=== PATIENT | female | born 1950 | race Caucasian/White ===

== ENCOUNTER 2021-12-10 08:13 | Day surgery (SDC) | payer MEDICARE, SELFPAY ==
[2021-12-10 08:44] VITALS: BP 120/81; PULSE 63; RESP 16; TEMP 36.9; O2SAT 100; BMI 19.7
[2021-12-10] MEDS: Lactated Ringers 1,000 ML 15 ML IV (08:49)
--- NOTE | 2021-12-10 09:06 | HP.PCM_ITS ---
History and Physical Date of Admission: 12/10/21 Intake Visit Reasons: COLONOSCOPY Chief Complaint: screening colonoscopy [employer] Goods Inspector Required: No Is patient in pain?: No Allergies No Known Allergies Allergy (Verified 11/09/21 12:32) Medications levothyroxine 75 mcg tablet ea PO 11/09/21 [History Confirmed 11/09/21] oxazepam 10 mg capsule ea PO 11/09/21 [History Confirmed 11/09/21] Is last menstrual period known: No Post menopausal: Yes Patient : No PFSH Medical History (Updated 11/09/21 @ 12:[address] Jb Hollis MD) Anxiety Hyperlipidemia Hypothyroidism Surgical History (Updated 11/09/21 @ 12:34 by Ana Davenport) History of appendectomy History of colonoscopy History of left oophorectomy Family History (Updated 11/09/21 @ 12:34 by Ana Davenport) Father Cancer lung Mother Cancer lung Social History (Updated 11/09/21 @ 12:34 by Ana Davenport) Smoking Status: Never smoker HPI HPI HPI: ANUJA CARABALLO, is a 71 F who presents to the office today for surgical consultation regarding a screening colonoscopy. Her previous one was 10 years ago. She enjoys good health. She has had some discomfort in the left lower quadrant but thinks because she changed to a completely vegetarian diet. She is very physically fit and she does yoga and biking and walking. No bright red blood per rectum or melena. She has been vaccinated and boosted. She has not had Covid-19. She does have some chronic anxiety and hypothyroidism. Both are managed medically. ROS General General: No weight change, appetite, fatigue, colon cancer, breast cancer or weakness HEENT HEENT: No difficulty swallowing, eye injury, eye surgery, swollen glands or hoarseness Endo Endocrine: Yes thyroid disease; No diabetes mellitus, thyroid cancer, Hair loss, heat intolerance or cold intolerance Musc Musculoskeletal: No back problems, arthritis, rheumatoid arthritis, gout or joint pain Cardio Cardiovascular: No murmur, pacemaker, heart disease, atrial fibrillation, high blood pressure, heart attack, heart stent, palpitations, shortness of breat with exertion or chest pain Psych Psychiatric: Yes anxiety; No depression or hearing voices Resp Respiratory: No shortness of breath, No sleep apnea, No cough, No COPD, No asthma, No emphysema and No wheezing Gastro Gastrointestinal: No abdominal pain, No nausea or vomiting, No diarrhea, No constipation, No blood in stool, No acid reflux, No hemorrhoids, No ulcers, No gallbladder problem and No black,tarry stools Robert Hematologic: No blood thinners, No blood disorders, No bleeding, No anemia and No blood clots Neuro Neurologic: No weakness Exam Const General: cooperative, healthy appearing, comfortable and no acute distress Nutritional Appearance: underweight Orientation: alert and awake HENMT Head: normal to inspection Eyes General: appearance normal, both eyes and all related structures Resp Effort & Inspection: normal respiratory effort Auscultation: clear to auscultation bilaterally Cardio Rate: regular rate Rhythm: regular rhythm GI Palpation: soft and no hepatosplenomegaly Auscultation: normal bowel sounds Musc Cervical Spine: normal cervical lordosis Neuro General: patient alert, patient awake and patient oriented x3 Extrem General: no calf tenderness Psych Affect: anxious affect Assessment and Plan Assessment and Plan (1) Screening for intestinal cancer: Status: Acute Plan - Dr. Jb Hollis MD: 71-year-old healthy female in need of a screening colonoscopy. She would like to take some anxiety medication prior to arrival I believe that that would be satisfactory. She is aware of technique, benefit, risk of alternatives. We will proceed with monitored anesthesia care. Her previous colonoscopy was 10 years ago. Family history is negative for colon cancer. Her brother did have polyps. He had additional medical problems. Jb Hollis M.D., F.A.C.S. I have re-examined the patient. There are no clinical changes since date of exam.
[2021-12-10 10:20] VITALS: BP 120/81; BP 72/38; PULSE 70; RESP 16; TEMP 36.7; O2SAT 98
--- NOTE | 2021-12-10 10:23 | OP.COLON_ITS ---
Patient Name: Yola Gallegos Procedure Date: 12/10/2021 10:00 AM Date of : 1950 Age: 71 Procedure: Colonoscopy Indications: Screening for colorectal malignant neoplasm Providers: Jb Hollis MD Medicines: See the Anesthesia note for documentation of the administered medications Patient Profile: Last Colonoscopy: 10 years ago. Complications: No immediate complications. Procedure: Pre-Anesthesia Assessment: - Prior to the procedure, a History and Physical was performed, and patient medications and allergies were reviewed. The patient's tolerance of previous anesthesia was also reviewed. The risks and benefits of the procedure and the sedation options and risks were discussed with the patient. All questions were answered, and informed consent was obtained. Prior Anticoagulants: The patient has taken no previous anticoagulant or antiplatelet agents. ASA Grade Assessment: II - A patient with mild systemic disease. After reviewing the risks and benefits, the patient was deemed in satisfactory condition to undergo the procedure. After I obtained informed consent, the scope was passed under direct vision. Throughout the procedure, the patient's blood pressure, pulse, and oxygen saturations were monitored continuously. The colonoscope was introduced through the anus and advanced to the cecum, identified by appendiceal orifice and ileocecal valve. The colonoscopy was performed with moderate difficulty due to multiple diverticula in the colon. The patient tolerated the procedure well. The quality of the bowel preparation was good. Scope In: 10:03:34 AM Scope Withdrawal Time 0 hours 7 minutes 58 seconds Scope Out: 10:18:05 AM Total Procedure Duration Time 0 hours 14 minutes 31 seconds Findings: The digital rectal exam findings include non-thrombosed internal hemorrhoids and internal hemorrhoids that prolapse with straining, but spontaneously regress to the resting position (Grade II). Pertinent negatives include normal sphincter tone. Multiple diverticula were found in the entire colon. The sigmoid colon was significantly tortuous. Impression: - Non-thrombosed internal hemorrhoids and internal hemorrhoids that prolapse with straining, but spontaneously regress to the resting position (Grade II) found on digital rectal exam. - Diverticulosis in the entire examined colon. - Tortuous colon. - No specimens collected. Recommendation: - Discharge patient to home. - Resume previous diet. - Continue present medications. - Repeat colonoscopy is not recommended due to current age (66 years or older) for screening purposes. Procedure Code(s): --- Professional --- 78664, Colonoscopy, flexible; diagnostic, including collection of specimen(s) by brushing or washing, when performed (separate procedure) Diagnosis Code(s): --- Professional --- Z12.11, Encounter for screening for malignant neoplasm of colon K64.1, Second degree hemorrhoids K57.30, Diverticulosis of large intestine without perforation or abscess without bleeding Q43.8, Other specified congenital malformations of intestine CPT copyright 2017 [employer]. All rights reserved. The codes documented in this report are preliminary and upon injury/safety hazard assessment review may be revised to meet current compliance requirements. Jb Hollis MD 12/10/2021 10:23:09 AM This report has been signed electronically. Number of Addenda: 0 Note Initiated On: 12/10/2021 10:00 AM
--- NOTE | 2021-12-10 10:24 | OP.CCLET_ITS ---
12/10/2021 Jb Hollis MD [facility] [address] [place] [address] Re : Colonoscopy procedure for Yola Gallegos Dear Dr. Hollis This procedure was performed on Friday, December 10, 2021. My impressions and recommendations are as follows: Impressions : - Non-thrombosed internal hemorrhoids and internal hemorrhoids that prolapse with straining, but spontaneously regress to the resting position (Grade II) found on digital rectal exam. - Diverticulosis in the entire examined colon. - Tortuous colon. - No specimens collected. Recommendations : - Discharge patient to home. - Resume previous diet. - Continue present medications. - Repeat colonoscopy is not recommended due to current age (66 years or older) for screening purposes. My findings are described in the full procedure note, which is enclosed. If I can be of further assistance, please feel free to contact me at Doctor phone number(s): Work: . Sincerely, Jb Hollis MD 12/10/2021 10:23:09 AM This report has been signed electronically.
[2021-12-10 10:25] VITALS: BP 120/81; BP 87/49; PULSE 69; RESP 16; O2SAT 97
[2021-12-10 10:30] VITALS: BP 101/72; BP 120/81; PULSE 75; RESP 16; O2SAT 93
[2021-12-10 10:35] VITALS: BP 120/81; BP 95/56; PULSE 69; RESP 16; TEMP 36.3; O2SAT 97
== END 2021-12-10 11:04 | disposition home or self-care (01) ==
LOC: EN 08:20 → AC 08:20
PROVIDERS: Referring Provider Surgery; Visit Provider Surgery
PROC: 0DJD8ZZ Inspection of Lower Intestinal Tract, Via Natural or Artificial Opening Endoscopic (ICD-10-PCS; CPT 45378; principal; 2021-12-10 09:25)
DX: Z12.11 Encounter for screening for malignant neoplasm of colon (principal); K57.30 Diverticulosis of large intestine without perforation or abscess without bleeding; Q43.8 Other specified congenital malformations of intestine; K64.1 Second degree hemorrhoids; E03.9 Hypothyroidism, unspecified; Z79.899 Other long term (current) drug therapy
CPT/HCPCS: 45378; J7120; J2405

== ENCOUNTER → 2023-02-23 | Outpatient (CLI) | payer SELFPAY ==
--- NOTE | 2023-02-23 12:27 | CT_ITS ---
STUDY: CT CHEST WITHOUT CONTRAST REASON FOR EXAM: Female, 72 years old. CALCIUM SCORE. Over read examination. RADIATION DOSAGE (If Supplied By Facility): CTDIvol = ( 12.19 ) mGy, DLP = ( 243.79 ) mGycm TECHNIQUE: Transaxial imaging was performed without the administration of intravenous contrast material. Individualized dose optimization techniques were used for this CT. COMPARISON: No relevant priors. FINDINGS: CHEST There is a 4.3 mm noncalcified nodule in the anterior aspect of the left lower lobe abutting the major fissure as seen on axial image #30. No follow-up is required. There is no demonstrated pleural abnormality. There are calcifications of the coronary arteries. Normal mediastinum. Normal hilar regions. Normal unenhanced pulmonary arteries. Normal aorta arch and descending thoracic aorta. There are degenerative changes of the thoracic spine. There is no demonstrated abnormality of the visualized upper abdomen. CT/Limited Chest CT Cardiac Only IMPRESSION: Coronary artery calcification. 4.3 mm noncalcified pleural based nodule in the anterior aspect of the left lower lobe abutting the major fissure. No follow-up is recommended. Electronically Signed: Sebastián Castillo MD at 14:36 EDT ,
--- NOTE | 2023-02-23 17:42 | CA.SCORE ---
Calcium Scoring Date of Study:: 02/23/23 Indications Indications: Hyperlipidemia Coronary Calcium Scoring: High-resolution Computed Tomographic imaging of the chest was performed on [02/23/2023], with particular attention paid to the coronary arteries. Images from the examination were analyzed for the presence and extent of coronary artery calcification , using coronary calcium quantification software. The patient tolerated the procedure well and there were no complications. The results of the coronary calcification analysis are provided below. Findings Coronary Artery Left Main (LM): 0 Left Anterior Descending (LAD): 0 Left Circumflex (LCX): 0 Right Coronary Artery (RCA): 0 Total Agatston Score: 0 Percentile Rankin Calcium Scoring Interpretation: Different methods to categorize the overall amount of coronary plaque. Overall amount CAC SIS Visual of coronary plaque P1 Mild -100 <2 1-2 vessels with mild amount of plaque P2 Moderate 101-300 3-4 1-2 vessels with moderate amount, 3 vessels with mild amount of plaque P3 Severe 301-999 5-7 3 vessels with moderate amount, 1 vessel with severe amount of plaque P4 Extensive >1000 >8 2-3 vessels with severe amount of plaque Conclusion: No significant atherosclerotic plaquing noted
== END | disposition home or self-care (01) ==
PROVIDERS: PCP Registered Nurse; Referring Provider Internal Medicine Cardiovascular Disease; Visit Provider Internal Medicine Cardiovascular Disease
DX: E78.5 Hyperlipidemia, unspecified (principal)
CPT/HCPCS: 75571; 76380

== ENCOUNTER 2023-04-03 08:34 | Emergency (ER) | payer MEDICARE, SELFPAY ==
[2023-04-03 08:35] VITALS: BP 110/67; PULSE 72; RESP 14; TEMP 36.1; O2SAT 100; BMI 19.3
--- NOTE | 2023-04-03 08:51 | EDS_ITS ---
HPI HPI - GI History of Present Illness Chief Complaint: Abd Pain Detail of Chief Complaint: Abdominal fullness and pain for a couple of weeks. Informant: patient and spouse/S.O. Abdominal Pain/Flank Pain Onset: Weeks Context: Sudden Onset Timing: Continuous and Waxes and wanes Quality: Aching Location: RLQ and LLQ Current Severity: Mild Maximum Severity: Moderate Worsened by: Food (Believes the potato with 2 tablespoons of olive oil that she consumed on .) Relieved by: Antacids (Has taken Maalox with minimal improvement) Nausea/Vomiting/Emesis GI Symptom: Negative for Nausea or Vomiting Diarrhea/Melena/Hematochezia GI Symptom: Positive for Diarrhea (Diarrhea a couple of weeks ago after consuming dairy products and self-induced); Negative for Melena or Hematochezia Onset: Weeks (2 weeks ago and this past week) Stool Quality: Positive for Loose and Watery; Negative for Mucous, Black, Maroon or BRB per rectum Severity: Mild Associated Symptoms Associated Symptoms: Negative for Dysuria, Frequency, Hematuria or Urgency Narrative Narrative: Patient is a 72-year-old woman who presents with abdominal pain. She has history of lactulose intolerance. Patient was doing well until a couple of weeks ago when she had dairy product. She took lactulose tablets but did not have total relief. She presents now because of increased fullness and distention that she reports got worse this past after having potato with olive oil. She denies nausea or vomiting. She had diarrhea a couple of weeks ago when she had dairy product and when she is taking Maalox. She states she had a colonoscopy recently by Dr. Jb Hollis and was told she does not need future colonoscopy. No biopsies were taken. That note was reviewed and patient has evidence of diverticulosis in the entire colon that was examined and also had an internal hemorrhoid. Patient denies fever, chills night sweats. Patient Nuys weight gain or weight loss. Patient denies urologic symptoms. Patient denies back pain. Prior similar symptoms: Yes Recent Illness/Hospitalization: No PFSH [facility] Medical History Abnormal Holter monitor finding Alcohol use Anxiety Dietary restriction High cholesterol Hyperlipidemia Hypothyroidism Non-smoker NSVT (nonsustained ventricular tachycardia) Paroxysmal supraventricular tachycardia Post-menopausal Screening for intestinal cancer Thyroid disease Wears contact lenses Wears glasses Home Medications levothyroxine 75 mcg tablet 75 mcg PO SUMOTUWETHFR 11/09/21 [History Last Taken Unknown] cholecalciferol (vitamin D3) 25 mcg (1,000 unit) capsule (Vitamin D3) 25 mcg PO DAILY 12/09/21 [History Last Taken Unknown] oxazepam 10 mg capsule 10 mg PO PRN PRN Anxiety 01/18/23 [History Last Taken Unknown] amoxicillin 875 mg-potassium clavulanate 125 mg tablet 875 mg (0.875 x 875-125 mg) PO Q12H #14 TABLETS 04/03/23 [Rx Last Taken Unknown] Allergy/AdvReac Type Severity Reaction Status Date / Time No Known Allergies Allergy Verified 04/03/23 08:37 Family History Father Cancer lung Hypertension Diabetes Mother Cancer lung Hypertension CVA (cerebral vascular accident) Surgical History History of appendectomy History of colonoscopy History of left oophorectomy History of tonsillectomy Social History Smoking Status: Never smoker alcohol intake: current alcohol intake frequency: a few times a month Alcohol type: wine substance use type: does not use caffeine: Yes Type: carbonated beverages Number of servings: 2 and coffee Number of servings: 1 ROS ROS ED Constitutional Constitutional ED: Denies chills, fever(s), subjective, sweats or weight loss ENT ENT ED: Denies ear pain, rhinorrhea or sore throat Cardiovascular Cardiovascular: Denies chest pain or palpitations Respiratory/Chest Respiratory/Chest: Denies cough, dyspnea or dyspnea on exertion Gastrointestinal Gastrointestinal: Reports abdominal pain and diarrhea; Denies constipation, melena, nausea or vomiting Genitourinary Genitourinary ED: Denies dysuria, hematuria or urinary frequency Musculoskeletal Musculoskeletal: Denies arthralgias, back pain, myalgias or neck pain Integumentary Denies rash Hematologic/Lymphatic Hematologic/Lymphatic: Denies easy bleeding or easy bruising EXAM Physical Exam Const Vital Signs: 04/03/23 08:35 Temperature 97.0 F L Temperature Source Temporal Pulse Rate 72 Respiratory Rate 14 Blood Pressure 110/67 Blood Pressure Mean 81 Pulse Ox 100 Oxygen Delivery Method Room Air Positive well nourished and well developed General Appearance ED: well developed, NAD and pallor HEENT Reports TM's clear and moist mucous membranes normocephalic and atraumatic Tympanic Membrane ED: Yes TM's clear Eyes PERRL and EOMs intact bilaterally General Eye ED: Negative for pale conjunctiva or scleral icterus Neck no lymphadenopathy, supple and no JVD Resp normal respiratory effort and clear to auscultation bilaterally Cardio regular rate, regular rhythm, S1 normal heart sound, S2 normal heart sound and no murmurs GI no masses; Negative for non-tender or non-distended GI Narrative: Patient is tympany throughout. Bowel sounds are increased. There is no tinkling bowel sounds. Patient has scar due to salpingo-oophorectomy and appendicitis. Inspection: abdominal distention Palpation: soft and tender LLQ; Negative for guarding, rigid, hepatomegaly, splenomegaly, hernia, mass or pulsatile mass Back/Spine no CVA tenderness Extremity full ROM General Extremety ED: Negative for edema or tenderness General Extremity: Negative for edema Neuro CN's II-XII intact bilaterally, moves all extremities and no sensory deficits noted Sensorium / Orientation: alert Psych mental status grossly normal and thought process normal Skin no wounds General Skin Exam: pallor; Negative for jaundice Lesions: no lesions Rashes: no rashes MDM MDM MDM Narrative Medical decision making narrative: Patient is tympanitic distended with prior history of surgery will obtain abdominal series to assess for air-fluid levels. Doubt obstruction since patient states she is passing gas. Her last bowel movement was normal and less than 24 hours ago. If white count is elevated in light of extensive diverticulosis will obtain CAT scan to evaluate for diverticulitis. Records from outside facility i.e. Holter monitor ordered by Romeo Ruiz was reviewed. Colonoscopy report by Dr. Jb Hollis was reviewed. History & Record Review Additional record(s) reviewed:: Prior outpatient record, Prior ED visit and Prior labs Lab Data Labs: Laboratory Results - last 24 hr 04/03/23 09:00 WBC 13.6 H RBC 4.35 Hgb 12.7 Hct 39.5 MCV 90.8 MCH 29.2 MCHC 32.2 RDW Std Deviation 40.0 RDW Coeff of Snow 12.0 Plt Count 252 MPV 10.9 Immature Gran % (Auto) 0.300 Neut % (Auto) 86.5 H Lymph % (Auto) 7.3 L Ness % (Auto) 5.2 Eos % (Auto) 0.3 Baso % (Auto) 0.4 Absolute Neuts (auto) 11.8 H Absolute Lymphs (auto) 1.00 Nucleated RBC % 0 Sodium 140 Potassium 3.6 Chloride 105 Carbon Dioxide 30.0 Anion Gap 5 BUN 13 Creatinine 0.74 Estim Creat Clear Calc 44.34 Est GFR (MDRD) Af Amer 99 Est GFR (MDRD) Non-Af 82 BUN/Creatinine Ratio 17.5 Glucose 97 Calcium 9.0 Radiography Chest X-Ray - ED: Read by ED Physician (3 view abdominal series was obtained. The chest portion was unremarkable. Cardiac silhouette and size normal. Lung parenchyma normal. Perihilar region normal. Osseous structures were normal. The abdominal portion reveals minimal nonspecific gas. There is no pneumo.. There is minimal degenera) Diagnostic Testing: Clinical Impression(s) from Imaging Studies Acute Abdomen Series 04/03/23 09:08 IMPRESSION: 1. No active pulmonary disease. 2. Nonobstructive gas. Electronically Signed: Ismael Sommer MD at 9:30 EDT , Abdomen/Pelvis CT 04/03/23 09:30 IMPRESSION: 1. Thickening of the sigmoid colon consistent with acute diverticulitis. 2. No evidence of drainable abscess or free air. Electronically Signed: Ismael Sommer MD at 10:26 EDT , Treatment and Re-Evaluation :: Because patient has predominately tenderness left lower quadrant with extensive diverticulosis on most recent colonoscopy an elevated white count of 13.6 thousand and will obtain CAT scan to assess for diverticulitis. CAT scan reveals diverticulitis of the sigmoid colon. Patient received first dose of Augmentin in the emergency department. She was discharged home. Discharge Plan Triage Chief Complaint: Abd Pain ED Provider: Victor M Nicole Dx/Rx/DC Orders Clinical Impression: Hyperlipidemia, Hypothyroidism, Diverticulitis of sigmoid colon Instructions: ED Diverticulitis Prescriptions: New amoxicillin-pot clavulanate [amoxicillin-pot clavulanate] 875-125 mg tablet 875 mg PO Q12H Qty: 14 0RF No Action levothyroxine 75 mcg tablet 75 mcg PO SUMOTUWETHFR Patient Comments: TAKE ON EMPTY STOMACH. FOR THYROID. TAKE ONE TABLET 6 DAYS/WEEK. oxazepam 10 mg capsule 10 mg PO PRN PRN (Reason: Anxiety) Patient Comments: TAKE 1 CAPSULE BY MOUTH ONCE DAILY NEEDED FOR ANXIETY FOR UP TO 30 DAYS. cholecalciferol (vitamin D3) [Vitamin D3] 25 mcg (1,000 unit) Capsule 25 mcg PO DAILY Primary Care Provider: Marely Wood NP Referrals: Marely Wood NP, [facility] [Primary Care Provider] - 3-5 Days if not improving Activity Restrictions/Additional Instructions: 1. Take antibiotics till gone 2. If you develop a fever or pain becomes worse return to the emergency department 3. Take either ibuprofen or Tylenol for pain as needed Disposition Disposition: Home, Self Care
--- NOTE | 2023-04-03 09:08 | RAD_ITS ---
INDICATION: Distention, bloated, tympanitic and bilateral LQ p EXAMINATION/TECHNIQUE: X-RAY - XR Abdomen Series W/ Chest 1 View COMPARISON: None. FINDINGS: --Chest: LINES/DEVICES: None. LUNGS: No consolidation, edema or effusion. No pneumothorax. MEDIASTINUM AND CARDIOVASCULAR STRUCTURES: Cardiac silhouette not enlarged. Central airways and mediastinal contour are unremarkable. BONES AND SOFT TISSUES: No acute findings. --Abdomen: BOWEL GAS PATTERN: Non-obstructive. No bowel or stomach distention. FREE AIR: None visualized. ORGANOMEGALY: Not seen. CALCIFICATIONS: No abnormal calcifications observed. BONES AND SOFT TISSUES: Degenerative changes of the lower lumbar spine. RAD/Acute Abdomen Inc Chest IMPRESSION: 1. No active pulmonary disease. 2. Nonobstructive gas. Electronically Signed: Ismael Sommer MD at 9:30 EDT ,
[2023-04-03 09:13] LABS: Absolute Neutrophil Count 11.8 X10^3/uL (2.0-7.7); Basophil# 0.05 X10^3/uL; Basophil% 0.4 % (0-1); Eosinophil# 0.04 X10^3/uL; Eosinophils% 0.3 % (0-5); Hematocrit 39.5 % (37-47); Hemoglobin 12.7 g/dL (12.0-15.0); Lymphocyte % 7.3 % (19-41); Mean Corp Hgb Conc 32.2 g/dL (32-36); Mean Corpuscular Hgb 29.2 pg (27.0-32.0); Mean Corpuscular Volume 90.8 fL (81-99); Mean Platelet Vol. 10.9 fl (6.2-12.0); Monocyte# 0.71 X10^3/uL; Monocyte% 5.2 % (0-10); NRBC Flagged by Analyzer 0 % (0-5); Neutrophil # 11.78 X10^3/uL (2.7-7.7); Neutrophil % 86.5 % (47-70); Platelet Count 252 K/mm3 (150-450); Red Blood Count 4.35 M/mm3 (4.2-5.4); White Blood Count 13.6 K/mm3 (4.4-11.0)
[2023-04-03 09:28] LABS: Anion Gap 5 (5-15); BUN 13 mg/dL (7-18); BUN/Creat Ratio 17.5 RATIO (10-20); Chloride 105 mmol/L (98-107); Creatinine, Serum 0.74 mg/dL (0.55-1.02); EST Glomerular Filtration Rate 82 mL/min (>60); Est Glom Filt Rate - Afr Amer 99 mL/min (>60); Estimated Creatinine Clearance 44.34 ml/min; Glucose 97 mg/dL (74-106); Potassium 3.6 mmol/L (3.5-5.1); Sodium Level 140 mmol/L (136-145)
--- NOTE | 2023-04-03 09:30 | CT_ITS ---
STUDY: CT ABDOMEN AND PELVIS WITH CONTRAST REASON FOR EXAM: Female, 72 years old. LLQ pain, leukocytosis, history diverticulosis RADIATION DOSAGE (If Supplied By Facility): CTDIvol = ( 10.89 ) mGy, DLP = ( 390.74 ) mGycm TECHNIQUE: IV 100mL [id number]-[id number] was administered. Transaxial images were obtained from the dome of the diaphragm to the symphysis pubis. Multiplanar coronal and sagittal images were reformatted. Individualized Dose Optimization Techniques Were Used For This CT. COMPARISON: No prior examinations are available for comparison FINDINGS: The visualized lung bases are unremarkable. The visualized portions of the heart are within normal limits. Normal liver. Normal gallbladder and extrahepatic biliary system. Normal spleen. Normal pancreas. Normal bilateral adrenal glands. Grossly unremarkable stomach. Normal in caliber small bowel loops. Diverticulosis of the sigmoid colon with long segment of thickening and stranding consistent with acute diverticulitis. Colitis is less likely. Fecal retention. There are surgical clips in the region of the appendix consistent with a prior appendectomy. There is atherosclerotic calcification of the abdominal aorta, without a demonstrated aneurysm. No retroperitoneal adenopathy. Normal right kidney. Normal left kidney. Normal urinary bladder. Small umbilical hernia containing fat. Degenerative changes in the spine. CT/Abdomen/Pelvis W IV Cont ONLY IMPRESSION: 1. Thickening of the sigmoid colon consistent with acute diverticulitis. 2. No evidence of drainable abscess or free air. Electronically Signed: Ismael Sommer MD at 10:26 EDT ,
[2023-04-03] MEDS: Morphine 4 MG/ML Syringe IV (10:06)
[2023-04-03] MEDS: Ondansetron 4 MG/2 ML Vial IV (10:06)
[2023-04-03] MEDS: Amox/Clavulanate 875 MG Tablet PO (11:18)
== END 2023-04-03 11:30 | disposition home or self-care (01) ==
PROVIDERS: Emergency Provider Emergency Medicine; PCP Registered Nurse; Visit Provider Emergency Medicine
DX: E78.5 Hyperlipidemia, unspecified (principal); E03.9 Hypothyroidism, unspecified; K57.32 Diverticulitis of large intestine without perforation or abscess without bleeding
CPT/HCPCS: 74022; 74177; 80048; 85025; 96374; 96375; 99283; Q9967; A4216; J2405

== ENCOUNTER 2025-01-01 23:23 | Emergency (ER) | payer MEDICARE, SELFPAY ==
[2025-01-01 23:23] VITALS: BP 144/83; PULSE 40; RESP 18; TEMP 36.6; O2SAT 100; BMI 19.5
[2025-01-01 23:40] VITALS: BP 131/57; PULSE 62; RESP 18; O2SAT 99
[2025-01-02 00:18] LABS: Absolute Neutrophil Count 9.4 X10^3/uL (2.0-7.7); Basophil# 0.06 X10^3/uL; Basophil% 0.5 % (0-1); Eosinophil# 0.07 X10^3/uL; Eosinophils% 0.6 % (0-5); Hematocrit 41.2 % (37-47); Hemoglobin 13.7 g/dL (12.0-15.0); Lymphocyte % 16.3 % (19-41); Mean Corp Hgb Conc 33.3 g/dL (32-36); Mean Corpuscular Hgb 29.3 pg (27.0-32.0); Mean Platelet Vol. 11.2 fl (6.2-12.0); Monocyte# 0.68 X10^3/uL; Monocyte% 5.5 % (0-10); NRBC Flagged by Analyzer 0 % (0-5); Neutrophil % 76.4 % (47-70); Platelet Count 219 K/mm3 (150-450); RBC Distribution Width CV 12.7 % (11.6-14.6); RBC Distribution Width SD 41.1 fl (35.1-43.9); Red Blood Count 4.68 M/mm3 (4.2-5.4); White Blood Count 12.3 K/mm3 (4.4-11.0)
[2025-01-02 00:36] LABS: ALB/GLOB Ratio 1.4 RATIO (0.9-2.4); AST(SGOT) 23 U/L (<=31); Alanine Aminotransfer ALT/SGPT 12 U/L (<=34); Albumin, Serum 4.3 g/dL (3.4-4.8); Alkaline Phosphatase 68 U/L (35-104); Anion Gap 12 (5-15); BUN 9 mg/dL (4-19); BUN/Creat Ratio 11.8 RATIO (10-20); Calcium,Total 9.4 mg/dL (7.6-11.0); Carbon Dioxide 24.7 mmol/L (21.0-32.0); Chloride 103 mmol/L (98-108); Creatinine, Serum 0.78 mg/dL (0.70-1.20); EST Glomerular Filtration Rate 80 (>60); Estimated Creatinine Clearance 54.18 ml/min (50-250); Globulin 3.2 g/dL (2.2-4.2); Glucose 109 mg/dL (70-99); Lipase 19 U/L (13-75); Potassium 3.7 mmol/L (3.3-5.1); Protein, Total 7.5 g/dL (5.9-8.4); Sodium Level 140 mmol/L (133-145); Total Bilirubin 0.76 mg/dL (0.00-1.30)
--- NOTE | 2025-01-02 00:47 | CT_ITS ---
PROCEDURE: ABDOMEN/PELVIS W IV CONT ONLY 01/02/2025 REASON FOR EXAM: LLQ PAIN TECHNIQUE: Abdomen and pelvis CT with intravenous contrast. Coronal and Sagittal reconstruction series were provided. PATIENT PREPARATION: Per protocol CONTRAST: 100 mL [id number] One or more dose reduction techniques were used (e.g., Automated exposure control, adjustment of the mA and/or kV according to patient size, use of iterative reconstruction technique. RADIATION DOSE SUMMARY: CTDlvol: 10.4 mGy DLP: 512 mGycm COMPARISON: CT abdomen and pelvis on 04/03/2023 FINDINGS: Lung bases: Unremarkable Liver: Normal size. No mass. Gallbladder: No radiodense stones. Common bile duct measures 7 mm in diameter, unchanged. Spleen: Normal size. Pancreas: Normal size without evidence of mass surrounding inflammation or ductal dilation. Adrenals: Unremarkable. Kidneys: No stones or hydronephrosis Bladder: Unremarkable Reproductive Organs: Prominent periuterine veins, unchanged. Bowel: No obstruction. There is colonic diverticulosis with mild wall thickening and inflammatory stranding involving the sigmoid colon. Surgically absent appendix. Lymph nodes: No significant lymphadenopathy. Vasculature: Mild diffuse atherosclerotic calcifications are noted. Bones: Degenerative changes of the spine. Mild sclerosis of the femoral heads is unchanged. Abdominal wall: Small fat containing umbilical and right inguinal hernias. CT/Abdomen/Pelvis W IV Cont ONLY IMPRESSION: Findings suggestive of mild acute uncomplicated diverticulitis of the sigmoid c olon. Reading Location: [id number]
[2025-01-02 01:00] VITALS: BP 126/48; PULSE 50; RESP 18; O2SAT 97
--- OUTSIDE RECORDS SUMMARY | 2025-01-02 01:17 | XMS RPT_ITS | CCD ---
Author Organization [facility] Care Team Providers Care Waiter/Waitress Name Role Phone Haagen FREIGHT RATE SPECIALIST.KEVIN, Marely Primary Care Provider Dr. Jb Hollis Attending Provider Dr. Jb Hollis Referring Provider Dr. Jb Hollis Other Provider GLORIA WADE Primary Care Provider Unavailab le Haagen FREIGHT RATE SPECIALIST.EDUCATIONAL RECRUITER, Marely Primary Care Provider Haagen FREIGHT RATE SPECIALIST.EDUCATIONAL RECRUITER, Marely Primary Care Provider Haagen FREIGHT RATE SPECIALIST.EDUCATIONAL RECRUITER, Marely Primary Care Provider Sabrina Coon Attending Provider Unavailable Dr. Den Buchanan Attending Provider Nina CARE MANAGEMENT ASSOCIATE, CARE MANAGEMENT ASSOCIATE-C Marely Referring Provider Haagen CARE MANAGEMENT ASSOCIATE, CARE MANAGEMENT ASSOCIATE-C Marely Primary Care Provider Dr. Den Buchanan Referring Provider Dr. Den Buchanan Other Provider Gillian ARRINGTON, CARE MANAGEMENT ASSOCIATE-C Marcos Ivey Attending Provider Haagen FREIGHT RATE SPECIALIST.EDUCATIONAL RECRUITER, Marely Primary Care Provider Marcos French Attending Unavailable Haagen CARE MANAGEMENT ASSOCIATE, Marely Primary Care Unavailable Haagen CARE MANAGEMENT ASSOCIATE, Marely Primary Care Unavailable Victor M Nicole Attending Unavailable Den Buchanan Attending Unavailable Haagen CARE MANAGEMENT ASSOCIATE, Marely Referring Unavailable Neyda Canela NP Attending Unavailable Haagen CARE MANAGEMENT ASSOCIATE, Marely Referring Unavailable Haagen CARE MANAGEMENT ASSOCIATE, Marely Primary Care Unavailable Den Buchanan Attending Unavailable Den Buchanan Referring Unavailable Haagen CARE MANAGEMENT ASSOCIATE, Marely Primary Care Unavailable Chnael, Parowan Consulting Unavailable Chanel, Den Attending Unavailable Chanel, Parowan Referring Unavailable Haagen CARE MANAGEMENT ASSOCIATE, Marely Primary Care Unavailable Haagen FREIGHT RATE SPECIALIST.EDUCATIONAL RECRUITER, Marely Primary Care Provider Suppan FREIGHT RATE SPECIALIST.Amara BROWN Unavailable Mariano Kang MD Unavailable Suppan FREIGHT RATE SPECIALIST.Amara BROWN Unavailable [phone] HAAGEN, MARELY Primary Care Unavailable KEENAN GUILLEN Attending Unavailable HAAGEN, MARELY Referring Unavailable HAAGEN, MARELY Primary Care Unavailable HAAGEN, MARELY Attending Unavailable HAAGEN, MARELY Primary Care Unavailable LISA CULLEN Referring Unavail able HAAGEN, MARELY Primary Care Unavailable HAAGEN, MARELY Referring Unavailable HAAGEN, MARELY Primary Care Unavailable HAAGEN, MARELY Attending Unavailable HAAGEN, MARELY Primary Care Unavailable COLLEEN POWELL Attending Unavailable HAAGEN, MARELY Primary Care Unavailable NETTE LIZ Referring Unavailable HAAGEN, MARELY Primary Care Unavailable HAAGEN, MARELY Attending Unavailable HAAGEN, MARELY Primary Care Unavailable COLLEEN POWELL Attending Unavailable HAAGEN, MARELY Primary Care Unavailable JUANA LOVE Attending Unavailable HAAGEN, MARELY Primary Care Unavailable Suppan FREIGHT RATE SPECIALIST.Amara BROWN Unavailable Mariano Kang MD Unavailable Medications Current Medications Medication Drug Class(es) Dates Sig (Normalized) Sig (Original) amitriptyline hydrochloride 10 mg oral tablet (8 sources) Tricyclic Antidepressant Start: 03-25-2024 take 1 tablet by mouth once daily at bedtime amitriptyline (ELAVIL) 10 mg tablet Indications: Abdominal pain, unspecified abdominal location , JOSE EDUARDO (generalized anxiety disorder) Take 1 tablet by mouth daily at bedtime. 30 tablet 1 03/25/2024 Active amoxicillin 875 mg / clavulanate 125 mg oral tablet (2 sources) Penicillin-class Antibacterial Start: 06-16-2023 End: 06-26-2023 take 1 tablet by mouth twice daily amoxicillin-clavul anate potassium (AUGMENTIN) 875-125 mg per tablet Indications: Bacterial sinusitis Take 1 tablet by mouth two times a day for 10 days. 20 tablet 0 06/16/2023 06/26/2023 Active Start: 04-03-2023 take 875 mg by mouth every twelve hours Amoxicillin-Pot Clavulanate Active 875 MG PO Q12H April 03, 2023 12:00am Comment on above: Take 1 tablet by [facility] two times a day for 10 days. cephalexin 500 mg oral capsule (4 sources) Cephalosporin Antibacterial Start: 5 End: 5 take 1 capsule by mouth twice daily cephALEXin (KEFLEX) 500 mg capsule Indications: Acute bacterial simple cystitis Take 1 capsule by mouth two times a day for 7 days. 14 capsule 11/24/2024 12/01/2024 Active Start: 01-23-2022 End: 01-30-2022 take 1 capsule by mouth twice daily cephALEXin (KEFLEX) 500 mg capsule Take 1 capsule by mouth twice daily for 7 days. 14 capsule 0 01/23/2022 01/30/2022 Active Comment on above: Take 1 capsule by [facility] twice daily for 7 days. cholecalciferol 0.025 mg oral capsule (20 sources) Vitamin D Start: 12-10-19 take 1 capsule by mouth once daily Cholecalciferol (Vitamin D3) (Vitamin D3) 25 mcg (1,000 unit) Capsule Active 25 MCG PO DAILY December 09, 2021 12:00am Start: 03-26-2019 take 1 capsule by [facility] once daily Cholecalciferol, Vitamin D3, 2,000 unit cap Take 1 capsule by mouth once daily. 03/26/2019 Active Comment on above: Take 1 capsule by [facility] once daily. estradiol 0.1 mg/ml vaginal cream (20 sources) Estrogen Start: 3 End: 4 estradiol (ESTRACE) 0.01 % (0.1 mg/gram) vaginal cream Indications: Postmenopausal atrophic vaginitis , Genitourinary syndrome of menopause , Urethral caruncle Use 1 g vaginally as directed. Insert 1 gm vaginally every night x 14 nights then insert 1 gm vaginally twice weekly 42.5 g 4 11/13/2023 Active Comment on above: Use 1 g vaginally as directed. Insert 1 gm vaginally every night x 14 nights then insert 1 gm vaginally twice weekly fluconazole 150 mg oral tablet (4 sources) Azole Antifungal Start: End: take 1 tablet by mouth once fluconazole (DIFLUCAN) 150 mg tablet Take 1 tablet by mouth one time only for 1 dose. 1 tablet 03/19/2024 03/19/2024 Active Start: 11-17-2022 End: 11-17-2022 fluconazole (DIFLUCAN) 150 m g tablet Take 1 tablet by mouth one time only for 1 dose. Repeat in 3 days as needed. 2 tablet 0 11/17/2022 11/17/2022 Start: 11-14-2022 End: 11-15-2022 take 1 tablet by mouth once daily fluconazole (DIFLUCAN) 150 mg tablet Indications: Alfred vaginitis Take 1 tablet by mouth once daily for 1 day. 1 tablet 0 11/14/2022 11/15/2022 Active Comment on above: Take 1 tablet by elizabeth [facility] once daily for 1 day. Take 1 tablet by elizabeth [facility] one time only for 1 dose. Repeat in 3 days as needed. lactobacillus acidophilus 460 mg oral capsule (20 sources) Start: take 1 capsule by mouth once daily Lactobacillus acidophilus (FLORAJEN ACIDOPHILUS) 20 billion cell capsule Indications: Abdominal pain, unspecified abdominal location Take 1 capsule by mouth once daily. 30 capsule 1 10/13/2023 Active Comment on above: Take 1 capsule by mo [facility] once daily. levothyroxine sodium 0.075 mg oral tablet (20 sources) l-Thyroxine Start: End: SYNTHROID 75 mcg tablet Indications: Hypothyroidism, unspecified type Take on empty stomach. For Thyroid. Take one tablet 6 days/week. 90 tablet 3 11/13/2023 Active Comment on above: Take on empty stomac h. For Thyroid. Take one tablet 6 days/week. nitrofurantoin, macrocrystals 25 mg / nitrofurantoin, monohydrate 75 mg oral capsule (4 sources) Nitrofuran Antibacterial Start: 023 End: take 1 capsule by mouth twice daily at mealtime nitrofurantoin monohydrate and macrocrystal (MACROBID) 100 mg capsule Indications: Burning with urination Take 1 capsule by mouth twice daily with meals for 5 days. 10 capsule 0 10/24/2022 10/29/2022 Active Comment on above: Take 1 capsule by mo [facility] twice daily with meals for 5 days. perflutren lipid microspheres 1.3 mL in NaCl (PF) 0.9% 10 mL injection (DEFINITY) (20 sources) Start: End: perflutren lipid microspheres 1.3 mL in NaCl (PF) 0.9% 10 mL injection (DEFINITY) 125 ml sodium chloride 9 mg/ml prefilled syringe (20 sources) Start: End: sodium chloride 0.9 % (flush) 10 mL (BD POSIFLUSH) Completed/Discontinued Medications Medication Drug Class(es) Dates Sig (Normalized) Sig (Original) betamethasone 0.5 mg/ml / clotrimazole 10 mg/ml topical cream (11 sources) Azole Antifungal, Corticosteroid Start: 12-27-2022 End: 10-13-2023 clotrimazole-beta methasone (LOTRISONE) cream Indications: Irritation of vulva Apply 1 application to affected area twice daily. 15 g 2 12/27/2022 10/13/2023 Discontinued (Other) Comment on above: Apply 1 application to affected area twice daily. busPIRone hydrochloride 5 mg oral tablet (12 sources) Start: 02-12-2024 End: 03-25-2024 take 3 tablets by mouth twice daily as needed busPIRone (BUSPAR) 5 mg tablet Indications: Chronic anxiety Take 3 tablets by mouth two times a day as needed. 60 tablet 1 02/12/2024 03/25/2024 Discontinued Start: 10-13-2023 End: 02-12-2024 take 1 tablet by mouth twice daily as needed busPIRone (BUSPAR) 5 mg tablet Indications: Chronic anxiety Take 1 tablet by mouth two times a day as needed. 60 tablet 1 10/13/2023 02/12/2024 Discontinued Comment on above: Take 1 tablet by [facility] two times a day as needed. ciprofloxacin 500 mg oral tablet (5 sources) Quinolone Antimicrobial Start: 12-28-19 End: 04-13-20 take 1 tablet by mouth twice daily ciprofloxacin HCl (CIPRO) 500 mg tablet Indications: Leukocytes in urine , Recurrent UTI Take 1 tablet by mouth twice daily. FOR 7 DAYS. 14 tablet 0 12/27/2022 04/13/2023 Discontinued Start: 11-17-2022 End: 11-24-2022 take 1 tablet by mouth twice daily ciprofloxacin HCl (CIPRO) 500 mg tablet Take 1 tablet by mouth twice daily for 7 days. 14 tablet 0 11/17/2022 11/24/2022 Active Comment on above: Take 1 tablet by elizabeth [facility] twice daily for 7 days. Take 1 tablet by elizabeth [facility] twice daily. FOR 7 DAYS. oxazepam 10 mg oral capsule (20 sources) Benzodiazepine Start: 03-25-2024 End: 04-24-2024 take 1 capsule by mouth once daily as needed for anxiety oxazepam (SERAX) 10 mg capsule Indications: Chronic anxiety Take 1 capsule by mouth once daily as needed for anxiety for up to 30 days. 30 capsule 03/25/2024 04/24/2024 Start: 12-26-2023 End: 01-25-2024 take 1 capsule by mouth once daily as needed for anxiety oxazepam (SERAX) 10 mg capsule Indications: Chronic anxiety Take 1 capsule by mouth once daily as needed for anxiety for up to 30 days. 30 capsule 0 12/26/2023 01/25/2024 Active Start: 10-13-2023 End: 11-12-2023 take 1 capsule by mouth once daily as needed for anxiety oxazepam (SERAX) 10 mg capsule Indications: Chronic anxiety Take 1 capsule by mouth once daily as needed for anxiety for up to 30 days. 30 capsule 0 10/13/2023 11/12/2023 Active Start: 07-04-2023 End: 08-03-2023 take 1 capsule by mouth once daily as needed for anxiety oxazepam (SERAX) 10 mg capsule Indications: Chronic anxiety Take 1 capsule by mouth once daily as needed for anxiety for up to 30 days. 30 capsule 0 07/04/2023 08/03/2023 Active Start: 04-13-2023 End: 05-13-2023 take 1 capsule by mouth once daily as needed for anxiety oxazepam (SERAX) 10 mg capsule Indications: Chronic anxiety Take 1 capsule by mouth once daily as needed for anxiety for up to 30 days. 30 capsule 0 04/13/2023 05/13/2023 Active Start: 01-18-2023 Oxazepam Activ e 10 MG PO NEEDED January 18, 2023 11:13am Start: 11-29-2022 End: 12-29-2022 take 1 capsule by mouth once daily as needed for anxiety oxazepam (SERAX) 10 mg capsule Indications: Chronic anxiety Take 1 capsule by mouth once daily as needed for anxiety for up to 30 days. 30 capsule 0 11/29/2022 12/29/2022 Active Start: 06-21-2022 End: 11-23-2022 take 1 capsule by mouth once daily as needed for anxiety oxazepam (SERAX) 10 mg capsule Indications: Chronic anxiety Take 1 capsule by mouth once daily as needed for anxiety for up to 30 days. 30 capsule 0 10/24/2022 11/23/2022 Active Start: 11-09-2021 End: 12-10-2021 take 1 capsule by mouth once daily as needed for anxiety oxazepam (SERAX) 10 mg capsule Indications: Chronic anxiety Take 1 capsule by mouth once daily as needed for anxiety for up to 30 days. 30 capsule 0 11/10/2021 12/10/2021 Active Start: 11-09-2021 End: 01-18-2023 Oxazepam Discontinued 15 MG PO NEEDED November 09, 2021 12:00am January 18, 2023 11:14am Comment on above: Take 1 capsule by mo [facility] once daily as needed for anxiety for up to 30 days. Problems Active Problems Problem Classification Problem Date Documented Date Episodic/Chronic Anxiety disorders (20 sources) Chronic anxiety; Translations: [Anxiety disorder, unspecified] Onset: 02-22-2011 Chronic Bacterial infection; unspecified site (1 source) Other specified bacterial agents as the cause of diseases classified elsewhere; Translations: [Acute bacterial simple cystitis] Onset: 11-24-2024 Episodic Cardiac dysrhythmias (20 sources) Paroxysmal supraventricular tachycardia; Translations: [Supraventricular tachycardia] Onset: 11-17-2022 Chronic Cardiac dysrhythmias (4 sources) Bradycardia; Translations: [Bradycardia, unspecified] Episodic Diseases of white blood cells (4 sources) Leukocytosis; Translations: [Elevated white blood cell count, unspecified] Onset: 10-11-2024 04-13-2023 Chronic Disorders of lipid metabolism (20 sources) Hyperlipidemia; Translations: [Hyperlipidemia, unspecified] Onset: 12-28-2016 12-28-2016 Chronic Diverticulosis and diverticulitis (20 sources) Diverticulitis of sigmoid colon; Translations: [Diverticulitis of large intestine without perforation or abscess without bleeding] Onset: 08-16-2023 04-03-2023 Chronic Genitourinary symptoms and ill-defined conditions (3 sources) Increased frequency of urination; Translations: [Frequency of micturition] Episodic Headache; including migraine (20 sources) Migraine with aura; Translations: [Migraine with aura, not intractable, without status migrainosus] Onset: 04-20-2020 04-20-2020 Chronic Heart valve disorders (4 sources) Ventricular bigeminy; Translations: [Other abnormalities of heart beat] Episodic Immunizations and screening for infectious disease (1 source) Needs influenza immunization; Translations: [Encounter for immunization] Episodic Menopausal disorders (5 sources) Atrophic vaginitis; Translations: [Postmenopausal atrophic vaginitis] 11-13-2023 Chronic Mycoses (1 source) Candidiasis of vagina; Translations: [Alfred vaginitis] Episodic Nutritional deficiencies (20 sources) Vitamin D deficiency; Translations: [Vitamin D deficiency, unspecified] Onset: 07-15-2010 Resolved: 05-29-2018 03-26-2019 Chronic Other bone disease and musculoskeletal deformities (2 sources) Osteopenia; Translations: [Other specified disorders of bone density and structure, right thigh] Episodic Other connective tissue disease (1 source) Cramp in lower limb; Translations: [Cramp and spasm] 10-07-2024 Episodic Other connective tissue disease (1 source) Cramp and spasm; Translations: [Leg cramping] Onset: 10-11-2024 Episodic Other diseases of bladder and urethra (2 sources) Urethral caruncle; Translations: [Urethral caruncle] 11-13-2023 Episodic Other female genital disorders (3 sources) Vaginal irritation; Translations: [Other specified noninflammatory disorders of vagina] 02-22-2024 Episodic Other female genital disorders (1 source) Vaginal discharge; Translations: [Other specified noninflammatory disorders of vagina] 02-22-2024 Episodic Other female genital disorders (1 source) Burning sensation of vagina; Translations: [Other specified conditions associated with female genital organs and menstrual cycle] 11-28-2024 Episodic Other nutritional; endocrine; and metabolic disorders (20 sources) Intolerance to lactose; Translations: [Lactose intolerance, unspecified] Onset: 07-29-2016 07-29-2016 Chronic Other upper respiratory disease (1 source) Nasal sinus problem; Translations: [Other specified disorders of nose and nasal sinuses] 06-11-2023 Episodic Other upper respiratory infections (1 source) Bacterial sinusitis; Translations: [Chronic sinusitis, unspecified] 06-16-2023 Chronic Thyroid disorders (20 sources) Hypothyroidism; Translations: [Hypothyroidism, unspecified] Onset: 01-25-2011 Chronic Unclassified (1 source) Other ventricular tachycardia; Translations: [Other ventricular tachycardia] Onset: 01-18-2023 Urinary tract infections (2 sources) Recurrent urinary tract infection; Translations: [Urinary tract infection, site not specified] Onset: 11-24-2024 Episodic Past or Other Problems Problem Classification Problem Date Documented Da te Episodic/Chronic Abdominal pain (20 sources) Finding of sensation of abdomen; Translations: [Unspecified abdominal pain] Onset: 03-15-2011 Resolved: 07-11-2012 04-03-2023 Episodic Other bone disease and musculoskeletal deformities (20 sources) Senile osteopenia; Translations: [Other specified disorders of bone density and structure, unspecified site] Onset: 03-26-2019 03-26-2019 Episodic Other gastrointestinal disorders (19 sources) Irritable bowel syndrome; Translations: [Irritable bowel syndrome without diarrhea] Onset: 02-22-2011 Resolved: 09-24-2013 09-24-2013 Chronic Other gastrointestinal disorders (19 sources) Other specified symptoms and signs involving the digestive system and abdomen; Translations: [Other symptoms involving digestive system] Onset: 04-15-2011 Resolved: 09-24-2013 09-24-2013 Episodic Other screening for suspected conditions (not mental disorders or infectious disease) (14 sources) Patient encounter status; Translations: [Encounter for screening for malignant neoplasm of intestinal tract, unspecified] Onset: 01-18-2023 Episodic Spondylosis; intervertebral disc disorders; other back problems (19 sources) Intervertebral disc disorder of lumbar region with myelopathy; Translations: [Intervertebral disc disorders with myelopathy, lumbar region] Onset: 04-08-2008 Resolved: 07-11-2012 07-11-2012 Chronic Spondylosis; intervertebral disc disorders; other back problems (19 sources) Disorder of right sciatic nerve; Translations: [Sciatica, right side] Onset: 02-02-2017 Resolved: 05-29-2018 05-29-2018 Episodic Results Test Name Value Interpretation Reference Range Facil ity BACTERIAL VAGINOSIS NAATon 0 11-28-2024 Lactobacillus crispatus+gasseri+salima enii + Gardnerella vaginalis + Atopobium vaginae rRNA ANAID+probe Ql (Vag fld) Not detected Normal Not detected [facility] Comment on above: Order Comment: Speci men Type: SWABOrdering Facility: [facility] Address: [address] [place] [address] Performed By: #### 6 30-4 #### [facility] CLIA [id number] [address] [place] [address] [place] C. trachomatis+N. gonorrhoea e DNA ANAID+probe Ql (Unsp spec)on 11-28-2024 C. trachomatis rRNA ANAID+probe Ql (Unsp spec) Not detected Normal Not detected [facility] Comment on above: Order Comment: Speci men Type: SWABOrdering Facility: [facility] Address: [address] [place] [address] Performed By: #### 3 6902-5 ####[facility] [id number] [address] [place] N. gonorrhoeae rRNA ANAID+probe Ql (Unsp spec) Not detected Normal Not detected [facility] Comment on above: Order Comment: Speci men Type: SWABOrdering Facility: [facility] Address: [address] [place] [address] Performed By: #### 3 6902-5 ####[facility] [id number] [place] [address] [place] ALFRED/TRICHOMONAS NAATon 0 11-28-2024 C. glabrata RNA ANAID+probe Ql (Vag fld) Not detected Normal Not detected [facility] Comment on above: Order Comment: Speci men Type: SWABOrdering Facility: [facility] Address: [address] [place] [address] Performed By: #### 6 30-4 #### [facility] CLIA [id number] [address] [place] [address] Alfred sp DNA ANAID+probe Ql (Vag fld) Not detected Normal Not detected [facility] Comment on above: Order Comment: Speci men Type: SWABOrdering Facility: [facility] Address: [address] [place] [address] Result Comment: The Alfred species group target includes C. albicans, C. tropicalis, C. parapsilosis, and C. dubliniensis. Performed By: #### 6 30-4 #### [facility] CLIA [id number] [address] [place] [address] [place] T. vaginalis DNA ANAID+probe Ql (Unsp spec) Not detected Normal Not detected [facility] Comment on above: Order Comment: Speci men Type: SWABOrdering Facility: [facility] Address: [address] [place] [address] Performed By: #### 6 30-4 #### [facility] CLIA [id number] [address] [place] [address] [place] CNOVon 11-28-2024 CNOV Office Visit (OBGYWM) YOLA CARABALLO ([id number]) 1950 F Date Time Provider Department 11/28/24 9:30 AM JUANA LOVE During your visit today, we recorded the following information about you: Blood pressure Weight Height 116/72 57.2 kg 1.676 m Juana Love APRN.CNM 11/28/2024 10:06 AM Signed Yola Caraballo is a 74 year old female who presents for vaginal irritation and burning for the past week . HPI: Used vaginal estrogen in the past but stopped due to irritation. She then began using Revaree with relief. Last week she began feeling a burning sensation and vaginal irritation. Seen at and tested for UTI which was negative. Urethra caruncle noted on exam and patient was referred for follow up today. OB History Gravida1 Para1 Term0 Preterm0 AB0 Living1 SAB0 IAB0 Ectopic0 Multiple0 Live Births0 Rib Stiffener And Heel Dipper History LMP: Postmenopausal Age at Menarche: Age at First : Age at Menopause: Rib Stiffener And Heel Dipper History Comments: Sexual Activity: Yes; Male Contraception: No contraception data on record PAST MEDICAL HISTORY Diagnosis Date Agoraphobia with panic disorder Chronic anxiety 02/22/2011 Hypothyroidism 01/25/2011 Irritable bowel syndrome (IBS) 02/22/2011 Lactose intolerance in adult 07/29/2016 Sciatica, right side 02/02/2017 Vitamin D deficiency 07/15/2010 PAST SURGICAL HISTORY Procedure Laterality Date APPENDECTOMY COLONOSCOPY FLX DX W/COLLJ SPEC WHEN PFRMD 04/15/2011 Colonoscopy OOPHORECTOMY PARTIAL/TOTAL UNI/BI left PAST SURGICAL HISTORY OF polyps removed from vocal cord TONSILLECTOMY HX FAMILY HISTORY Problem Relation Age of Onset Cancer Mother lung Hypertension Mother Stroke Mother cerebral aneurysm Diabetes Father Hypertension Father Cancer Father lung Hypertension Sister Anxiety disorder Sister Hyperlipidemia Sister other (renal failure) Brother Social History Tobacco Use Smoking status: Never Smokeless tobacco: Never Vaping Use Vaping status: Never Used Substance Use Topics Alcohol use: No Drug use: No Current Outpatient Medications Medication Sig cephALEXin (KEFLEX) 500 mg capsule Take 1 capsule by mouth two times a day for 7 days. SYNTHROID 75 mcg tablet Take on empty stomach. For Thyroid. Take one tablet 6 days/week. Lactobacillus acidophilus (FLORAJEN ACIDOPHILUS) 20 billion cell capsule Take 1 capsule by mouth once daily. Cholecalciferol, Vitamin D3, 2,000 unit cap Take 1 capsule by mouth once daily. No current facility-administere d medications for this visit. Allergies As of Date: 11/28/2024 (No Known Allergies) Fully Assessed 11/28/2024 REVIEW OF SYSTEMS Abdomen: No bloating, early satiety, indigestion, or increased flatulence. No abdominal pain, nausea, vomiting, diarrhea, or constipation. Bladder: No dysuria, gross hematuria, urinary frequency, urinary urgency, or incontinence. Breast: No breast lumps, nipple d/c, overlying skin changes, redness or skin retraction. Expanded ROS: N/A Allergies and current medication updated:Yes SENSITIVE EXAM: The sensitive examination was discussed with the Patient or Patient's Authorized Salesperson Driver. As applicable, any other physician, advance practice provider, medical student, or other health professional student that will be observing or involved in the sensitive examination for educational or training purposes was discussed with the Patient or Authorized Salesperson Driver. The Patient or Authorized Salesperson Driver has agreed to proceed with the sensitive examination. (Sensitive examination includes inspection and/or palpation of the breasts, pelvis, prostate and anorectal regions). EXAM: BP 116/72 Ht 5' 6 (1.68m) Wt 126 lb (57.2kg) BMI 20.35 kg/(m2). GENERAL: pleasant, female in no apparent distress HEENT: Normocephalic and atraumatic NECK: Supple and full range of motion DERMATOLOGY: Normal and without lesions BREAST: deferred CHEST: Normal inspiratory effort ABDOMEN: Deferred PELVIC: external genitalia normal, no vulvar lesions, no cervical lesions, atrophic changes, Urethral Caruncle ASSESSMENT AND PLAN: Assessment AND Plan Vaginal irritation Vaginal burning Vaginal atrophy Urethral caruncle - Yeast /BV swab collected and sent - Recommended restarting vaginal estrogen nightly - Estrogen to be placed on urethra - Has several tubes of estradiol at home- no RX today - Support provided - RTO as needed/Annual exams JARAD Ingram Morgan, MA 11/28/2024 2:11 PM Signed Addended by: JOSHUA PRINCE on: 11/28/2024 02:11 PM Modules accepted: Orders Juana Love APRN.CNM 11/28/2024 2:35 PM Signed Addended by: JUANA LOVE on: 11/28/2024 02:35 PM Modules accepted: Orders Allergies As of Date: 11/28/2024 (No Known Allergies) Date Reviewed: 11/28/2024 Reviewed by: Joshua Prince MA - Fully Ass (more content not included)... Normal [facility] Bacteria Ur Culton 5 Bacteria identified Cx Nom (U) ORGANISM ID: 1 <10,000 CFU/ml Normal urogenital ed Normal [facility] Comment on above: Performed By: #### 6 30-4 #### [facility] CLIA [id number] [address] [place] [address] [place] CNOVon 11-24-2024 CNOV Office Visit ([facility]) YOLA CARABALLO ([id number]) 1950 F Date Time Provider Department 11/24/24 2:45 PM KEENAN GUILLEN [facility] During your visit today, we recorded the following information about you: Temperature Pulse Respiration Blood pressure 98.1 degrees 88/minute 16/minute 125/86 Weight 57.8 kg Keenan Guillen, FREIGHT RATE SPECIALIST.EDUCATIONAL RECRUITER 11/24/2024 3:05 PM Signed Urinary Problem-When to Seek Help? Symptoms of a urinary problem may lead to a bladder infection. Women are at greater risk of a urinary tract infection than are men. Most urinary tract infections in women are caused by bacteria and involve the lower urinary tract including the bladder and urethra. Symptoms: Pain or burning when passing urine, urgency, frequency, blood in the urine, difficult emptying your bladder, and lower abdominal fullness or pressure. Common Causes: Sexual intercourse, menopause, constipation, uncontrolled diabetes, dehydration and feminine products such as tampons, and kidney stones. When to Get Help: Seek medical attention if you get frequent bladder infections, urinary concerns such as leakage, blood in the urine or frequent need to urinate. You may be recommended to get help from a specialist, such as a urologist. Diagnosis AND Treatment: Lab testing may include: urinalysis, and urine culture that can be collected in the lab or walk-in clinic. Most bladder infections can easily be treated. A physician, nurse practitioner or physician assistant city attorney may treat with a short course of an antibiotic. Delaying treatment can lead to worsening symptoms, like a kidney infection. Self-Care: Avoid a full bladder, bubble baths, bath oils, food and beverages that may irritate the bladder such as caffeine. Avoid spermicide foam and diaphragms Void before and after sexual intercourse Wipe front to back after using the bathroom. Stay hydrated Stop Smoking Follow-up Care: Follow up testing is not needed in healthy young women if symptoms resolve. Keenan Guillen APRN.KEVIN 11/24/2024 3:23 PM Signed [facility] Subjective Yola Caraballo is a 74 year old year old who presents to [facility] today with complaint of C/o Frequency, urgency, burning with urination. Presence of blood in urine- present on tissue when wiping and one spot in underwear. Color is yellow in appearance without odor. Denies suprapubic pain, flank pain or back pain. History of UTI's over the past year none, denies any history of kidney/renal or genital health issues in the past. Is using suppositories in the past 3 years for vaginal atrophy both otc and estrogen- now stopped due to increased external irritation. Denies headaches, fever, sore throat, cough, shortness of breath, chest pains, Nausea, vomiting, changes in bowel or skin rashes. Aside from symptoms as described above, patient has no other complaints at this time. HPI: see above Review of Systems Constitutional: Negative for chills, fatigue and fever. Respiratory: Negative for cough, shortness of breath and wheezing. Cardiovascular: Negative for chest pain, palpitations and leg swelling. Gastrointestinal: Negative for diarrhea, nausea and vomiting. Genitourinary: Positive for dysuria, frequency, hematuria (on tissue with wiping and on underwear) and urgency. Negative for vaginal discharge. Musculoskeletal: Negative for back pain and myalgias. ALLERGIES No Known Allergies Current Outpatient Medications on File Prior to Visit Medication Sig SYNTHROID 75 mcg tablet Take on empty stomach. For Thyroid. Take one tablet 6 days/week. Lactobacillus acidophilus (FLORAJEN ACIDOPHILUS) 20 billion cell capsule Take 1 capsule by mouth once daily. Cholecalciferol, Vitamin D3, 2,000 unit cap Take 1 capsule by mouth once daily. No current facility-administere d medications on file prior to visit. ACTIVE PROBLEM LIST Vitamin D Deficiency Hypothyroidism Chronic Anxiety Uninodular Goiter Lactose Intolerance in Adult Hyperlipidemia Ldl Goal <130 Osteopenia, Senile Migraine With Aura, Not Intractable, Without Status Migrainosus Paroxysmal Svt (Supraventricular Tachycardia) (Hcc) Diverticulitis of Sigmoid Colon Other Ventricular Tachycardia (Hcc) Social History Tobacco Use Smoking status: Never Smokeless tobacco: Never Vaping Use Vaping status: Never Used Substance Use Topics Alcohol use: No Drug use: No Objective BP 125/86 Pulse 88 Temp 36.7 ?C (98.1 ?F) (Oral) Resp 16 Wt 57.8 kg (127 lb 6.8 oz) SpO2 98% BMI 20.88 kg/m? Physical Exam Vitals reviewed. Constitutional: General: She is not in acute distress. Appearance: Normal appearance. She is not ill-appearing or toxic-appearing. Cardiovascular: Rate and Rhythm: Normal rate and regular rhythm. Pulses: Normal pulses. Heart sounds: Normal heart sounds. No murmur heard. Pulmon (more content not included)... Normal [facility] 25(OH)D3 [facility] 2024 25-hydroxyvitamin D3 [Mass/Vol] 48.6 ng/mL Normal 31.0-80.0 [facility] Comment on above: Order Comment: Speci men Type: BLOOD SPECIMENOrdering Facility: [facility] Address: [address] [place] [address] Result Comment: Clas sification of 25 OH Vitamin D status: Deficiency/Insufficiency: < or = 30 ng/ml. Sufficiency/Optimal Levels: 31-80 ng/mL Toxicity: > 100 ng/mL. Test performed by chemiluminescent immunoassay. Performed By: #### 1 989-3 ####[facility] [id number] [place] [address] [place] CBC W Auto Differential pane l (Bld)on 10-11-2024 Basophils (Bld) [#/Vol] 0.04 10*3/uL Normal <0.11 [facility] Comment on above: Order Comment: Speci men Type: BLOOD SPECIMENOrdering Facility: [facility] Address: [address] [place] [address] Performed By: #### 5 7021-8 ####[facility] [id number] [place] [address] [place] Basophils/100 WBC (Bld) 0.7 % Normal [facility] Comment on above: Order Comment: Speci men Type: BLOOD SPECIMENOrdering Facility: [facility] Address: [address] [place] [address] Performed By: #### 5 7021-8 ####[facility] [id number] [address], [place] [address] [place] Differential cell count method Nom (Bld) Auto Normal [facility] Comment on above: Order Comment: Speci men Type: BLOOD SPECIMENOrdering Facility: [facility] Address: [address] [place] [address] Performed By: #### 5 7021-8 ####[facility] [id number] [address], [place] [address] [place] Eosinophils (Bld) [#/Vol] 0.15 10*3/uL Normal <0.46 [facility] Comment on above: Order Comment: Speci men Type: BLOOD SPECIMENOrdering Facility: [facility] Address: [address] [place] [address] Performed By: #### 5 7021-8 ####[facility] [id number] [place] [address] [place] Eosinophils/100 WBC (Bld) 2.6 % Normal [facility] Comment on above: Order Comment: Speci men Type: BLOOD SPECIMENOrdering Facility: [facility] Address: [address] [place] [address] Performed By: #### 5 7021-8 ####[facility] [id number] [place] [address] [place] Erythrocyte distribution width (RBC) [Ratio] 12.2 % Normal 11.5-15.0 [facility] Comment on above: Order Comment: Speci men Type: BLOOD SPECIMENOrdering Facility: [facility] Address: [address] [place] [address] Performed By: #### 5 7021-8 ####[facility] [id number] [place] [address] [place] Hematocrit (Bld) [Volume fraction] 42.6 % Normal 36.0-46.0 [facility] Comment on above: Order Comment: Speci men Type: BLOOD SPECIMENOrdering Facility: [facility] Address: [address] [place] [address] Performed By: #### 5 7021-8 ####[facility] [id number] [place] [address] [place] Hemoglobin (Bld) [Mass/Vol] 13.5 g/dL Normal 11.5-15.5 [facility] Comment on above: Order Comment: Speci men Type: BLOOD SPECIMENOrdering Facility: [facility] Address: [address] [place] [address] Performed By: #### 5 7021-8 ####[facility] [id number] [place] [address] [place] Immature granulocytes (Bld) [#/Vol] 0.03 10*3/uL Normal <0.10 [facility] Comment on above: Order Comment: Speci men Type: BLOOD SPECIMENOrdering Facility: [facility] Address: [address] [place] [address] Performed By: #### 5 7021-8 ####[facility] [id number] [place] [id number] [place] Immature granulocytes/100 WBC (Bld) 0.5 % Normal [facility] Comment on above: Order Comment: Speci men Type: BLOOD SPECIMENOrdering Facility: [facility] Address: [address] [place] [address] Performed By: #### 5 7021-8 ####[facility] [id number] [place] [id number] [place] Lymphocytes (Bld) [#/Vol] 1.86 10*3/uL Normal 1.00-4.00 [facility] Comment on above: Order Comment: Speci men Type: BLOOD SPECIMENOrdering Facility: [facility] Address: [address] [place] [address] Performed By: #### 5 7021-8 ####[facility] [id number] [place] [address] [place] Lymphocytes/100 WBC (Bld) 31.6 % Normal [facility] Comment on above: Order Comment: Speci men Type: BLOOD SPECIMENOrdering Facility: [facility] Address: [address] [place] [address] Performed By: #### 5 7021-8 ####[facility] [id number] [place] [address] [place] MCH (RBC) [Entitic mass] 29.0 pg Normal 26.0-34.0 [facility] Comment on above: Order Comment: Speci men Type: BLOOD SPECIMENOrdering Facility: [facility] Address: [address] [place] [address] Performed By: #### 5 7021-8 ####[facility] [id number] [place] [address] [place] MCHC (RBC) [Mass/Vol] 31.7 g/dL Normal 30.5-36.0 [facility] Comment on above: Order Comment: Speci men Type: BLOOD SPECIMENOrdering Facility: [facility] Address: [address] [place] [address] Performed By: #### 5 7021-8 ####[facility] [id number] [place] [address] [place] MCV (RBC) [Entitic vol] 91.6 fL Normal 80.0-100.0 [facility] Comment on above: Order Comment: Speci men Type: BLOOD SPECIMENOrdering Facility: [facility] Address: [address] [place] [address] Performed By: #### 5 7021-8 ####[facility] [id number] [place] [address] [place] Monocytes (Bld) [#/Vol] 0.44 10*3/uL Normal <0.87 [facility] Comment on above: Order Comment: Speci men Type: BLOOD SPECIMENOrdering Facility: [facility] Address: [address] [place] [address] Performed By: #### 5 7021-8 ####[facility] [id number] [place] [address] [place] Monocytes/100 WBC (Bld) 7.5 % Normal [facility] Comment on above: Order Comment: Speci men Type: BLOOD SPECIMENOrdering Facility: [facility] Address: [address] [place] [address] Performed By: #### 5 7021-8 ####[facility] [id number] [place] [address] [place] Neutrophils (Bld) [#/Vol] 3.36 10*3/uL Normal 1.45-7.50 [facility] Comment on above: Order Comment: Speci men Type: BLOOD SPECIMENOrdering Facility: [facility] Address: [address] [place] [address] Performed By: #### 5 7021-8 ####[facility] [id number] [place] [id number] [place] Neutrophils/100 WBC (Bld) 57.1 % Normal [facility] Comment on above: Order Comment: Speci men Type: BLOOD SPECIMENOrdering Facility: [facility] Address: [address] [place] [address] Performed By: #### 5 7021-8 ####[facility] [id number] [place] [address] [place] Nucleated RBC (Bld) [#/Vol] 10*3/uL Normal <0.01 [facility] Comment on above: Order Comment: Speci men Type: BLOOD SPECIMENOrdering Facility: [facility] Address: [address] [place] [address] Performed By: #### 5 7021-8 ####[facility] [id number] [place] [address] [place] Nucleated RBC/100 WBC (Bld) [Ratio] 0.0 /100 WBC Normal [facility] Comment on above: Order Comment: Speci men Type: BLOOD SPECIMENOrdering Facility: [facility] Address: [address] [place] [address] Performed By: #### 5 7021-8 ####[facility] [id number] [place] [address] [place] Platelet mean volume (Bld) [Entitic vol] 11.9 fL Normal 9.0-12.7 [facility] Comment on above: Order Comment: Speci men Type: BLOOD SPECIMENOrdering Facility: [facility] Address: [address] [place] [address] Performed By: #### 5 7021-8 ####[facility] [id number] [place] [address] [place] Platelets (Bld) [#/Vol] 201 10*3/uL Normal 150-400 [facility] Comment on above: Order Comment: Speci men Type: BLOOD SPECIMENOrdering Facility: [facility] Address: [address] [place] [address] Performed By: #### 5 7021-8 ####[facility] [id number] [place] [id number] [place] RBC (Bld) [#/Vol] 4.65 10*6/uL Normal 3.90-5.20 [facility] Comment on above: Order Comment: Speci men Type: BLOOD SPECIMENOrdering Facility: [facility] Address: [address] [place] [address] Performed By: #### 5 7021-8 ####[facility] [id number] [address] [address] [place] WBC (Bld) [#/Vol] 5.88 10*3/uL Normal 3.70-11.00 [facility] Comment on above: Order Comment: Speci men Type: BLOOD SPECIMENOrdering Facility: [facility] Address: [address] [place] [address] Performed By: #### 5 7021-8 ####[facility] [id number] [place] [address] [place] Comprehensive metabolic 2000 panelon 10-11-2024 Albumin [Mass/Vol] 4.4 g/dL Normal 3.9-4.9 [facility] Comment on above: Order Comment: Speci men Type: BLOOD SPECIMENOrdering Facility: [facility] Address: [address] [place] [address] Performed By: #### 6 30-4 #### [facility] CLIA [id number] [address] [place] [address] [place] ALP [Catalytic activity/Vol] 59 U/L Normal 34-123 [facility] Comment on above: Order Comment: Speci men Type: BLOOD SPECIMENOrdering Facility: [facility] Address: [address] [place] [address] Performed By: #### 6 30-4 #### [facility] CLIA [id number] [address] [place] [address] [place] ALT [Catalytic activity/Vol] 12 U/L Normal 7-38 [facility] Comment on above: Order Comment: Speci men Type: BLOOD SPECIMENOrdering Facility: [facility] Address: [address] [place] [address] Performed By: #### 6 30-4 #### [facility] CLIA [id number] [address] [place] [address] [place] Anion gap [Moles/Vol] 7 mmol/L Low 8-15 [facility] Comment on above: Order Comment: Speci men Type: BLOOD SPECIMENOrdering Facility: [facility] Address: [address] [place] [address] Performed By: #### 6 30-4 #### [facility] CLIA [id number] [address] [place] [address] [place] AST [Catalytic activity/Vol] 25 U/L Normal 13-35 [facility] Comment on above: Order Comment: Speci men Type: BLOOD SPECIMENOrdering Facility: [facility] Address: [address] [place] [address] Performed By: #### 6 30-4 #### [facility] CLIA [id number] [address] [place] [address] [place] Bilirubin [Mass/Vol] 0.4 mg/dL Normal 0.2-1.3 [facility] Comment on above: Order Comment: Speci men Type: BLOOD SPECIMENOrdering Facility: [facility] Address: [address] [place] [address] Performed By: #### 6 30-4 #### [facility] CLIA [id number] [address] [place] [address] [place] Calcium [Mass/Vol] 9.7 mg/dL Normal 8.5-10.2 [facility] Comment on above: Order Comment: Speci men Type: BLOOD SPECIMENOrdering Facility: [facility] Address: [address] [place] [address] Performed By: #### 6 30-4 #### [facility] CLIA [id number] [address] [place], [place] [id number] [place] Chloride [Moles/Vol] 106 mmol/L Normal 98-107 [facility] Comment on above: Order Comment: Speci men Type: BLOOD SPECIMENOrdering Facility: [facility] Address: [address] [place] [address] Performed By: #### 6 30-4 #### [facility] CLIA [id number] [address] [place] [address] [place] CO2 [Moles/Vol] 29 mmol/L Normal 22-30 [facility] Comment on above: Order Comment: Speci men Type: BLOOD SPECIMENOrdering Facility: [facility] Address: [address] [place] [address] Performed By: #### 6 30-4 #### [facility] CLIA [id number] [address] [place] [address] [place] Creatinine [Mass/Vol] 0.78 mg/dL Normal 0.58-0.96 [facility] Comment on above: Order Comment: Speci men Type: BLOOD SPECIMENOrdering Facility: [facility] Address: [address] [place] [address] Performed By: #### 6 30-4 #### [facility] CLIA [id number] [address] [place] [address] Creatinine and Glomerular filtration rate.predicted panel (S/P/Bld) 80 mL/min/1.73m??? Normal >=60 [facility] Comment on above: Order Comment: Speci men Type: BLOOD SPECIMENOrdering Facility: [facility] Address: [address] [place] [address] Result Comment: Lily mated Glomerular Filtration Rate (eGFR) is calculated using the 2020 CKD-EPI creatinine equation. This equation utilizes serum creatinine, sex, and age as parameters. The creatinine assay has traceable calibration to isotope dilution-mass spectrometry. Refer to KDIGO guidelines for clinical interpretation. In patients with unstable renal function, e.g. those with acute kidney injury, the eGFR may not accurately reflect actual GFR. Performed By: #### 6 30-4 #### [facility] CLIA [id number] [address] [place] [address] [place] Glucose [Mass/Vol] 83 mg/dL Normal 74-99 [facility] Comment on above: Order Comment: Speci men Type: BLOOD SPECIMENOrdering Facility: [facility] Address: [address] [place] [address] Result Comment: The [place] Diabetes Association (ADA) provides guidance for cutoff values for fasting glucose and random glucose. The ADA defines fasting as no caloric intake for at least 8 hours. Fasting plasma glucose results between 100 to 125 mg/dL indicate increased risk for diabetes (prediabetes). Fasting plasma glucose results greater than or equal to 126 mg/dL meet the criteria for diagnosis of diabetes. In the absence of unequivocal hyperglycemia, results should be confirmed by repeat testing. In a patient with classic symptoms of hyperglycemia or hyperglycemic crisis, random plasma glucose results greater than or equal to 200 mg/dL meet the criteria for diagnosis of diabetes. Reference: Standards of Medical Care in Diabetes 2016, [place] Diabetes Association. Diabetes Care. 2016.39(Suppl 1). Performed By: #### 6 30-4 #### [facility] CLIA [id number] [address] [place] [address] [place] Potassium [Moles/Vol] 4.1 mmol/L Normal 3.7-5.1 [facility] Comment on above: Order Comment: Speci men Type: BLOOD SPECIMENOrdering Facility: [facility] Address: [address] [place] [address] Performed By: #### 6 30-4 #### [facility] IA [id number] [address] [place] [address] [place] Protein [Mass/Vol] 7.4 g/dL Normal 6.3-8.0 [facility] Comment on above: Order Comment: Speci men Type: BLOOD SPECIMENOrdering Facility: [facility] Address: [address] [place] [address] Performed By: #### 6 30-4 #### [facility] CLIA [id number] [address] [place] [address] [place] Sodium [Moles/Vol] 142 mmol/L Normal 136-144 [facility] Comment on above: Order Comment: Speci men Type: BLOOD SPECIMENOrdering Facility: [facility] Address: [address] [place] [address] Performed By: #### 6 30-4 #### [facility] CLIA [id number] [address] [place] [address] [place] Urea nitrogen [Mass/Vol] 10 mg/dL Normal 7-21 [facility] Comment on above: Order Comment: Speci men Type: BLOOD SPECIMENOrdering Facility: [facility] Address: [address] [place] [address] Performed By: #### 6 30-4 #### [facility] CLIA [id number] [address] [place] [address] [place] Lipid 1996 panelon 5 Cholesterol [Mass/Vol] 216 mg/dL High <200 [facility] Comment on above: Order Comment: Speci men Type: BLOOD SPECIMENOrdering Facility: [facility] Address: [address] [place] [address] Result Comment: <200 mg/dL, Desirable 200-239 mg/dL, Borderline high >239 mg/dL, High Performed By: #### 6 30-4 #### [facility] CLIA [id number] [address] [place] [address] [place] Cholesterol in HDL [Mass/Vol] 71 mg/dL Normal >39 [facility] Comment on above: Order Comment: Speci men Type: BLOOD SPECIMENOrdering Facility: [facility] Address: [address] [place] [address] Result Comment: 40-5 9 mg/dL, Acceptable >59 mg/dL, High: Negative risk factor for coronary heart disease <40 mg/dL, Low: Positive risk factor for coronary heart disease Performed By: #### 6 30-4 #### [facility] CLIA [id number] [address] [place] [address] [place] Cholesterol in LDL [Mass/Vol] 126 mg/dL High <100 [facility] Comment on above: Order Comment: Speci men Type: BLOOD SPECIMENOrdering Facility: [facility] Address: [address] [place] [address] Result Comment: <100 mg/dL, Optimal 100-129 mg/dL, Near optimal/above optimal 130-159 mg/dL, Borderline high 160-189 mg/dL, High >189 mg/dL, Very high Secondary prevention optimal LDL Cholesterol levels are recommended to be < 70 mg/dL Performed By: #### 6 30-4 #### [facility] CLIA [id number] [address] [place] [address] [place] Cholesterol in LDL/Cholesterol in HDL [Mass ratio] 1.77 {ratio} Normal <2.54 [facility] Comment on above: Order Comment: Speci men Type: BLOOD SPECIMENOrdering Facility: [facility] Address: [address] [place] [address] Result Comment: Refe carce: 1. National Cholesterol Education Program ATP III Guideline At-A-Glance Quick Desk Reference: National Heart, Lung, and Blood [place]. National Institutes of Health. 2001: NIH Publication No. 01-3305. 2. An International Atherosclerosis Society position paper: global recommendations for the management of dyslipidemia: executive summary, Atherosclerosis. 2014: 232(2):410-413. Performed By: #### 6 30-4 #### [facility] CLIA [id number] [address] [place] [address] [place] Cholesterol in VLDL [Mass/Vol] 19 mg/dL Normal <30 [facility] Comment on above: Order Comment: Speci men Type: BLOOD SPECIMENOrdering Facility: [facility] Address: [address] [place] [address] Performed By: #### 6 30-4 #### [facility] CLIA [id number] [address] [place] [address] [place] Cholesterol non HDL [Mass/Vol] 145 mg/dL High <130 [facility] Comment on above: Order Comment: Speci men Type: BLOOD SPECIMENOrdering Facility: [facility] Address: [address] [place] [address] Result Comment: <130 mg/dL, Optimal 130-159 mg/dL, Near optimal/above optimal 160-189 mg/dL, Borderline high 190-219 mg/dL, High >219 mg/dL, Very high Secondary prevention optimal non HDL Cholesterol levels are recommended to be <100 mg/dL Performed By: #### 6 30-4 #### [facility] CLIA [id number] [address] [place] [address] [place] Cholesterol.total/Chol esterol in HDL [Mass ratio] 3.04 {ratio} Normal <5.10 [facility] Comment on above: Order Comment: Speci men Type: BLOOD SPECIMENOrdering Facility: [facility] Address: [address] [place] [address] Performed By: #### 6 30-4 #### [facility] CLIA [id number] [address] [place] [address] [place] FASTING TIME 13 hrs Normal [facility] Comment on above: Order Comment: Speci men Type: BLOOD SPECIMENOrdering Facility: [facility] Address: [address] [place] [address] Performed By: #### 6 30-4 #### [facility] CLIA [id number] [address] [place] [address] [place] Triglyceride [Mass/Vol] 97 mg/dL Normal <150 [facility] Comment on above: Order Comment: Speci men Type: BLOOD SPECIMENOrdering Facility: [facility] Address: [address] [place] [address] Result Comment: <150 mg/dL, Normal 150-199 mg/dL, Borderline high 200-499 mg/dL, High >499 mg/dL, Very high Performed By: #### 6 30-4 #### [facility] CLIA [id number] [address] [place] [address] [place] Magnesium SerPl-mCncon 10-11 Magnesium [Mass/Vol] 2.1 mg/dL Normal 1.7-2.3 [facility] Comment on above: Order Comment: Speci men Type: BLOOD SPECIMENOrdering Facility: [facility] Address: [address] [place] [address] Performed By: #### 1 9123-9 ####[facility] [id number] [place] [address] [place] T4 Free SerPl-mCncon 025 Free T4 [Mass/Vol] 1.5 ng/dL Normal 0.9-1.7 [facility] Comment on above: Order Comment: Speci men Type: BLOOD SPECIMENOrdering Facility: [facility] Address: [address] [place] [address] Performed By: #### 6 30-4 #### [facility] CLIA [id number] [address] [place] [address] [place] TSH SerPl-aCncon 10-11-2024 TSH Qn 1.930 m[IU]/L Normal 0.270-4.200 [facility] Comment on above: Order Comment: Speci men Type: BLOOD SPECIMENOrdering Facility: [facility] Address: [address] [place] [address] Performed By: #### 6 30-4 #### [facility] CLIA [id number] [address] [place] [address] [place] CNOVon 10-07-2024 CNOV Office Visit (FAMPWS) YOLA CARABALLO ([id number]) 1950 F Date Time Provider Department 10/07/24 1:20 PM MARELY WOOD During your visit today, we recorded the following information about you: Pulse Respiration Blood pressure Weight 59/minute 16/minute 110/60 57.2 kg Height 1.664 m Marely Wood APRN.EDUCATIONAL RECRUITER 10/07/2024 8:05 PM Signed Yola Caraballo is a 74 year old female here for a Medicare wellness visit. Medicare Health Risk Assessment General Health Good Exercise: Minutes/Day 50 min Exercise: Days/Week 6 days Alcohol: Daily Use 2-4 times a month Alcohol: Drinks/Day 1 or 2 Alcohol: 6 or more drinks Never Feel off balance No Concerns: Teeth/Dentures No Concerns: Sexual function No Troubled by feelings Anxious (per her normal) Frequency: Eating healthy diet Nearly every day ADLs requiring help None of the above Safety precautions in home/vehicle Yes Smoke, vape, chews tobacco No Difficulty hearing No Difficulty seeing No Current Providers Specialists: I have reviewed specialist-related care of the patient in the medical record. Dentist: Dr. Chowdhury Opthalmology: Dr. Chou Medical/Family history review Reviewed and updated problem list, medical/surgical/fam mandeep/social history, medications, and allergies. Opioid use review Opioid Medications (last 90 days) No data to display Anxiety/Depression screening PHQ-2 Score: 0 (Lower risk for depression) Recommendation: no further intervention at this time Cognitive screening Mini Cog Score: 5 Cognitive screening reviewed and No further action needed (score 3-5). Functional Observation Was the patient's Timed Up AND Go test unsteady or >= 12 seconds? No Advance Care Planning Surrogate decision maker and/or advance care plan documented Measurements BP 110/60 Pulse (!) 59 Resp 16 Ht 166.4 cm (5' 5.5) Wt 57.2 kg (126 lb) SpO2 99% BMI 20.65 kg/m? Vision Screening: Follows with optometry/ophthalmol ogy ASSESSMENT/PLAN: 1. Medicare annual wellness visit, subsequent - ICD9: V70.0, ICD10: Z00.00 - Counseled on healthy diet and regular exercise - Fall avoidance information provided - Personalized prevention plan provided Return for medicare wellness in 1 year. Discussed treatment plan and patient voices understanding. Patient's questions answered appropriately. Medications and potential side effects were discussed and patient voices understanding. Return to the office as scheduled or as needed for worsening/no improvement. Marely Wood APRN.CNP 10/07/2024 1:16 PM Signed Screening schedule The following prevention plan is recommended: Depression Screening Never done Shingrix Vaccine(1 of 2) Never done Pneumococcal Vaccine: 50+(1 of 1 - PCV) Never done DTaP,Tdap,Td Vaccine(2 - Td or Tdap) due on 01/08/2023 Covid-19 Vaccine(2023- season) due on 03/31/2024 Advance Directive Discussion Never done WHAT YOU CAN DO TO PREVENT FALLS Many falls can be prevented. By making some changes, you can lower your chances of falling. Four things YOU can do to prevent falls for you* and your caregiver 1. Begin a regular exercise program Exercise is one of the most important ways to lower your chances of falling. It makes you stronger and helps you feel better. Exercises that improve balance and coordination (like Miko Chi) are the most helpful. Lack of exercise leads to weakness and increases your chances of falling. Ask your doctor or health care provider about the best type of exercise program for you. 2. Have your health care provider review your medicines Have your doctor or pharmacist review all the medicines you take, even enrc-jsg-hoichdd medicines. As you get older, the way medicines work in your body can change. Some medicines, or combinations of medicines, can make you sleepy or dizzy and can cause you to fall. 3. Have your vision checked Have your eyes checked by an eye doctor at least once a year. You may be wearing the wrong glasses or have a condition like glaucoma or cataracts that limits your vision. Poor vision can increase your chances of falling. 4. Make your home safer About half of all falls happen at home. To make your home safer: Remove things you can trip over (like papers, books, clothes, and shoes) from stairs and places where you walk. Remove small throw rugs or use double-sided tape to keep the rugs from slipping. Keep items you use often in cabinets you can reach easily without using a step stool. Have grab bars put in next to your toilet and in the tub or shower. Use non-slip mats in the bathtub and on shower floors. Improve the lighting in your home. As you get older, you need brighter lights to see well. Hang light-weight curtains or shades to reduce glare. Have handrails and lights put in on all staircases. Wear shoes both inside and outsi (more content not included)... Normal [facility] SCREENING W TOMOon 06-06 SYLVIE SCREENING W KAPIL * * *Final Report* * * DATE OF EXAM: Jun 06 2024 2:10PM [facility]W [id number] - SYLVIE SCREENING W KAPIL / PROCEDURE REASON: Encounter for screening mammogram for breast cancer * * * * Physician Interpretation * * * * RESULT: [address] [address] [place] [address] HISTORY: Patient is 73 years old and is seen for screening and is asymptomatic in both breasts. Patient states no personal history of breast cancer. Patient states no personal history of other cancers. COMPARISON STUDIES: The present examination has been compared to prior imaging studies dated 04/13/2021 (mammogram), 04/15/2022 (mammogram) and 06/05/2023 (mammogram). MAMMOGRAM TECHNIQUE: The study was acquired using full field digital technology and interpreted from soft copy. Digital Breast Tomosynthesis (DBT) images were obtained and used to assist in the interpretation of this examination. Computer-aided detection was utilized by the radiologist in the interpretation of this examination. MAMMOGRAM FINDINGS: There are scattered areas of fibroglandular density. No suspicious masses, calcifications or other abnormalities are seen in either breast. There are no significant changes from the prior study. IMPRESSION: There is no mammographic evidence of malignancy in either breast. Routine screening mammogram is recommended. Annual mammogram will be due in 1 year. BI-RADS Category 1: Negative RISK: Based on the Tyrer-Cuzick (TC) risk assessment model, this patient has a 2.5% lifetime risk of developing breast cancer, meaning they are at average risk for developing breast cancer. However, this is only an estimate based on available history provided on the patient's questionnaire. We encourage all patients to talk with their providers about these results, further recommendations for managing breast health, and appropriate supplemental screening options if the patient has dense breast tissue. Interpreting Radiologist: Anna Lopez M.D. Electronically signed on: 06/07/2024 Corporate Health Consultant: YOLANDE Transcribe Date/Time: Jun 06 2024 1:47P Dictated by: ANNA LOPEZ MD This examination was interpreted and the report reviewed and electronically signed by: ANNA LOPEZ MD on Jun 07 2024 9:33AM EST [id number] CN Normal [facility] US THYROID/PARATHYROIDon US THYROID/PARATHYROID * * *Final Report * * * DATE OF EXAM: Apr 23 2024 1:28PM [facility] 1048 - US THYROID/PARATHYROID / PROCEDURE REASON: Hypothyroidism, unspecified type * * * * Physician Interpretation * * * * EXAMINATION: THYROID ULTRASOUND CLINICAL HISTORY: Hypothyroidism, unspecified type . Follow-up nodule TECHNIQUE: Sonography and Doppler imaging of the thyroid was performed. Images were obtained and stored in a permanent archive. MQ: [id number]_1 COMPARISON: Ultrasound from 02/05/2018 RESULT: The thyroid gland is normal size. The right thyroid lobe measures 3.1 x 0.7 x 1.4 cm. The left thyroid lobe measures 2.6 x 0.8 x 1.2 cm. The thyroid isthmus measures 2 mm in thickness. Parenchyma: Mild diffuse parenchymal heterogeneity. There is mild hyperemia to the parenchyma. NODULES: There may be a few tiny nodules less than 5 mm in size obscured by the parenchymal heterogeneity. - IMPRESSION: Mild thyroid parenchymal heterogeneity and hyperemia. Correlate with thyroid function test results. No concerning thyroid nodule. Corporate Health Consultant: JAVI Transcribe Date/Time: Apr 26 2024 7:29A Dictated by : JEZ ARMANDO MD This examination was interpreted and the report reviewed and electronically signed by: JEZ ARMANDO MD on Apr 26 2024 7:31AM EST [id number] CN Normal [facility] CNOVon 04-22-2024 CNOV Office Visit (FAMPWS) YOLA CARABALLO ([id number]) 1950 F Date Time Provider Department 04/22/24 11:00 AM MARELY WOOD During your visit today, we recorded the following information about you: Pulse Respiration Blood pressure 46/minute 16/minute 114/78 Marely Wood APRN.EDUCATIONAL RECRUITER 04/22/2024 7:43 PM Signed This is a 73 year old female who presents today with: Patient presents with: Recheck: 1 month follow up HISTORY OF PRESENT ILLNESS: Yola Caraballo is a 73 year old female. Patient presents with: Recheck: 1 month follow up Pt presents today to follow-up She is not taking the amitriptyline. She has it if she chooses to start. Anxiety has been manageable and can talk herself down. She did start taking probiotics. She is taking fiber. Intermittent episodes of pain. She is very cautious with diet as she doesn't want a recurrence of diverticulitis. Refers that massage and noted that thyroid enlarged. Has hx of uninodular goiter. Last thyroid labs therapeutic. PAST MEDICAL HISTORY: PAST MEDICAL HISTORY Diagnosis Date Agoraphobia with panic disorder Chronic anxiety 02/22/2011 Hypothyroidism 01/25/2011 Irritable bowel syndrome (IBS) 02/22/2011 Lactose intolerance in adult 07/29/2016 Sciatica, right side 02/02/2017 Vitamin D deficiency 07/15/2010 PAST SURGICAL HISTORY Procedure Laterality Date APPENDECTOMY COLONOSCOPY FLX DX W/COLLJ SPEC WHEN PFRMD 04/15/2011 Colonoscopy OOPHORECTOMY PARTIAL/TOTAL UNI/BI left PAST SURGICAL HISTORY OF polyps removed from vocal cord TONSILLECTOMY HX ALLERGIES Patient has no known allergies. MEDICATIONS Current Outpatient Medications Medication Sig amitriptyline (ELAVIL) 10 mg tablet Take 1 tablet by mouth daily at bedtime. oxazepam (SERAX) 10 mg capsule Take 1 capsule by mouth once daily as needed for anxiety for up to 30 days. estradiol (ESTRACE) 0.01 % (0.1 mg/gram) vaginal cream Use 1 g vaginally as directed. Insert 1 gm vaginally every night x 14 nights then insert 1 gm vaginally twice weekly SYNTHROID 75 mcg tablet Take on empty stomach. For Thyroid. Take one tablet 6 days/week. Lactobacillus acidophilus (FLORAJEN ACIDOPHILUS) 20 billion cell capsule Take 1 capsule by mouth once daily. Cholecalciferol, Vitamin D3, 2,000 unit cap Take 1 capsule by mouth once daily. No current facility-administere d medications for this visit. FAMILY HISTORY Problem Relation Age of Onset Cancer Mother lung Hypertension Mother Stroke Mother cerebral aneurysm Diabetes Father Hypertension Father Cancer Father lung other (renal failure) Brother Lipids Brother Social History Tobacco Use Smoking status: Never Smokeless tobacco: Never Vaping Use Vaping status: Never Used Substance Use Topics Alcohol use: No Drug use: No EXAM: BP 114/78 Pulse (!) 46 Resp 16 SpO2 97% PHYSICAL EXAM: General Appearance: Well appearing, alert, in no acute distress, well-hydrated, well nourished.. Skin: Skin color, texture, turgor normal, no suspicious rashes or lesions. Head: Normocephalic, no masses, lesions, tenderness or abnormalities. Eyes: Anicteric sclera. Extraocular movements are intact. . Neck: Supple, no adenopathy; thyroid prominent. Lungs: Lungs clear to auscultation. No wheezing, rhonchi, rales.. Heart: RRR without murmur, gallop, or rubs. No ectopy. Abdomen: Abdomen soft, non-tender. Bowel sounds normal. No masses, organomegaly. Extremities: No deformities, edema, skin discoloration, clubbing or cyanosis. Good capillary refill. . Neurologic: Gait normal. ASSESSMENT/PLAN: 1. JOSE EDUARDO (generalized anxiety disorder) - ICD9: 300.02, ICD10: F41.1 (primary diagnosis) Stable. Hasn't started the amitriptyline. She does have it in the event that she wants to try it. However, she is able to deescalate symptoms. 2. Hypothyroidism, unspecified type - ICD9: 244.9, ICD10: E03.9 Will get ultrasound. - US THYROID/PARATHYROID 3. Abdominal pain, unspecified abdominal location - ICD9: 789.00, ICD10: R10.9 Stable. Continue fiber. Discussed treatment plan and patient voices understanding. Patient's questions answered appropriately. Medications and potential side effects were discussed and patient voices understanding. Return to the office as scheduled or as needed for worsening/no improvement. Marely Wood APRN.Marely Benz APRN.CNP 04/22/2024 11:36 AM Signed Schedule the thyroid ultrasound. Continue the same medication. Let me know if you try that one new medication. Allergies As of Date: 04/22/2024 (No Known Allergies) Date Reviewed: 04/22/2024 Reviewed by: Sarthak Stratton LPN - Fully Assessed Reason for Visit: Recheck [92] Cmt: 1 month follow up Primary Visit Diagnosis:JOSE EDUARDO (generalized anxiety disorder) [F41.1] Other Visit Diagnoses:Hypothyroi dism, unspecified type [E03.9] Abd (more content not included)... Normal [facility] BACTERIAL VAGINOSIS NAATon 0 04-04-2024 Interpretation and review of laboratory results Normal [facility] Lactobacillus crispatus+gasseri+salima enii + Gardnerella vaginalis + Atopobium vaginae rRNA ANAID+probe Ql (Vag fld) Negative Negative for bacterial vaginosis [facility] Lactobacillus crispatus+gasseri+salima enii + Gardnerella vaginalis + Atopobium vaginae rRNA ANAID+probe Ql (Vag fld) Negative Normal Negative for bacterial vaginosis [facility] Comment on above: Order Comment: Speci men Type: SWABOrdering Facility: [facility] Address: [address] [place] [address] Performed By: #### B VAMP, CVTV ####[facility] [id number] [place] [address] [place] ALFRED/TRICHOMONAS NAATon 0 04-04-2024 C. glabrata RNA ANAID+probe Ql (Vag fld) Negative Negative for Alfred glabrata [facility] Alfred sp DNA ANAID+probe Ql (Vag fld) Negative Negative for Alfred species [facility] Interpretation and review of laboratory results Normal [facility] T. vaginalis DNA ANAID+probe Ql (Unsp spec) Negative Negative for Trichomonas vaginalis by amplification [facility] C. glabrata RNA ANAID+probe Ql (Vag fld) Negative Normal Negative for Alfred glabrata [facility] Comment on above: Order Comment: Speci men Type: SWABOrdering Facility: [facility] Address: [address] [place] [address] Performed By: #### B VAMP, CVTV ####[facility] [id number] [place] [address] [place] Alfred sp DNA ANAID+probe Ql (Vag fld) Negative Normal Negative for Alfred species [facility] Comment on above: Order Comment: Speci men Type: SWABOrdering Facility: [facility] Address: [address] [place] [address] Performed By: #### B VAMP, CVTV ####[facility] [id number] [place] [address] [place] T. vaginalis DNA ANAID+probe Ql (Unsp spec) Negative Normal Negative for Trichomonas vaginalis by amplification [facility] Comment on above: Order Comment: Speci men Type: SWABOrdering Facility: [facility] Address: [address] [place] [address] Performed By: #### B VAMP, CVTV ####[facility] [id number] [address] [place] CNOVon 04-04-2024 CNOV Office Visit (OBJOSEWM) YOLA CARABALLO ([id number]) 1950 F Date Time Provider Department 04/04/24 11:00 AM COLLEEN POWELL During your visit today, we recorded the following information about you: Blood pressure Weight 118/72 55.3 kg Colleen Powell APRN.CNP 04/04/2024 8:18 PM Signed Industrial Energy Engineer offered: Patient declines. Yola Caraballo is a 73 year old female who presents for vaginal irritation for 4 days. HPI: Treated for alfred with fluconazole 02/22/2024 followed Monistat 7 but never had total resolution of symptoms. Then took amoxicillin and had worsening of vaginal irritation which was treated with fluconazole on 03/19/2023 followed by Monistat 7 which she finished 5 days ago.Symptoms were gone after last dose on Monday. Used vaginal Estrace cream Monday and now has vaginal irritation. Sexually active with her . Past medical, surgical, social history, medications and allergies reviewed and updated. OBJECTIVE: BP 118/72 Wt 122 lb (55.3kg) GENERAL: Well developed, well nourished in no apparent distress ABDOMEN: soft, non-tender, and no masses PELVIC: external genitalia normal, normal Bartholin's glands, urethra, Trooper's glands, no vulvar lesions, no cervical lesions, scant amount thick off-white discharge present, normal appearing perineal body and perianal region. Mild vaginal atrophy. BIMANUAL: uterus normal size, shape and consistency, no adnexal masses, and non-tender. ASSESSMENT/PLAN: 1. Vaginal irritation - ICD9: 623.9, ICD10: N89.8 (primary diagnosis) - ALFRED/TRICHOMONAS NAAT - BACTERIAL VAGINOSIS NAAT - Given information on women's health probiotics. 2. Vaginal atrophy - ICD9: 627.3, ICD10: N95.2 Discussion - Do not have to use the estrace cream if it causes irritation. Can use only a lubricant for for intercourse if that is effective you can use a vaginal moisturizer such as Replens. Revaree hyaluronic acid vaginal suppositories discussed and given information. Will notify of results. Follow- up as needed. Colleen Powell APRN.CNP Medical Decision Making: Problems: Moderate: 1+ chronic illnesses with change Data: Unique test result(s) reviewed: 2 Unique test(s) ordered: 3+ Medical Decision Making Level: 4 - Moderate Colleen Powell APRN.CNP 04/04/2024 11:34 AM Signed Taking a women's health probiotic would definitely help . Florajen Women can be purchased at a pharmacy or on [employer] (around $20/month, needs refrigerated and take it daily)or Double Encore ($35/month, no refrigeration and take 15 consecutive days per month) can be ordered at [employer] and use code [id number]. You can also RepHresh vaginally and it can be purchased with the feminine products in many stores. You need to separate any antibiotic and probiotic by 1-2 hours. Do not have to use the estrace cream if it causes irritation. Can use only a lubricant for for intercourse if that is effective you can use a vaginal moisturizer such as Replens. Revaree hyaluronic acid vaginal suppositories Allergies As of Date: 04/04/2024 (No Known Allergies) Date Reviewed: 04/04/2024 Reviewed by: Colleen Powell APRN.EDUCATIONAL RECRUITER - Fully Assessed Reason for Visit: vaginal irritation [Other] Primary Visit Diagnosis:Vaginal irritation [N89.8] Other Visit Diagnosis:Vaginal atrophy [N95.2] Order(s):ALFRED/TRI CHOMONAS NAAT [SQCVTV] Order #: [id number]. #:[id number] BACTERIAL VAGINOSIS NAAT [SQBVAMP] Order #: [id number]. #:[id number] Prescriptions as of 04/04/2024 - amitriptyline (ELAVIL) 10 mg tablet Take 1 tablet by mouth daily at bedtime. - oxazepam (SERAX) 10 mg capsule Take 1 capsule by mouth once daily as needed for anxiety for up to 30 days. - estradiol (ESTRACE) 0.01 % (0.1 mg/gram) vaginal cream Use 1 g vaginally as directed. Insert 1 gm vaginally every night x 14 nights then insert 1 gm vaginally twice weekly - SYNTHROID 75 mcg tablet Take on empty stomach. For Thyroid. Take one tablet 6 days/week. - Lactobacillus acidophilus (FLORAJEN ACIDOPHILUS) 20 billion cell capsule Take 1 capsule by mouth once daily. - Cholecalciferol, Vitamin D3, 2,000 unit cap Take 1 capsule by mouth once daily. Medication notes this encounter AMITRIPTYLINE 10 MG TABLET >> Gina Renteria MA 04/04/2024 11:01 AM >> GINA RENTERIA [facility] Apr 04, 2024 11:01 AM Not started. 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 Normal [facility] CNPNon 04-03-2024 CNPN Telephone (OBGYWM) YOLA CARABALLO ([id number]) 1950 F Date Time Provider Department 04/03/24 COLLEEN POWELL During your visit today, we recorded the following information about you: Ashely Lyons 04/03/2024 10:12 AM Signed Pt called stating she has completed the treatment with Monostat. She still has burning sensation. States she would like to see Colleen Powell since she is familiar with what has been going on. Please advise pt. Bibiana Venegas RN 04/03/2024 10:23 AM Signed Patient scheduled with AG tomorrow. Finished Monistat 03/31/24. Advised no more vaginal medications prior to seeing provider tomorrow. Bibiana Venegas RN Allergies As of Date: 04/03/2024 (No Known Allergies) Date Reviewed: 02/22/2024 Reviewed by: Colleen Powell, ANY.EDUCATIONAL RECRUITER - Fully Assessed Reason for Visit: Patient Question [8564] Prescriptions as of 04/03/2024 - amitriptyline (ELAVIL) 10 mg tablet Take 1 tablet by mouth daily at bedtime. - oxazepam (SERAX) 10 mg capsule Take 1 capsule by mouth once daily as needed for anxiety for up to 30 days. - estradiol (ESTRACE) 0.01 % (0.1 mg/gram) vaginal cream Use 1 g vaginally as directed. Insert 1 gm vaginally every night x 14 nights then insert 1 gm vaginally twice weekly - SYNTHROID 75 mcg tablet Take on empty stomach. For Thyroid. Take one tablet 6 days/week. - Lactobacillus acidophilus (FLORAJEN ACIDOPHILUS) 20 billion cell capsule Take 1 capsule by mouth once daily. - Cholecalciferol, Vitamin D3, 2,000 unit cap Take 1 capsule by mouth once daily. Problem List As Of Date 04/03/2024 Noted Resolved Intervertebral lumbar disc disorder with myelop*04/08/2008 07/11/2012 Vitamin D deficiency [E55.9] 07/15/2010 Hypothyroidism [E03.9] 01/25/2011 Irritable bowel syndrome (IBS) [K58.9] 02/22/2011 09/24/2013 Chronic anxiety [F41.9] 02/22/2011 Abdominal pain, unspecified site [R10.9] 03/15/2011 07/11/2012 Other symptoms involving digestive system(787.9* 011 09/24/2013 Vitamin D deficiency [E55.9] 11/04/2014 05/29/2018 Uninodular goiter [E04.1] 12/08/2015 Lactose intolerance in adult [E73.9] 07/29/2016 Hyperlipidemia LDL goal <130 [E78.5] 12/28/2016 Sciatica, right side [M54.31] 02/02/2017 05/29/2018 Osteopenia, senile [M85.80] 03/26/2019 Migraine with aura, not intractable, without st*04/20/2020 Paroxysmal SVT (supraventricular tachycardia) (*11/17/2022 Diverticulitis of sigmoid colon [K57.32] 08/16/2023 Diagnosed: 08/16/2023 Other ventricular tachycardia (HCC) [I47.29] 01/18/2023 Diagnosed: 08/16/2023 Encounter Status:Closed by BIBIANA VENEGAS on 04/03/24 Normal [facility] CBC W Auto Differential pane l (Bld)on 03-25-2024 Basophils (Bld) [#/Vol] 0.03 10*3/uL [facility] Basophils/100 WBC (Bld) 0.4 % [facility] Differential cell count method Nom (Bld) Auto [facility] Eosinophils (Bld) [#/Vol] 0.04 10*3/uL [facility] Eosinophils/100 WBC (Bld) 0.5 % [facility] Erythrocyte distribution width (RBC) [Ratio] 12.5 % 11.5 - 15.0 % [facility] Hematocrit (Bld) [Volume fraction] 42.2 % 36.0 - 46.0 % [facility] Hemoglobin (Bld) [Mass/Vol] 13.7 g/dL 11.5 - 15.5 g/dL [facility] Immature granulocytes (Bld) [#/Vol] 0.03 10*3/uL [facility] Immature granulocytes/100 WBC (Bld) 0.4 % [facility] Lymphocytes (Bld) [#/Vol] 1.83 10*3/uL [facility] Lymphocytes/100 WBC (Bld) 23.3 % [facility] MCH (RBC) [Entitic mass] 29.7 pg 26.0 - 34.0 pg [facility] MCHC (RBC) [Mass/Vol] 32.5 g/dL 30.5 - 36.0 g/ dL [facility] MCV (RBC) [Entitic vol] 91.3 fL 80.0 - 100.0 fL [facility] Monocytes (Bld) [#/Vol] 0.56 10*3/uL [facility] Monocytes/100 WBC (Bld) 7.1 % [facility] Neutrophils (Bld) [#/Vol] 5.37 10*3/uL [facility] Neutrophils/100 WBC (Bld) 68.3 % [facility] Nucleated RBC (Bld) [#/Vol] [facility] Nucleated RBC/100 WBC (Bld) [Ratio] 0.0 % /100 WBC [facility] Platelet mean volume (Bld) [Entitic vol] 11.8 fL 9.0 - 12.7 fL [facility] Platelets (Bld) [#/Vol] 222 10*3/uL [facility] RBC (Bld) [#/Vol] 4.62 10*6/uL 3.90 - 5.20 m/uL [facility] WBC (Bld) [#/Vol] 7.86 10*3/uL [facility] Basophils (Bld) [#/Vol] 0.03 10*3/uL Normal <0.11 [facility] Comment on above: Order Comment: Speci men Type: BLOOD SPECIMENOrdering Facility: [facility] Address: [address] [place] [address] Performed By: #### 6 30-4 #### [facility] CLIA [id number] [address] [place] [address] [place] Basophils/100 WBC (Bld) 0.4 % Normal [facility] Comment on above: Order Comment: Speci men Type: BLOOD SPECIMENOrdering Facility: [facility] Address: [address] [place] [address] Performed By: #### 6 30-4 #### [facility] CLIA [id number] [address] [place] [address] [place] Differential cell count method Nom (Bld) Auto Normal [facility] Comment on above: Order Comment: Speci men Type: BLOOD SPECIMENOrdering Facility: [facility] Address: [address] [place] [address] Performed By: #### 6 30-4 #### [facility] CLIA [id number] [address] [place] [address] [place] Eosinophils (Bld) [#/Vol] 0.04 10*3/uL Normal <0.46 [facility] Comment on above: Order Comment: Speci men Type: BLOOD SPECIMENOrdering Facility: [facility] Address: [address] [place] [address] Performed By: #### 6 30-4 #### [facility] CLIA [id number] [address] [place] [address] [place] Eosinophils/100 WBC (Bld) 0.5 % Normal [facility] Comment on above: Order Comment: Speci men Type: BLOOD SPECIMENOrdering Facility: [facility] Address: [address] [place] [address] Performed By: #### 6 30-4 #### [facility] CLIA [id number] [address] [place] [address] [place] Erythrocyte distribution width (RBC) [Ratio] 12.5 % Normal 11.5-15.0 [facility] Comment on above: Order Comment: Speci men Type: BLOOD SPECIMENOrdering Facility: [facility] Address: [address] [place] [address] Performed By: #### 6 30-4 #### [facility] CLIA [id number] [address] [place] [address] [place] Hematocrit (Bld) [Volume fraction] 42.2 % Normal 36.0-46.0 [facility] Comment on above: Order Comment: Speci men Type: BLOOD SPECIMENOrdering Facility: [facility] Address: [address] [place] [address] Performed By: #### 6 30-4 #### [facility] CLIA [id number] [address] [place] [address] [place] Hemoglobin (Bld) [Mass/Vol] 13.7 g/dL Normal 11.5-15.5 [facility] Comment on above: Order Comment: Speci men Type: BLOOD SPECIMENOrdering Facility: [facility] Address: [address] [place] [address] Performed By: #### 6 30-4 #### [facility] CLIA [id number] [address] [place] [address] [place] Immature granulocytes (Bld) [#/Vol] 0.03 10*3/uL Normal <0.10 [facility] Comment on above: Order Comment: Speci men Type: BLOOD SPECIMENOrdering Facility: [facility] Address: [address] [place] [address] Performed By: #### 6 30-4 #### [facility] CLIA [id number] [address] [place] [address] [place] Immature granulocytes/100 WBC (Bld) 0.4 % Normal [facility] Comment on above: Order Comment: Speci men Type: BLOOD SPECIMENOrdering Facility: [facility] Address: [address] [place] [address] Performed By: #### 6 30-4 #### [facility] CLIA [id number] [address] [place] [address] [place] Lymphocytes (Bld) [#/Vol] 1.83 10*3/uL Normal 1.00-4.00 [facility] Comment on above: Order Comment: Speci men Type: BLOOD SPECIMENOrdering Facility: [facility] Address: [address] [place] [address] Performed By: #### 6 30-4 #### [facility] CLIA [id number] [address] [place] [address] [place] Lymphocytes/100 WBC (Bld) 23.3 % Normal [facility] Comment on above: Order Comment: Speci men Type: BLOOD SPECIMENOrdering Facility: [facility] Address: [address] [place] [address] Performed By: #### 6 30-4 #### [facility] CLIA [id number] [address] [place] [address] [place] MCH (RBC) [Entitic mass] 29.7 pg Normal 26.0-34.0 [facility] Comment on above: Order Comment: Speci men Type: BLOOD SPECIMENOrdering Facility: [facility] Address: [address] [place] [address] Performed By: #### 6 30-4 #### [facility] CLIA [id number] [address] [place], [place] [id number] [place] MCHC (RBC) [Mass/Vol] 32.5 g/dL Normal 30.5-36.0 [facility] Comment on above: Order Comment: Speci men Type: BLOOD SPECIMENOrdering Facility: [facility] Address: [address] [place] [address] Performed By: #### 6 30-4 #### [facility] CLIA [id number] [address] [place] [address] [place] MCV (RBC) [Entitic vol] 91.3 fL Normal 80.0-100.0 [facility] Comment on above: Order Comment: Speci men Type: BLOOD SPECIMENOrdering Facility: [facility] Address: [address] [place] [address] Performed By: #### 6 30-4 #### [facility] CLIA [id number] [address] [place] [address] [place] Monocytes (Bld) [#/Vol] 0.56 10*3/uL Normal <0.87 [facility] Comment on above: Order Comment: Speci men Type: BLOOD SPECIMENOrdering Facility: [facility] Address: [address] [place] [address] Performed By: #### 6 30-4 #### [facility] CLIA [id number] [address] [place] [address] [place] Monocytes/100 WBC (Bld) 7.1 % Normal [facility] Comment on above: Order Comment: Speci men Type: BLOOD SPECIMENOrdering Facility: [facility] Address: [address] [place] [address] Performed By: #### 6 30-4 #### [facility] CLIA [id number] [address] [place] [address] [place] Neutrophils (Bld) [#/Vol] 5.37 10*3/uL Normal 1.45-7.50 [facility] Comment on above: Order Comment: Speci men Type: BLOOD SPECIMENOrdering Facility: [facility] Address: [address] [place] [address] Performed By: #### 6 30-4 #### [facility] CLIA [id number] [address] [place] [address] [place] Neutrophils/100 WBC (Bld) 68.3 % Normal [facility] Comment on above: Order Comment: Speci men Type: BLOOD SPECIMENOrdering Facility: [facility] Address: [address] [place] [address] Performed By: #### 6 30-4 #### [facility] CLIA [id number] [address] [place] [address] [place] Nucleated RBC (Bld) [#/Vol] 10*3/uL Normal <0.01 [facility] Comment on above: Order Comment: Speci men Type: BLOOD SPECIMENOrdering Facility: [facility] Address: [address] [place] [address] Performed By: #### 6 30-4 #### [facility] CLIA [id number] [address] [place] [address] [place] Nucleated RBC/100 WBC (Bld) [Ratio] 0.0 /100 WBC Normal [facility] Comment on above: Order Comment: Speci men Type: BLOOD SPECIMENOrdering Facility: [facility] Address: [address] [place] [address] Performed By: #### 6 30-4 #### [facility] CLIA [id number] [address] [place] [address] [place] Platelet mean volume (Bld) [Entitic vol] 11.8 fL Normal 9.0-12.7 [facility] Comment on above: Order Comment: Speci men Type: BLOOD SPECIMENOrdering Facility: [facility] Address: [address] [place] [address] Performed By: #### 6 30-4 #### [facility] CLIA [id number] [address] [place] [address] [place] Platelets (Bld) [#/Vol] 222 10*3/uL Normal 150-400 [facility] Comment on above: Order Comment: Speci men Type: BLOOD SPECIMENOrdering Facility: [facility] Address: [address] [place] [address] Performed By: #### 6 30-4 #### [facility] CLIA [id number] [address] [place] [address] [place] RBC (Bld) [#/Vol] 4.62 10*6/uL Normal 3.90-5.20 [facility] [place] Comment on above: Order Comment: Speci men Type: BLOOD SPECIMENOrdering Facility: [facility] Address: [address] [place] [address] Performed By: #### 6 30-4 #### [facility] CLIA [id number] [address] [place] [address] [place] WBC (Bld) [#/Vol] 7.86 10*3/uL Normal 3.70-11.00 [facility] Comment on above: Order Comment: Speci men Type: BLOOD SPECIMENOrdering Facility: [facility] Address: [address] [place] [address] Performed By: #### 6 30-4 #### [facility] CLIA [id number] [address] [place] [address] [place] CNOVon 03-25-2024 CNOV Office Visit (FAMPWS) YOLA CARABALLO ([id number]) 1950 F Date Time Provider Department 03/25/24 11:00 AM MARELY WOOD During your visit today, we recorded the following information about you: Pulse Respiration Blood pressure 64/minute 16/minute 124/82 Marely Wood APRN.CNP 03/25/2024 7:38 PM Signed This is a 73 year old female who presents today with: Patient presents with: Acute Visit: LLQ abd pain that started last week; feeling better today HISTORY OF PRESENT ILLNESS: Yola Caraballo is a 73 year old female. Patient presents with: Acute Visit: LLQ abd pain that started last week; feeling better today Pt presents today with complaints of an episode of LLQ pain. She has a hx of diverticulitis. She had a colonoscopy within the last couple of years and was advised that she didn't need any further. Refers that she did eat some things that contained lactose. This may have precipitated symptoms. , didn't feel well all day. Few small bms overnight. Went on a liquid diet on Monday and Monday. Complained of gassy and bloated. Pain in the LLQ. Added more of brat diet this morning. Ate some dry toast this morning. Symptoms are improved now. Concerned about frequency of the recurrence of symptoms. Continues w/ anxiety. Refers that she stopped the buspar because it caused her fatigue when she was driving. 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 MEDICATIONS Current Outpatient Medications Medication Sig busPIRone (BUSPAR) 5 mg tablet Take 3 tablets by mouth two times a day as needed. estradiol (ESTRACE) 0.01 % (0.1 mg/gram) vaginal cream Use 1 g vaginally as directed. Insert 1 gm vaginally every night x 14 nights then insert 1 gm vaginally twice weekly SYNTHROID 75 mcg tablet Take on empty stomach. For Thyroid. Take one tablet 6 days/week. Lactobacillus acidophilus (FLORAJEN ACIDOPHILUS) 20 billion cell capsule Take 1 capsule by mouth once daily. Cholecalciferol, Vitamin D3, 2,000 unit cap Take 1 capsule by mouth once daily. No current facility-administere d medications for this visit. FAMILY HISTORY Problem Relation Age of Onset Cancer Mother lung Hypertension Mother Stroke Mother cerebral aneurysm Diabetes Father Hypertension Father Cancer Father lung other (renal failure) Brother Lipids Brother Social History Tobacco Use Smoking status: Never Smokeless tobacco: Never Vaping Use Vaping status: Never Used Substance Use Topics Alcohol use: No Drug use: No EXAM: BP 124/82 Pulse 64 Resp 16 SpO2 98% PHYSICAL EXAM: General Appearance: Well appearing, alert, in no acute distress, well-hydrated, well nourished.. Skin: Skin color, texture, turgor normal, no suspicious rashes or lesions. Head: Normocephalic, no masses, lesions, tenderness or abnormalities. Eyes: Anicteric sclera. Extraocular movements are intact. Lungs: Lungs clear to auscultation. No wheezing, rhonchi, rales.. Heart: RRR without murmur, gallop, or rubs. No ectopy. Abdomen: Abdomen soft, non-tender. Bowel sounds normal. No masses, organomegaly. Extremities: No deformities, edema, skin discoloration, clubbing or cyanosis. Good capillary refill. Neurologic: Gait normal. ASSESSMENT/PLAN: 1. Abdominal pain, unspecified abdominal location - ICD9: 789.00, ICD10: R10.9 (primary diagnosis) May have been early flare of diverticulitis vs lactose intolerance vs IBS. Restart probiotics. Increase fiber. Will check blood count to r/o ongoing infection. - COMPLETE BLOOD COUNT AND DIFFERENTIAL - SEDIMENTATION RATE, WESTERGREN - C-REACTIVE PROTEIN - COMPREHENSIVE METABOLIC PANEL - AMITRIPTYLINE 10 MG TABLET 2. JOSE EDUARDO (generalized anxiety disorder) - ICD9: 300.02, ICD10: F41.1 Start. - AMITRIPTYLINE 10 MG TABLET 3. Chronic anxiety - ICD9: 300.00, ICD10: F41.9 Refill: - OXAZEPAM 10 MG CAPSULE Discussed treatment plan and patient voices understanding. Patient's questions answered appropriately. Medications and potential side effects were discussed and patient voices understanding. Return to the office as scheduled or as needed for worsening/no improvement. FIONA Ann Christy, APRN.CNP 03/25/2024 11:50 AM Signed Continue same regimen. Get labs. (more content not included)... Normal [facility] CRP SerPl-mCncon 03-25-2024 CRP [Mass/Vol] mg/L Normal <0.9 [facility] Comment on above: Order Comment: Speci men Type: BLOOD SPECIMENOrdering Facility: [facility] Address: [address] [place] [address] Performed By: #### 1 988-5, 92694-4 ####[facility] [id number] [place] [address] [place] [facility] Comprehensive metabolic 2000 panelon 03-25-2024 Albumin [Mass/Vol] 4.4 g/dL Normal 3.9-4.9 [facility] Comment on above: Order Comment: Speci men Type: BLOOD SPECIMENOrdering Facility: [facility] Address: [address] [place] [address] Performed By: #### 1 988-5, 33337-8 ####[facility] [id number] [place] [address] [place] ALP [Catalytic activity/Vol] 52 U/L Normal 34-123 [facility] Comment on above: Order Comment: Speci men Type: BLOOD SPECIMENOrdering Facility: [facility] Address: [address] [place] [address] Performed By: #### 1 988-5, 31942-8 ####[facility] [id number] [place] [address] [place] ALT [Catalytic activity/Vol] 10 U/L Normal 7-38 [facility] Comment on above: Order Comment: Speci men Type: BLOOD SPECIMENOrdering Facility: [facility] Address: [address] [place] [address] Performed By: #### 1 988-5, 17914-2 ####[facility] [id number] [place] [address] [place] Anion gap [Moles/Vol] 11 mmol/L Normal 8-15 [facility] Comment on above: Order Comment: Speci men Type: BLOOD SPECIMENOrdering Facility: [facility] Address: [address] [place] [address] Performed By: #### 1 988-5, 61174-8 ####[facility] [id number] [place] [address] [place] AST [Catalytic activity/Vol] 21 U/L Normal 13-35 [facility] Comment on above: Order Comment: Speci men Type: BLOOD SPECIMENOrdering Facility: [facility] Address: [address] [place] [address] Performed By: #### 1 988-5, 40886-8 ####[facility] [id number] [place] [address] [place] Bilirubin [Mass/Vol] 0.3 mg/dL Normal 0.2-1.3 [facility] Comment on above: Order Comment: Speci men Type: BLOOD SPECIMENOrdering Facility: [facility] Address: [address] [place] [address] Performed By: #### 1 988-5, 75951-6 ####[facility] [id number] [place] [address] [place] Calcium [Mass/Vol] 9.7 mg/dL Normal 8.5-10.2 [facility] Comment on above: Order Comment: Speci men Type: BLOOD SPECIMENOrdering Facility: [facility] Address: [address] [place] [address] Performed By: #### 1 988-5, 22264-1 ####[facility] [id number] [place] [address] [place] Chloride [Moles/Vol] 103 mmol/L Normal 98-107 [facility] Comment on above: Order Comment: Speci men Type: BLOOD SPECIMENOrdering Facility: [facility] Address: [address] [place] [address] Performed By: #### 1 988-5, 63905-3 ####[facility] [id number] [place] [address] [place] CO2 [Moles/Vol] 27 mmol/L Normal 22-30 [facility] Comment on above: Order Comment: Speci men Type: BLOOD SPECIMENOrdering Facility: [facility] Address: [address] [place] [address] Performed By: #### 1 988-5, 34908-2 ####[facility] [id number] [place] [address] [place] Creatinine [Mass/Vol] 0.74 mg/dL Normal 0.58-0.96 [facility] Comment on above: Order Comment: Speci men Type: BLOOD SPECIMENOrdering Facility: [facility] Address: [address] [place] [address] Performed By: #### 1 988-5, 78123-8 ####[facility] [id number] [place] [address] [place] Creatinine and Glomerular filtration rate.predicted panel (S/P/Bld) 86 mL/min/1.73m??? Normal >=60 [facility] Comment on above: Order Comment: Speci men Type: BLOOD SPECIMENOrdering Facility: [facility] Address: [address] [place] [address] Result Comment: Lily mated Glomerular Filtration Rate (eGFR) is calculated using the 2020 CKD-EPI creatinine equation. This equation utilizes serum creatinine, sex, and age as parameters. The creatinine assay has traceable calibration to isotope dilution-mass spectrometry. Refer to KDIGO guidelines for clinical interpretation. In patients with unstable renal function, e.g. those with acute kidney injury, the eGFR may not accurately reflect actual GFR. Performed By: #### 1 988-5, 03146-2 ####[facility] [id number] [address] [address] [place] Glucose [Mass/Vol] 91 mg/dL Normal 74-99 [facility] Comment on above: Order Comment: Speci men Type: BLOOD SPECIMENOrdering Facility: [facility] Address: [address] [place] [address] Result Comment: The [place] Diabetes Association (ADA) provides guidance for cutoff values for fasting glucose and random glucose. The ADA defines fasting as no caloric intake for at least 8 hours. Fasting plasma glucose results between 100 to 125 mg/dL indicate increased risk for diabetes (prediabetes). Fasting plasma glucose results greater than or equal to 126 mg/dL meet the criteria for diagnosis of diabetes. In the absence of unequivocal hyperglycemia, results should be confirmed by repeat testing. In a patient with classic symptoms of hyperglycemia or hyperglycemic crisis, random plasma glucose results greater than or equal to 200 mg/dL meet the criteria for diagnosis of diabetes. Reference: Standards of Medical Care in Diabetes 2016, [place] Diabetes Association. Diabetes Care. 2016.39(Suppl 1). Performed By: #### 1 988-5, 00510-8 ####[facility] [id number] [address] [address] [place] Potassium [Moles/Vol] 4.1 mmol/L Normal 3.7-5.1 [facility] Comment on above: Order Comment: Brielle kim Type: BLOOD SPECIMENOrdering Facility: [facility] Address: [address] [place] [address] Performed By: #### 1 988-5, 88117-2 ####[facility] [id number] [address] [address] [place] Protein [Mass/Vol] 7.6 g/dL Normal 6.3-8.0 [facility] Comment on above: Order Comment: Speci men Type: BLOOD SPECIMENOrdering Facility: [facility] Address: [address] [place] [address] Performed By: #### 1 988-5, 63478-2 ####[facility] [id number] [place] [address] [place] Sodium [Moles/Vol] 141 mmol/L Normal 136-144 [facility] Comment on above: Order Comment: Speci men Type: BLOOD SPECIMENOrdering Facility: [facility] Address: [address] [place] [address] Performed By: #### 1 988-5, 39805-2 ####[facility] [id number] [place] [address] [place] Urea nitrogen [Mass/Vol] 11 mg/dL Normal 7-21 [facility] Comment on above: Order Comment: Speci men Type: BLOOD SPECIMENOrdering Facility: [facility] Address: [address] [place] [address] Performed By: #### 1 988-5, 13152-1 ####[facility] [id number] [place] [address] [place] ESR Westergren method (Bld) [Velocity]on 03-25-2024 ESR (Bld) [Velocity] 13 mm/h [facility] Interpretation and review of laboratory results Normal [facility] ESR (Bld) [Velocity] 13 mm/h Normal 0-20 [facility] Comment on above: Order Comment: Speci men Type: BLOOD SPECIMENOrdering Facility: [facility] Address: [address] [place] [address] Performed By: #### 6 30-4 #### [facility] CLIA [id number] [address] [place] [address] [place] CNPMouna 03-19-2024 CNPN Telephone (OBGYWM) YOLA CARABALLO ([id number]) 1950 F Date Time Provider Department 03/19/24 COLLEEN POWELL During your visit today, we recorded the following information about you: Bibiana Venegas RN 03/19/2024 3:58 PM Signed Patient calling with update. Saw AG 02/22/24. She took Diflucan for +yeast, then two days later she was still having vaginal irritation and completed 7 day monistat. She doesn't feel symptoms ever completely went away with that. She recently then had to take Amoxicillin 500mg TID for tooth abscess and stated the vaginal irriation has worsened again now. Asking if she should get diflucan, try Monistat or if she needs f/u appointment? Please advise. DOYLE Carney Amy, APRN.KEVIN 03/19/2024 4:48 PM Signed Diflucan 150 mg 1 dose prescribed. If symptoms continue after 72 hours, she should treat with Monistat 7 or generic for 7 days. If symptoms continue, she should make an appointment for evaluation with appointment being no earlier than 48 hours after last dose of vaginal Monistat. Colleen Powell APRN.Bibiana Melara RN 03/19/2024 5:00 PM Signed Patient notified. Bibiana Venegas RN The following approved medication requests have been transmitted electronically. Requested Prescriptions Signed Prescriptions Disp Refills fluconazole (DIFLUCAN) 150 mg tablet 1 tablet 0 Sig: Take 1 tablet by mouth one time only for 1 dose. Authorizing Provider: COLLEEN POWELL Pharmacy Information Pharmacy Address [id number] [place] [address] Allergies As of Date: 03/19/2024 (No Known Allergies) Date Reviewed: 02/22/2024 Reviewed by: Colleen Powell APRN.EDUCATIONAL RECRUITER - Fully Assessed Reason for Visit: Vaginal Problem [117] Order(s):fluconazole (DIFLUCAN) 150 mg tabletTake 1 tablet by mouth one time only for 1 dose.Disp: 1 tabletRfl: 0 Prescriptions as of 03/19/2024 - fluconazole (DIFLUCAN) 150 mg tablet Take 1 tablet by mouth one time only for 1 dose. - busPIRone (BUSPAR) 5 mg tablet Take 3 tablets by mouth two times a day as needed. - estradiol (ESTRACE) 0.01 % (0.1 mg/gram) vaginal cream Use 1 g vaginally as directed. Insert 1 gm vaginally every night x 14 nights then insert 1 gm vaginally twice weekly - SYNTHROID 75 mcg tablet Take on empty stomach. For Thyroid. Take one tablet 6 days/week. - Lactobacillus acidophilus (FLORAJEN ACIDOPHILUS) 20 billion cell capsule Take 1 capsule by mouth once daily. - Cholecalciferol, Vitamin D3, 2,000 unit cap Take 1 capsule by mouth once daily. 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/08/2008 07/11/2012 Vitamin D deficiency [E55.9] 07/15/2010 Hypothyroidism [E03.9] 01/25/2011 Irritable bowel syndrome (IBS) [K58.9] 02/22/2011 09/24/2013 Chronic anxiety [F41.9] 02/22/2011 Abdominal pain, unspecified site [R10.9] 03/15/2011 07/11/2012 Other symptoms involving digestive system(787.9* 011 09/24/2013 Vitamin D deficiency [E55.9] 11/04/2014 05/29/2018 Uninodular goiter [E04.1] 12/08/2015 Lactose intolerance in adult [E73.9] 07/29/2016 Hyperlipidemia LDL goal <130 [E78.5] 12/28/2016 Sciatica, right side [M54.31] 02/02/2017 05/29/2018 Osteopenia, senile [M85.80] 03/26/2019 Migraine with aura, not intractable, without st*04/20/2020 Paroxysmal SVT (supraventricular tachycardia) (*11/17/2022 Diverticulitis of sigmoid colon [K57.32] 08/16/2023 Diagnosed: 08/16/2023 Other ventricular tachycardia (HCC) [I47.29] 01/18/2023 Diagnosed: 08/16/2023 Prescriptions ordered this encounter Disp Refills Start End FLUCONAZOLE 150 MG TABLET 1 ta* 0 03/19/2024 03/19/2024 Route: ORAL Sig: Take 1 tablet by mouth one time only for 1 dose. Encounter Status:Closed by BIBIANA VENEGAS on 03/19/24 Normal [facility] BACTERIAL VAGINOSIS NAATon 0 - Lactobacillus crispatus+gasseri+salima enii + Gardnerella vaginalis + Atopobium vaginae rRNA ANAID+probe Ql (Vag fld) Negative Normal Negative for bacterial vaginosis [facility] Comment on above: Order Comment: Speci men Type: SWABOrdering Facility: [facility] Address: [address] [place] [address] Performed By: #### B VAMP, CVTV ####[facility]CLIA [id number] [place] [address] [place] ALFRED/TRICHOMONAS NAATon 0 02-22-2024 C. glabrata RNA ANAID+probe Ql (Vag fld) Negative Normal Negative for Alfred glabrata [facility] Comment on above: Order Comment: Speci men Type: SWABOrdering Facility: [facility] Address: [address] [place] [address] Performed By: #### B VAMP, CVTV ####[facility]CLIA [id number] [place] [address] [place] Alfred sp DNA ANAID+probe Ql (Vag fld) Positive Abnormal Negative for Alfred species [facility] Comment on above: Order Comment: Speci men Type: SWABOrdering Facility: [facility] Address: [address] [place] [address] Performed By: #### B VAMP, CVTV ####[facility]IA [id number] [place] [address] [place] T. vaginalis DNA ANAID+probe Ql (Unsp spec) Negative Normal Negative for Trichomonas vaginalis by amplification [facility] Comment on above: Order Comment: Speci men Type: SWABOrdering Facility: [facility] Address: [address] [place] [address] Performed By: #### B TORO CVTV ####[facility]CLIA [id number] [id number] CNOVon 02-22-2024 CNOV Office Visit (OBGYWM) YOLA CARABALLO ([id number]) 1950 F Date Time Provider Department 02/22/24 1:00 PM COLLEEN POWELL OBJOSEWFrantz During your visit today, we recorded the following information about you: Blood pressure Weight 110/72 56.3 kg Colleen Powell, FREIGHT RATE SPECIALIST.EDUCATIONAL RECRUITER 02/22/2024 1:36 PM Signed Industrial Energy Engineer offered: Patient declines. Yola Caraballo is a 73 year old female who presents for problem visit vaginal irritation for 1 month(s). HPI: Similar vaginal burning/raw feeling that she had in the past due to postmenopausal vaginitis. It improved with vaginal estrogen which she is now using twice a week. Started using it daily when burning sensation returned 2 weeks ago. Used estrogen every day for a week, last used 2 nights ago, and is feeling better today. Did swim a lot in [employer] swimming pool week of January 12, 2024. Does not remember having any burning prior to that. Worse after SI. No vaginal discharge or odor. Aquaphor is not helpful. No recent antibiotic use. Had been using coconut oil but switched back to Astroglide due to burning. Previously used clobetasol for vulvar irritation but discontinued due to burning. No history of abnormal Pap. OB History T0 L1 SAB0 IAB0 Ectopic0 Multiple0 Live Births0 Rib Stiffener And Heel Dipper History LMP: Postmenopausal Age at Menarche: Age at First : Age at Menopause: Rib Stiffener And Heel Dipper History Comments: Sexual Activity: Yes; Male Contraception: No contraception data on record PAST MEDICAL HISTORY Diagnosis Date Agoraphobia with panic disorder Chronic anxiety 02/22/2011 Hypothyroidism 01/25/2011 Irritable bowel syndrome (IBS) 02/22/2011 Lactose intolerance in adult 07/29/2016 Sciatica, right side 02/02/2017 Vitamin D deficiency 07/15/2010 PAST SURGICAL HISTORY Procedure Laterality Date APPENDECTOMY COLONOSCOPY FLX DX W/COLLJ SPEC WHEN PFRMD 04/15/2011 Colonoscopy OOPHORECTOMY PARTIAL/TOTAL UNI/BI left PAST SURGICAL HISTORY OF polyps removed from vocal cord TONSILLECTOMY HX FAMILY HISTORY Problem Relation Age of Onset Cancer Mother lung Hypertension Mother Stroke Mother cerebral aneurysm Diabetes Father Hypertension Father Cancer Father lung other (renal failure) Brother Lipids Brother Social History Tobacco Use Smoking status: Never Smokeless tobacco: Never Vaping Use Vaping Use: Never used Substance Use Topics Alcohol use: No Drug use: No Current Outpatient Medications Medication Sig busPIRone (BUSPAR) 5 mg tablet Take 3 tablets by mouth two times a day as needed. estradiol (ESTRACE) 0.01 % (0.1 mg/gram) vaginal cream Use 1 g vaginally as directed. Insert 1 gm vaginally every night x 14 nights then insert 1 gm vaginally twice weekly SYNTHROID 75 mcg tablet Take on empty stomach. For Thyroid. Take one tablet 6 days/week. Lactobacillus acidophilus (FLORAJEN ACIDOPHILUS) 20 billion cell capsule Take 1 capsule by mouth once daily. Cholecalciferol, Vitamin D3, 2,000 unit cap Take 1 capsule by mouth once daily. No current facility-administere d medications for this visit. Allergies As of Date: 02/22/2024 (No Known Allergies) Fully Assessed 02/22/2024 REVIEW OF SYSTEMS Abdomen: No bloating, early satiety, indigestion, or increased flatulence. No abdominal pain, nausea, vomiting, diarrhea, or constipation. Bladder: No dysuria, gross hematuria, urinary frequency, urinary urgency, or incontinence. Allergies and current medication updated:Yes EXAM: BP 110/72 Wt 124 lb 3.2 oz (56.3kg) GENERAL: pleasant, female in no apparent distress CHEST: Normal inspiratory effort PELVIC: external genitalia normal, normal Bartholin's glands, urethra, Trooper's glands, no vulvar lesions, no cervical lesions, off white discharge present, normal appearing perineal body and perianal region. Vaginal atrophy improved with estrace cream. BIMANUAL: uterus normal size, shape and consistency, no adnexal masses, and non-tender NEURO: alert and oriented x3,exam grossly non-focal ASSESSMENT/PLAN: 1. Vaginal irritation - ICD9: 623.9, ICD10: N89.8 (primary diagnosis) - discussed irritation due to chlorine vs BV vs yeast. - ALFRED/TRICHOMONAS NAAT - BACTERIAL VAGINOSIS NAAT 2. Vaginal discharge - ICD9: 623.5, ICD10: N89.8 - ALFRDE/TRICHOMONAS NAAT - BACTERIAL VAGINOSIS NAAT 3. Vaginal atrophy - ICD9: 627.3, ICD10: N95.2 -Well-controlled with Estrace cream. Continue to use every night for another week and then continue with twice daily dosing. Will notify of results. Follow- up as needed. Colleen Powell APRN.KEVIN Flynn spent a total of 22 minutes on the date of the service which included preparing to see the patient, [id number] patient care, completing clinical documentation, obtaining and/or reviewing separately obtained history, performing a medically appropriate examination, counseling and educating the p (more content not included)... [facility] Tele[facility] (DAYNEGYWM) YOLA CARABALLO ([id number]) 1950 F Date Time Provider Department 02/20/24 COLLEEN POWELL During your visit today, we recorded the following information about you: Ryne Goss, RN 02/20/2024 4:51 PM Signed Pt has been using Estrace 6 days in a row d/t burning sensation in vaginal area. States the burning sensation comes and goes. Asking if she should continue using daily d/t increased burning sensation? Please advise. DOYLE Clifford Amy, APRN.CNP 02/20/2024 9:48 PM Signed She can start using it twice a week and see if that helps. Colleen Powell APRN.Ashely Carolina RN 02/21/2024 8:56 AM Signed Patient states that she has been using it twice weekly up until recently. She was having the burning sensation while using it twice weekly so she tried using it daily to see if that helped, but it didn't. Should patient be seen in office for eval? DOYLE Murray Amy, APRN.KEVIN 02/21/2024 1:40 PM Signed She was using clobetasol for vulvar irritation and estrace cream twice a week for vaginal atrophy. Please clarify with pt. She may need an appointment to determine cause and treatment. Colleen Powell APRN.Ryne Cintron RN 02/21/2024 2:23 PM Signed She is no longer using Clobetasol cream. States still having vaginal irritation. Appt made for tomorrow with AG to further discuss cause and treatment. Ryne Goss RN Allergies As of Date: 02/20/2024 (No Known Allergies) Date Reviewed: 11/13/2023 Reviewed by: Sarthak Stratton LPN - Fully Assessed Reason for Visit: Patient Question [8027] Prescriptions as of 02/21/2024 - busPIRone (BUSPAR) 5 mg tablet Take 3 tablets by mouth two times a day as needed. - estradiol (ESTRACE) 0.01 % (0.1 mg/gram) vaginal cream Use 1 g vaginally as directed. Insert 1 gm vaginally every night x 14 nights then insert 1 gm vaginally twice weekly - SYNTHROID 75 mcg tablet Take on empty stomach. For Thyroid. Take one tablet 6 days/week. - Lactobacillus acidophilus (FLORAJEN ACIDOPHILUS) 20 billion cell capsule Take 1 capsule by mouth once daily. - Cholecalciferol, Vitamin D3, 2,000 unit cap Take 1 capsule by mouth once daily. Problem List As Of Date 02/20/2024 Noted Resolved Intervertebral lumbar disc disorder with myelop*04/08/2008 07/11/2012 Vitamin D deficiency [E55.9] 07/15/2010 Hypothyroidism [E03.9] 01/25/2011 Irritable bowel syndrome (IBS) [K58.9] 02/22/2011 09/24/2013 Chronic anxiety [F41.9] 02/22/2011 Abdominal pain, unspecified site [R10.9] 03/15/2011 07/11/2012 Other symptoms involving digestive system(787.9* 011 09/24/2013 Vitamin D deficiency [E55.9] 11/04/2014 05/29/2018 Uninodular goiter [E04.1] 12/08/2015 Lactose intolerance in adult [E73.9] 07/29/2016 Hyperlipidemia LDL goal <130 [E78.5] 12/28/2016 Sciatica, right side [M54.31] 02/02/2017 05/29/2018 Osteopenia, senile [M85.80] 03/26/2019 Migraine with aura, not intractable, without st*04/20/2020 Paroxysmal SVT (supraventricular tachycardia) (*11/17/2022 Diverticulitis of sigmoid colon [K57.32] 08/16/2023 Other ventricular tachycardia (HCC) [I47.29] 01/18/2023 Encounter Status:Closed by RYNE GOSS on 02/21/[address] [facility] Cardiology Visit Reporton Cardiology Visit Report [facility] [address] [place] [address]. [address] [place] [address] OFFICE VISIT Date of Service: 01/10/24 MR#: [id number] Acct: [id number] Name: YOLA CARABALLO Rep #: [id number] : 1950 Provider: KANU levine Age/Sex: 73/F Location: [facility] Status: Signed [facility] History of Present Illness Details: This is a pleasant 73-year-old lady who presents to the office today for a cardiovascular follow up visit. She has no previous cardiac history who was noted to have an abnormal Holter finding after she presented with a urinary tract infection and was noted to have an irregular heartbeat. She had a 14-day Holter monitor performed which demonstrated evidence of supraventricular arrhythmias with the longest lasting 6 beats at a maximum rate of 150 bpm occasional premature ventricular complexes and no pauses. She subsequently had an echocardiogram performed demonstrating an ejection fraction of 59.5%. Normal valve apparatus was noted. From a cardiac standpoint, the patient is doing well. She denies any palpitations, chest pain, pressure or heaviness. She denies SOB, Orthopnea, and PND. She does not have bleeding issues; no blood in urine, stool or nosebleeds. She denies any decrease in energy level, myalgias, or claudication. She does not have edema, or sudden weight gain. She denies dizziness, lightheadedness, syncopal or near syncopal episodes, and headaches. Intake Vital Signs 01/18/23 11:09 04/03/23 08:35 01/10/24 10:48 01/10/24 10:51 Height 5 ft 6 in 5 ft 6 in 5 ft 6 in 5 ft 6 in Weight: 122 lb BMI 19.7 BP 119/73 Blood Pressure Location Lt brachial Position Sitting Respiration 18 Pulse 61 Pulse Source Monitor Pulse Oximetry (%) 98 Intake Visit Reasons: 1 Y FU Pipe Chipper Required: No Is patient in pain?: No Allergies No Known Allergies Allergy (Verified 01/10/24 10:56) Medications ???Medication ???Instructions ???Recorded ???Confirmed ???Type levothyroxine 75 mcg tablet 75 mcg PO SUMOTUWETHFR 11/09/21 01/10/24 History cholecalciferol (vitamin D3) 25 25 mcg PO DAILY 12/09/21 01/10/24 History mcg (1,000 unit) capsule (Vitamin D3) [facility] Medical History Paroxysmal supraventricular tachycardia Abnormal Holter monitor finding NSVT (nonsustained ventricular tachycardia) Wears contact lenses Wears glasses Post-menopausal Thyroid disease Alcohol use High cholesterol Dietary restriction Non-smoker Screening for intestinal cancer Hypothyroidism Anxiety Hyperlipidemia Surgical History History of tonsillectomy History of appendectomy History of left oophorectomy History of colonoscopy Family History Father Cancer lung Hypertension Diabetes Mother Cancer lung Hypertension CVA (cerebral vascular accident) Social History (Reviewed 01/10/24 @ 10:56 by Neyda Canela CARE MANAGEMENT ASSOCIATE, CARE MANAGEMENT ASSOCIATE-C) Smoking Status: Never smoker alcohol intake: current alcohol intake frequency: a few times a month Alcohol type: wine substance use type: does not use caffeine: Yes Type: carbonated beverages Number of servings: 2 and coffee Number of servings: 1 ROS Const Const: Negative for fatigue, weakness, fever(s), headache(s), chills, frequent falls, weight gain or weight loss Eyes Eyes: Negative for blind spots, loss of peripheral vision, transient loss of vision, blurry vision, change in vision, double vision, floaters or tunnel vision ENT ENT: Negative for headache(s), dizziness, Nosebleed/epistaxis, balance problems or neck pain Cardio Chest Pain: No Palpitations: No Edema: None Muscle aches with walking: None Resp Respiratory: Negative for SOB with activity, SOB at rest or SOB orthopnea SOB lying down GI GI: Negative nausea, vomiting, heartburn, bloating, vomiting blood/hematemesis, bright, red blood in stools or black,tarry stools Musc Musc: Negative for muscle aches/ myalgia, muscle weakness, joint pain or balance problems Neuro Neuro: Negative for dizziness, lightheadedness, near syncope, syncope, orthostatic symptoms, frequent falls, headache(s), weakness, blurry vision or double vision Robert Hematologic/Lymphati c: Negative for easy bleeding or easy bruising Endo Endo: Negative for fatigue Cardiology Exam Const Appearance: cooperative and no acute distress Orientation: alert and oriented x3 Head Head: normal to inspection Ears: hearing grossly normal bilaterally Nose: external nose normal Face and Sinus: face symmetric Eyes General: appearance normal, both eyes and all related structures Eyelids: eyelids normal Conjunctivae: conjunctivae normal Pupils: PERRL and pupil size (more content not included)... Normal [facility] 12-28-2023 [facility] Telephone (INTMWS) YOLA CARABLALO ([id number]) 1950 F Date Time Provider Department 12/28/23 MARELY WOOD During your visit today, we recorded the following information about you: Trinh Burden LPN 12/28/2023 12:49 PM Signed Covermymeds PA rec'd for oxazepam. This was completed electronically and approved. Pharmacy notified. Prior authorization approved Payer: [facility] [phone] Approval Details Authorized from July 31, 2023 to April 26, 2024 Electronic appeal: Not supported View History Notes Time User Attachment Attachment received from payer. 12/28/2023 12:46 PM [facility], Rx Priorauth In Document Medication Being Authorized oxazepam (SERAX) 10 mg capsule Take 1 capsule by mouth once daily as needed for anxiety for up to 30 days. Dispense: 30 capsule Refills: 0 Start: 12/26/2023 End: 01/25/2024 Class: Normal Diagnoses: Chronic anxiety This order has been released to its destination. To be filled at: [id number] [place] [address] - [address] [facility] [phone] [id number] Allergies As of Date: 12/28/2023 (No Known Allergies) Date Reviewed: 11/13/2023 Reviewed by: Sarthak Stratton LPN - Fully Assessed Reason for Visit: Insurance Authorization [[id number]] Prescriptions as of 12/28/2023 - oxazepam (SERAX) 10 mg capsule Take 1 capsule by mouth once daily as needed for anxiety for up to 30 days. - estradiol (ESTRACE) 0.01 % (0.1 mg/gram) vaginal cream Use 1 g vaginally as directed. Insert 1 gm vaginally every night x 14 nights then insert 1 gm vaginally twice weekly - SYNTHROID 75 mcg tablet Take on empty stomach. For Thyroid. Take one tablet 6 days/week. - Lactobacillus acidophilus (FLORAJEN ACIDOPHILUS) 20 billion cell capsule Take 1 capsule by mouth once daily. - busPIRone (BUSPAR) 5 mg tablet Take 1 tablet by mouth two times a day as needed. - Cholecalciferol, Vitamin D3, 2,000 unit cap Take 1 capsule by mouth once daily. Facility-Administere d Medications as of 12/28/2023 - perflutren lipid microspheres 1.3 mL in NaCl (PF) 0.9% 10 mL injection (DEFINITY) - sodium chloride 0.9 % (flush) 10 mL (BD POSIFLUSH) Problem List As Of Date 12/28/2023 Noted Resolved Intervertebral lumbar disc disorder with myelop*04/08/2008 07/11/2012 Vitamin D deficiency [E55.9] 07/15/2010 Hypothyroidism [E03.9] 01/25/2011 Irritable bowel syndrome (IBS) [K58.9] 02/22/2011 09/24/2013 Chronic anxiety [F41.9] 02/22/2011 Abdominal pain, unspecified site [R10.9] 03/15/2011 07/11/2012 Other symptoms involving digestive system(787.9* 011 09/24/2013 Vitamin D deficiency [E55.9] 11/04/2014 05/29/2018 Uninodular goiter [E04.1] 12/08/2015 Lactose intolerance in adult [E73.9] 07/29/2016 Hyperlipidemia LDL goal <130 [E78.5] 12/28/2016 Sciatica, right side [M54.31] 02/02/2017 05/29/2018 Osteopenia, senile [M85.80] 03/26/2019 Migraine with aura, not intractable, without st*04/20/2020 Paroxysmal SVT (supraventricular tachycardia) (*11/17/2022 Diverticulitis of sigmoid colon [K57.32] 08/16/2023 Other ventricular tachycardia (HCC) [I47.29] 01/18/2023 Encounter Status:Closed by TRINH BURDEN on 12/28/[address] [facility] 12-26-2023 CNPN Nurse Triage (FAMPWS) YOLA CARABALLO ([id number]) 1950 F Date Time Provider Department 12/26/23 MARELY WOOD During your visit today, we recorded the following information about you: Guerda Barragan 12/26/2023 2:21 PM Signed She is asking if she should once again have a liquid diet if she is experiencing a possible Diverticulitis flare up. Asked for a call back to advise. [phone] Sarthak Stratton LPN 12/26/2023 2:47 PM Signed Routing to triage. RODNEY Swartz Stephanie, DOYLE 12/26/2023 4:50 PM Signed Patient call in for abdominal discomfort, gas this morning. Patient states that she passed gas and had bowel movement and started to feel better. Nurse Triage assessment completed with protocol recommending for disposition of home care. Patient going to slowly reintroduce bland foods. Patient has been eating chicken broth with no issues currently. Patient will call back if pain comes back. Care advice reviewed with patient, patient stated understanding. Patient advised to contact office or seek evaluation in urgent care or ER if symptoms persist or gets worse. Reason for Disposition [1] MILD-MODERATE pain AND [2] comes and goes (cramps) Answer Assessment - Initial Assessment Questions 1. LOCATION: [facility] 2. RADIATION: Denies Radiation 3. ONSET: This morning, however patient passed gas and had bowel movement and patient does not have pain anymore. 4. SUDDEN: Sudden 5. PATTERN Comes and Goes 6. SEVERITY: Rates pain 5 or 6 7. RECURRENT SYMPTOM: Yes last fall, patient was diagnosed with diverticulitis. 8. CAUSE: Diverticulitis 9. RELIEVING/AGGRAVATIN G FACTORS: Having Bowel movement and passing gas made it better 10. OTHER SYMPTOMS: Denies Protocols used: Abdominal Pain - [id number] Allergies As of Date: 12/26/2023 (No Known Allergies) Date Reviewed: 11/13/2023 Reviewed by: Sarthak Stratton LPN - Fully Assessed Reason for Visit: Patient Question [3769] Abdominal Pain [1] Prescriptions as of 12/26/2023 - estradiol (ESTRACE) 0.01 % (0.1 mg/gram) vaginal cream Use 1 g vaginally as directed. Insert 1 gm vaginally every night x 14 nights then insert 1 gm vaginally twice weekly - SYNTHROID 75 mcg tablet Take on empty stomach. For Thyroid. Take one tablet 6 days/week. - Lactobacillus acidophilus (FLORAJEN ACIDOPHILUS) 20 billion cell capsule Take 1 capsule by mouth once daily. - busPIRone (BUSPAR) 5 mg tablet Take 1 tablet by mouth two times a day as needed. - Cholecalciferol, Vitamin D3, 2,000 unit cap Take 1 capsule by mouth once daily. Facility-Administere d Medications as of 12/26/2023 - perflutren lipid microspheres 1.3 mL in NaCl (PF) 0.9% 10 mL injection (DEFINITY) - sodium chloride 0.9 % (flush) 10 mL (BD POSIFLUSH) Problem List As Of Date 12/26/2023 Noted Resolved Intervertebral lumbar disc disorder with myelop*04/08/2008 07/11/2012 Vitamin D deficiency [E55.9] 07/15/2010 Hypothyroidism [E03.9] 01/25/2011 Irritable bowel syndrome (IBS) [K58.9] 02/22/2011 09/24/2013 Chronic anxiety [F41.9] 02/22/2011 Abdominal pain, unspecified site [R10.9] 03/15/2011 07/11/2012 Other symptoms involving digestive system(787.9* 011 09/24/2013 Vitamin D deficiency [E55.9] 11/04/2014 05/29/2018 Uninodular goiter [E04.1] 12/08/2015 Lactose intolerance in adult [E73.9] 07/29/2016 Hyperlipidemia LDL goal <130 [E78.5] 12/28/2016 Sciatica, right side [M54.31] 02/02/2017 05/29/2018 Osteopenia, senile [M85.80] 03/26/2019 Migraine with aura, not intractable, without st*04/20/2020 Paroxysmal SVT (supraventricular tachycardia) (*11/17/2022 Diverticulitis of sigmoid colon [K57.32] 08/16/2023 Other ventricular tachycardia (HCC) [I47.29] 01/18/2023 Disposition Location/POS Recorded Home Care 04:45 PM 12/26/23 What would patient/caregiver have done without intervention? Made an appointment [4] Patient/Caregiver understands and will follow disposition? Yes, will follow disposition [54] Encounter Status:Closed by DELPHINE DING on 12/26/23 Normal [facility] CBC W Auto Differential pane l (Bld)on 10-13-2023 Basophils (Bld) [#/Vol] 0.06 10*3/uL <0.11 k/uL [facility] Basophils/100 WBC (Bld) 0.8 % [facility] Differential cell count method Nom (Bld) Auto [facility] Eosinophils (Bld) [#/Vol] 0.11 10*3/uL <0.46 k/uL [facility] Eosinophils/100 WBC (Bld) 1.5 % [facility] Erythrocyte distribution width (RBC) [Ratio] 12.9 % 11.5 - 15.0 % [facility] Hematocrit (Bld) [Volume fraction] 42.3 % 36.0 - 46.0 % [facility] Hemoglobin (Bld) [Mass/Vol] 13.6 g/dL 11.5 - 15.5 g/dL [facility] Immature granulocytes (Bld) [#/Vol] <0.10 k/uL [facility] Immature granulocytes/100 WBC (Bld) 0.3 % [facility] Lymphocytes (Bld) [#/Vol] 1.88 10*3/uL 1.00 - 4.00 k/uL [facility] Lymphocytes/100 WBC (Bld) 26.3 % [facility] MCH (RBC) [Entitic mass] 28.7 pg 26.0 - 34.0 pg [facility] MCHC (RBC) [Mass/Vol] 32.2 g/dL 30.5 - 36.0 g/ dL [facility] MCV (RBC) [Entitic vol] 89.2 fL 80.0 - 100.0 fL [facility] Monocytes (Bld) [#/Vol] 0.60 10*3/uL <0.87 k/uL [facility] Monocytes/100 WBC (Bld) 8.4 % [facility] Neutrophils (Bld) [#/Vol] 4.47 10*3/uL 1.45 - 7.50 k/uL [facility] Neutrophils/100 WBC (Bld) 62.7 % [facility] Nucleated RBC (Bld) [#/Vol] <0.01 k/uL [facility] Nucleated RBC/100 WBC (Bld) [Ratio] 0.0 /100 WBC [facility] Platelet mean volume (Bld) [Entitic vol] 11.5 fL 9.0 - 12.7 fL [facility] Platelets (Bld) [#/Vol] 225 10*3/uL 150 - 400 k/uL [facility] RBC (Bld) [#/Vol] 4.74 10*6/uL 3.90 - 5.20 m/uL [facility] WBC (Bld) [#/Vol] 7.14 10*3/uL 3.70 - 11. 00 k/uL [facility] Comprehensive metabolic 2000 panelon 10-13-2023 Albumin [Mass/Vol] 4.6 g/dL 3.9 - 4.9 g/dL [facility] ALP [Catalytic activity/Vol] 55 U/L 34 - 123 U/L [facility] ALT [Catalytic activity/Vol] 10 U/L 7 - 38 U/L [facility] Anion gap [Moles/Vol] 9 mmol/L 9 - 18 mmol/L [facility] AST [Catalytic activity/Vol] 21 U/L 13 - 35 U/L [facility] Bilirubin [Mass/Vol] 0.4 mg/dL 0.2 - 1.3 mg/dL [facility] Calcium [Mass/Vol] 9.9 mg/dL 8.5 - 10.2 mg/dL [facility] Chloride [Moles/Vol] 105 mmol/L 97 - 105 mmol/L [facility] CO2 [Moles/Vol] 28 mmol/L 22 - 30 mmol/L [facility] Creatinine [Mass/Vol] 0.71 mg/dL 0.58 - 0.96 mg/dL [facility] Estimated Glomerular Filtration Rate 90 mL/min/1.73m >=60 mL/min/1.73m [facility] Glucose [Mass/Vol] 90 mg/dL 74 - 99 mg/dL [facility] Potassium [Moles/Vol] 4.0 mmol/L 3.7 - 5.1 mmol /L [facility] Protein [Mass/Vol] 7.6 g/dL 6.3 - 8.0 g/dL [facility] Sodium [Moles/Vol] 142 mmol/L 136 - 144 mmol/L [facility] Urea nitrogen [Mass/Vol] 12 mg/dL 7 - 21 mg/dL [facility] Lipid 1996 panelon 4 Cholesterol [Mass/Vol] 216 mg/dL High <200 mg/dL [facility] Cholesterol in HDL [Mass/Vol] 63 mg/dL >39 mg/dL [facility] Cholesterol in LDL [Mass/Vol] 136 mg/dL High <100 mg/dL [facility] Cholesterol in LDL/Cholesterol in HDL [Mass ratio] 2.16 {ratio} <2.54 [facility] Cholesterol in VLDL [Mass/Vol] 17 mg/dL <30 mg/dL [facility] Cholesterol non HDL [Mass/Vol] 153 mg/dL High <130 mg/dL [facility] Cholesterol.total/Chol esterol in HDL [Mass ratio] 3.43 {ratio} <5.10 [facility] Fasting Time 12 hrs [facility] Triglyceride [Mass/Vol] 84 mg/dL <150 mg/dL [facility] T4 FREE/FREE THYROXon 2023 Free T4 [Mass/Vol] 1.4 ng/dL 0.9 - 1.7 ng/dL [facility] TSH BLDon 10-13-2023 TSH Qn 1.730 m[IU]/L 0.270 - 4.200 mIU/L [facility] VITAMIN D 25 HYDROXYon 10-12 25-hydroxyvitamin D3 [Mass/Vol] 50.5 ng/mL 31.0 - 80.0 ng/mL [facility] CBC W Auto Differential pane l (Bld)on 04-13-2023 Basophils (Bld) [#/Vol] 0.08 10*3/uL <0.11 k/uL [facility] Basophils/100 WBC (Bld) 1.0 % [facility] Differential cell count method Nom (Bld) Auto [facility] Eosinophils (Bld) [#/Vol] 0.19 10*3/uL <0.46 k/uL [facility] Eosinophils/100 WBC (Bld) 2.3 % [facility] Erythrocyte distribution width (RBC) [Ratio] 12.1 % 11.5 - 15.0 % [facility] Hematocrit (Bld) [Volume fraction] 40.8 % 36.0 - 46.0 % [facility] Hemoglobin (Bld) [Mass/Vol] 13.2 g/dL 11.5 - 15.5 g/dL [facility] Immature granulocytes (Bld) [#/Vol] 0.04 10*3/uL <0.10 k/uL [facility] Immature granulocytes/100 WBC (Bld) 0.5 % [facility] Lymphocytes (Bld) [#/Vol] 2.13 10*3/uL 1.00 - 4.00 k/uL [facility] Lymphocytes/100 WBC (Bld) 25.4 % [facility] MCH (RBC) [Entitic mass] 29.1 pg 26.0 - 34.0 pg [facility] MCHC (RBC) [Mass/Vol] 32.4 g/dL 30.5 - 36.0 g/ dL [facility] MCV (RBC) [Entitic vol] 90.1 fL 80.0 - 100.0 fL [facility] Monocytes (Bld) [#/Vol] 0.65 10*3/uL <0.87 k/uL [facility] Monocytes/100 WBC (Bld) 7.7 % [facility] Neutrophils (Bld) [#/Vol] 5.30 10*3/uL 1.45 - 7.50 k/uL [facility] Neutrophils/100 WBC (Bld) 63.1 % [facility] Nucleated RBC (Bld) [#/Vol] <0.01 k/uL [facility] Nucleated RBC/100 WBC (Bld) [Ratio] 0.0 /100 WBC [facility] Platelet mean volume (Bld) [Entitic vol] 11.4 fL 9.0 - 12.7 fL [facility] Platelets (Bld) [#/Vol] 275 10*3/uL 150 - 400 k/uL [facility] RBC (Bld) [#/Vol] 4.53 10*6/uL 3.90 - 5.20 m/uL [facility] WBC (Bld) [#/Vol] 8.39 10*3/uL 3.70 - 11. 00 k/uL [facility] Abdomen/Pelvis W IV Cont ONL Yon 04-03-2023 Abdomen/Pelvis W IV Cont ONLY [facility] [address] [place] [address] Abdomen/Pelvis W IV Cont ONLY MR#: [id number] Acct: [id number] Name: YOLA CARABALLO Rep #: [id number] : 1950 F 72 From: Ismael Valle PCP: KANU Ann Status: [facility] Study: Abdomen/Pelvis W IV Cont ONLY Date of Exam: Exam# [id number] Ordering Dr: Victor M Nicole MD STUDY: CT ABDOMEN AND PELVIS WITH CONTRAST REASON FOR EXAM: Female, 72 years old. LLQ pain, leukocytosis, history diverticulosis RADIATION DOSAGE (If Supplied By Facility): CTDIvol = ( 10.89 ) mGy, DLP = ( 390.74 ) mGycm TECHNIQUE: IV 100mL [id number]-[id number] was administered. Transaxial images were obtained from the dome of the diaphragm to the symphysis pubis. Multiplanar coronal and sagittal images were reformatted. Individualized Dose Optimization Techniques Were Used For This CT. COMPARISON: No prior examinations are available for comparison FINDINGS: The visualized lung bases are unremarkable. The visualized portions of the heart are within normal limits. Normal liver. Normal gallbladder and extrahepatic biliary system. Normal spleen. Normal pancreas. Normal bilateral adrenal glands. Grossly unremarkable stomach. Normal in caliber small bowel loops. Diverticulosis of the sigmoid colon with long segment of thickening and stranding consistent with acute diverticulitis. Colitis is less likely. Fecal retention. There are surgical clips in the region of the appendix consistent with a prior appendectomy. There is atherosclerotic calcification of the abdominal aorta, without a demonstrated aneurysm. No retroperitoneal adenopathy. Normal right kidney. Normal left kidney. Normal urinary bladder. Small umbilical hernia containing fat. Degenerative changes in the spine. CT/Abdomen/Pelvis W IV Cont ONLY IMPRESSION: 1. Thickening of the sigmoid colon consistent with acute diverticulitis. 2. No evidence of drainable abscess or free air. Electronically Signed: Ismael Sommer MD at 10:26 EDT , CC: KANU Wood; Dr. Victor M Nicole MD Corporate Health Consultant: Signed Normal [facility] Absolute lymphocyte countOrd ered By: Victor M Nicole on 04-03-2023 Lymphocytes Auto (Unsp spec) [#/Vol] 1.00 10*3/uL 0.83-4.51 [facility] Acute Abdomen Inc Cheston Acute Abdomen Inc Chest [facility] [address] [place] [address] Acute Abdomen Inc Chest MR#: [id number] Acct: [id number] Name: YOLA CARABALLO Rep #: [id number] : 1950 F 72 From: Ismael Valle PCP: KANU Ann Status: REG ER Study: Acute Abdomen Inc Chest Date of Exam: 04/03/23 Exam# [id number] Ordering Dr: Victor M Nicole MD INDICATION: Distention, bloated, tympanitic and bilateral LQ p EXAMINATION/TECHNIQU E: X-RAY - XR Abdomen Series W/ Chest 1 View COMPARISON: None. ____ FINDINGS: --Chest: LINES/DEVICES: None. LUNGS: No consolidation, edema or effusion. No pneumothorax. MEDIASTINUM AND CARDIOVASCULAR STRUCTURES: Cardiac silhouette not enlarged. Central airways and mediastinal contour are unremarkable. BONES AND SOFT TISSUES: No acute findings. --Abdomen: BOWEL GAS PATTERN: Non-obstructive. No bowel or stomach distention. FREE AIR: None visualized. ORGANOMEGALY: Not seen. CALCIFICATIONS: No abnormal calcifications observed. BONES AND SOFT TISSUES: Degenerative changes of the lower lumbar spine. RAD/Acute Abdomen Inc Chest IMPRESSION: 1. No active pulmonary disease. 2. Nonobstructive gas. Electronically Signed: Ismael Sommer MD at 9:30 EDT , CC: KANU Wood; Dr. Victor M Nicole MD Corporate Health Consultant: Signed Normal [facility] Automated blood hematocrit ( percentage)Ordered By: Victor M Nicole on 04-03-2023 Hematocrit (Bld) [Volume fraction] 39.5 % Normal 37-47 [facility] Comment on above: Performed By: #### L 500.2500, L100.0100 #### [facility] [address] [place], [address] Basic Metabolic Profile (BMP )on 04-03-2023 BUN/CRE 17.5 RATIO Normal 10-20 [facility] Comment on above: Performed By: #### L 500.2500, L100.0100 #### [facility] [address] [place], [address] CA,Total 9.0 mg/dL Normal 8.5-10.1 [facility] Comment on above: Performed By: #### L 500.2500, L100.0100 #### [facility] [address] [place], [address] ECRCL 44.34 ml/min Normal [facility] Comment on above: Performed By: #### L 500.2500, L100.0100 #### [facility] [address] [place], [address] EST GFR - AA 99 mL/min Normal >60 [facility] Comment on above: Result Comment: Afri can Citizen Of [place] GFR Calc Performed By: #### L 500.2500, L100.0100 #### [facility] [address] [place], [address] GAP 5 Normal 5-15 [facility] Comment on above: Performed By: #### L 500.2500, L100.0100 #### [facility] [address] [place], [address] GFR/1.73 sq M.predicted among non-blacks MDRD (S/P/Bld) [Vol rate/Area] 82 mL/min/{1.73_m2} Normal >60 [facility] Comment on above: Result Comment: Non- GFR Calc Performed By: #### L 500.2500, L100.0100 #### [facility] [address] [place], [address] Basic Metabolic Profile (BMP )Ordered By: Victor M Nicole on 04-03-2023 CO2 [Moles/Vol] 30.0 mmol/L Normal 21.0-32.0 [facility] Comment on above: Performed By: #### L 500.2500, L100.0100 #### [facility] [address] [place], [address] Basophil percentageOrdered B y: Victor M Nicole on 04-03-2023 Chloride [Moles/Vol] 105 mmol/L Normal 98-107 [facility] Comment on above: Performed By: #### L 500.2500, L100.0100 #### [facility] [address] [place], [address] Glucose [Mass/Vol] 97 mg/dL Normal 74-106 [facility] Comment on above: Performed By: #### L 500.2500, L100.0100 #### [facility] [address] [place], [address] Potassium [Moles/Vol] 3.6 mmol/L Normal 3.5-5.1 [facility] Comment on above: Performed By: #### L 500.2500, L100.0100 #### [facility] [address] [place], [address] Sodium [Moles/Vol] 140 mmol/L Normal 136-145 [facility] Comment on above: Performed By: #### L 500.2500, L100.0100 #### [facility] [address] [place], [address] Basophils/100 WBC (Bld) 0.4 % Normal 0-1 [facility] Comment on above: Performed By: #### L 500.2500, L100.0100 #### [facility] [address] [place], [address] Eosinophils/100 WBC (Bld) 0.3 % Normal 0-5 [facility] Comment on above: Performed By: #### L 500.2500, L100.0100 #### [facility] [address] [place], [address] Neutrophils/100 WBC (Bld) 86.5 % High 47-70 [facility] Comment on above: Performed By: #### L 500.2500, L100.0100 #### [facility] [address] [place], [address] WBC (Bld) [#/Vol] 13.6 10*3/uL High 4.4-11.0 [facility] Comment on above: Performed By: #### L 500.2500, L100.0100 #### [facility] [address] [place], [address] Neutrophils (Bld) [#/Vol] 11.8 10*3/uL 2.0-7.7 [facility] Blood erythrocytes count (nu mber/volume)Ordered By: Victor M Nicole on 04-03-2023 RBC (Bld) [#/Vol] 4.35 10*6/uL Normal 4.2-5.4 [facility] Comment on above: Performed By: #### L 500.2500, L100.0100 #### [facility] [address] [place], [address] Blood hemoglobin measurement (mass/volume)Ordered By: Victor M Nicole on 04-03-2023 Hemoglobin (Bld) [Mass/Vol] 12.7 g/dL Normal 12.0-15.0 [facility] Comment on above: Performed By: #### L 500.2500, L100.0100 #### [facility] [address] [place], [address] Blood lymphocytes/100 leukoc ytesOrdered By: Victor M Nicole on 04-03-2023 Lymphocytes/100 WBC (Bld) 7.3 % Low 19-41 [facility] Comment on above: Performed By: #### L 500.2500, L100.0100 #### [facility] [address] [place], [address] Blood monocytes/100 leukocyt esOrdered By: Victor M Nicole on 04-03-2023 Monocytes/100 WBC (Bld) 5.2 % Normal 0-10 [facility] Comment on above: Performed By: #### L 500.2500, L100.0100 #### [facility] [address] [place], [address] Blood platelet mean volumeOr dered By: Victor M Nicole on 04-03-2023 Platelet mean volume (Bld) [Entitic vol] 10.9 fL Normal 6.2-12.0 [facility] Comment on above: Performed By: #### L 500.2500, L100.0100 #### [facility] [address] [place], [address] CBC W/Diff, Automatedon 09-0 Absolute Lymph 1.00 X10 3/uL Normal 0.83-4.51 [facility] Comment on above: Performed By: #### L 500.2500, L100.0100 #### [facility] [address] [place], [address] Absolute Neut 11.8 X10 3/uL High 2.0-7.7 [facility] Comment on above: Performed By: #### L 500.2500, L100.0100 #### [facility] [address] [place], [address] IG% 0.300 Normal 0.0-0.9 [facility] Comment on above: Result Comment: IG% - Immature Granulocytes (promyelocytes, myelocytes and metamyelocytes) > 1% indicates that a LEFT SHIFT is Present. Performed By: #### L 500.2500, L100.0100 #### [facility] [address] [place], [address] Nucleated RBC (Bld) [#/Vol] 0 10*3/uL Normal 0-5 [facility] Comment on above: Performed By: #### L 500.2500, L100.0100 #### [facility] [address] [place], [address] RDW SD 40.0 fl Normal 35.1-43.9 [facility] Comment on above: Performed By: #### L 500.2500, L100.0100 #### [facility] [address] [place], [address] CBC W/Diff, AutomatedOrdered By: Victor M Nicole on 04-03-2023 Erythrocyte distribution width (RBC) [Ratio] 12.0 % Normal 11.6-14.6 [facility] Comment on above: Performed By: #### L 500.2500, L100.0100 #### [facility] [place], [address] MCH (RBC) [Entitic mass] 29.2 pg Normal 27.0-32.0 [facility] Comment on above: Performed By: #### L 500.2500, L100.0100 #### [facility] [place], [address] Determination of erythrocyte mean corpuscular volume (MCV)Ordered By: Victor M Nicole on 04-03-2023 MCV (RBC) [Entitic vol] 90.8 fL Normal 81-99 [facility] Comment on above: Performed By: #### L 500.2500, L100.0100 #### [facility] [address] [place], [address] Emergency Department Summary on 04-03-2023 Emergency Department Summary [facility] Medical Records Department [address] [place] [address] Emergency Department Summary 04/03/23 MR#: [id number] Acct: [id number] Name: YOLA CARABALLO Rep #: [id number] : 1950 72 From: Victor M Nicole MD PCP: LYDIA AnnC Status:REG ER Location: ED HPI HPI - GI History of Present Illness Chief Complaint: Abd Pain Detail of Chief Complaint: Abdominal fullness and pain for a couple of weeks. Informant: patient and spouse/S.O. Abdominal Pain/Flank Pain Onset: Weeks Context: Sudden Onset Timing: Continuous and Waxes and wanes Quality: Aching Location: RLQ and LLQ Current Severity: Mild Maximum Severity: Moderate Worsened by: Food (Believes the potato with 2 tablespoons of olive oil that she consumed on .) Relieved by: Antacids (Has taken Maalox with minimal improvement) Nausea/Vomiting/Emes is GI Symptom: Negative for Nausea or Vomiting Diarrhea/Melena/Robert tochezia GI Symptom: Positive for Diarrhea (Diarrhea a couple of weeks ago after consuming dairy products and self-induced); Negative for Melena or Hematochezia Onset: Weeks (2 weeks ago and this past week) Stool Quality: Positive for Loose and Watery; Negative for Mucous, Black, Maroon or BRB per rectum Severity: Mild Associated Symptoms Associated Symptoms: Negative for Dysuria, Frequency, Hematuria or Urgency Narrative Narrative: Patient is a 72-year-old woman who presents with abdominal pain. She has history of lactulose intolerance. Patient was doing well until a couple of weeks ago when she had dairy product. She to ok lactulose tablets but did not have total relief. She presents now because of increased fullness and distention that she reports got worse this past after having potato with olive oil. She denies nausea or vomiting. She had diarrhea a couple of weeks ago when she had dairy product and when she is taking Maalox. She states she had a colonoscopy recently by Dr. Jb Hollis and was told she does not need future colonoscopy. No biopsies were taken. That note was reviewed and patient has evidence of diverticulosis in the entire colon that was examined and also had an internal hemorrhoid. Patient denies fever, chills night sweats. Patient Nuys weight gain or weight loss. Patient denies urologic symptoms. Patient denies back pain. Prior similar symptoms: Yes Recent Illness/Hospitalizat ion: No PFSH PFSH Medical History Abnormal Holter monitor finding Alcohol use Anxiety Dietary restriction High cholesterol Hyperlipidemia Hypothyroidism Non-smoker NSVT (nonsustained ventricular tachycardia) Paroxysmal supraventricular tachycardia Post-menopausal Screening for intestinal cancer Thyroid disease Wears contact lenses Wears glasses Home Medications levothyroxine 75 mcg tablet 75 mcg PO SUMOTUWETHFR 11/09/21 [History Last Taken Unknown] cholecalciferol (vitamin D3) 25 mcg (1,000 unit) capsule (Vitamin D3) 25 mcg PO DAILY 12/09/21 [History Last Taken Unknown] oxazepam 10 mg capsule 10 mg PO PRN PRN Anxiety 01/18/23 [History Last Taken Unknown] amoxicillin 875 mg-potassium clavulanate 125 mg tablet 875 mg (0.875 x 875-125 mg) PO Q12H #14 TABLETS 04/03/23 [Rx Last Taken Unknown] Allergy/AdvReac Type Severity Reaction Status Date / Time No Known Allergies Allergy Verified 04/03/23 08:37 Family History Father Cancer lung Hypertension Diabetes Mother Cancer lung Hypertension CVA (cerebral vascular accident) Surgical History History of appendectomy History of colonoscopy History of left oophorectomy History of tonsillectomy Social History Smoking Status: Never smoker alcohol intake: current alcohol intake frequency: a few times a month Alcohol type: wine substance use type: does not use caffeine: Yes Type: carbonated beverages Number of servings: 2 and coffee Number of servings: 1 ROS ROS ED Constitutional Constitutional ED: Denies chills, fever(s), subjective, sweats or weight loss ENT ENT ED: Denies ear pain, rhinorrhea or sore throat Cardiovascular Cardiovascular: Denies chest pain or palpitations Respiratory/Chest Respiratory/Chest: Denies cough, dyspnea or dyspnea on exertion Gastrointestinal Gastrointestinal: Reports abdominal pain and diarrhea; Denies constipation, melena, nausea or vomiting Genitourinary Genitourinary ED: Denies dysuria, hematuria or urinary frequency Musculoskeletal Musculoskeletal: Denies arthralgias, back pain, myalgias or neck pain Integumentary Denies rash Hematologic/Lymphati c Hematologic/Lymphati c: Denies easy bleeding or easy bruising EXAM Physical Exam Const Vit (more content not included)... Normal [facility] - Chemistry and C hemistry - challengeOrdered By: Victor M Nicole on 04-03-2023 Urea nitrogen/Creatinine [Mass ratio] 17.5 mg/mg 10-20 [facility] - Hematology and Cell countsOrdered By: Victor M Nicole on 04-03-2023 Erythrocyte distribution width (RBC) [Entitic vol] 40.0 fL 35.1-43.9 [facility] Immature granulocytes/100 WBC (Bld) 0.300 % 0.0-0.9 [facility] Comment on above: IG% - Immature Granu locytes (promyelocytes, myelocytes and metamyelocytes) > 1% indicates that a LEFT SHIFT is Present. Nucleated RBC/100 WBC (Bld) [Ratio] 0 % 0-5 [facility] MCHC [Mass/volume] by Automa rigo countOrdered By: Victor M Nicole on 04-03-2023 MCHC (RBC) [Mass/Vol] 32.2 g/dL Normal 32-36 [facility] Comment on above: Performed By: #### L 500.2500, L100.0100 #### [facility] [address] [place], [address] No Panel InformationOrdered By: Victor M Nicole on 04-03-2023 Estimated Creatinine Clearance Calc 44.34 ml/min [facility] Estimated GFR (MDRD) Amer 99 mL/min >60 [facility] [facility] Comment on above: GFR Calc Estimated GFR (MDRD) Non-Af Amer 82 mL/min >60 [facility] Comment on above: Non- GFR Calc Platelets bldOrdered By: Victor M Nicole on 04-03-2023 Platelets (Bld) [#/Vol] 252 10*3/uL Normal 150-450 [facility] Comment on above: Performed By: #### L 500.2500, L100.0100 #### [facility] [address] [place], [address] Serum or plasma calcium warren urement (mass/volume)Ordered By: Victor Moseas Nicole on 04-03-2023 Calcium [Mass/Vol] 9.0 mg/dL 8.5-10.1 [facility] Serum or plasma creatinine m easurement (mass/volume)Ordered By: Victor Moseas Nicole on 04-03-2023 Creatinine [Mass/Vol] 0.74 mg/dL Normal 0.55-1.02 [facility] Comment on above: The validity of the calculated GFR & GFRAA in patients over 70 years has not been determined. Clinical correlation is essential. Result Comment: The validity of the calculated GFR GFRAA in patients over 70 years has not been determined. Clinical correlation is essential. Performed By: #### L 500.2500, L100.0100 #### [facility] [address] [place], [address] Serum or plasma urea nitroge n measurement (mass/volume)Ordered By: Victor M Nicole on 04-03-2023 Urea nitrogen [Mass/Vol] 13 mg/dL Normal 7-18 [facility] Comment on above: Performed By: #### L 500.2500, L100.0100 #### [facility] [address] [place], [address] Thin prep Papanicolaou smear with manual screeningOrdered By: Victor M Nicole on 04-03-2023 Thin prep Papanicolaou smear with manual screening 5 5-15 [facility] Coronary Angiography CTon Coronary Angiography CT [facility] [address] [place] [address] 02/23/23 174 MR#: [id number] Acct: [id number] Name: YOLA CARABALLO Rep #: [id number] : 1950 72 From: Den Buchanan MD PCP: KANU Ann Status:REG CLI Y Location: CT Calcium Scoring Date of Study:: 02/23/23 Indications Indications: Hyperlipidemia Coronary Calcium Scoring: High-resolution Computed Tomographic imaging of the chest was performed on [02/23/2023], with particular attention paid to the coronary arteries. Images from the examination were analyzed for the presence and extent of coronary artery calcification , using coronary calcium quantification software. The patient tolerated the procedure well and there were no complications. The results of the coronary calcification analysis are provided below. Findings Coronary Artery Left Main (LM): 0 Left Anterior Descending (LAD): 0 Left Circumflex (LCX): 0 Right Coronary Artery (RCA): 0 Total Agatston Score: 0 Percentile Rankin Calcium Scoring Interpretation: Different methods to categorize the overall amount of coronary plaque. Overall amount CAC SIS Visual of coronary plaque P1 Mild -100 <2 1-2 vessels with mild amount of plaque P2 Moderate 101-300 3-4 1-2 vessels with moderate amount, 3 vessels with mild amount of plaque P3 Severe 301-999 5-7 3 vessels with moderate amount, 1 vessel with severe amount of plaque P4 Extensive >1000 >8 2-3 vessels with severe amount of plaque Conclusion: No significant atherosclerotic plaquing noted 02/23/231742 Date Den Buchanan MD Cosigner Signature (if applicable): Date CC: KANU Wood; Dr. Den Buchanan MD Signed Normal [facility] Limited Chest CT Cardiac Onl yon 02-23-[address] Cardiac Only [facility] [address] [place] [address] Cardiac Only MR#: [id number] Acct: [id number] Name: YOLA CARABALLO Rep #: [id number] : 1950 F 72 From: Sebastián reid MD PCP: KANU Ann Status: REG CLI Study: Limited Chest CT Cardiac Only Date of Exam: Exam# [id number] Ordering Dr: Den Buchanan MD STUDY: CT CHEST WITHOUT CONTRAST REASON FOR EXAM: Female, 72 years old. CALCIUM SCORE. Over read examination. RADIATION DOSAGE (If Supplied By Facility): CTDIvol = ( 12.19 ) mGy, DLP = ( 243.79 ) mGycm TECHNIQUE: Transaxial imaging was performed without the administration of intravenous contrast material. Individualized dose optimization techniques were used for this CT. COMPARISON: No relevant priors. FINDINGS: CHEST There is a 4.3 mm noncalcified nodule in the anterior aspect of the left lower lobe abutting the major fissure as seen on axial image #30. No follow-up is required. There is no demonstrated pleural abnormality. There are calcifications of the coronary arteries. Normal mediastinum. Normal hilar regions. Normal unenhanced pulmonary arteries. Normal aorta arch and descending thoracic aorta. There are degenerative changes of the thoracic spine. There is no demonstrated abnormality of the visualized upper abdomen. CT/Limited Chest CT Cardiac Only IMPRESSION: Coronary artery calcification. 4.3 mm noncalcified pleural based nodule in the anterior aspect of the left lower lobe abutting the major fissure. No follow-up is recommended. Electronically Signed: Sebastián Castillo MD at 14:36 EDT , CC: KANU Wood; Dr. Den Buchanan MD Corporate Health Consultant: Signed Normal [facility] 12 Lead EKG performed by [facility] on 01-18-2023 12 Lead EKG performed by [facility] [address] [place] [address] 12 Lead EKG performed by [facility] 01/18/231107 MR#: [id number] Acct: [id number] Name: YOLA CARABALLO Rep #: [id number] : 1950 72 From: Den Buchanan MD Attending Dr: Dr. Den Buchanan MD Status: DEP A MB Ordering Dr: Den Buchanan MD Date: 01/18/23 Location: [facility] Sex: F C Admitted: BMS/12 Lead EKG performed by [facility] ECG Report Interpretation ------Sinus Bradycardia -Incomplete right bundle branch block. ABNORMAL Electronically signed on 01/23/2023 at 09:40 by Den Buchanan [employer] Version [id number] 01/23/23 0945 Date Den Buchanan MD CC: Date Dictated: 01/18/231107 Date Transcribed: 01/18/231107 Corporate Health Consultant: [place] Signed Normal [facility] Cardiology Visit Reporton Cardiology Visit Report [facility] [address] [place] [address] OFFICE VISIT Date of Service: 01/18/23 MR#: [id number] Acct: [id number] Name: YOLA CARABALLO Rep #: [id number] : 1950 Provider: Dr. Dne Buchanan MD Age/Sex: 72/F Location: [facility] Status: Signed [facility] History of Present Illness Details: Pleasant 72-year-old lady with no previous cardiac history who was noted to have an abnormal Holter finding after she presented with a urinary tract infection and was noted to have an irregular heartbeat. She had a 14-day Holter monitor performed which demonstrated evidence of supraventricular arrhythmias with the longest lasting 6 beats at a maximum rate of 150 bpm occasional premature ventricular complexes and no pauses. She subsequently had an echocardiogram performed demonstrating an ejection fraction of 59.5%. Normal valve apparatus was noted. Her physical exam here is unremarkable her electrocardiogram demonstrates normal sinus rhythm with a rate of 57 bpm. Intake Vital Signs 12/10/21 08:44 01/18/23 11:09 01/18/23 11:09 Height 5 ft 6 in 5 ft 6 in 5 ft 6 in Weight: 125 lb BMI 20.1 BP 124/78 H Blood Pressure Location Lt brachial Position Sitting Respiration 16 Pulse 66 Pulse Source Monitor Intake Visit Reasons: ABN HOLTER (NINA) Pipe Chipper Required: No Accompanied by: None Is patient in pain?: No Allergies No Known Allergies Allergy (Verified 01/18/23 11:13) Medications levothyroxine 75 mcg tablet 75 mcg PO SUMOTUWETHFR 11/09/21 [History Confirmed 01/18/23] cholecalciferol (vitamin D3) 25 mcg (1,000 unit) capsule (Vitamin D3) 25 mcg PO DAILY 12/09/21 [History Confirmed 01/18/23] oxazepam 10 mg capsule 10 mg PO PRN PRN Anxiety 01/18/23 [History Confirmed 01/18/23] Ejection fraction %: 55 to 59 PFSH Medical History Abnormal Holter monitor finding Alcohol use Anxiety Dietary restriction High cholesterol Hyperlipidemia Hypothyroidism Non-smoker NSVT (nonsustained ventricular tachycardia) Paroxysmal supraventricular tachycardia Post-menopausal Screening for intestinal cancer Thyroid disease Wears contact lenses Wears glasses Surgical History History of appendectomy History of colonoscopy History of left oophorectomy History of tonsillectomy Family History Father Cancer lung Hypertension Diabetes Mother Cancer lung Hypertension CVA (cerebral vascular accident) Social History Smoking Status: Never smoker alcohol intake: current alcohol intake frequency: a few times a month Alcohol type: wine substance use type: does not use caffeine: Yes Type: carbonated beverages Number of servings: 2 and coffee Number of servings: 1 ROS Const Const: Negative for fatigue, weakness, headache(s), frequent falls, difficulty sleeping or excessive sweating Eyes Eyes: Negative for loss of peripheral vision, transient loss of vision, blurry vision, double vision or tunnel vision ENT ENT: Negative for headache(s), dizziness, Nosebleed/epistaxis or balance problems Cardio Chest Pain: No Palpitations: No Edema: None Muscle aches with walking: None Resp Respiratory: Negative for SOB with activity, SOB at rest, SOB orthopnea SOB lying down, Cough or paroxysmal nocturnal dyspnea GI GI: Negative nausea, vomiting, heartburn or black,tarry stools : Negative for hematuria Musc Musc: Positive for muscle weakness; Negative for muscle aches/ myalgia, joint pain or balance problems Skin Skin: Negative non-healing lesions, rash or unusual bruising Neuro Neuro: Positive for lightheadedness (Occasionally, usually resolves with increased fluids); Negative for dizziness, near syncope, syncope, frequent falls, headache(s), weakness, blurry vision, double vision or lack of coordination Robert Hematologic/Lymphati c: Negative for easy bleeding or easy bruising Endo Endo: Negative for fatigue, excessive sweating or increased thirst/drinking Psych Psych: Positive for anxiety; Negative for depression Allergy Allergy/Immunology: Negative for hives and Negative for rash Supplemental Info Supplemental Information ECHOCARDIOGRAM 11/17/22 @ [facility] CONCLUSIONS: - Exam indication: Abnormal ECG - The left ventricle is normal in size. Left ventricular systolic function is normal. EF = 59 ??? 5% (2D biplane) Normal left ventricular diastolic function. - The right ventricle is normal in size. Right ventricular systolic function is normal. - The left atrial cavity is mildly dilated. - The patient has not had a prior echocardiographic exam for comparison. 14 Day ZIO Monitor 10/24/22 Pre (more content not included)... Normal [facility] UA DIP, URINE (POC)on 2022 BILIRUBIN UA (POCT) Negative Negative [facility] CLARITY UA (POCT) Cloudy [facility] COLOR UA (POCT) Madeline [facility] GLUCOSE UA (POCT) Negative Negative mg/dL [facility] HEMOGLOBIN/BLOOD UA (POCT) Large Abnormal Negative [facility] KETONE UA (POCT) Negative Negative mg/dL [facility] LEUKOCYTES UA (POCT) Moderate Abnormal Negative [facility] NITRITE UA (POCT) Negative Negative [facility] PH UA (POCT) 5.5 4.5 - 8.0 [facility] Protein Ql (U) 100 mg/dL Abnormal Negative mg/dL [facility] SPECIFIC GRAVITY UA (POCT) >=1.030 1.005 - 1.030 [facility] UROBILINOGEN UA (POCT) 0.2 E.U./dL Normal E.U./ dL [facility] Basic metabolic 2000 panelon 10-24-2022 Anion gap [Moles/Vol] 8 mmol/L Low 9 - 18 mmol/L [facility] Calcium [Mass/Vol] 9.7 mg/dL 8.5 - 10.2 mg/dL [facility] Chloride [Moles/Vol] 100 mmol/L 97 - 105 mmol/L [facility] CO2 [Moles/Vol] 29 mmol/L 22 - 30 mmol/L [facility] Creatinine [Mass/Vol] 0.74 mg/dL 0.58 - 0.96 mg/dL [facility] Estimated Glomerular Filtration Rate 87 mL/min/1.73m >=60 mL/min/1.73m [facility] Glucose [Mass/Vol] 108 mg/dL High 74 - 99 mg/dL [facility] Potassium [Moles/Vol] 3.8 mmol/L 3.7 - 5.1 mmol /L [facility] Sodium [Moles/Vol] 137 mmol/L 136 - 144 mmol/L [facility] Urea nitrogen [Mass/Vol] 13 mg/dL 7 - 21 mg/dL [facility] UA DIP, URINE (POC)on 2022 BILIRUBIN UA (POCT) Negative Negative [facility] CLARITY UA (POCT) Slightly Cloudy [facility] COLOR UA (POCT) Yellow [facility] GLUCOSE UA (POCT) Negative Negative mg/dL [facility] HEMOGLOBIN/BLOOD UA (POCT) Large Abnormal Negative [facility] KETONE UA (POCT) Negative Negative mg/dL [facility] LEUKOCYTES UA (POCT) Small Abnormal Negative [facility] NITRITE UA (POCT) Negative Negative [facility] PH UA (POCT) 5.5 4.5 - 8.0 [facility] Protein Ql (U) 30 mg/dL Abnormal Negative mg/dL [facility] SPECIFIC GRAVITY UA (POCT) 1.015 1.005 - 1.030 [facility] UROBILINOGEN UA (POCT) 0.2 E.U./dL Normal E.U./ dL [facility] DXA-AXIAL SKELETONon [facility] SYLVIE [facility], [facility] (POC)on 2021 BILIRUBIN UA (POCT) Negative Negative Serafin [facility] CLARITY UA (POCT) Clear [facility] COLOR UA (POCT) Yellow [facility] GLUCOSE UA (POCT) Negative Negative mg/dL [facility] HEMOGLOBIN/BLOOD UA (POCT) Large Abnormal Negative [facility] KETONE UA (POCT) Negative Negative mg/dL [facility] LEUKOCYTES UA (POCT) Small Abnormal Negative [facility] NITRITE UA (POCT) Negative Negative [facility] PH UA (POCT) 5.5 4.5 - 8.0 [facility] Protein Ql (U) Trace Abnormal Negative mg/dL [facility] SPECIFIC GRAVITY UA (POCT) 1.020 1.005 - 1.030 [facility] UROBILINOGEN UA (POCT) 0.2 E.U./dL Normal E.U./ dL [facility] Vital Signs Date Time Vital Sign Value Performing Clinician Nicolle alcala 11-28-2024 09:21-0400 Body height 167.6 cm Juana Love APRN.CNM Work Phone: [facility] 11-28-2024 09:21-0400 Body mass index (BMI) [Ratio] 20.34 kg/m2 Juana Love APRN.CNM Work Phone: [facility] 11-28-2024 09:21-0400 Body weight 57.15 kg Juana Love APRN.CNM Work Phone: [facility] 11-28-2024 09:21-0400 Diastolic blood pressure 72 mm[Hg] Juana Love APRN.CNM Work Phone: [facility] 11-28-2024 09:21-0400 Systolic blood pressure 116 mm[Hg] Juana Love FREIGHT RATE SPECIALIST.CNM Work Phone: [facility] 10-07-2024 13:05-0400 Body height 166.4 cm Marely Haagen FREIGHT RATE SPECIALIST.EDUCATIONAL RECRUITER Work Phone: [facility] 10-07-2024 13:05-0400 Body mass index (BMI) [Ratio] 20.65 kg/m2 Marely Haagen FREIGHT RATE SPECIALIST.EDUCATIONAL RECRUITER Work Phone: [facility] 10-07-2024 13:05-0400 Body weight 57.15 kg Marely Haagen FREIGHT RATE SPECIALIST.EDUCATIONAL RECRUITER Work Phone: [facility] 10-07-2024 13:05-0400 Diastolic blood pressure 60 mm[Hg] Marely Haagen FREIGHT RATE SPECIALIST.EDUCATIONAL RECRUITER Work Phone: [facility] 10-07-2024 13:05-0400 Heart rate 59 /min Marely Haagen FREIGHT RATE SPECIALIST.EDUCATIONAL RECRUITER Work Phone: [facility] 10-07-2024 13:05-0400 Respiratory rate 16 /min Marely Haagen FREIGHT RATE SPECIALIST.EDUCATIONAL RECRUITER Work Phone: [facility] 10-07-2024 13:05-0400 SaO2% (BldA) [Mass fraction] 99 % Marely Haagen FREIGHT RATE SPECIALIST.EDUCATIONAL RECRUITER Work Phone: [facility] 10-07-2024 13:05-0400 Systolic blood pressure 110 mm[Hg] Marely Haagen FREIGHT RATE SPECIALIST.EDUCATIONAL RECRUITER Work Phone: [facility] 04-22-2024 10:51-0400 Diastolic blood pressure 78 mm[Hg] Marely Haagen FREIGHT RATE SPECIALIST.EDUCATIONAL RECRUITER Work Phone: [facility] 04-22-2024 10:51-0400 Heart rate 46 /min Marely Haagen FREIGHT RATE SPECIALIST.EDUCATIONAL RECRUITER Work Phone: [facility] 04-22-2024 10:51-0400 Respiratory rate 16 /min Marely Haagen FREIGHT RATE SPECIALIST.EDUCATIONAL RECRUITER Work Phone: [facility] 04-22-2024 10:51-0400 SaO2% (BldA) [Mass fraction] 97 % Marely Wood APRN.EDUCATIONAL RECRUITER Work Phone: [facility] 04-22-2024 10:51-0400 Systolic blood pressure 114 mm[Hg] Marely Wood APRN.EDUCATIONAL RECRUITER Work Phone: [facility] 04-04-2024 11:01-0400 Body mass index (BMI) [Ratio] 19.69 kg/m2 Colleen Powell APRN.EDUCATIONAL RECRUITER Work Phone: [facility] 04-04-2024 11:01-0400 Body weight 55.34 kg Colleen Powell APRN.EDUCATIONAL RECRUITER Work Phone: [facility] 04-04-2024 11:01-0400 Diastolic blood pressure 72 mm[Hg] Colleen Powell APRN.EDUCATIONAL RECRUITER Work Phone: [facility] 04-04-2024 11:01-0400 Systolic blood pressure 118 mm[Hg] Colleen Powell APRN.EDUCATIONAL RECRUITER Work Phone: [facility] 03-25-2024 10:57-0400 Diastolic blood pressure 82 mm[Hg] Marely Wood APRN.EDUCATIONAL RECRUITER Work Phone: [facility] 03-25-2024 10:57-0400 Heart rate 64 /min Marely Wood APRN.EDUCATIONAL RECRUITER Work Phone: [facility] 03-25-2024 10:57-0400 Respiratory rate 16 /min Marely Wood APRN.EDUCATIONAL RECRUITER Work Phone: [facility] 03-25-2024 10:57-0400 SaO2% (BldA) [Mass fraction] 98 % Marely Wood APRN.EDUCATIONAL RECRUITER Work Phone: [facility] 03-25-2024 10:57-0400 Systolic blood pressure 124 mm[Hg] Marely Wood APRN.EDUCATIONAL RECRUITER Work Phone: [facility] 02-22-2024 12:40-0400 Body mass index (BMI) [Ratio] 20.05 kg/m2 Colleen Powell FREIGHT RATE SPECIALIST.EDUCATIONAL RECRUITER Work Phone: [facility] 02-22-2024 12:40-0400 Body weight 56.34 kg Colleen Powell FREIGHT RATE SPECIALIST.EDUCATIONAL RECRUITER Work Phone: [facility] 02-22-2024 12:40-0400 Diastolic blood pressure 72 mm[Hg] Colleen Powell FREIGHT RATE SPECIALIST.EDUCATIONAL RECRUITER Work Phone: [facility] 02-22-2024 12:40-0400 Systolic blood pressure 110 mm[Hg] Colleen Powell FREIGHT RATE SPECIALIST.EDUCATIONAL RECRUITER Work Phone: [facility] 11-13-2023 13:02-0400 Diastolic blood pressure 72 mm[Hg] Marely Haagen FREIGHT RATE SPECIALIST.EDUCATIONAL RECRUITER Work Phone: [facility] 11-13-2023 13:02-0400 Heart rate 61 /min Marely Haagen FREIGHT RATE SPECIALIST.EDUCATIONAL RECRUITER Work Phone: [facility] 11-13-2023 13:02-0400 Respiratory rate 16 /min Marely Haagen FREIGHT RATE SPECIALIST.EDUCATIONAL RECRUITER Work Phone: [facility] 11-13-2023 13:02-0400 SaO2% (BldA) [Mass fraction] 97 % Marely Haagen FREIGHT RATE SPECIALIST.EDUCATIONAL RECRUITER Work Phone: [facility] 11-13-2023 13:02-0400 Systolic blood pressure 126 mm[Hg] Marely Haagen FREIGHT RATE SPECIALIST.EDUCATIONAL RECRUITER Work Phone: [facility] 10-13-2023 08:32-0400 Body weight 54.88 kg Marely Haagen FREIGHT RATE SPECIALIST.EDUCATIONAL RECRUITER Work Phone: [facility] 10-13-2023 08:32-0400 Diastolic blood pressure 82 mm[Hg] Marely Haagen FREIGHT RATE SPECIALIST.EDUCATIONAL RECRUITER Work Phone: [facility] 10-13-2023 08:32-0400 Heart rate 59 /min Marely Haagen FREIGHT RATE SPECIALIST.EDUCATIONAL RECRUITER Work Phone: [facility] 10-13-2023 08:32-0400 Respiratory rate 16 /min Marely Haagen FREIGHT RATE SPECIALIST.EDUCATIONAL RECRUITER Work Phone: [facility] 10-13-2023 08:32-0400 SaO2% (BldA) [Mass fraction] 98 % Marely Haagen FREIGHT RATE SPECIALIST.EDUCATIONAL RECRUITER Work Phone: [facility] 10-13-2023 08:32-0400 Systolic blood pressure 118 mm[Hg] Marely Haagen FREIGHT RATE SPECIALIST.EDUCATIONAL RECRUITER Work Phone: [facility] 06-16-2023 11:47-0500 Body temperature 98.1 [degF] Harpreet Aleksandar FREIGHT RATE SPECIALIST.EDUCATIONAL RECRUITER Work Phone: [facility] 06-16-2023 11:47-0500 Body weight 57.52 kg Harpreet Aleksandar FREIGHT RATE SPECIALIST.EDUCATIONAL RECRUITER Work Phone: [facility] 06-16-2023 11:47-0500 Diastolic blood pressure 78 mm[Hg] Harpreet Aleksandar FREIGHT RATE SPECIALIST.EDUCATIONAL RECRUITER Work Phone: [facility] 06-16-2023 11:47-0500 Heart rate 61 /min Harpreet Aleksandar FREIGHT RATE SPECIALIST.EDUCATIONAL RECRUITER Work Phone: [facility] 06-16-2023 11:47-0500 Respiratory rate 16 /min Harpreet Aleksandar FREIGHT RATE SPECIALIST.EDUCATIONAL RECRUITER Work Phone: [facility] 06-16-2023 11:47-0500 SaO2% (BldA) [Mass fraction] 98 % Harpreet Aleksandar FREIGHT RATE SPECIALIST.EDUCATIONAL RECRUITER Work Phone: [facility] 06-16-2023 11:47-0500 Systolic blood pressure 127 mm[Hg] Harpreet Aleksandar FREIGHT RATE SPECIALIST.EDUCATIONAL RECRUITER Work Phone: [facility] 06-11-2023 13:28-0500 Body temperature 98.6 [degF] Marie Andrew FREIGHT RATE SPECIALIST.EDUCATIONAL RECRUITER Work Phone: [facility] 06-11-2023 13:28-0500 Body weight 58.88 kg Marie Andrew FREIGHT RATE SPECIALIST.EDUCATIONAL RECRUITER Work Phone: [facility] 06-11-2023 13:28-0500 Diastolic blood pressure 82 mm[Hg] Marie [place] FREIGHT RATE SPECIALIST.EDUCATIONAL RECRUITER Work Phone: [facility] 06-11-2023 13:28-0500 Heart rate 71 /min Marie Andrew FREIGHT RATE SPECIALIST.EDUCATIONAL RECRUITER Work Phone: [facility] 06-11-2023 13:28-0500 Respiratory rate 21 /min Marie [place] FREIGHT RATE SPECIALIST.EDUCATIONAL RECRUITER Work Phone: [facility] 06-11-2023 13:28-0500 SaO2% (BldA) [Mass fraction] 99 % Marie Andrew FREIGHT RATE SPECIALIST.EDUCATIONAL RECRUITER Work Phone: [facility] 06-11-2023 13:28-0500 Systolic blood pressure 130 mm[Hg] Marie [place] FREIGHT RATE SPECIALIST.EDUCATIONAL RECRUITER Work Phone: [facility] 04-13-2023 09:49-0400 Body weight 56.25 kg Mariano Kang MD Work Phone: [facility] 04-13-2023 09:49-0400 Diastolic blood pressure 72 mm[Hg] Mariano Kang MD Work Phone: [facility] 04-13-2023 09:49-0400 Heart rate 67 /min Mariano Kang MD Work Phone: [facility] 04-13-2023 09:49-0400 SaO2% (BldA) [Mass fraction] 95 % Mariano Kang MD Work Phone: [facility] 04-13-2023 09:49-0400 Systolic blood pressure 112 mm[Hg] Mariano Kang MD Work Phone: [facility] 04-03-2023 08:35-0400 Body height 167.64 cm KANU Wood CARE MANAGEMENT ASSOCIATE Work Phone: [facility] 04-03-2023 08:35-0400 Body mass index (BMI) [Ratio] 19.3 kg/m2 KANU Wood NP Work Phone: [facility] 04-03-2023 08:35-0400 Body temperature 97 [degF] CARE MANAGEMENT ASSOCIATE-C Marely Hajimmie CARE MANAGEMENT ASSOCIATE Work Phone: [facility] 04-03-2023 08:35-0400 Body weight 54.43 kg CARE MANAGEMENT ASSOCIATE-C Marely Hajimmie CARE MANAGEMENT ASSOCIATE Work Phone: [facility] 04-03-2023 08:35-0400 Diastolic blood pressure 67 mm[Hg] CARE MANAGEMENT ASSOCIATE-C Marely Wood CARE MANAGEMENT ASSOCIATE Work Phone: [facility] 04-03-2023 08:35-0400 Heart rate 72 /min CARE MANAGEMENT ASSOCIATE-C Marely Wood CARE MANAGEMENT ASSOCIATE Work Phone: [facility] 04-03-2023 08:35-0400 Respiratory rate 14 /min CARE MANAGEMENT ASSOCIATE-C Marely Wood CARE MANAGEMENT ASSOCIATE Work Phone: [facility] 04-03-2023 08:35-0400 SaO2% (BldA) [Mass fraction] 100 % CARE MANAGEMENT ASSOCIATE-C Marely Ashjimmie CARE MANAGEMENT ASSOCIATE Work Phone: [facility] 04-03-2023 08:35-0400 Systolic blood pressure 110 mm[Hg] CARE MANAGEMENT ASSOCIATE-C Marely Hajimmie CARE MANAGEMENT ASSOCIATE Work Phone: [facility] 04-03-2023 08:12-0400 Body temperature 98.1 [degF] Nette Liz APRN.EDUCATIONAL RECRUITER Work Phone: [facility] 04-03-2023 08:12-0400 Body weight 55.34 kg Nette Liz APRN.EDUCATIONAL RECRUITER Work Phone: [facility] 04-03-2023 08:12-0400 Diastolic blood pressure 62 mm[Hg] Nette Liz APRN.EDUCATIONAL RECRUITER Work Phone: [facility] 04-03-2023 08:12-0400 Heart rate 88 /min Nette Liz APRN.EDUCATIONAL RECRUITER Work Phone: [facility] 04-03-2023 08:12-0400 Respiratory rate 16 /min Nette Liz APRN.EDUCATIONAL RECRUITER Work Phone: [facility] 04-03-2023 08:12-0400 SaO2% (BldA) [Mass fraction] 98 % Nette Liz APRN.EDUCATIONAL RECRUITER Work Phone: [facility] 04-03-2023 08:12-0400 Systolic blood pressure 96 mm[Hg] Nette Liz APRN.EDUCATIONAL RECRUITER Work Phone: [facility] 01-18-2023 11:09-0400 Body height 167.64 cm CARE MANAGEMENT ASSOCIATE-C Marely Wood CARE MANAGEMENT ASSOCIATE Work Phone: [facility] 01-18-2023 11:09-0400 Body mass index (BMI) [Ratio] 20.1 kg/m2 CARE MANAGEMENT ASSOCIATE-C Marely Wood CARE MANAGEMENT ASSOCIATE Work Phone: [facility] 01-18-2023 11:090400 Body weight 56.69 kg CARE MANAGEMENT ASSOCIATE-C Marely Wood CARE MANAGEMENT ASSOCIATE Work Phone: [facility] 01-18-2023 11:09-0400 Diastolic blood pressure 78 mm[Hg] CARE MANAGEMENT ASSOCIATE-C Marely Wood CARE MANAGEMENT ASSOCIATE Work Phone: [facility] 01-18-2023 11:09-0400 Heart rate 66 /min CARE MANAGEMENT ASSOCIATE-C Marely Alemanagen CARE MANAGEMENT ASSOCIATE Work Phone: [facility] 01-18-2023 11:09-0400 Respiratory rate 16 /min CARE MANAGEMENT ASSOCIATE-C Marely Wood CARE MANAGEMENT ASSOCIATE Work Phone: [facility] 01-18-2023 11:09-0400 Systolic blood pressure 124 mm[Hg] CARE MANAGEMENT ASSOCIATE-C Marely Alemanagen CARE MANAGEMENT ASSOCIATE Work Phone: [facility] 11-17-2022 10:130400 Body temperature 98.2 [degF] NA Ruiz PA-C Work Phone: [facility] 11-17-2022 10:130400 Body weight 56.7 kg NA Ruiz PA-C Work Phone: [facility] 11-17-2022 10:130400 Diastolic blood pressure 72 mm[Hg] NA Ruiz PA-C Work Phone: [facility] 11-17-2022 10:13-0400 Heart rate 72 /min NA Ruiz PA-C Work Phone: [facility] 11-17-2022 10:13-0400 Respiratory rate 16 /min NA Ruiz PA-C Work Phone: [facility] 11-17-2022 10:13-0400 SaO2% (BldA) [Mass fraction] 96 % NA Ruiz PA-C Work Phone: [facility] 11-17-2022 10:13-0400 Systolic blood pressure 118 mm[Hg] NA Ruiz PA-C Work Phone: [facility] 11-07-2022 12:58-0400 Diastolic blood pressure 86 mm[Hg] Marely Haagen FREIGHT RATE SPECIALIST.EDUCATIONAL RECRUITER Work Phone: [facility] 11-07-2022 12:58-0400 Heart rate 46 /min Marely Haagen FREIGHT RATE SPECIALIST.EDUCATIONAL RECRUITER Work Phone: [facility] 11-07-2022 12:58-0400 Respiratory rate 18 /min Marely Haagen FREIGHT RATE SPECIALIST.EDUCATIONAL RECRUITER Work Phone: [facility] 11-07-2022 12:58-0400 SaO2% (BldA) [Mass fraction] 98 % Marely Haagen FREIGHT RATE SPECIALIST.EDUCATIONAL RECRUITER Work Phone: [facility] 11-07-2022 12:58-0400 Systolic blood pressure 122 mm[Hg] Marely Haagen FREIGHT RATE SPECIALIST.EDUCATIONAL RECRUITER Work Phone: [facility] 10-24-2022 14:26-0400 Diastolic blood pressure 78 mm[Hg] Marely Haagen FREIGHT RATE SPECIALIST.EDUCATIONAL RECRUITER Work Phone: [facility] 10-24-2022 14:26-0400 Heart rate 76 /min Marely Haagen FREIGHT RATE SPECIALIST.EDUCATIONAL RECRUITER Work Phone: [facility] 10-24-2022 14:26-0400 Respiratory rate 18 /min Marely Haagen FREIGHT RATE SPECIALIST.EDUCATIONAL RECRUITER Work Phone: [facility] 10-24-2022 14:26-0400 Systolic blood pressure 116 mm[Hg] Marely Hajimmie FREIGHT RATE SPECIALIST.EDUCATIONAL RECRUITER Work Phone: [facility] 10-24-2022 08:07-0400 Body temperature 98.2 [degF] Brian Nicole MD Work Phone: [facility] 10-24-2022 08:07-0400 Body weight 56.06 kg Brian Nicole MD Work Phone: [facility] 10-24-2022 08:07-0400 Diastolic blood pressure 72 mm[Hg] Brian Nicole MD Work Phone: [facility] 10-24-2022 08:07-0400 Heart rate 40 /min Brian Nicole MD Work Phone: [facility] 10-24-2022 08:07-0400 Respiratory rate 18 /min Brian Nicole MD Work Phone: [facility] 10-24-2022 08:07-0400 SaO2% (BldA) [Mass fraction] 100 % Brian Nicole MD Work Phone: [facility] 10-24-2022 08:07-0400 Systolic blood pressure 122 mm[Hg] Brian Nicole MD Work Phone: [facility] 07-04-2022 13:40-0500 Body height [address] [facility] 07-04-2022 13:40-0500 Body weight 54.[address] [facility] 06-21-2022 12:59-0500 Body height 167 cm Marely Wood FREIGHT RATE SPECIALIST.EDUCATIONAL RECRUITER Work Phone: [facility] 06-21-2022 12:59-0500 Body weight 55.43 kg Marely Haagen FREIGHT RATE SPECIALIST.EDUCATIONAL RECRUITER Work Phone: [facility] 06-21-2022 12:59-0500 Diastolic blood pressure 70 mm[Hg] Marely Haagen FREIGHT RATE SPECIALIST.EDUCATIONAL RECRUITER Work Phone: [facility] 06-21-2022 12:59-0500 Heart rate 60 /min Marely Wood FREIGHT RATE SPECIALIST.EDUCATIONAL RECRUITER Work Phone: [facility] 06-21-2022 12:59-0500 Respiratory rate 16 /min Marely Wood FREIGHT RATE SPECIALIST.EDUCATIONAL RECRUITER Work Phone: [facility] 06-21-2022 12:59-0500 SaO2% (BldA) [Mass fraction] 99 % Marely Wood FREIGHT RATE SPECIALIST.EDUCATIONAL RECRUITER Work Phone: [facility] 06-21-2022 12:59-0500 Systolic blood pressure 108 mm[Hg] Marely Wood FREIGHT RATE SPECIALIST.EDUCATIONAL RECRUITER Work Phone: [facility] 05-30-2022 14:24-0400 Body height 167.6 cm Lisa Rod MD Work Phone: [facility] 05-30-2022 14:24-0400 Body weight 55.79 kg Lisa Rod MD Work Phone: [facility] 05-30-2022 14:24-0400 Diastolic blood pressure 64 mm[Hg] Lisa Rod MD Work Phone: [facility] 05-30-2022 14:24-0400 Systolic blood pressure 110 mm[Hg] Lisa Rod MD Work Phone: [facility] 01-23-2022 11:17-0400 Body temperature 98.4 [degF] Eleno Mark FREIGHT RATE SPECIALIST.EDUCATIONAL RECRUITER Work Phone: [facility] 01-23-2022 11:17-0400 Body weight 55.88 kg Eleno Mark FREIGHT RATE SPECIALIST.EDUCATIONAL RECRUITER Work Phone: [facility] 01-23-2022 11:17-0400 Diastolic blood pressure 78 mm[Hg] Eleno Mark FREIGHT RATE SPECIALIST.EDUCATIONAL RECRUITER Work Phone: [facility] 01-23-2022 11:17-0400 Heart rate 68 /min Eleno Mark FREIGHT RATE SPECIALIST.EDUCATIONAL RECRUITER Work Phone: [facility] 01-23-2022 11:17-0400 Respiratory rate 18 /min Eleno Cohenryan FREIGHT RATE SPECIALIST.EDUCATIONAL RECRUITER Work Phone: [facility] 01-23-2022 11:17-0400 SaO2% (BldA) [Mass fraction] 98 % Eleno Cohenryan FREIGHT RATE SPECIALIST.EDUCATIONAL RECRUITER Work Phone: [facility] 01-23-2022 11:17-0400 Systolic blood pressure 128 mm[Hg] Eleno Cohenryan FREIGHT RATE SPECIALIST.EDUCATIONAL RECRUITER Work Phone: [facility] 12-10-2021 10:35-0400 Body temperature 97.3 [degF] Dr. Jb Hollis Work Phone: [facility] Work Phone: 12-10-2021 10:35-0400 Diastolic blood pressure 56 mm[Hg] Dr. Jb Hollis Work Phone: [facility] Work Phone: 12-10-2021 10:35-0400 Heart rate 69 /min Dr. Jb Hollis Work Phone: [facility] Work Phone: 12-10-2021 10:35-0400 Respiratory rate 16 /min Dr. Jb Hollis Work Phone: [facility] Work Phone: 12-10-2021 10:35-0400 SaO2% (BldA) [Mass fraction] 97 % Dr. Jb Hollis Work Phone: [facility] Work Phone: 12-10-2021 10:35-0400 Systolic blood pressure 95 mm[Hg] Dr. Jb Hollis Work Phone: [facility] Work Phone: 12-10-2021 08:44-0400 Body height 167.[address] Jb Hollis Work Phone: [facility] Work Phone: 12-10-2021 08:44-0400 Body mass index (BMI) [Ratio] 19.7 kg/m2 Dr. Jb Hollis Work Phone: [facility] Work Phone: 12-10-2021 08:44-0400 Body weight 55.[address] Jb Hollis Work Phone: [facility] Work Phone: 11-09-2021 12:31-0400 Body mass index (BMI) [Ratio] 20.1 kg/m2 Dr. Jb Hollis Work Phone: [facility] Work Phone: 11-09-2021 12:31-0400 Body temperature 98.2 [degF] Dr. Jb Hollis Work Phone: [facility] Work Phone: 11-09-2021 12:31-0400 Body weight 56.[address] Jb Hollis Work Phone: [facility] Work Phone: 11-09-2021 12:31-0400 Diastolic blood pressure 69 mm[Hg] Dr. Jb Hollis Work Phone: [facility] Work Phone: 11-09-2021 12:31-0400 Heart rate 56 /min Dr. Jb Hollis Work Phone: [facility] Work Phone: 11-09-2021 12:31-0400 Respiratory rate 18 /min Dr. Jb Hollis Work Phone: [facility] Work Phone: 11-09-2021 12:31-0400 SaO2% (BldA) [Mass fraction] 98 % Dr. Jb Hollis Work Phone: [facility] Work Phone: 11-09-2021 12:31-0400 Systolic blood pressure 113 mm[Hg] Dr. Jb Hollsi Work Phone: [facility] Work Phone: Encounters Encounter Date Encounter Type Care Provider Facility Start: 11-28-2024 End: 11-28-2024 Patient encounter procedure Juana Llamaspam FREIGHT RATE SPECIALIST.CNM Work Phone: OB/Gynecology Comment on above: Vaginal irritation ( Primary Dx); Vaginal burning; Vaginal atrophy; Urethral caruncle Start: 11-28-2024 ambulatory JUANA LOVE Facilit y:[facility] Start: 11-25-2024 End: 11-25-2024 Follow-up encounter Kary Willard FREIGHT RATE SPECIALIST.KEVIN Work Phone: [facility] Comment on above: Results Start: 11-24-2024 End: 11-24-2024 ambulatory [facility] Facility:[facility] Start: 10-14-2024 End: 12-14-2024 Follow-up encounter Marely Wood FREIGHT RATE SPECIALIST.KEVIN Work Phone: [facility] [place] Start: 10-11-2024 End: 10-11-2024 ambulatory [facility] Facility:[facility] Start: 10-07-2024 End: 10-07-2024 [facility] Start: 10-07-2024 End: 10-07-2024 Patient encounter procedure Marely Hajimmie FREIGHT RATE SPECIALIST.EDUCATIONAL RECRUITER Work Phone: [facility] Comment on above: Medicare annual well ness visit, subsequent (Primary Dx); Hypothyroidism, unspecified type; Vitamin D deficiency; Leg cramping; Leukocytosis, unspecified type; Hyperlipidemia LDL goal <130 Start: 07-18-2024 End: 07-18-2024 ambulatory Ashely Bello MA [facility] Start: 07-18-2024 End: 07-18-2024 Patient encounter procedure [facility] Comment on above: Population Health Na vigation Outreach (Machelle Martinez [place] ) Start: 06-06-2024 End: 06-06-2024 ambulatory LISA RDO Facility:[facility] Start: 06-06-2024 End: 06-06-2024 Subsequent hospital visit by physician [facility] Comment on above: Encounter for screen ing mammogram for breast cancer [Z12.31] Start: 04-23-2024 End: 04-23-2024 ambulatory [facility] Facility:[facility] Start: 04-23-2024 End: 04-23-2024 Subsequent hospital visit by physician [facility] Work Phone: Radiology Comment on above: Hypothyroidism, unsp ecified type [E03.9] Start: 04-22-2024 End: 04-22-2024 Office outpatient visit 15 minutes Marely Wood APRN.CNP Work Phone: [facility] [place] Comment on above: JOSE EDUARDO (generalized anx iety disorder) (Primary Dx); Hypothyroidism, unspecified type; Abdominal pain, unspecified abdominal location Start: 04-22-2024 End: 04-22-2024 [facility] Start: 04-04-2024 End: 04-04-2024 ambulatory COLLEEN POWELL Facility:[facility] Start: 04-04-2024 End: 04-04-2024 Patient encounter procedure Colleen Powell APRN.CNP Work Phone: OB/Gynecology Comment on above: Vaginal irritation ( Primary Dx); Vaginal atrophy Start: 04-03-2024 End: 04-03-2024 Telephone encounter Colleen Powell APRN.CNP Work Phone: OB/Gynecology Comment on above: Patient Question Start: 03-25-2024 End: 03-25-2024 [facility] Facility:[facility] Start: 03-25-2024 End: 03-25-2024 Office outpatient visit 25 minutes Marely Wood APRN.KEVIN Work Phone: [facility] [place] Comment on above: Abdominal pain, unsp ecified abdominal location (Primary Dx); JOSE EDUARDO (generalized anxiety disorder); Chronic anxiety Start: 03-25-2024 End: 03-25-2024 [facility] Start: 03-19-2024 End: 03-19-2024 Telephone encounter Colleen Powell APRN.CNP Work Phone: OB/Gynecology Comment on above: Vaginal Problem Start: 02-22-2024 End: 02-22-2024 ambulatory COLLEEN POWELL Facility:[facility] Start: 02-22-2024 End: 02-22-2024 Patient encounter procedure Colleen Powell APRN.EDUCATIONAL RECRUITER Work Phone: OB/Gynecology Comment on above: Vaginal irritation ( Primary Dx); Vaginal discharge; Vaginal atrophy Start: 02-20-2024 Telephone encounter Colleen yarbrough APRN.EDUCATIONAL RECRUITER Work Phone: OB/Gynecology Comment on above: Patient Question Start: 02-12-2024 Refill Marely Wood APRN.EDUCATIONAL RECRUITER Work Phone: [facility] [place] Comment on above: Refill Request Start: 01-10-2024 End: 01-10-2024 ambulatory Neyda Canela NP Facility:[facility] Start: 12-28-2023 Telephone encounter Marely samuel APRN.EDUCATIONAL RECRUITER Work Phone: [facility] [place] Comment on above: Insurance Authorizat ion Start: 12-26-2023 ambulatory Marely Wood APRN.EDUCATIONAL RECRUITER Work Phone: [facility] [place] Comment on above: Patient Question; Ab dominal Pain Refill Request Start: 11-29-2023 ambulatory Leigh Shane RN Work Phone: [employer] Start: 11-13-2023 End: 11-13-2023 Office outpatient visit 15 minutes Marely Wood APRN.EDUCATIONAL RECRUITER Work Phone: [facility] [place] Comment on above: Chronic anxiety (Fabiola sheryl Dx); Postmenopausal atrophic vaginitis; Genitourinary syndrome of menopause; Urethral caruncle; Hypothyroidism, unspecified type; Abdominal pain, unspecified abdominal location Start: 10-13-2023 End: 10-13-2023 Office outpatient visit 25 minutes Marely Wood APRN.EDUCATIONAL RECRUITER Work Phone: [facility] [place] Comment on above: Chronic anxiety (Fabiola sheryl Dx); Leukocytosis, unspecified type; Hypothyroidism, unspecified type; Vitamin D deficiency; Hyperlipidemia LDL goal <130; Abdominal pain, unspecified abdominal location; Other ventricular tachycardia (HCC); Paroxysmal SVT (supraventricular tachycardia) (HCC) Start: 07-07-2023 Telephone encounter Marely samuel APRN.EDUCATIONAL RECRUITER Work Phone: [facility] Comment on above: Patient Question Start: 07-04-2023 Refill Marely Wood APRN.EDUCATIONAL RECRUITER Work Phone: [facility] Comment on above: Refill Request Medication Start: 06-16-2023 End: 06-16-2023 Office outpatient visit 15 minutes Harpreet Huertas FREIGHT RATE SPECIALIST.EDUCATIONAL RECRUITER Work Phone: [facility] Comment on above: Bacterial sinusitis (Primary Dx) Start: 06-11-2023 End: 06-11-2023 Patient encounter procedure Marie Morales APRN.EDUCATIONAL RECRUITER Work Phone: [facility] Comment on above: Sinus pressure (Prim romain Dx) Start: 06-05-2023 Documentation procedure Mammog huy Coordinator [facility] Start: 06-05-2023 Letter encounter Mammography Coordinator [facility] Department Start: 04-13-2023 End: 04-13-2023 Patient encounter procedure Mariano Kang MD Work Phone: [facility] Comment on above: Diverticulitis (Prim romain Dx); Leukocytosis, unspecified type Refill Request Start: 04-03-2023 End: 04-03-2023 Emergency department patient visit CARE MANAGEMENT ASSOCIATE-C Marely Wood CARE MANAGEMENT ASSOCIATE Work Phone: [facility] Work Phone: Start: 04-03-2023 End: 04-03-2023 Patient encounter procedure Nette Liz APRN.EDUCATIONAL RECRUITER Work Phone: [facility] Comment on above: Abdominal pressure ( Primary Dx) Start: 02-24-2023 Non-patient / Non-visit CARE MANAGEMENT ASSOCIATE-C Saúl Wood CARE MANAGEMENT ASSOCIATE Work Phone: [facility] Work Phone: Start: 02-24-2023 ambulatory [facility] Start: 02-24-2023 Telephone encounter Marely samuel APRN.EDUCATIONAL RECRUITER Work Phone: Family [facility] Comment on above: Results Start: 02-23-2023 ambulatory Parowan Chanel [facility] Start: 02-23-2023 Non-patient / Non-visit CARE MANAGEMENT ASSOCIATE-C Saúl Wood CARE MANAGEMENT ASSOCIATE Work Phone: [facility] Start: 02-23-2023 End: 02-23-2023 ambulatory CARE MANAGEMENT ASSOCIATE-C Marely Wood CARE MANAGEMENT ASSOCIATE Work Phone: [facility] Work Phone: Start: 02-23-2023 End: 02-23-2023 Patient encounter procedure CARE MANAGEMENT ASSOCIATE-Saúl Wood CARE MANAGEMENT ASSOCIATE Work Phone: [facility] Work Phone: Start: 02-23-2023 End: 02-23-[address] [facility] Facility:[facility] Start: 01-18-2023 End: 01-18-2023 Patient encounter procedure CARE MANAGEMENT ASSOCIATE-Saúl Wood CARE MANAGEMENT ASSOCIATE Work Phone: [facility] Work Phone: Start: 01-18-2023 End: 01-18-2023 ambulatory Den Chanel Facility:[facility] Start: 01-09-2023 Non-patient / Non-visit CARE MANAGEMENT ASSOCIATE-C Saúl Wood CARE MANAGEMENT ASSOCIATE Work Phone: [facility] Work Phone: Start: 12-12-2022 Refill Marely Wood FREIGHT RATE SPECIALIST.EDUCATIONAL RECRUITER Work Phone: [facility] [place] Comment on above: Refill Request Start: 11-26-2022 Telephone encounter Marely samuel FREIGHT RATE SPECIALIST.EDUCATIONAL RECRUITER Work Phone: Family [facility] [place] Comment on above: Patient Question Start: 11-18-2022 Telephone encounter Marely samuel FREIGHT RATE SPECIALIST.EDUCATIONAL RECRUITER Work Phone: [facility] [place] Comment on above: Results Start: 11-17-2022 ambulatory Marely Wood FREIGHT RATE SPECIALIST.EDUCATIONAL RECRUITER Work Phone: [facility] [place] Comment on above: bladder pressure, fr equency and blood in urine Start: 11-17-2022 End: 11-17-2022 Patient encounter procedure Frantz Ruiz PA-C Work Phone: [facility] Comment on above: Hematuria, unspecifi ed type (Primary Dx); Recurrent UTI (urinary tract infection); Paroxysmal SVT (supraventricular tachycardia) (HCC); Chronic anxiety Start: 11-14-2022 Telephone encounter Marely samuel APRN.KEVIN Work Phone: [facility] [place] Comment on above: Patient Update Start: 11-07-2022 End: 11-07-2022 Office outpatient visit 15 minutes Marely Wood APRN.KEVIN Work Phone: [facility] [place] Comment on above: Ventricular bigeminy seen on monitoring engineer (Primary Dx); Bradycardia Start: 10-24-2022 End: 10-24-2022 Office outpatient visit 25 minutes Marely Wood APRN.EDUCATIONAL RECRUITER Work Phone: [facility] [place] Comment on above: Bradycardia (Primary Dx); Ventricular bigeminy seen on monitoring engineer; Chronic anxiety Start: 10-24-2022 Telephone encounter Marely samuel APRN.KEVIN Work Phone: [facility] Comment on above: Orders (Add on - Cli ent Services) Insurance Authorizat ion Start: 10-24-2022 End: 10-24-2022 Patient encounter procedure Brian Nicole MD Work Phone: [facility] Comment on above: Burning with urinati on (Primary Dx); Bradycardia; Hypothyroidism, unspecified type; Ventricular bigeminy seen on monitoring engineer Start: 07-04-2022 End: 07-04-[address] [facility] Comment on above: Assessment; Patient Education Start: 06-29-2022 End: 06-29-2022 Subsequent hospital visit by physician Bone Density [facility] Work Phone: Radiology Comment on above: Osteopenia of necks of both femurs [M85.851, M85.852] Start: 06-21-2022 Telephone encounter Marely samuel APRN.EDUCATIONAL RECRUITER Work Phone: [facility] [place] Comment on above: Insurance Authorizat ion Start: 06-21-2022 End: 06-21-2022 Office outpatient visit 25 minutes Marely Wood APRN.EDUCATIONAL RECRUITER Work Phone: [facility] [place] Comment on above: Hypothyroidism, unsp ecified type (Primary Dx); Hyperlipidemia LDL goal <130; Chronic anxiety Start: 05-30-2022 End: 05-30-2022 Patient encounter procedure Lisa Rod MD Work Phone: OB/Gynecology Comment on above: Encounter for gyneco logical examination (general) (routine) without abnormal findings (Primary Dx); Encounter for screening mammogram for malignant neoplasm of breast; Need for influenza vaccination; Osteopenia of necks of both femurs Start: 05-30-2022 End: 05-30-2022 Patient encounter status Lisa Rod MD Work Phone: OB/Gynecology Start: 04-15-2022 Documentation procedure Mammog huy Coordinator [facility] Start: 04-15-2022 Letter encounter Mammography Coordinator [facility] Department Start: 04-15-2022 End: 04-15-2022 Subsequent hospital visit by physician Screen Mammo [facility] M[facility] Comment on above: Encounter for screen ing mammogram for malignant neoplasm of breast [Z12.31] Start: 04-13-2022 Telephone encounter Marely samuel APRN.EDUCATIONAL RECRUITER Work Phone: [facility] [place] Comment on above: Orders Start: 01-25-2022 Telephone encounter Kary Thorne APRN.EDUCATIONAL RECRUITER Work Phone: [facility] Comment on above: Results Start: 01-23-2022 End: 01-23-2022 Patient encounter procedure Eleno Mark APRN.EDUCATIONAL RECRUITER Work Phone: [facility] Comment on above: Urinary frequency (P rimary Dx) Start: 12-10-2021 Non-patient / Non-visit Dr. Juany Hollis Work Phone: [facility] Start: 12-10-2021 End: 12-10-2021 Admission to same day surgery center Dr. Jb Hollis Work Phone: [facility]End[facility] Start: 11-10-2021 ambulatory Marely Wood FREIGHT RATE SPECIALIST.EDUCATIONAL RECRUITER Work Phone: [facility] Comment on above: Meds Start: 11-09-2021 ambulatory Marely Wood FREIGHT RATE SPECIALIST.EDUCATIONAL RECRUITER Work Phone: [facility] Comment on above: Medication Start: 11-09-2021 End: 11-09-[address] Jb Hollis Work Phone: [facility] Procedures Date Procedure Procedure Detail Performing Clinician Start: 10-11-2024 Lipid 1995 panel - S sherwin or Plasma Kary Willard FREIGHT RATE SPECIALIST.EDUCATIONAL RECRUITER Work Phone: Start: 04-04-2024 BACTERIAL VAGINOSIS NAAT Colleen Powell FREIGHT RATE SPECIALIST.EDUCATIONAL RECRUITER Work Phone: Start: 04-04-2024 Iadna trichomonas vaginalis amplified probe tech Colleen Powell FREIGHT RATE SPECIALIST.EDUCATIONAL RECRUITER Work Phone: Start: 10-13-2023 Lipid 1995 panel - S sherwin or Plasma Marely Wood FREIGHT RATE SPECIALIST.EDUCATIONAL RECRUITER Work Phone: Start: 04-03-2023 Computed tomography of abdomen and pelvis with intravenous contrast CARE MANAGEMENT ASSOCIATE-Saúl Wood CARE MANAGEMENT ASSOCIATE Work Phone: Start: 04-03-2023 Diagnostic radiograp hy of abdomen CARE MANAGEMENT ASSOCIATE-Saúl Wood CARE MANAGEMENT ASSOCIATE Work Phone: Start: 02-23-2023 CT angiography of co ronary arteries CARE MANAGEMENT ASSOCIATE-Saúl Wood CARE MANAGEMENT ASSOCIATE Work Phone: Start: 11-17-2022 Urnls dip stick/tabl et rgnt auto w/o microscopy M Cordell Ruiz PA-C Work Phone: Start: 11-07-2022 End: 11-07-2022 Ecg routine ecg w/least 12 lds i&r only [facility] Provider Start: 11-03-2022 Lipid 1996 panel - S sherwin or Plasma Mariano Kang MD Work Phone: Start: 10-24-2022 Urnls dip stick/tabl et rgnt auto w/o microscopy Kary Willard FREIGHT RATE SPECIALIST.EDUCATIONAL RECRUITER Work Phone: Start: 06-29-2022 Dxa bone density damion dy 1/> sites axial skel Lisa Rod MD Work Phone: Start: 05-30-2022 INFLUENZA SEASONAL QUADRIVALENT HIGH DOSE AGE 65+ Lisa Rod MD Work Phone: Start: 04-15-2022 SYLVIE SCREENING W KAPIL Strauss MD Work Phone: Start: 04-15-2022 Mammography Screen Wst r Start: 01-23-2022 Urnls dip stick/tabl et rgnt auto w/o microscopy Kary Willard FREIGHT RATE SPECIALIST.EDUCATIONAL RECRUITER Work Phone: Start: 12-10-2021 End: 12-10-[address] Jb Hollis Work Phone: Start: 04-13-2021 Mammography Marely samuel FREIGHT RATE SPECIALIST.EDUCATIONAL RECRUITER Work Phone: Start: 12-02-2020 Adult depression scr eening assessment Marely Wood FREIGHT RATE SPECIALIST.EDUCATIONAL RECRUITER Work Phone: Start: 04-15-2011 Colonoscopy Marely samuel FREIGHT RATE SPECIALIST.EDUCATIONAL RECRUITER Work Phone: Plan of Treatment Date Care Activity Detail Author Start: 12-11-2031 Colonoscopy COLONOSCOPY [facility] Start: 12-11-2031 COLORECTAL CANCER SCREENING COLORECTAL CANCER SCREENING [facility] Start: 12-11-2031 Screening for malign ant neoplasm of colon [facility] Start: 10-11-2029 Lipid panel Lipid Screening [facility] Start: 10-12-2028 Lipid panel Lipid Screening [facility] Start: 11-04-2027 Lipid 1996 panel - S sherwin or Plasma Lipid Screening [facility] Start: 11-04-2027 LIPID SCREEN LIPID SCREEN [facility] Start: 10-12-2027 Diabetes Screening Diabetes Screenin g [facility] Start: 06-09-2027 LIPID SCREEN LIPID SCREEN [facility] Start: 03-25-2027 Diabetes Screening Diabetes Screenin g [facility] Start: 12-13-2026 LIPID SCREEN LIPID SCREEN [facility] Start: 10-12-2026 Diabetes Screening Diabetes Screenin g [facility] Start: 09-06-2026 LIPID SCREEN LIPID SCREEN [facility] Start: 2026 RSV Vaccine (1 - 1-d ose 75+ series) RSV Vaccine (1 - 1-dose 75+ series) [facility] Start: 10-24-2025 DIABETES SCREEN DIABETES SCREEN [facility] Start: 10-24-2025 Diabetes Screening Diabetes Screenin g [facility] Start: 10-07-2025 Annual PCP Team Manager Epic giovanni Disease Visit Annual PCP Team Chronic Disease Visit [facility] Start: 06-09-2025 DIABETES SCREEN DIABETES SCREEN [facility] Start: 06-06-2025 Screening for malign ant neoplasm of breast Mammogram Screening [facility] Start: 04-22-2025 Annual PCP Team Manager Epic giovanni Disease Visit Annual PCP Team Chronic Disease Visit [facility] Start: 03-25-2025 Annual PCP Team Manager Epic giovanni Disease Visit Annual PCP Team Chronic Disease Visit [facility] Start: 12-13-2024 DIABETES SCREEN DIABETES SCREEN [facility] Start: 11-27-2024 End: 11-27-2024 Patient encounter procedure 11/27/2024 2:00 PM EDT Office Visit OB/Gynecology [address] [place], [place] [address] Juana Love APRN.[facility] [address] [place] [address] vaginal irritation/burning OB/Gynecology Comment on above: vaginal irritation/b urning Start: 11-12-2024 Annual PCP Team Manager Epic giovanni Disease Visit Annual PCP Team Chronic Disease Visit [facility] Start: 10-12-2024 Annual PCP Team Manager Epic giovanni Disease Visit Annual PCP Team Chronic Disease Visit [facility] Start: 10-07-2024 End: 01-06-2025 25-hydroxyvitamin D3 [Mass/volume] in Serum or Plasma VITAMIN D 25 HYDROXY Lab Routine Vitamin D deficiency Expected: 10/07/2024, Expires: 01/06/2025 [facility] Comment on above: Expected: 10/07/2024 , Expires: 01/06/2025 Start: 10-07-2024 End: 01-06-2025 CBC W Auto Differential panel - Blood COMPLETE BLOOD COUNT AND DIFFERENTIAL Lab Routine Leukocytosis, unspecified type Expected: 10/07/2024, Expires: 01/06/2025 [facility] Work Phone: Comment on above: Expected: 10/07/2024 , Expires: 01/06/2025 Start: 10-07-2024 End: 01-06-2025 Comprehensive metabolic 2000 panel - Serum or Plasma COMPREHENSIVE METABOLIC PANEL Lab Routine Leg cramping Expected: 10/07/2024, Expires: 01/06/2025 [facility] Comment on above: Expected: 10/07/2024 , Expires: 01/06/2025 Start: 10-07-2024 End: 01-06-2025 Lipid 1996 panel - Serum or Plasma LIPID PANEL BASIC Lab Routine Hyperlipidemia LDL goal <130 Expected: 10/07/2024, Expires: 01/06/2025 [facility] Comment on above: Expected: 10/07/2024 , Expires: 01/06/2025 Start: 10-07-2024 End: 01-06-2025 Magnesium [Mass/volume] in Serum or Plasma MAGNESIUM Lab Routine Leg cramping Expected: 10/07/2024, Expires: 01/06/2025 [facility] Comment on above: Expected: 10/07/2024 , Expires: 01/06/2025 Start: 10-07-2024 End: 01-06-2025 Thyrotropin [Units/volume] in Serum or Plasma THYROID STIMULATING HORMONE Lab Routine Hypothyroidism, unspecified type Expected: 10/07/2024, Expires: 01/06/2025 [facility] Comment on above: Expected: 10/07/2024 , Expires: 01/06/2025 Start: 10-07-2024 End: 01-06-2025 Thyroxine (T4) free [Mass/volume] in Serum or Plasma T4 FREE/FREE THYROXINE Lab Routine Hypothyroidism, unspecified type Expected: 10/07/2024, Expires: 01/06/2025 [facility] Comment on above: Expected: 10/07/2024 , Expires: 01/06/2025 Start: 10-07-2024 End: 10-07-2024 Patient encounter procedure 10/07/2024 1:20 PM EDT Office Visit Family Medicine [facility] [address] [place] [address] Marely Wood, ANY.EDUCATIONAL RECRUITER [address] [place] [address] 2024 Medicare Wellness Z00.00 [facility] Comment on above: 2024 Medicare Wellne ss Z00.00 Start: 07-31-2024 Advance Directive Discussion Advance Directive Discussion [facility] Start: 06-16-2024 Annual PCP Team Manager Epic giovanni Disease Visit Annual PCP Team Chronic Disease Visit [facility] Start: 06-06-2024 End: 06-06-2024 Patient encounter procedure 06/06/2024 2:10 PM EST Appointment Mammogram [address] [place] [address] annual mamm Mammogram Comment on above: annual mamm Start: 06-05-2024 Mammography Mammogram Screening [facility] Start: 06-05-2024 Screening for malign ant neoplasm of breast Mammogram Screening [facility] Start: 06-02-2024 DIABETES SCREEN DIABETES SCREEN [facility] Start: 04-23-2024 End: 04-23-2024 Patient encounter procedure 04/23/2024 1:00 PM EDT Appointment Radiology [address] [place] [address] Hypothyroidism, unspecified type [E03.9] Radiology Comment on above: Hypothyroidism, unsp ecified type [E03.9] Start: 04-22-2024 End: 04-22-2024 Patient encounter procedure 04/22/2024 11:00 AM EDT Office Visit Family Medicine [facility] [address] [place] [address] Marely Wood, FREIGHT RATE SPECIALIST.EDUCATIONAL RECRUITER [address] [place] [address] 1 month follow up [facility] Comment on above: 1 month follow up Start: 04-13-2024 Annual PCP Team Manager Epic giovanni Disease Visit Annual PCP Team Chronic Disease Visit [facility] Start: 04-04-2024 End: 04-04-2024 Patient encounter procedure 04/04/2024 11:00 AM EDT Office Visit OB/Gynecology [address] [place] [address] Colleen Powell, FREIGHT RATE SPECIALIST.EDUCATIONAL RECRUITER [address] [place] [address] vaginal irritation/burning - wants AG only OB/Gynecology Comment on above: vaginal irritation/b urning - wants AG only Start: 03-31-2024 Covid-19 Vaccine ( season) Covid-19 Vaccine ( season) [facility] Start: 03-31-2024 Covid-19 Vaccine () Covid-19 Vaccine () [facility] Start: 03-31-2024 Influenza vaccination Influenza Vacc ine (#1) [facility] Start: 03-25-2024 End: 06-24-2024 C reactive protein [Mass/volume] in Serum or Plasma [facility] Work Phone: Comment on above: Expected: 03/25/2024 , Expires: 06/24/2024 Start: 03-25-2024 End: 06-24-2024 Comprehensive metabolic 2000 panel - Serum or Plasma [facility] Comment on above: Expected: 03/25/2024 , Expires: 06/24/2024 Start: 02-22-2024 End: 02-22-2024 Patient encounter procedure 02/22/2024 1:00 PM EDT Office Visit OB/Gynecology [address] [place] [address] Colleen Powell, FREIGHT RATE SPECIALIST.EDUCATIONAL RECRUITER [address] [place] [address] Vaginal irritation OB/Gynecology Comment on above: Vaginal irritation Start: 12-17-2023 ANNUAL PCP TEAM OBSTETRICIAN/GYNECOLOGIST GIOVANNI DISEASE VISIT ANNUAL PCP TEAM CHRONIC DISEASE VISIT [facility] Start: 11-18-2023 ANNUAL PCP TEAM OBSTETRICIAN/GYNECOLOGIST GIOVANNI DISEASE VISIT ANNUAL PCP TEAM CHRONIC DISEASE VISIT [facility] Start: 11-08-2023 ANNUAL PCP TEAM OBSTETRICIAN/GYNECOLOGIST GIOVANNI DISEASE VISIT ANNUAL PCP TEAM CHRONIC DISEASE VISIT [facility] Start: 10-25-2023 ANNUAL PCP TEAM OBSTETRICIAN/GYNECOLOGIST GIOVANNI DISEASE VISIT ANNUAL PCP TEAM CHRONIC DISEASE VISIT [facility] Start: 07-31-2023 Advance Directive Discussion Advance Directive Discussion [facility] Start: 07-31-2023 Behavioral Health Screening Behavioral Health Screening [facility] Start: 07-31-2023 Depression Assessment Depression Ass essment [facility] Start: 06-21-2023 ANNUAL PCP TEAM OBSTETRICIAN/GYNECOLOGIST GIOVANNI DISEASE VISIT ANNUAL PCP TEAM CHRONIC DISEASE VISIT [facility] Start: 04-15-2023 Mammography [facility] Start: 03-31-2023 Covid-19 Vaccine () Covid-19 Vaccine () [facility] Start: 03-31-2023 Influenza vaccination C [facility] Start: 01-08-2023 Urine microalbumin profile [facility] Start: 10-24-2022 End: 12-24-2022 Magnesium [Mass/volume] in Serum or Plasma MAGNESIUM BLD Lab Routine Bradycardia Expected: 10/24/2022, Expires: 12/24/2022 [facility] Work Phone: Comment on above: Expected: 10/24/2022 , Expires: 12/24/2022 Start: 10-24-2022 End: 12-24-2022 Thyrotropin [Units/volume] in Serum or Plasma [facility] Work Phone: Comment on above: Expected: 10/24/2022 , Expires: 12/24/2022 Start: 10-19-2022 COVID-19 VACCINE (6 - Moderna series) COVID-19 VACCINE (6 - Moderna series) [facility] Start: 09-13-2022 ANNUAL PCP TEAM OBSTETRICIAN/GYNECOLOGIST GIOVANNI DISEASE VISIT ANNUAL PCP TEAM CHRONIC DISEASE VISIT [facility] Start: 08-21-2022 End: 06-21-2023 Lipid 1996 panel - Serum or Plasma LIPID PANEL BASIC Lab Routine Hyperlipidemia LDL goal <130 Expected: 08/21/2022, Expires: 06/21/2023 [facility] Work Phone: Comment on above: Expected: 08/21/2022 , Expires: 06/21/2023 Start: 07-31-2022 ADVANCE DIRECTIVE DISCUSSION ADVANCE DIRECTIVE DISCUSSION [facility] Start: 07-31-2022 DEPRESSION ASSESSMENT DEPRESSION ASS ESSMENT [facility] Start: 04-13-2022 End: 10-11-2022 25-hydroxyvitamin D3 [Mass/volume] in Serum or Plasma VITAMIN D 25 HYDROXY Lab Routine Vitamin D deficiency Expected: 04/13/2022, Expires: 10/11/2022 [facility] Work Phone: Comment on above: Expected: 04/13/2022 , Expires: 10/11/2022 Start: 04-13-2022 Mammography MAMMOGRAM [facility] Start: 03-31-2022 Influenza vaccination INFLUENZA (#1) [facility] Start: 01-20-2022 COVID-19 VACCINE (5 - Booster for Moderna series) COVID-19 VACCINE (5 - Booster for Moderna series) [facility] Start: 12-02-2021 Adult depression scr eening assessment DEPRESSION SCREENING [facility] Start: 07-31-2021 ADVANCE DIRECTIVE DISCUSSION ADVANCE DIRECTIVE DISCUSSION [facility] Start: 07-31-2021 DEPRESSION ASSESSMENT DEPRESSION ASS ESSMENT [facility] Start: 04-15-2021 Colonoscopy COLONOSCOPY [facility] Start: 04-15-2021 COLORECTAL CANCER SCREENING COLORECTAL CANCER SCREENING [facility] Start: 2016 Pneumococcal Vaccine : 65+ (1 - PCV) Pneumococcal Vaccine: 65+ (1 - PCV) [facility] Start: 2016 Pneumococcal Vaccine : 65+ (1 of 1 - PCV) Pneumococcal Vaccine: 65+ (1 of 1 - PCV) [facility] Start: 2016 PNEUMOCOCCAL: 65+ (1 - PCV) PNEUMOCOCCAL: 65+ (1 - PCV) [facility] Start: 2011 RSV Vaccine (1 - 1-d ose 60+ series) RSV Vaccine (1 - 1-dose 60+ series) [facility] Start: 2001 Pneumococcal Vaccine : 50+ (1 of 1 - PCV) Pneumococcal Vaccine: 50+ (1 of 1 - PCV) [facility] Start: 2001 SHINGRIX VACCINE (1 of 2) [place] GRIX VACCINE (1 of 2) [facility] Start: 1996 COLOGUARD (FIT-DNA) COLOGUARD (FIT-D NA) [facility] Start: [address] [facility] Start: 1996 FECAL OCCULT BLOOD FECAL OCCULT BLOO D [facility] Start: 1996 Screening for malign ant neoplasm of colon [facility] Start: 1996 [facility] Start: 1969 Depression Screening Depression Scre ening [facility] Bacteria identified in Urine by Culture URINE CULTURE Microbiology Routine Urinary frequency Ordered: 01/23/2022 [facility] Work Phone: Comment on above: Ordered: 01/23/2022 Bacteria identified in Urine by Culture URINE CULTURE Microbiology Routine Burning with urination Ordered: 10/24/2022 [facility] Work Phone: Comment on above: Ordered: 10/24/2022 Bacteria identified in Urine by Culture URINE CULTURE Microbiology Routine Hematuria, unspecified type Recurrent UTI (urinary tract infection) 11/17/2022 11:15 AM EDT [facility] Work Phone: Bacteria identified in Urine by Culture URINE CULTURE Microbiology Routine Abdominal pressure Ordered: 04/03/2023 [facility] Work Phone: Comment on above: Ordered: 04/03/2023 BACTERIAL VAGINOSIS NAAT BACTERI AL VAGINOSIS NAAT Lab Routine Vaginal irritation Vaginal discharge 02/22/2024 1:30 PM EDT [facility] BACTERIAL VAGINOSIS NAAT BACTERI AL VAGINOSIS NAAT Lab Routine Vaginal irritation Vaginal burning 11/28/2024 2:41 PM T [facility] Work Phone: ALFRED/TRICHOMONAS NAAT ALFRED /TRICHOMONAS NAAT Lab Routine Vaginal irritation Vaginal discharge 02/22/2024 1:30 PM T [facility] Work Phone: ALFRED/TRICHOMONAS NAAT ALFRED /TRICHOMONAS NAAT Lab Routine Vaginal irritation Vaginal burning 11/28/2024 2:41 PM EDT [facility] Chlamydia trachomatis+Neisseria gonorrhoeae DNA [Presence] in Unspecified specimen by ANAID with probe detection GONORRHEA/CHLAMYDIA NAAT Lab Routine Vaginal irritation Vaginal burning 11/28/2024 2:41 PM EDT [facility] DBT Breast - bilater al screening SYLVIE SCREENING W [facility] Radiology Routine Encounter for screening mammogram for breast cancer 06/06/2024 2:10 PM EST [facility] Work Phone: End: 06-29-2023 Dxa bone density study 1/> sites axial skel DXA-AXIAL SKELETON Radiology Routine Osteopenia of necks of both femurs 1 Occurrences starting 05/30/2022 until 06/29/2023 [facility] Work Phone: Comment on above: 1 Occurrences starti ng 05/30/2022 until 06/29/2023 End: 10-25-2023 ECG COMPLETE [facility] Work Phone: Comment on above: 1 Occurrences starti ng 10/24/2022 until 10/25/2023 End: 11-08-2023 ECG COMPLETE ECG COMPLETE ECG Routine Ventricular bigeminy seen on monitoring engineer Bradycardia 1 Occurrences starting 11/07/2022 until 11/08/2023 [facility] Work Phone: Comment on above: 1 Occurrences starti ng 11/07/2022 until 11/08/2023 ECG COMPLETE ECG COMPLETE ECG Ventricular bigeminy seen on monitoring engineer Bradycardia 11/07/2022 2:02 PM EDT [facility] End: 10-25-2023 Echocardiography ECHO Cardiology Routine Bradycardia Ventricular bigeminy seen on monitoring engineer 1 Occurrences starting 10/24/2022 until 10/25/2023 [facility] Work Phone: Comment on above: 1 Occurrences starti ng 10/24/2022 until 10/25/2023 End: 06-29-2023 SYLVIE SCREENING W KAPIL SYLVIE SCREENING W [facility] Radiology Routine Encounter for screening mammogram for malignant neoplasm of breast 1 Occurrences starting 05/30/2022 until 06/29/2023 [facility] Work Phone: Comment on above: 1 Occurrences starti ng 05/30/2022 until 06/29/2023 OUTSIDE VENDOR CARDI AC OUTPATIENT EXTENDED RHYTHM RECORDING (WITHOUT TELEMETRY) OUTSIDE VENDOR CARDIAC OUTPATIENT EXTENDED RHYTHM RECORDING (WITHOUT TELEMETRY) Holter Routine Bradycardia Ventricular bigeminy seen on monitoring engineer Ordered: 10/24/2022 [facility] Work Phone: Comment on above: Ordered: 10/24/2022 Patient Education [facility] Work Phone: Patient referral [facility] Work Phone: UA DIP, URINE (POC) UA DIP, URIN E (POC) Lab Routine Abdominal pressure Ordered: 04/03/2023 [facility] Work Phone: Comment on above: Ordered: 04/03/2023 End: 05-22-2025 US Thyroid gland US THYROID/PARATHYROID Radiology Routine Hypothyroidism, unspecified type 1 Occurrences starting 04/22/2024 until 05/22/2025 [facility] Work Phone: Comment on above: 1 Occurrences starti ng 04/22/2024 until 05/22/2025 US Thyroid gland US THYROID/PARA THYROID Radiology Routine Hypothyroidism, unspecified type 04/23/2024 1:28 PM EDT [facility] Work Phone: [facility] Immunizations Immunization Date Immunization Notes Care Provider Tone burdick 05-13-2024 Seasonal trivalent influenza vaccine, adjuvanted, preservative free Screen [facility] 05-20-2023 influenza (aIIV4) vaccine, age 65+ yr, quadrivalent, PF (FLUAD QUAD) Marely Wood FREIGHT RATE SPECIALIST.EDUCATIONAL RECRUITER Work Phone: [facility] 05-20-2023 influenza virus vacc ine, unspecified formulation Marely Wood APRN.EDUCATIONAL RECRUITER Work Phone: [facility] 05-30-2022 influenza, high-dose , quadrivalent vaccine (FLUZONE HIGH DOSE QUADRIVALENT) Lisa Rod MD Work Phone: [facility] 05-30-2022 influenza virus vacc ine, unspecified formulation Mariano Kang MD Work Phone: [facility] 04-07-2021 influenza (HD-IIV4) vaccine, age 65+ yr, high dose, quadrivalent, PF (FLUZONE HIGH-DOSE) Marely Wood FREIGHT RATE SPECIALIST.EDUCATIONAL RECRUITER Work Phone: [facility] 04-07-2021 influenza, high dose seasonal, preservative-free Marely Wood FREIGHT RATE SPECIALIST.EDUCATIONAL RECRUITER Work Phone: [facility] 04-20-2020 influenza, high-dose , quadrivalent vaccine (FLUZONE HIGH DOSE QUADRIVALENT) Marely Wood FREIGHT RATE SPECIALIST.EDUCATIONAL RECRUITER Work Phone: [facility] 05-18-2019 Influenza, injectabl e, Madin Bailey Canine Kidney, preservative free, quadrivalent Marely Wood FREIGHT RATE SPECIALIST.EDUCATIONAL RECRUITER Work Phone: [facility] 01-08-2013 tetanus toxoid, redu sonya diphtheria toxoid, and acellular pertussis vaccine, adsorbed Marely Wood FREIGHT RATE SPECIALIST.EDUCATIONAL RECRUITER Work Phone: [facility] Payers Date Payer Category Payer Unknown [id number] 2023 Self-pay [id number] 2021 Medicare AETNA MEDICARE A ETNA MEDICARE PPO [id number] 2021-Present [phone] [address] [place] [address] PPO [id number] 2021 Medicare AETNA MEDICARE A ETNA MEDICARE PPO [id number] 2021-Present [phone] [address] [place] [address] PPO [id number] 2021 Medicare (Managed Care) AETHOLLY WRIGHT [id number] 2021 Private Health Insurance [facility] [id number] Unknown [id number] Unknown [id number] Unknown [id number] Unknown [id number] Unknown [id number] Unknown [id number] Unknown [id number] Social History Date Type Detail Facility Start: 02-22-2011 End: 05-30-2022 Tobacco smoking status NHIS Never smoked tobacco [facility] Start: 09-13-2021 End: 10-07-2024 Alcohol intake Current non-drinker of alcohol (finding) [facility] Start: 1950 Sex Assigned At Female [facility] Start: 10-01-2021 End: 05-30-2022 Exposure to SARS-CoV-2 (event) Not sure [facility] Start: 12-09-2021 End: 04-03-2023 Tobacco smoking status NHIS Unknown if ever smoked [facility] Start: 02-22-2011 End: 05-30-2022 Tobacco use and exposure Smokeless tobacco non-user [facility] Start: 06-09-2022 History SDOH Alcohol Frequency 3 [facility] Start: 06-09-2022 History SDOH Alcohol Std Drinks 1 [facility] Start: 06-09-2022 History SDOH Social Connections Phone 5 [facility] Start: 06-09-2022 History SDOH Social Connections Get Together 2 [facility] Start: 06-09-2022 History SDOH Physical Activity DPW 7 [facility] Start: 06-09-2022 History SDOH Physical Activity MPS 4 [facility] Start: 06-11-2022 End: 06-21-2022 Exposure to SARS-CoV-2 (event) Yes [facility] Start: 06-09-2022 End: 12-16-2022 History of Social function [facility] Start: 06-09-2022 End: 12-16-2022 Social connection and isolation panel [facility] Do you belong to any clubs or organizations such as sabianism groups, unions, fraternal or athletic groups, or school groups? No [facility] Are you now , , , , never or living with a partner? [facility] How often to you hav e a drink containing alcohol? 2-4 times a month [facility] How many standard dr inks containing alcohol do you have on a typical day? 1 or 2 [facility] How often do you hav e 6 or more drinks on 1 occasion? Never [facility] How hard is it for y ou to pay for the very basics like food, housing, medical care, and heating Not hard at all [facility] Do you feel stress - tense, restless, nervous, or anxious, or unable to sleep at night because your mind is troubled all the time - these days [OSQ] Only a little [facility] (I/We) worried tessa er (my/our) food would run out before (I/we) got money to buy more. Never true [facility] Start: 04-11-2021 Gender identity Identifies as female gender (finding) [facility] Start: 04-11-2021 Sexual orientation Heterosexual (finding) [facility] Functional Status Date Assessment Result Facility 10-07-2024 Total score [AUDIT-C] 2 10/08/19 25 1:07 PM EDT Kasey Chow MA [facility] 11-28-2014 Are you deaf, or do you have serious difficulty hearing No 11/28/2014 8:33 AM Elif Alex, DOYLE No [facility] 11-28-2014 Are you blind, or do you have serious difficulty seeing, even when wearing glasses No 11/28/2014 8:33 AM Elif Alex, DOYLE No [facility] 11-28-2014 Do you have serious difficulty walking or climbing stairs No 11/28/2014 8:33 AM Elif Alex, DOYLE No [facility] 11-28-2014 Do you have difficul ty dressing or bathing No 11/28/2014 8:33 AM Elif Alex, DOYLE No [facility] 11-28-2014 Because of a physica l, mental, or emotional condition, do you have difficulty doing errands alone such as visiting a physician's office or shopping No 11/28/2014 8:33 AM Elif Alex, DOYLE No [facility] Mental Status Date Assessment Result Facility 12-10-2021 Cognitive function Voice/Name [facility] Work Phone: 11-28-2014 Because of a physica l, mental, or emotional condition, do you have serious difficulty concentrating, remembering, or making decisions No 11/28/2014 8:33 AM Elif Alex, DOYLE No [facility] Clinical Notes 02-02-2017 to 11-28-2024 Addendum Note - Juana Love APRN.CNM - 11/28/2024 2:35 PM EDTAddendum Note - Juana Love APRN.CNM - 11/28/2024 2:35 PM EDTAddendum Note - Joshua Prince MA - 11/28/2024 2:11 PM EDT Note Date & Type Note Facility 11-28-2024 Note Addended by: JUANA LOVE on: 11/28/2024 02:35 PM Modules accepted: Orders [facility] 11-28-2024 Miscellaneous Notes Addended by: JUANA LOVE on: 11/28/2024 02:35 PM Modules accepted: Orders Addended by: JOSHUA PRINCE on: 11/28/2024 02:11 PM Modules accepted: Orders documented in this encounter [facility] 11-28-2024 Note Addended by: JOSHUA PRINCE on: 11/28/2024 02:11 PM Modules accepted: Orders [facility] 11-28-2024 Note HNO ID: [id number] Author: JUANA LOVE APRN.CNM Service: ? Author Type: Radio News Writer Type: Progress Notes Filed: 11/28/2024 10:06 Note Text: Yola Caraballo is a 74 year old female who presents for vaginal irritation and burning for the past week . HPI: Used vaginal estrogen in the past but stopped due to irritation. She then began using Revaree with relief. Last week she began feeling a burning sensation and vaginal irritation. Seen at and tested for UTI which was negative. Urethra caruncle noted on exam and patient was referred for follow up today. OB History Gravida1 Para1 Term0 Preterm0 AB0 Living1 SAB0 IAB0 Ectopic0 Multiple0 Live Births0 Rib Stiffener And Heel Dipper History LMP: Postmenopausal Age at Menarche: Age at First : Age at Menopause: Rib Stiffener And Heel Dipper History Comments: Sexual Activity: Yes; Male Contraception: No contraception data on record PAST MEDICAL HISTORY Diagnosis Date Agoraphobia with panic disorder Chronic anxiety 02/22/2011 Hypothyroidism 01/25/2011 Irritable bowel syndrome (IBS) 02/22/2011 Lactose intolerance in adult 07/29/2016 Sciatica, right side 02/02/2017 Vitamin D deficiency 07/15/2010 PAST SURGICAL HISTORY Procedure Laterality Date APPENDECTOMY COLONOSCOPY FLX DX W/COLLJ SPEC WHEN PFRMD 04/15/2011 Colonoscopy OOPHORECTOMY PARTIAL/TOTAL UNI/BI left PAST SURGICAL HISTORY OF polyps removed from vocal cord TONSILLECTOMY HX FAMILY HISTORY Problem Relation Age of Onset Cancer Mother lung Hypertension Mother Stroke Mother cerebral aneurysm Diabetes Father Hypertension Father Cancer Father lung Hypertension Sister Anxiety disorder Sister Hyperlipidemia Sister other (renal failure) Brother Social History Tobacco Use Smoking status: Never Smokeless tobacco: Never Vaping Use Vaping status: Never Used Substance Use Topics Alcohol use: No Drug use: No Current Outpatient Medications Medication Sig cephALEXin (KEFLEX) 500 mg capsule Take 1 capsule by mouth two times a day for 7 days. SYNTHROID 75 mcg tablet Take on empty stomach. For Thyroid. Take one tablet 6 days/week. Lactobacillus acidophilus (FLORAJEN ACIDOPHILUS) 20 billion cell capsule Take 1 capsule by mouth once daily. Cholecalciferol, Vitamin D3, 2,000 unit cap Take 1 capsule by mouth once daily. No current facility-administered medications for this visit. Allergies As of Date: 11/28/2024 (No Known Allergies) Fully Assessed 11/28/2024 REVIEW OF SYSTEMS Abdomen: No bloating, early satiety, indigestion, or increased flatulence. No abdominal pain, nausea, vomiting, diarrhea, or constipation. Bladder: No dysuria, gross hematuria, urinary frequency, urinary urgency, or incontinence. Breast: No breast lumps, nipple d/c, overlying skin changes, redness or skin retraction. Expanded ROS: N/A Allergies and current medication updated:Yes SENSITIVE EXAM: The sensitive examination was discussed with the Patient or Patient's Authorized Salesperson Driver. As applicable, any other physician, advance practice provider, medical student, or other health professional student that will be observing or involved in the sensitive examination for educational or training purposes was discussed with the Patient or Authorized Salesperson Driver. The Patient or Authorized Salesperson Driver has agreed to proceed with the sensitive examination. (Sensitive examination includes inspection and/or palpation of the breasts, pelvis, prostate and anorectal regions). EXAM: BP 116/72 Ht 5' 6 (1.68m) Wt 126 lb (57.2kg) BMI 20.35 kg/(m2). GENERAL: pleasant, female in no apparent distress HEENT: Normocephalic and atraumatic NECK: Supple and full range of motion DERMATOLOGY: Normal and without lesions BREAST: deferred CHEST: Normal inspiratory effort ABDOMEN: Deferred PELVIC: external genitalia normal, no vulvar lesions, no cervical lesions, atrophic changes, Urethral Caruncle ASSESSMENT AND PLAN: Assessment AND Plan Vaginal irritation Vaginal burning Vaginal atrophy Urethral caruncle - Yeast /BV swab collected and sent - Recommended restarting vaginal estrogen nightly - Estrogen to be placed on urethra - Has several tubes of estradiol at home- no RX today - Support provided - RTO as needed/Annual exams Juana Love APRN.CNM [facility] 11-28-2024 History of Presen t illness Narrative Yola Caraballo is a 74 year old female who presents for vaginal irritation and burning for the past week . HPI: Used vaginal estrogen in the past but stopped due to irritation. She then began using Revaree with relief. Last week she began feeling a burning sensation and vaginal irritation. Seen at and tested for UTI which was negative. Urethra caruncle noted on exam and patient was referred for follow up today. OB History Gravida1 Para1 Term0 Preterm0 AB0 Living1 SAB0 IAB0 Ectopic0 Multiple0 Live Births0 Rib Stiffener And Heel Dipper History LMP: Postmenopausal Age at Menarche: Age at First : Age at Menopause: Rib Stiffener And Heel Dipper History Comments: Sexual Activity: Yes; Male Contraception: No contraception data on record PAST MEDICAL HISTORY Diagnosis Date Agoraphobia with panic disorder Chronic anxiety 02/22/2011 Hypothyroidism 01/25/2011 Irritable bowel syndrome (IBS) 02/22/2011 Lactose intolerance in adult 07/29/2016 Sciatica, right side 02/02/2017 Vitamin D deficiency 07/15/2010 PAST SURGICAL HISTORY Procedure Laterality Date APPENDECTOMY COLONOSCOPY FLX DX W/COLLJ SPEC WHEN PFRMD 04/15/2011 Colonoscopy OOPHORECTOMY PARTIAL/TOTAL UNI/BI left PAST SURGICAL HISTORY OF polyps removed from vocal cord TONSILLECTOMY HX FAMILY HISTORY Problem Relation Age of Onset Cancer Mother lung Hypertension Mother Stroke Mother cerebral aneurysm Diabetes Father Hypertension Father Cancer Father lung Hypertension Sister Anxiety disorder Sister Hyperlipidemia Sister other (renal failure) Brother Social History Tobacco Use Smoking status: Never Smokeless tobacco: Never Vaping Use Vaping status: Never Used Substance Use Topics Alcohol use: No Drug use: No Current Outpatient Medications Medication Sig cephALEXin (KEFLEX) 500 mg capsule Take 1 capsule by mouth two times a day for 7 days. SYNTHROID 75 mcg tablet Take on empty stomach. For Thyroid. Take one tablet 6 days/week. Lactobacillus acidophilus (FLORAJEN ACIDOPHILUS) 20 billion cell capsule Take 1 capsule by mouth once daily. Cholecalciferol, Vitamin D3, 2,000 unit cap Take 1 capsule by mouth once daily. No current facility-administered medications for this visit. Allergies As of Date: 11/28/2024 (No Known Allergies) Fully Assessed 11/28/2024 REVIEW OF SYSTEMS Abdomen: No bloating, early satiety, indigestion, or increased flatulence. No abdominal pain, nausea, vomiting, diarrhea, or constipation. Bladder: No dysuria, gross hematuria, urinary frequency, urinary urgency, or incontinence. Breast: No breast lumps, nipple d/c, overlying skin changes, redness or skin retraction. Expanded ROS: N/A Allergies and current medication updated:Yes SENSITIVE EXAM: The sensitive examination was discussed with the Patient or Patient's Authorized Salesperson Driver. As applicable, any other physician, advance practice provider, medical student, or other health professional student that will be observing or involved in the sensitive examination for educational or training purposes was discussed with the Patient or Authorized Salesperson Driver. The Patient or Authorized Salesperson Driver has agreed to proceed with the sensitive examination. (Sensitive examination includes inspection and/or palpation of the breasts, pelvis, prostate and anorectal regions). EXAM: BP 116/72 Ht 5' 6 (1.68m) Wt 126 lb (57.2kg) BMI 20.35 kg/(m^2). GENERAL: pleasant, female in no apparent distress HEENT: Normocephalic and atraumatic NECK: Supple and full range of motion DERMATOLOGY: Normal and without lesions BREAST: deferred CHEST: Normal inspiratory effort ABDOMEN: Deferred PELVIC: external genitalia normal, no vulvar lesions, no cervical lesions, atrophic changes, Urethral Caruncle ASSESSMENT AND PLAN: Assessment & Plan Vaginal irritation Vaginal burning Vaginal atrophy Urethral caruncle - Yeast /BV swab collected and sent - Recommended restarting vaginal estrogen nightly - Estrogen to be placed on urethra - Has several tubes of estradiol at home- no RX today - Support provided - RTO as needed/Annual exams Juana Love APRN.CNM documented in this encounter [facility] 11-25-2024 Telephone encounter Note Patient given results and verbalized understanding of instructions given. Kathy Miller MA [facility] 11-25-2024 Miscellaneous Notes Patient given results and verbalized understanding of instructions given. Kathy Miller MA ----- Message from Kary Willard APRN.CNP sent at 11/25/2024 2:15 PM EDT ----- Please advise patient: Urine culture did not show any evidence of infection. She may continue to take antibiotic if it has been helpful. Recommend follow up with PCP to ensure hematuria has resolved. Kary Willard CNP documented in this encounter [facility] 11-25-2024 Telephone encounter Note ----- Message from Kary Willard APRN.CNP sent at 11/25/2024 2:15 PM EDT ----- Please advise patient: Urine culture did not show any evidence of infection. She may continue to take antibiotic if it has been helpful. Recommend follow up with PCP to ensure hematuria has resolved. Kary Willard CNP [facility] 11-24-2024 Note HNO ID: [id number] Author: KEENAN GUILLEN APRN.CNP Service: ? Author Type: Nurse Practitioner Type: Progress Notes Filed: 11/24/2024 15:23 Note Text: [facility] Subjective Yola Caraballo is a 74 year old year old who presents to express care today with complaint of C/o Frequency, urgency, burning with urination. Presence of blood in urine- present on tissue when wiping and one spot in underwear. Color is yellow in appearance without odor. Denies suprapubic pain, flank pain or back pain. History of UTI's over the past year none, denies any history of kidney/renal or genital health issues in the past. Is using suppositories in the past 3 years for vaginal atrophy both otc and estrogen- now stopped due to increased external irritation. Denies headaches, fever, sore throat, cough, shortness of breath, chest pains, Nausea, vomiting, changes in bowel or skin rashes. Aside from symptoms as described above, patient has no other complaints at this time. HPI: see above Review of Systems Constitutional: Negative for chills, fatigue and fever. Respiratory: Negative for cough, shortness of breath and wheezing. Cardiovascular: Negative for chest pain, palpitations and leg swelling. Gastrointestinal: Negative for diarrhea, nausea and vomiting. Genitourinary: Positive for dysuria, frequency, hematuria (on tissue with wiping and on underwear) and urgency. Negative for vaginal discharge. Musculoskeletal: Negative for back pain and myalgias. ALLERGIES No Known Allergies Current Outpatient Medications on File Prior to Visit Medication Sig SYNTHROID 75 mcg tablet Take on empty stomach. For Thyroid. Take one tablet 6 days/week. Lactobacillus acidophilus (FLORAJEN ACIDOPHILUS) 20 billion cell capsule Take 1 capsule by mouth once daily. Cholecalciferol, Vitamin D3, 2,000 unit cap Take 1 capsule by mouth once daily. No current facility-administered medications on file prior to visit. ACTIVE PROBLEM LIST Vitamin D Deficiency Hypothyroidism Chronic Anxiety Uninodular Goiter Lactose Intolerance in Adult Hyperlipidemia Ldl Goal <130 Osteopenia, Senile Migraine With Aura, Not Intractable, Without Status Migrainosus Paroxysmal Svt (Supraventricular Tachycardia) (Hcc) Diverticulitis of Sigmoid Colon Other Ventricular Tachycardia (Hcc) Social History Tobacco Use Smoking status: Never Smokeless tobacco: Never Vaping Use Vaping status: Never Used Substance Use Topics Alcohol use: No Drug use: No Objective BP 125/86 Pulse 88 Temp 36.7 ?C (98.1 ?F) (Oral) Resp 16 Wt 57.8 kg (127 lb 6.8 oz) SpO2 98% BMI 20.88 kg/m? Physical Exam Vitals reviewed. Constitutional: General: She is not in acute distress. Appearance: Normal appearance. She is not ill-appearing or toxic-appearing. Cardiovascular: Rate and Rhythm: Normal rate and regular rhythm. Pulses: Normal pulses. Heart sounds: Normal heart sounds. No murmur heard. Pulmonary: Effort: Pulmonary effort is normal. Breath sounds: Normal breath sounds. Abdominal: General: Bowel sounds are normal. There is no distension. Palpations: Abdomen is soft. Tenderness: There is no abdominal tenderness (no suprapubic tenderness). There is no right CVA tenderness, left CVA tenderness or rebound. Skin: General: Skin is warm and dry. Capillary Refill: Capillary refill takes less than 2 seconds. Neurological: Mental Status: She is alert and oriented to person, place, and time. Assessment/Plan 1. Acute bacterial simple cystitis (Primary) - UA DIP, URINE (POC)- small amount of blood - BACTERIAL CULTURE, URINE - cephALEXin (KEFLEX) 500 mg capsule; Take 1 capsule by mouth two times a day for 7 days. Dispense: 14 capsule; Refill: 0 -Patient advised to drink fluids, get rest and take all meds as prescribed. -Encouraged to Stop Alcohol and drinking Pepsi as both can irritate bladder lining Patient given educational materials - see instructions. Discussed use, benefit, and side effects of prescribed medications. All questions answered. Patient advised to follow up with PCP in one week, or sooner if symptoms worsen or persist. If symptoms become severe- GO TO ED. Patient verbalized understanding and agreeable with treatment plan. Keenan Guillen APRN, CNP 11/24/2024 3:15 PM [facility] 10-07-2024 Note HNO ID: [id number] Author: AMRELY WOOD APRN.KEVIN Service: ? Author Type: Nurse Practitioner Type: Progress Notes Filed: 10/07/2024 20:05 Note Text: Yola Caraballo is a 74 year old female here for a Medicare wellness visit. Medicare Health Risk Assessment General Health Good Exercise: Minutes/Day 50 min Exercise: Days/Week 6 days Alcohol: Daily Use 2-4 times a month Alcohol: Drinks/Day 1 or 2 Alcohol: 6 or more drinks Never Feel off balance No Concerns: Teeth/Dentures No Concerns: Sexual function No Troubled by feelings Anxious (per her normal) Frequency: Eating healthy diet Nearly every day ADLs requiring help None of the above Safety precautions in home/vehicle Yes Smoke, vape, chews tobacco No Difficulty hearing No Difficulty seeing No Current Providers Specialists: I have reviewed specialist-related care of the patient in the medical record. Dentist: Dr. Chowdhury Opthalmology: Dr. Chou Medical/Family history review Reviewed and updated problem list, medical/surgical/family/social history, medications, and allergies. Opioid use review Opioid Medications (last 90 days) No data to display Anxiety/Depression screening PHQ-2 Score: 0 (Lower risk for depression) Recommendation: no further intervention at this time Cognitive screening Mini Cog Score: 5 Cognitive screening reviewed and No further action needed (score 3-5). Functional Observation Was the patient's Timed Up AND Go test unsteady or >= 12 seconds? No Advance Care Planning Surrogate decision maker and/or advance care plan documented Measurements BP 110/60 Pulse (!) 59 Resp 16 Ht 166.4 cm (5' 5.5) Wt 57.2 kg (126 lb) SpO2 99% BMI 20.65 kg/m? Vision Screening: Follows with optometry/ophthalmology ASSESSMENT/PLAN: 1. Medicare annual wellness visit, subsequent - ICD9: V70.0, ICD10: Z00.00 - Counseled on healthy diet and regular exercise - Fall avoidance information provided - Personalized prevention plan provided Return for medicare wellness in 1 year. Discussed treatment plan and patient voices understanding. Patient's questions answered appropriately. Medications and potential side effects were discussed and patient voices understanding. Return to the office as scheduled or as needed for worsening/no improvement. [facility] 10-07-2024 History of Presen t illness Narrative Images from the original note were not included. Yola Caraballo is a 74 year old female here for a Medicare wellness visit. Medicare Health Risk Assessment General Health Good Exercise: Minutes/Day 50 min Exercise: Days/Week 6 days Alcohol: Daily Use 2-4 times a month Alcohol: Drinks/Day 1 or 2 Alcohol: 6 or more drinks Never Feel off balance No Concerns: Teeth/Dentures No Concerns: Sexual function No Troubled by feelings Anxious (per her normal) Frequency: Eating healthy diet Nearly every day ADLs requiring help None of the above Safety precautions in home/vehicle Yes Smoke, vape, chews tobacco No Difficulty hearing No Difficulty seeing No Current Providers Specialists: I have reviewed specialist-related care of the patient in the medical record. Dentist: Dr. Chowdhury Opthalmology: Dr. Chou Medical/Family history review Reviewed and updated problem list, medical/surgical/family/social history, medications, and allergies. Opioid use review Opioid Medications (last 90 days) No data to display Anxiety/Depression screening PHQ-2 Score: 0 (Lower risk for depression) Recommendation: no further intervention at this time Cognitive screening Mini Cog Score: 5 Cognitive screening reviewed and No further action needed (score 3-5). Functional Observation Was the patient's Timed Up & Go test unsteady or >= 12 seconds? No Advance Care Planning Surrogate decision maker and/or advance care plan documented Measurements BP 110/60 Pulse (!) 59 Resp 16 Ht 166.4 cm (5' 5.5) Wt 57.2 kg (126 lb) SpO2 99% BMI 20.65 kg/m Vision Screening: Follows with optometry/ophthalmology ASSESSMENT/PLAN: 1. Medicare annual wellness visit, subsequent - ICD9: V70.0, ICD10: Z00.00 - Counseled on healthy diet and regular exercise - Fall avoidance information provided - Personalized prevention plan provided Return for medicare wellness in 1 year. Discussed treatment plan and patient voices understanding. Patient's questions answered appropriately. Medications and potential side effects were discussed and patient voices understanding. Return to the office as scheduled or as needed for worsening/no improvement. documented in this encounter [facility] 10-07-2024 Instructions Marely Wood APRN.CNP - 10/07/2024 1:16 PM EDT Screening schedule The following prevention plan is recommended: Depression Screening Never done Shingrix Vaccine(1 of 2) Never done Pneumococcal Vaccine: 50+(1 of 1 - PCV) Never done DTaP,Tdap,Td Vaccine(2 - Td or Tdap) due on 01/08/2023 Covid-19 Vaccine(2023- season) due on 03/31/2024 Advance Directive Discussion Never done WHAT YOU CAN DO TO PREVENT FALLS Many falls can be prevented. By making some changes, you can lower your chances of falling. Four things YOU can do to prevent falls for you* and your caregiver 1. Begin a regular exercise program Exercise is one of the most important ways to lower your chances of falling. It makes you stronger and helps you feel better. Exercises that improve balance and coordination (like Miko Chi) are the most helpful. Lack of exercise leads to weakness and increases your chances of falling. Ask your doctor or health care provider about the best type of exercise program for you. 2. Have your health care provider review your medicines Have your doctor or pharmacist review all the medicines you take, even fmuh-nut-uipiend medicines. As you get older, the way medicines work in your body can change. Some medicines, or combinations of medicines, can make you sleepy or dizzy and can cause you to fall. 3. Have your vision checked Have your eyes checked by an eye doctor at least once a year. You may be wearing the wrong glasses or have a condition like glaucoma or cataracts that limits your vision. Poor vision can increase your chances of falling. 4. Make your home safer About half of all falls happen at home. To make your home safer: Remove things you can trip over (like papers, books, clothes, and shoes) from stairs and places where you walk. Remove small throw rugs or use double-sided tape to keep the rugs from slipping. Keep items you use often in cabinets you can reach easily without using a step stool. Have grab bars put in next to your toilet and in the tub or shower. Use non-slip mats in the bathtub and on shower floors. Improve the lighting in your home. As you get older, you need brighter lights to see well. Hang light-weight curtains or shades to reduce glare. Have handrails and lights put in on all staircases. Wear shoes both inside and outside the house. Avoid going barefoot or wearing slippers. For more information, contact: Centers for Disease Control and Prevention www.cdc.gov/injury * This information may not apply if you have certain medical conditions. documented in this encounter [facility] 07-18-2024 Note HNO ID: [id number] Author: ASHELY BELLO MA Service: ? Author Type: Curriculum Manager Type: Progress Notes Filed: 07/18/2024 14:51 Note Text: POPULATION HEALTH NAVIGATION OUTREACH Action/Machelle [place] Discuss/Due for: Medicare Wellness HCC Score: 0 Outcome: 1st attempt - Spoke to patient Scheduled Medicare Wellness Reason for Outreach Care Gap/HCC or Scheduling Wellness Visits Care Gaps due: Medicare Annual Wellness Visit Patient Contacted: Spoke to patient/parent/or legal guardian Patient identified by name and : Yes Care Gap/HCC/Scheduling Wellness actions taken: Patient scheduled/pended orders: Medicare Annual Wellness Visit 10/07/2024 in [facility] with [id number] Medicare Wellness Z00.00 Navigation Signature: Ashely Bello MA July 18, 2024 2:42 PM [facility] 07-18-2024 History of Presen t illness Narrative POPULATION HEALTH NAVIGATION OUTREACH Action/LEONAI Machelle Martinez [place] Discuss/Due for: Medicare Wellness HCC Score: 0 Outcome: 1st attempt - Spoke to patient Scheduled Medicare Wellness Reason for Outreach Care Gap/HCC or Scheduling Wellness Visits Care Gaps due: Medicare Annual Wellness Visit Patient Contacted: Spoke to patient/parent/or legal guardian Patient identified by name and : Yes Care Gap/HCC/Scheduling Wellness actions taken: Patient scheduled/pended orders: Medicare Annual Wellness Visit 10/07/2024 in [facility] with TD WOODY - 2024 Medicare Wellness Z00.00 Navigation Signature: Ashely Bello MA July 18, 2024 2:42 PM documented in this encounter [facility] 07-18-2024 Note Patient Outreach (NE TNAV) YOLA CARABALLO ([id number]) 1950 F Date Time Provider Department 07/18/24 ASHELY BELLO During your visit today, we recorded the following information about you: Ashely Bello MA 07/18/2024 2:51 PM Signed POPULATION HEALTH NAVIGATION OUTREACH Action/FYI Machelle Martinez [place] Discuss/Due for: Medicare Wellness HCC Score: 0 Outcome: 1st attempt - Spoke to patient Scheduled Medicare Wellness Reason for Outreach Care Gap/HCC or Scheduling Wellness Visits Care Gaps due: Medicare Annual Wellness Visit Patient Contacted: Spoke to patient/parent/or legal guardian Patient identified by name and : Yes Care Gap/HCC/Scheduling Wellness actions taken: Patient scheduled/pended orders: Medicare Annual Wellness Visit 10/07/2024 in [facility] with MARELY WOOD - 2024 Medicare Wellness Z00.00 Navigation Signature: Ashely Bello MA July 18, 2024 2:42 PM Allergies As of Date: 07/18/2024 (No Known Allergies) Date Reviewed: 04/22/2024 Reviewed by: Sarthak Stratton LPN - Fully Assessed Reason for Visit: Population Health Navigation Outreach [3910] Cmt: Machelle Martinez [place] Prescriptions as of 07/18/2024 - amitriptyline (ELAVIL) 10 mg tablet Take 1 tablet by mouth daily at bedtime. - estradiol (ESTRACE) 0.01 % (0.1 mg/gram) vaginal cream Use 1 g vaginally as directed. Insert 1 gm vaginally every night x 14 nights then insert 1 gm vaginally twice weekly - SYNTHROID 75 mcg tablet Take on empty stomach. For Thyroid. Take one tablet 6 days/week. - Lactobacillus acidophilus (FLORAJEN ACIDOPHILUS) 20 billion cell capsule Take 1 capsule by mouth once daily. - Cholecalciferol, Vitamin D3, 2,000 unit cap Take 1 capsule by mouth once daily. 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/08/2008 07/11/2012 Vitamin D deficiency [E55.9] 07/15/2010 Hypothyroidism [E03.9] 01/25/2011 Irritable bowel syndrome (IBS) [K58.9] 02/22/2011 09/24/2013 Chronic anxiety [F41.9] 02/22/2011 Abdominal pain, unspecified site [R10.9] 03/15/2011 07/11/2012 Other symptoms involving digestive system(787.9*04/15/2011 09/24/2013 Vitamin D deficiency [E55.9] 11/04/2014 05/29/2018 Uninodular goiter [E04.1] 12/08/2015 Lactose intolerance in adult [E73.9] 07/29/2016 Hyperlipidemia LDL goal <130 [E78.5] 12/28/2016 Sciatica, right side [M54.31] 02/02/2017 05/29/2018 Osteopenia, senile [M85.80] 03/26/2019 Migraine with aura, not intractable, without st*04/20/2020 Paroxysmal SVT (supraventricular tachycardia) (*11/17/2022 Diverticulitis of sigmoid colon [K57.32] 08/16/2023 Diagnosed: 08/16/2023 Other ventricular tachycardia (HCC) [I47.29] 01/18/2023 Diagnosed: 08/16/2023 Encounter Status:Closed by ASHELY BELLO on 07/18/24 [facility] 06-06-2024 History of Presen t illness Narrative Radiology Service Progress Note PATIENT NAME: Yola Caraballo DATE OF SERVICE: June 06, 2024 TIME: 2:06 PM PATIENT IDENTITY VERIFICATION COMPLETED USING TWO (2) IDENTIFIERS: Name and Date of confirmed by patient verbally. FALL SCREENING: Has the patient had 2 falls in the last year or 1 fall with injury or currently using an Ambulatory Assistive Device (Walker, Cane, Wheelchair, Crutches, etc.)? No PATIENT GENDER DATA: Female. status: : No status: NO. PATIENT RELEVANT IMPLANT DATA REVIEWED: Not Applicable PATIENT PRESENTS WITH AN IMPLANTABLE OR ATTACHED SPLITTER MACHINE: No RADIOLOGY DEPARTMENT: Mammography PERIPHERAL IV DATA: Not applicable SIGNED BY: Gulshan Calle June 06, 2024 2:06 PM documented in this encounter [facility] 06-06-2024 Note HNO ID: [id number] Author: MOOK SIERRA Mammo Tech Service: ? Author Type: Concrete Pointer Type: Progress Notes Filed: 06/06/2024 14:07 Note Text: Radiology Service Progress Note PATIENT NAME: Yola Caraballo DATE OF SERVICE: June 06, 2024 TIME: 2:06 PM PATIENT IDENTITY VERIFICATION COMPLETED USING TWO (2) IDENTIFIERS: Name and Date of confirmed by patient verbally. FALL SCREENING: Has the patient had 2 falls in the last year or 1 fall with injury or currently using an Ambulatory Assistive Device (Walker, Cane, Wheelchair, Crutches, etc.)? No PATIENT GENDER DATA: Female. status: : No status: NO. PATIENT RELEVANT IMPLANT DATA REVIEWED: Not Applicable PATIENT PRESENTS WITH AN IMPLANTABLE OR ATTACHED SPLITTER MACHINE: No RADIOLOGY DEPARTMENT: Mammography PERIPHERAL IV DATA: Not applicable SIGNED BY: Mook Sierra bMobilized June 06, 2024 2:06 PM [facility] 04-23-2024 History of Presen t illness Narrative Radiology Service Progress Note PATIENT NAME: Yola Caraballo DATE OF SERVICE: April 23, 2024 TIME: 1:42 PM PATIENT IDENTITY VERIFICATION COMPLETED USING TWO (2) IDENTIFIERS: Name and Date of confirmed by patient verbally. FALL SCREENING: Has the patient had 2 falls in the last year or 1 fall with injury or currently using an Ambulatory Assistive Device (Walker, Cane, Wheelchair, Crutches, etc.)? No PATIENT GENDER DATA: Female. status: : No status: NO. PATIENT RELEVANT IMPLANT DATA REVIEWED: Not Applicable PATIENT PRESENTS WITH AN IMPLANTABLE OR ATTACHED SPLITTER MACHINE: No RADIOLOGY DEPARTMENT: Ultrasound PERIPHERAL IV DATA: Not applicable SIGNED BY: Beulah Soares RDMS RVT April 23, 2024 1:42 PM documented in this encounter [facility] 04-23-2024 Note HNO ID: [id number] Author: BEULAH SOARES RDMS Service: ? Author Type: Certified Forklift Operator Type: Progress Notes Filed: 04/23/2024 13:42 Note Text: Radiology Service Progress Note PATIENT NAME: Yola Caraballo DATE OF SERVICE: April 23, 2024 TIME: 1:42 PM PATIENT IDENTITY VERIFICATION COMPLETED USING TWO (2) IDENTIFIERS: Name and Date of confirmed by patient verbally. FALL SCREENING: Has the patient had 2 falls in the last year or 1 fall with injury or currently using an Ambulatory Assistive Device (Walker, Cane, Wheelchair, Crutches, etc.)? No PATIENT GENDER DATA: Female. status: : No status: NO. PATIENT RELEVANT IMPLANT DATA REVIEWED: Not Applicable PATIENT PRESENTS WITH AN IMPLANTABLE OR ATTACHED SPLITTER MACHINE: No RADIOLOGY DEPARTMENT: Ultrasound PERIPHERAL IV DATA: Not applicable SIGNED BY: Beulah Soares RDMS RVT April 23, 2024 1:42 PM [facility] 04-22-2024 Instructions Marely Wood APRN.KEVIN - 04/22/2024 11:36 AM EDT Schedule the thyroid ultrasound. Continue the same medication. Let me know if you try that one new medication. documented in this encounter [facility] 04-22-2024 Note HNO ID: [id number] Author: MARELY WOOD APRN.KEVIN Service: ? Author Type: Nurse Practitioner Type: Progress Notes Filed: 04/22/2024 19:43 Note Text: This is a 73 year old female who presents today with: Patient presents with: Recheck: 1 month follow up HISTORY OF PRESENT ILLNESS: Yola Caraballo is a 73 year old female. Patient presents with: Recheck: 1 month follow up Pt presents today to follow-up She is not taking the amitriptyline. She has it if she chooses to start. Anxiety has been manageable and can talk herself down. She did start taking probiotics. She is taking fiber. Intermittent episodes of pain. She is very cautious with diet as she doesn't want a recurrence of diverticulitis. Refers that massage and noted that thyroid enlarged. Has hx of uninodular goiter. Last thyroid labs therapeutic. PAST MEDICAL HISTORY: PAST MEDICAL HISTORY Diagnosis Date Agoraphobia with panic disorder Chronic anxiety 02/22/2011 Hypothyroidism 01/25/2011 Irritable bowel syndrome (IBS) 02/22/2011 Lactose intolerance in adult 07/29/2016 Sciatica, right side 02/02/2017 Vitamin D deficiency 07/15/2010 PAST SURGICAL HISTORY Procedure Laterality Date APPENDECTOMY COLONOSCOPY FLX DX W/COLLJ SPEC WHEN PFRMD 04/15/2011 Colonoscopy OOPHORECTOMY PARTIAL/TOTAL UNI/BI left PAST SURGICAL HISTORY OF polyps removed from vocal cord TONSILLECTOMY HX ALLERGIES Patient has no known allergies. MEDICATIONS Current Outpatient Medications Medication Sig amitriptyline (ELAVIL) 10 mg tablet Take 1 tablet by mouth daily at bedtime. oxazepam (SERAX) 10 mg capsule Take 1 capsule by mouth once daily as needed for anxiety for up to 30 days. estradiol (ESTRACE) 0.01 % (0.1 mg/gram) vaginal cream Use 1 g vaginally as directed. Insert 1 gm vaginally every night x 14 nights then insert 1 gm vaginally twice weekly SYNTHROID 75 mcg tablet Take on empty stomach. For Thyroid. Take one tablet 6 days/week. Lactobacillus acidophilus (FLORAJEN ACIDOPHILUS) 20 billion cell capsule Take 1 capsule by mouth once daily. Cholecalciferol, Vitamin D3, 2,000 unit cap Take 1 capsule by mouth once daily. No current facility-administered medications for this visit. FAMILY HISTORY Problem Relation Age of Onset Cancer Mother lung Hypertension Mother Stroke Mother cerebral aneurysm Diabetes Father Hypertension Father Cancer Father lung other (renal failure) Brother Lipids Brother Social History Tobacco Use Smoking status: Never Smokeless tobacco: Never Vaping Use Vaping status: Never Used Substance Use Topics Alcohol use: No Drug use: No EXAM: BP 114/78 Pulse (!) 46 Resp 16 SpO2 97% PHYSICAL EXAM: General Appearance: Well appearing, alert, in no acute distress, well-hydrated, well nourished.. Skin: Skin color, texture, turgor normal, no suspicious rashes or lesions. Head: Normocephalic, no masses, lesions, tenderness or abnormalities. Eyes: Anicteric sclera. Extraocular movements are intact. . Neck: Supple, no adenopathy; thyroid prominent. Lungs: Lungs clear to auscultation. No wheezing, rhonchi, rales.. Heart: RRR without murmur, gallop, or rubs. No ectopy. Abdomen: Abdomen soft, non-tender. Bowel sounds normal. No masses, organomegaly. Extremities: No deformities, edema, skin discoloration, clubbing or cyanosis. Good capillary refill. . Neurologic: Gait normal. ASSESSMENT/PLAN: 1. JOSE EDUARDO (generalized anxiety disorder) - ICD9: 300.02, ICD10: F41.1 (primary diagnosis) Stable. Hasn't started the amitriptyline. She does have it in the event that she wants to try it. However, she is able to deescalate symptoms. 2. Hypothyroidism, unspecified type - ICD9: 244.9, ICD10: E03.9 Will get ultrasound. - US THYROID/PARATHYROID 3. Abdominal pain, unspecified abdominal location - ICD9: 789.00, ICD10: R10.9 Stable. Continue fiber. Discussed treatment plan and patient voices understanding. Patient's questions answered appropriately. Medications and potential side effects were discussed and patient voices understanding. Return to the office as scheduled or as needed for worsening/no improvement. Marely Wood APRN.[facility] 04-22-2024 History of Presen t illness Narrative This is a 73 year old female who presents today with: Patient presents with: Recheck: 1 month follow up HISTORY OF PRESENT ILLNESS: Yola Caraballo is a 73 year old female. Patient presents with: Recheck: 1 month follow up Pt presents today to follow-up She is not taking the amitriptyline. She has it if she chooses to start. Anxiety has been manageable and can talk herself down. She did start taking probiotics. She is taking fiber. Intermittent episodes of pain. She is very cautious with diet as she doesn't want a recurrence of diverticulitis. Refers that massage and noted that thyroid enlarged. Has hx of uninodular goiter. Last thyroid labs therapeutic. PAST MEDICAL HISTORY: PAST MEDICAL HISTORY Diagnosis Date Agoraphobia with panic disorder Chronic anxiety 02/22/2011 Hypothyroidism 01/25/2011 Irritable bowel syndrome (IBS) 02/22/2011 Lactose intolerance in adult 07/29/2016 Sciatica, right side 02/02/2017 Vitamin D deficiency 07/15/2010 PAST SURGICAL HISTORY Procedure Laterality Date APPENDECTOMY COLONOSCOPY FLX DX W/COLLJ SPEC WHEN PFRMD 04/15/2011 Colonoscopy OOPHORECTOMY PARTIAL/TOTAL UNI/BI left PAST SURGICAL HISTORY OF polyps removed from vocal cord TONSILLECTOMY HX ALLERGIES Patient has no known allergies. MEDICATIONS Current Outpatient Medications Medication Sig amitriptyline (ELAVIL) 10 mg tablet Take 1 tablet by mouth daily at bedtime. oxazepam (SERAX) 10 mg capsule Take 1 capsule by mouth once daily as needed for anxiety for up to 30 days. estradiol (ESTRACE) 0.01 % (0.1 mg/gram) vaginal cream Use 1 g vaginally as directed. Insert 1 gm vaginally every night x 14 nights then insert 1 gm vaginally twice weekly SYNTHROID 75 mcg tablet Take on empty stomach. For Thyroid. Take one tablet 6 days/week. Lactobacillus acidophilus (FLORAJEN ACIDOPHILUS) 20 billion cell capsule Take 1 capsule by mouth once daily. Cholecalciferol, Vitamin D3, 2,000 unit cap Take 1 capsule by mouth once daily. No current facility-administered medications for this visit. FAMILY HISTORY Problem Relation Age of Onset Cancer Mother lung Hypertension Mother Stroke Mother cerebral aneurysm Diabetes Father Hypertension Father Cancer Father lung other (renal failure) Brother Lipids Brother Social History Tobacco Use Smoking status: Never Smokeless tobacco: Never Vaping Use Vaping status: Never Used Substance Use Topics Alcohol use: No Drug use: No EXAM: BP 114/78 Pulse (!) 46 Resp 16 SpO2 97% PHYSICAL EXAM: General Appearance: Well appearing, alert, in no acute distress, well-hydrated, well nourished.. Skin: Skin color, texture, turgor normal, no suspicious rashes or lesions. Head: Normocephalic, no masses, lesions, tenderness or abnormalities. Eyes: Anicteric sclera. Extraocular movements are intact. . Neck: Supple, no adenopathy; thyroid prominent. Lungs: Lungs clear to auscultation. No wheezing, rhonchi, rales.. Heart: RRR without murmur, gallop, or rubs. No ectopy. Abdomen: Abdomen soft, non-tender. Bowel sounds normal. No masses, organomegaly. Extremities: No deformities, edema, skin discoloration, clubbing or cyanosis. Good capillary refill. . Neurologic: Gait normal. ASSESSMENT/PLAN: 1. JOSE EDUARDO (generalized anxiety disorder) - ICD9: 300.02, ICD10: F41.1 (primary diagnosis) Stable. Hasn't started the amitriptyline. She does have it in the event that she wants to try it. However, she is able to deescalate symptoms. 2. Hypothyroidism, unspecified type - ICD9: 244.9, ICD10: E03.9 Will get ultrasound. - US THYROID/PARATHYROID 3. Abdominal pain, unspecified abdominal location - ICD9: 789.00, ICD10: R10.9 Stable. Continue fiber. Discussed treatment plan and patient voices understanding. Patient's questions answered appropriately. Medications and potential side effects were discussed and patient voices understanding. Return to the office as scheduled or as needed for worsening/no improvement. Marely Wood APRN.KEVIN documented in this encounter [facility] 04-04-2024 Instructions Colleen Powell APRN.CNP - 04/04/2024 11:34 AM EDT Taking a women's health probiotic would definitely help . Florajen Women can be purchased at a pharmacy or on [employer] (around $20/month, needs refrigerated and take it daily)or Double Encore ($35/month, no refrigeration and take 15 consecutive days per month) can be ordered at [employer] and use code [id number]. You can also RepHresh vaginally and it can be purchased with the feminine products in many stores. You need to separate any antibiotic and probiotic by 1-2 hours. Do not have to use the estrace cream if it causes irritation. Can use only a lubricant for for intercourse if that is effective you can use a vaginal moisturizer such as Replens. Revaree hyaluronic acid vaginal suppositories documented in this encounter [facility] 04-04-2024 Note HNO ID: [id number] Author: COLLEEN POWELL APRN.CNP Service: ? Author Type: Nurse Practitioner Type: Progress Notes Filed: 04/04/2024 20:18 Note Text: Industrial Energy Engineer offered: Patient declines. Yola Caraballo is a 73 year old female who presents for vaginal irritation for 4 days. HPI: Treated for alfred with fluconazole 02/22/2024 followed Monistat 7 but never had total resolution of symptoms. Then took amoxicillin and had worsening of vaginal irritation which was treated with fluconazole on 03/19/2023 followed by Monistat 7 which she finished 5 days ago.Symptoms were gone after last dose on Monday. Used vaginal Estrace cream Monday and now has vaginal irritation. Sexually active with her . Past medical, surgical, social history, medications and allergies reviewed and updated. OBJECTIVE: BP 118/72 Wt 122 lb (55.3kg) GENERAL: Well developed, well nourished in no apparent distress ABDOMEN: soft, non-tender, and no masses PELVIC: external genitalia normal, normal Bartholin's glands, urethra, Trooper's glands, no vulvar lesions, no cervical lesions, scant amount thick off-white discharge present, normal appearing perineal body and perianal region. Mild vaginal atrophy. BIMANUAL: uterus normal size, shape and consistency, no adnexal masses, and non-tender. ASSESSMENT/PLAN: 1. Vaginal irritation - ICD9: 623.9, ICD10: N89.8 (primary diagnosis) - ALFRED/TRICHOMONAS NAAT - BACTERIAL VAGINOSIS NAAT - Given information on women's health probiotics. 2. Vaginal atrophy - ICD9: 627.3, ICD10: N95.2 Discussion - Do not have to use the estrace cream if it causes irritation. Can use only a lubricant for for intercourse if that is effective you can use a vaginal moisturizer such as Replens. Revaree hyaluronic acid vaginal suppositories discussed and given information. Will notify of results. Follow- up as needed. Colleen Powell APRN.EDUCATIONAL RECRUITER Medical Decision Making: Problems: Moderate: 1+ chronic illnesses with change Data: Unique test result(s) reviewed: 2 Unique test(s) ordered: 3+ Medical Decision Making Level: 4 - Moderate [facility] 04-04-2024 History of Presen t illness Narrative Industrial Energy Engineer offered: Patient declines. Yola Caraballo is a 73 year old female who presents for vaginal irritation for 4 days. HPI: Treated for alfred with fluconazole 02/22/2024 followed Monistat 7 but never had total resolution of symptoms. Then took amoxicillin and had worsening of vaginal irritation which was treated with fluconazole on 03/19/2023 followed by Monistat 7 which she finished 5 days ago.Symptoms were gone after last dose on Monday. Used vaginal Estrace cream Monday and now has vaginal irritation. Sexually active with her . Past medical, surgical, social history, medications and allergies reviewed and updated. OBJECTIVE: BP 118/72 Wt 122 lb (55.3kg) GENERAL: Well developed, well nourished in no apparent distress ABDOMEN: soft, non-tender, and no masses PELVIC: external genitalia normal, normal Bartholin's glands, urethra, Trooper's glands, no vulvar lesions, no cervical lesions, scant amount thick off-white discharge present, normal appearing perineal body and perianal region. Mild vaginal atrophy. BIMANUAL: uterus normal size, shape and consistency, no adnexal masses, and non-tender. ASSESSMENT/PLAN: 1. Vaginal irritation - ICD9: 623.9, ICD10: N89.8 (primary diagnosis) - ALFRED/TRICHOMONAS NAAT - BACTERIAL VAGINOSIS NAAT - Given information on women's health probiotics. 2. Vaginal atrophy - ICD9: 627.3, ICD10: N95.2 Discussion - Do not have to use the estrace cream if it causes irritation. Can use only a lubricant for for intercourse if that is effective you can use a vaginal moisturizer such as Replens. Revaree hyaluronic acid vaginal suppositories discussed and given information. Will notify of results. Follow- up as needed. Colleen Powell APRN.CNP Medical Decision Making: Problems: Moderate: 1+ chronic illnesses with change Data: Unique test result(s) reviewed: 2 Unique test(s) ordered: 3+ Medical Decision Making Level: 4 - Moderate documented in this encounter [facility] 04-03-2024 Telephone encounter Note Patient scheduled with AG tomorrow. Finished Monistat 03/31/24. Advised no more vaginal medications prior to seeing provider tomorrow. Bibiana Venegas RN [facility] 04-03-2024 Miscellaneous Notes Patient scheduled with AG tomorrow. Finished Monistat 03/31/24. Advised no more vaginal medications prior to seeing provider tomorrow. Bibiana Venegas, RN Pt called stating she has completed the treatment with Monostat. She still has burning sensation. States she would like to see Colleen Powell since she is familiar with what has been going on. Please advise pt. documented in this encounter [facility] 04-03-2024 Telephone encounter Note Pt called stating she has completed the treatment with Monostat. She still has burning sensation. States she would like to see Colleen Powell since she is familiar with what has been going on. Please advise pt. [facility] Work Phone: 03-25-2024 Instructions Marely Wood APRN.KEVIN - 03/25/2024 11:50 AM EDT Continue same regimen. Get labs. Try adding some fiber back into the diet. Start the amitriptyline at bedtime. Recheck in a month. documented in this encounter [facility] 03-25-2024 History of Presen t illness Narrative This is a 73 year old female who presents today with: Patient presents with: Acute Visit: LLQ abd pain that started last week; feeling better today HISTORY OF PRESENT ILLNESS: Yola Caraballo is a 73 year old female. Patient presents with: Acute Visit: LLQ abd pain that started last week; feeling better today Pt presents today with complaints of an episode of LLQ pain. She has a hx of diverticulitis. She had a colonoscopy within the last couple of years and was advised that she didn't need any further. Refers that she did eat some things that contained lactose. This may have precipitated symptoms. , didn't feel well all day. Few small bms overnight. Went on a liquid diet on Monday and Monday. Complained of gassy and bloated. Pain in the LLQ. Added more of brat diet this morning. Ate some dry toast this morning. Symptoms are improved now. Concerned about frequency of the recurrence of symptoms. Continues w/ anxiety. Refers that she stopped the buspar because it caused her fatigue when she was driving. 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 MEDICATIONS Current Outpatient Medications Medication Sig busPIRone (BUSPAR) 5 mg tablet Take 3 tablets by mouth two times a day as needed. estradiol (ESTRACE) 0.01 % (0.1 mg/gram) vaginal cream Use 1 g vaginally as directed. Insert 1 gm vaginally every night x 14 nights then insert 1 gm vaginally twice weekly SYNTHROID 75 mcg tablet Take on empty stomach. For Thyroid. Take one tablet 6 days/week. Lactobacillus acidophilus (FLORAJEN ACIDOPHILUS) 20 billion cell capsule Take 1 capsule by mouth once daily. Cholecalciferol, Vitamin D3, 2,000 unit cap Take 1 capsule by mouth once daily. No current facility-administered medications for this visit. FAMILY HISTORY Problem Relation Age of Onset Cancer Mother lung Hypertension Mother Stroke Mother cerebral aneurysm Diabetes Father Hypertension Father Cancer Father lung other (renal failure) Brother Lipids Brother Social History Tobacco Use Smoking status: Never Smokeless tobacco: Never Vaping Use Vaping status: Never Used Substance Use Topics Alcohol use: No Drug use: No EXAM: BP 124/82 Pulse 64 Resp 16 SpO2 98% PHYSICAL EXAM: General Appearance: Well appearing, alert, in no acute distress, well-hydrated, well nourished.. Skin: Skin color, texture, turgor normal, no suspicious rashes or lesions. Head: Normocephalic, no masses, lesions, tenderness or abnormalities. Eyes: Anicteric sclera. Extraocular movements are intact. Lungs: Lungs clear to auscultation. No wheezing, rhonchi, rales.. Heart: RRR without murmur, gallop, or rubs. No ectopy. Abdomen: Abdomen soft, non-tender. Bowel sounds normal. No masses, organomegaly. Extremities: No deformities, edema, skin discoloration, clubbing or cyanosis. Good capillary refill. Neurologic: Gait normal. ASSESSMENT/PLAN: 1. Abdominal pain, unspecified abdominal location - ICD9: 789.00, ICD10: R10.9 (primary diagnosis) May have been early flare of diverticulitis vs lactose intolerance vs IBS. Restart probiotics. Increase fiber. Will check blood count to r/o ongoing infection. - COMPLETE BLOOD COUNT AND DIFFERENTIAL - SEDIMENTATION RATE, WESTERGREN - C-REACTIVE PROTEIN - COMPREHENSIVE METABOLIC PANEL - AMITRIPTYLINE 10 MG TABLET 2. JOSE EDUARDO (generalized anxiety disorder) - ICD9: 300.02, ICD10: F41.1 Start. - AMITRIPTYLINE 10 MG TABLET 3. Chronic anxiety - ICD9: 300.00, ICD10: F41.9 Refill: - OXAZEPAM 10 MG CAPSULE Discussed treatment plan and patient voices understanding. Patient's questions answered appropriately. Medications and potential side effects were discussed and patient voices understanding. Return to the office as scheduled or as needed for worsening/no improvement. Marely Wood APRN.EDUCATIONAL RECRUITER documented in this encounter [facility] 03-25-2024 Note HNO ID: [id number] Author: MARELY WOOD APRN.KEVIN Service: ? Author Type: Nurse Practitioner Type: Progress Notes Filed: 03/25/2024 19:38 Note Text: This is a 73 year old female who presents today with: Patient presents with: Acute Visit: LLQ abd pain that started last week; feeling better today HISTORY OF PRESENT ILLNESS: Yola Caraballo is a 73 year old female. Patient presents with: Acute Visit: LLQ abd pain that started last week; feeling better today Pt presents today with complaints of an episode of LLQ pain. She has a hx of diverticulitis. She had a colonoscopy within the last couple of years and was advised that she didn't need any further. Refers that she did eat some things that contained lactose. This may have precipitated symptoms. , didn't feel well all day. Few small bms overnight. Went on a liquid diet on Monday and Monday. Complained of gassy and bloated. Pain in the LLQ. Added more of brat diet this morning. Ate some dry toast this morning. Symptoms are improved now. Concerned about frequency of the recurrence of symptoms. Continues w/ anxiety. Refers that she stopped the buspar because it caused her fatigue when she was driving. 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 MEDICATIONS Current Outpatient Medications Medication Sig busPIRone (BUSPAR) 5 mg tablet Take 3 tablets by mouth two times a day as needed. estradiol (ESTRACE) 0.01 % (0.1 mg/gram) vaginal cream Use 1 g vaginally as directed. Insert 1 gm vaginally every night x 14 nights then insert 1 gm vaginally twice weekly SYNTHROID 75 mcg tablet Take on empty stomach. For Thyroid. Take one tablet 6 days/week. Lactobacillus acidophilus (FLORAJEN ACIDOPHILUS) 20 billion cell capsule Take 1 capsule by mouth once daily. Cholecalciferol, Vitamin D3, 2,000 unit cap Take 1 capsule by mouth once daily. No current facility-administered medications for this visit. FAMILY HISTORY Problem Relation Age of Onset Cancer Mother lung Hypertension Mother Stroke Mother cerebral aneurysm Diabetes Father Hypertension Father Cancer Father lung other (renal failure) Brother Lipids Brother Social History Tobacco Use Smoking status: Never Smokeless tobacco: Never Vaping Use Vaping status: Never Used Substance Use Topics Alcohol use: No Drug use: No EXAM: BP 124/82 Pulse 64 Resp 16 SpO2 98% PHYSICAL EXAM: General Appearance: Well appearing, alert, in no acute distress, well-hydrated, well nourished.. Skin: Skin color, texture, turgor normal, no suspicious rashes or lesions. Head: Normocephalic, no masses, lesions, tenderness or abnormalities. Eyes: Anicteric sclera. Extraocular movements are intact. Lungs: Lungs clear to auscultation. No wheezing, rhonchi, rales.. Heart: RRR without murmur, gallop, or rubs. No ectopy. Abdomen: Abdomen soft, non-tender. Bowel sounds normal. No masses, organomegaly. Extremities: No deformities, edema, skin discoloration, clubbing or cyanosis. Good capillary refill. Neurologic: Gait normal. ASSESSMENT/PLAN: 1. Abdominal pain, unspecified abdominal location - ICD9: 789.00, ICD10: R10.9 (primary diagnosis) May have been early flare of diverticulitis vs lactose intolerance vs IBS. Restart probiotics. Increase fiber. Will check blood count to r/o ongoing infection. - COMPLETE BLOOD COUNT AND DIFFERENTIAL - SEDIMENTATION RATE, WESTERGREN - C-REACTIVE PROTEIN - COMPREHENSIVE METABOLIC PANEL - AMITRIPTYLINE 10 MG TABLET 2. JOSE EDUARDO (generalized anxiety disorder) - ICD9: 300.02, ICD10: F41.1 Start. - AMITRIPTYLINE 10 MG TABLET 3. Chronic anxiety - ICD9: 300.00, ICD10: F41.9 Refill: - OXAZEPAM 10 MG CAPSULE Discussed treatment plan and patient voices understanding. Patient's questions answered appropriately. Medications and potential side effects were discussed and patient voices understanding. Return to the office as scheduled or as needed for worsening/no improvement. Marely Wood APRN.[facility] 03-19-2024 Telephone encounter Note Patient notified. Bibiana Venegas RN The following approved medication requests have been transmitted electronically. Requested Prescriptions Signed Prescriptions Disp Refills fluconazole (DIFLUCAN) 150 mg tablet 1 tablet 0 Sig: Take 1 tablet by mouth one time only for 1 dose. Authorizing Provider: COLLEEN POWELL Pharmacy Information Pharmacy Address Telephone [id number] [address] [place] [id number] [facility] 03-19-2024 Miscellaneous Notes Patient notified. Bibiana Venegas RN The following approved medication requests have been transmitted electronically. Requested Prescriptions Signed Prescriptions Disp Refills fluconazole (DIFLUCAN) 150 mg tablet 1 tablet 0 Sig: Take 1 tablet by mouth one time only for 1 dose. Authorizing Provider: COLLEEN POWELL Pharmacy Information Pharmacy Address Telephone [id number] [address] [place] [address] Diflucan 150 mg 1 dose prescribed. If symptoms continue after 72 hours, she should treat with Monistat 7 or generic for 7 days. If symptoms continue, she should make an appointment for evaluation with appointment being no earlier than 48 hours after last dose of vaginal Monistat. Colleen Powell APRN.KEVIN Patient calling with update. Saw AG 02/22/24. She took Diflucan for +yeast, then two days later she was still having vaginal irritation and completed 7 day monistat. She doesn't feel symptoms ever completely went away with that. She recently then had to take Amoxicillin 500mg TID for tooth abscess and stated the vaginal irriation has worsened again now. Asking if she should get diflucan, try Monistat or if she needs f/u appointment? Please advise. Bibiana Venegas RN documented in this encounter [facility] 03-19-2024 Telephone encounter Note Diflucan 150 mg 1 dose prescribed. If symptoms continue after 72 hours, she should treat with Monistat 7 or generic for 7 days. If symptoms continue, she should make an appointment for evaluation with appointment being no earlier than 48 hours after last dose of vaginal Monistat. Colleen Powell APRN.KEVIN [facility] 03-19-2024 Telephone encounter Note Patient calling with update. Saw AG 02/22/24. She took Diflucan for +yeast, then two days later she was still having vaginal irritation and completed 7 day monistat. She doesn't feel symptoms ever completely went away with that. She recently then had to take Amoxicillin 500mg TID for tooth abscess and stated the vaginal irriation has worsened again now. Asking if she should get diflucan, try Monistat or if she needs f/u appointment? Please advise. Bibiana Venegas RN [facility] 02-22-2024 Note HNO ID: [id number] Author: COLLEEN POWELL APRN.KEVIN Service: ? Author Type: Nurse Practitioner Type: Progress Notes Filed: 02/22/2024 13:36 Note Text: Industrial Energy Engineer offered: Patient declines. Yola Caraballo is a 73 year old female who presents for problem visit vaginal irritation for 1 month(s). HPI: Similar vaginal burning/raw feeling that she had in the past due to postmenopausal vaginitis. It improved with vaginal estrogen which she is now using twice a week. Started using it daily when burning sensation returned 2 weeks ago. Used estrogen every day for a week, last used 2 nights ago, and is feeling better today. Did swim a lot in [place] pool week of January 12, 2024. Does not remember having any burning prior to that. Worse after SI. No vaginal discharge or odor. Aquaphor is not helpful. No recent antibiotic use. Had been using coconut oil but switched back to Astroglide due to burning. Previously used clobetasol for vulvar irritation but discontinued due to burning. No history of abnormal Pap. OB History T0 L1 SAB0 IAB0 Ectopic0 Multiple0 Live Births0 Rib Stiffener And Heel Dipper History LMP: Postmenopausal Age at Menarche: Age at First : Age at Menopause: Rib Stiffener And Heel Dipper History Comments: Sexual Activity: Yes; Male Contraception: No contraception data on record PAST MEDICAL HISTORY Diagnosis Date Agoraphobia with panic disorder Chronic anxiety 02/22/2011 Hypothyroidism 01/25/2011 Irritable bowel syndrome (IBS) 02/22/2011 Lactose intolerance in adult 07/29/2016 Sciatica, right side 02/02/2017 Vitamin D deficiency 07/15/2010 PAST SURGICAL HISTORY Procedure Laterality Date APPENDECTOMY COLONOSCOPY FLX DX W/COLLJ SPEC WHEN PFRMD 04/15/2011 Colonoscopy OOPHORECTOMY PARTIAL/TOTAL UNI/BI left PAST SURGICAL HISTORY OF polyps removed from vocal cord TONSILLECTOMY HX FAMILY HISTORY Problem Relation Age of Onset Cancer Mother lung Hypertension Mother Stroke Mother cerebral aneurysm Diabetes Father Hypertension Father Cancer Father lung other (renal failure) Brother Lipids Brother Social History Tobacco Use Smoking status: Never Smokeless tobacco: Never Vaping Use Vaping Use: Never used Substance Use Topics Alcohol use: No Drug use: No Current Outpatient Medications Medication Sig busPIRone (BUSPAR) 5 mg tablet Take 3 tablets by mouth two times a day as needed. estradiol (ESTRACE) 0.01 % (0.1 mg/gram) vaginal cream Use 1 g vaginally as directed. Insert 1 gm vaginally every night x 14 nights then insert 1 gm vaginally twice weekly SYNTHROID 75 mcg tablet Take on empty stomach. For Thyroid. Take one tablet 6 days/week. Lactobacillus acidophilus (FLORAJEN ACIDOPHILUS) 20 billion cell capsule Take 1 capsule by mouth once daily. Cholecalciferol, Vitamin D3, 2,000 unit cap Take 1 capsule by mouth once daily. No current facility-administered medications for this visit. Allergies As of Date: 02/22/2024 (No Known Allergies) Fully Assessed 02/22/2024 REVIEW OF SYSTEMS Abdomen: No bloating, early satiety, indigestion, or increased flatulence. No abdominal pain, nausea, vomiting, diarrhea, or constipation. Bladder: No dysuria, gross hematuria, urinary frequency, urinary urgency, or incontinence. Allergies and current medication updated:Yes EXAM: BP 110/72 Wt 124 lb 3.2 oz (56.3kg) GENERAL: pleasant, female in no apparent distress CHEST: Normal inspiratory effort PELVIC: external genitalia normal, normal Bartholin's glands, urethra, Trooper's glands, no vulvar lesions, no cervical lesions, off white discharge present, normal appearing perineal body and perianal region. Vaginal atrophy improved with estrace cream. BIMANUAL: uterus normal size, shape and consistency, no adnexal masses, and non-tender NEURO: alert and oriented x3,exam grossly non-focal ASSESSMENT/PLAN: 1. Vaginal irritation - ICD9: 623.9, ICD10: N89.8 (primary diagnosis) - discussed irritation due to chlorine vs BV vs yeast. - ALFRED/TRICHOMONAS NAAT - BACTERIAL VAGINOSIS NAAT 2. Vaginal discharge - ICD9: 623.5, ICD10: N89.8 - ALFRED/TRICHOMONAS NAAT - BACTERIAL VAGINOSIS NAAT 3. Vaginal atrophy - ICD9: 627.3, ICD10: N95.2 -Well-controlled with Estrace cream. Continue to use every night for another week and then continue with twice daily dosing. Will notify of results. Follow- up as needed. Colleen Powell, ANY.EDUCATIONAL RECRUITER I spent a total of 22 minutes on the date of the service which included preparing to see the patient, [id number] patient care, completing clinical documentation, obtaining and/or reviewing separately obtained history, performing a medically appropriate examination, counseling and educating the patient/family/caregiver, and ordering medications, tests, or procedures. [facility] 02-22-2024 History of Presen t illness Narrative Industrial Energy Engineer offered: Patient declines. Yola Caraballo is a 73 year old female who presents for problem visit vaginal irritation for 1 month(s). HPI: Similar vaginal burning/raw feeling that she had in the past due to postmenopausal vaginitis. It improved with vaginal estrogen which she is now using twice a week. Started using it daily when burning sensation returned 2 weeks ago. Used estrogen every day for a week, last used 2 nights ago, and is feeling better today. Did swim a lot in [place] week of January 12, 2024. Does not remember having any burning prior to that. Worse after SI. No vaginal discharge or odor. Aquaphor is not helpful. No recent antibiotic use. Had been using coconut oil but switched back to Astroglide due to burning. Previously used clobetasol for vulvar irritation but discontinued due to burning. No history of abnormal Pap. OB History T0 L1 SAB0 IAB0 Ectopic0 Multiple0 Live Births0 Rib Stiffener And Heel Dipper History LMP: Postmenopausal Age at Menarche: Age at First : Age at Menopause: Rib Stiffener And Heel Dipper History Comments: Sexual Activity: Yes; Male Contraception: No contraception data on record PAST MEDICAL HISTORY Diagnosis Date Agoraphobia with panic disorder Chronic anxiety 02/22/2011 Hypothyroidism 01/25/2011 Irritable bowel syndrome (IBS) 02/22/2011 Lactose intolerance in adult 07/29/2016 Sciatica, right side 02/02/2017 Vitamin D deficiency 07/15/2010 PAST SURGICAL HISTORY Procedure Laterality Date APPENDECTOMY COLONOSCOPY FLX DX W/COLLJ SPEC WHEN PFRMD 04/15/2011 Colonoscopy OOPHORECTOMY PARTIAL/TOTAL UNI/BI left PAST SURGICAL HISTORY OF polyps removed from vocal cord TONSILLECTOMY HX FAMILY HISTORY Problem Relation Age of Onset Cancer Mother lung Hypertension Mother Stroke Mother cerebral aneurysm Diabetes Father Hypertension Father Cancer Father lung other (renal failure) Brother Lipids Brother Social History Tobacco Use Smoking status: Never Smokeless tobacco: Never Vaping Use Vaping Use: Never used Substance Use Topics Alcohol use: No Drug use: No Current Outpatient Medications Medication Sig busPIRone (BUSPAR) 5 mg tablet Take 3 tablets by mouth two times a day as needed. estradiol (ESTRACE) 0.01 % (0.1 mg/gram) vaginal cream Use 1 g vaginally as directed. Insert 1 gm vaginally every night x 14 nights then insert 1 gm vaginally twice weekly SYNTHROID 75 mcg tablet Take on empty stomach. For Thyroid. Take one tablet 6 days/week. Lactobacillus acidophilus (FLORAJEN ACIDOPHILUS) 20 billion cell capsule Take 1 capsule by mouth once daily. Cholecalciferol, Vitamin D3, 2,000 unit cap Take 1 capsule by mouth once daily. No current facility-administered medications for this visit. Allergies As of Date: 02/22/2024 (No Known Allergies) Fully Assessed 02/22/2024 REVIEW OF SYSTEMS Abdomen: No bloating, early satiety, indigestion, or increased flatulence. No abdominal pain, nausea, vomiting, diarrhea, or constipation. Bladder: No dysuria, gross hematuria, urinary frequency, urinary urgency, or incontinence. Allergies and current medication updated:Yes EXAM: BP 110/72 Wt 124 lb 3.2 oz (56.3kg) GENERAL: pleasant, female in no apparent distress CHEST: Normal inspiratory effort PELVIC: external genitalia normal, normal Bartholin's glands, urethra, Trooper's glands, no vulvar lesions, no cervical lesions, off white discharge present, normal appearing perineal body and perianal region. Vaginal atrophy improved with estrace cream. BIMANUAL: uterus normal size, shape and consistency, no adnexal masses, and non-tender NEURO: alert and oriented x3,exam grossly non-focal ASSESSMENT/PLAN: 1. Vaginal irritation - ICD9: 623.9, ICD10: N89.8 (primary diagnosis) - discussed irritation due to chlorine vs BV vs yeast. - ALFRED/TRICHOMONAS NAAT - BACTERIAL VAGINOSIS NAAT 2. Vaginal discharge - ICD9: 623.5, ICD10: N89.8 - ALFRED/TRICHOMONAS NAAT - BACTERIAL VAGINOSIS NAAT 3. Vaginal atrophy - ICD9: 627.3, ICD10: N95.2 -Well-controlled with Estrace cream. Continue to use every night for another week and then continue with twice daily dosing. Will notify of results. Follow- up as needed. Colleen Powell APRN.KEVIN I spent a total of 22 minutes on the date of the service which included preparing to see the patient, [id number] patient care, completing clinical documentation, obtaining and/or reviewing separately obtained history, performing a medically appropriate examination, counseling and educating the patient/family/caregiver, and ordering medications, tests, or procedures. documented in this encounter [facility] 02-21-2024 Telephone encounter Note She is no longer using Clobetasol cream. States still having vaginal irritation. Appt made for tomorrow with AG to further discuss cause and treatment. Ryne Goss, DOYLE [facility] 02-21-2024 Miscellaneous Notes She is no longer using Clobetasol cream. States still having vaginal irritation. Appt made for tomorrow with AG to further discuss cause and treatment. Ryne Goss RN She was using clobetasol for vulvar irritation and estrace cream twice a week for vaginal atrophy. Please clarify with pt. She may need an appointment to determine cause and treatment. Colleen Powell APRN.CNP Patient states that she has been using it twice weekly up until recently. She was having the burning sensation while using it twice weekly so she tried using it daily to see if that helped, but it didn't. Should patient be seen in office for eval? Ashely Martinez RN She can start using it twice a week and see if that helps. Colleen Powell APRN.CNP Pt has been using Estrace 6 days in a row d/t burning sensation in vaginal area. States the burning sensation comes and goes. Asking if she should continue using daily d/t increased burning sensation? Please advise. Ryne Goss RN documented in this encounter [facility] 02-21-2024 Telephone encounter Note She was using clobetasol for vulvar irritation and estrace cream twice a week for vaginal atrophy. Please clarify with pt. She may need an appointment to determine cause and treatment. Colleen Powell APRN.CNP [facility] Work Phone: 02-21-2024 Telephone encounter Note Patient states that she has been using it twice weekly up until recently. She was having the burning sensation while using it twice weekly so she tried using it daily to see if that helped, but it didn't. Should patient be seen in office for eval? Ashely Martinez RN [facility] 02-20-2024 Telephone encounter Note She can start using it twice a week and see if that helps. Colleen Powell APRN.EDUCATIONAL RECRUITER [facility] 02-20-2024 Telephone encounter Note Pt has been using Estrace 6 days in a row d/t burning sensation in vaginal area. States the burning sensation comes and goes. Asking if she should continue using daily d/t increased burning sensation? Please advise. Ryne Goss RN [facility] 02-12-2024 Telephone encounter Note Prescription Refill Information The patient has been identified by name and date of : Yes Caregiver verified no other encounters exist for this prescription request: Yes Caregiver confirmed with patient/requestor that no other refills are due, in the near future, with this provider at this time: Yes The last office visit in the department: 10-13-23 Does the patient have a future office visit with this provider/department: Yes Requested Prescriptions Pending Prescriptions Disp Refills busPIRone (BUSPAR) 5 mg tablet 60 tablet 1 Sig: Take 3 tablets by mouth two times a day as needed. Estelita Velarde February 12, 2024 3:56 PM [facility] 02-12-2024 Miscellaneous Notes Prescription Refill Information The patient has been identified by name and date of : Yes Caregiver verified no other encounters exist for this prescription request: Yes Caregiver confirmed with patient/requestor that no other refills are due, in the near future, with this provider at this time: Yes The last office visit in the department: 10-13-23 Does the patient have a future office visit with this provider/department: Yes Requested Prescriptions Pending Prescriptions Disp Refills busPIRone (BUSPAR) 5 mg tablet 60 tablet 1 Sig: Take 3 tablets by mouth two times a day as needed. Estelita Velarde February 12, 2024 3:56 PM documented in this encounter [facility] 12-28-2023 Telephone encounter Note Images from the original note were not included. Covermymeds PA rec'd for oxazepam. This was completed electronically and approved. Pharmacy notified. Prior authorization approved Payer: [facility] [phone] Approval Details Authorized from July 31, 2023 to April 26, 2024 Electronic appeal: Not supported View History Notes Time User Attachment Attachment received from payer. 12/28/2023 12:46 PM [facility], Rx Priorauth In Document Medication Being Authorized oxazepam (SERAX) 10 mg capsule Take 1 capsule by mouth once daily as needed for anxiety for up to 30 days. Dispense: 30 capsule Refills: 0 Start: 12/26/2023 End: 01/25/2024 Class: Normal Diagnoses: Chronic anxiety This order has been released to its destination. To be filled at: [id number] [place] [address] - [address] [facility] [phone] [id number] [facility] 12-28-2023 Miscellaneous Notes Images from the original note were not included. Covermymeds PA rec'd for oxazepam. This was completed electronically and approved. Pharmacy notified. Prior authorization approved Payer: [facility] [phone] Approval Details Authorized from July 31, 2023 to April 26, 2024 Electronic appeal: Not supported View History Notes Time User Attachment Attachment received from payer. 12/28/2023 12:46 PM [facility], Rx Priorauth In Document Medication Being Authorized oxazepam (SERAX) 10 mg capsule Take 1 capsule by mouth once daily as needed for anxiety for up to 30 days. Dispense: 30 capsule Refills: 0 Start: 12/26/2023 End: 01/25/2024 Class: Normal Diagnoses: Chronic anxiety This order has been released to its destination. To be filled at: [id number] [place] [address] - [address] [facility] [phone] [id number] documented in this encounter [facility] 12-26-2023 Telephone encounter Note Noted. Marely Wood APRN.CNP [facility] 12-26-2023 Miscellaneous Notes Noted. Marely Wood APRN.CNP Patient call in for abdominal discomfort, gas this morning. Patient states that she passed gas and had bowel movement and started to feel better. Nurse Triage assessment completed with protocol recommending for disposition of home care. Patient going to slowly reintroduce bland foods. Patient has been eating chicken broth with no issues currently. Patient will call back if pain comes back. Care advice reviewed with patient, patient stated understanding. Patient advised to contact office or seek evaluation in urgent care or ER if symptoms persist or gets worse. Reason for Disposition [1] MILD-MODERATE pain AND [2] comes and goes (cramps) Answer Assessment - Initial Assessment Questions 1. LOCATION: [facility] 2. RADIATION: Denies Radiation 3. ONSET: This morning, however patient passed gas and had bowel movement and patient does not have pain anymore. 4. SUDDEN: Sudden 5. PATTERN Comes and Goes 6. SEVERITY: Rates pain 5 or 6 7. RECURRENT SYMPTOM: Yes last fall, patient was diagnosed with diverticulitis. 8. CAUSE: Diverticulitis 9. RELIEVING/AGGRAVATING FACTORS: Having Bowel movement and passing gas made it better 10. OTHER SYMPTOMS: Denies Protocols used: Abdominal Pain - [id number] Routing to triage. Sarthak Stratton LPN She is asking if she should once again have a liquid diet if she is experiencing a possible Diverticulitis flare up. Asked for a call back to advise. [phone] documented in this encounter [facility] 12-26-2023 Telephone encounter Note Patient call in for abdominal discomfort, gas this morning. Patient states that she passed gas and had bowel movement and started to feel better. Nurse Triage assessment completed with protocol recommending for disposition of home care. Patient going to slowly reintroduce bland foods. Patient has been eating chicken broth with no issues currently. Patient will call back if pain comes back. Care advice reviewed with patient, patient stated understanding. Patient advised to contact office or seek evaluation in urgent care or ER if symptoms persist or gets worse. Reason for Disposition [1] MILD-MODERATE pain AND [2] comes and goes (cramps) Answer Assessment - Initial Assessment Questions 1. LOCATION: [facility] 2. RADIATION: Denies Radiation 3. ONSET: This morning, however patient passed gas and had bowel movement and patient does not have pain anymore. 4. SUDDEN: Sudden 5. PATTERN Comes and Goes 6. SEVERITY: Rates pain 5 or 6 7. RECURRENT SYMPTOM: Yes last fall, patient was diagnosed with diverticulitis. 8. CAUSE: Diverticulitis 9. RELIEVING/AGGRAVATING FACTORS: Having Bowel movement and passing gas made it better 10. OTHER SYMPTOMS: Denies Protocols used: Abdominal Pain - [id number] [facility] 12-26-2023 Telephone encounter Note Routing to triage. Sarthak Stratton LPN [facility] 12-26-2023 Telephone encounter Note Patient has been identified by name and date of : Yes, Provider Marely Wood APRN.[facility] Date December 26, 2023 Time 2:29 PM Patient phones for refill(s): Requested Prescriptions Pending Prescriptions Disp Refills oxazepam (SERAX) 10 mg capsule 30 capsule 0 Sig: Take 1 capsule by mouth once daily as needed for anxiety for up to 30 days. Date of last office visit in primary care: 11/13/2023 Date of next office visit in primary care: none Please advise. Thank you. Kasey Chow MA. [facility] 12-26-2023 Miscellaneous Notes Patient has been identified by name and date of : Yes, Provider Marely Wood APRN.EDUCATIONAL RECRUITER Date December 26, 2023 Time 2:29 PM Patient phones for refill(s): Requested Prescriptions Pending Prescriptions Disp Refills oxazepam (SERAX) 10 mg capsule 30 capsule 0 Sig: Take 1 capsule by mouth once daily as needed for anxiety for up to 30 days. Date of last office visit in primary care: 11/13/2023 Date of next office visit in primary care: none Please advise. Thank you. Kasey Chow MA. Patient needs a refill of her Oxazepam (not in refill list). If insurance does not cover, she stated she will pay out of pocket. documented in this encounter [facility] 12-26-2023 Telephone encounter Note She is asking if she should once again have a liquid diet if she is experiencing a possible Diverticulitis flare up. Asked for a call back to advise. [phone] [facility] 12-26-2023 Telephone encounter Note Patient needs a refill of her Oxazepam (not in refill list). If insurance does not cover, she stated she will pay out of pocket. [facility] 11-29-2023 History of Presen t illness Narrative [facility] NURSE - CHART REVIEW Provider [facility] Action 04/03/2023 Patient initially presented to [facility] with abdominal tenderness and was referred to ED. Presented to [facility], Pt identified by name and . Reason for Review: Payor request Patient Attributed To: VINICIUSE Payer: PAULO Chart Review For: Utilization: ED Total Patient High CostTotal Patient High Cost {HIGH COST:[id number]) Quality measure review Payor request for assistance Action Taken: Data submitted to [facility] Leigh Shane RN November 29, 2023 12:03 PM documented in this encounter [facility] 11-13-2023 Instructions Marely Wood APRN.CNP - 11/13/2023 1:34 PM EDT Continue the same medication. Let me know if you want to bump up the buspar. documented in this encounter [facility] 11-13-2023 History of Presen t illness Narrative This is a 73 year old female who presents today with: Patient presents with: Recheck: 1 month follow up HISTORY OF PRESENT ILLNESS: Yola Caraballo is a 73 year old female. Patient presents with: Recheck: 1 month follow up Pt presents today to follow-up. Started the probiotics. Refers the stomach has been feeling better. Not as gurgling. Plans to continue the probiotics. She has been on the buspar for the last 2 weeks. Has had a headache, but tolerable. Not sure if it is helping the anxiety. Reports increased anxiety since menopause at age 43. Serax as needed. No misuse. PAST MEDICAL HISTORY: PAST MEDICAL HISTORY Diagnosis Date Agoraphobia with panic disorder Chronic anxiety 02/22/2011 Hypothyroidism 01/25/2011 Irritable bowel syndrome (IBS) 02/22/2011 Lactose intolerance in adult 07/29/2016 Sciatica, right side 02/02/2017 Vitamin D deficiency 07/15/2010 PAST SURGICAL HISTORY Procedure Laterality Date APPENDECTOMY COLONOSCOPY FLX DX W/COLLJ SPEC WHEN PFRMD 04/15/2011 Colonoscopy OOPHORECTOMY PARTIAL/TOTAL UNI/BI left PAST SURGICAL HISTORY OF polyps removed from vocal cord TONSILLECTOMY HX ALLERGIES Patient has no known allergies. MEDICATIONS Current Outpatient Medications Medication Sig Lactobacillus acidophilus (FLORAJEN ACIDOPHILUS) 20 billion cell capsule Take 1 capsule by mouth once daily. busPIRone (BUSPAR) 5 mg tablet Take 1 tablet by mouth two times a day as needed. estradiol (ESTRACE) 0.01 % (0.1 mg/gram) vaginal cream Use 1 g vaginally as directed. Insert 1 gm vaginally every night x 14 nights then insert 1 gm vaginally twice weekly SYNTHROID 75 mcg tablet Take on empty stomach. For Thyroid. Take one tablet 6 days/week. Cholecalciferol, Vitamin D3, 2,000 unit cap Take 1 capsule by mouth once daily. Current Facility-Administered Medications Medication Dose Route Frequency perflutren lipid microspheres 1.3 mL in NaCl (PF) 0.9% 10 mL injection (DEFINITY) INTRAVENOUS DIRECTED PRN sodium chloride 0.9 % (flush) 10 mL (BD POSIFLUSH) 10 mL INTRAVENOUS DIRECTED PRN FAMILY HISTORY Problem Relation Age of Onset Cancer Mother lung Hypertension Mother Stroke Mother cerebral aneurysm Diabetes Father Hypertension Father Cancer Father lung other (renal failure) Brother Lipids Brother Social History Tobacco Use Smoking status: Never Smokeless tobacco: Never Vaping Use Vaping Use: Never used Substance Use Topics Alcohol use: No Drug use: No EXAM: BP 126/72 Pulse 61 Resp 16 SpO2 97% PHYSICAL EXAM: General Appearance: Well appearing, alert, in no acute distress, well-hydrated, well nourished.. Skin: Skin color, texture, turgor normal, no suspicious rashes or lesions. Head: Normocephalic, no masses, lesions, tenderness or abnormalities. Eyes: Anicteric sclera. Extraocular movements are intact. . Neurologic: Gait normal. ASSESSMENT/PLAN: 1. Chronic anxiety - ICD9: 300.00, ICD10: F41.9 (primary diagnosis) Continue the buspar. She is going to see how response continues over the next couple of weeks. May want to try an increased dose. She will let us know. 2. Postmenopausal atrophic vaginitis - ICD9: 627.3, ICD10: N95.2 Refill: - ESTRADIOL 0.01% (0.1 MG/GRAM) VAGINAL CREAM 3. Genitourinary syndrome of menopause - ICD9: 627.8, ICD10: N95.8 - ESTRADIOL 0.01% (0.1 MG/GRAM) VAGINAL CREAM 4. Urethral caruncle - ICD9: 599.3, ICD10: N36.2 - ESTRADIOL 0.01% (0.1 MG/GRAM) VAGINAL CREAM 5. Hypothyroidism, unspecified type - ICD9: 244.9, ICD10: E03.9 Refill: - SYNTHROID 75 MCG TABLET 6. Abdominal pain, unspecified abdominal location - ICD9: 789.00, ICD10: R10.9 Borborygmi improved with the probiotics. Discussed treatment plan and patient voices understanding. Patient's questions answered appropriately. Medications and potential side effects were discussed and patient voices understanding. Return to the office as scheduled or as needed for worsening/no improvement. Marely Wood APRN.KEVIN documented in this encounter [facility] 10-13-2023 Instructions Marely Wood APRN.CNP - 10/13/2023 8:24 AM EDT Try the buspar. Get labs. Start the probiotic. Recheck in 1 month. documented in this encounter [facility] 10-13-2023 History of Presen t illness Narrative This is a 73 year old female who presents today with: No chief complaint on file. HISTORY OF PRESENT ILLNESS: Yola Caraballo is a 73 year old female. No chief complaint on file. Pt presents today to follow-up. More anxiety. Taking the oxazepam appx twice weekly. Refers that it does help calm her down. No s/s of misuse. Admits, though, more anxiety lately. Had an episode of diverticulitis. Since then, she is overly observant of any pain in the abdomen. She had started fiber and likely increased some bloating. Since decreased daily fiber some. PAST MEDICAL HISTORY: PAST MEDICAL HISTORY Diagnosis Date Agoraphobia with panic disorder Chronic anxiety 02/22/2011 Hypothyroidism 01/25/2011 Irritable bowel syndrome (IBS) 02/22/2011 Lactose intolerance in adult 07/29/2016 Sciatica, right side 02/02/2017 Vitamin D deficiency 07/15/2010 PAST SURGICAL HISTORY Procedure Laterality Date APPENDECTOMY COLONOSCOPY FLX DX W/COLLJ SPEC WHEN PFRMD 04/15/2011 Colonoscopy OOPHORECTOMY PARTIAL/TOTAL UNI/BI left PAST SURGICAL HISTORY OF polyps removed from vocal cord TONSILLECTOMY HX ALLERGIES Patient has no known allergies. MEDICATIONS Current Outpatient Medications Medication Sig estradiol (ESTRACE) 0.01 % (0.1 mg/gram) vaginal cream Use 1 g vaginally as directed. Insert 1 gm vaginally every night x 14 nights then insert 1 gm vaginally twice weekly clotrimazole-betamethasone (LOTRISONE) cream Apply 1 application to affected area twice daily. SYNTHROID 75 mcg tablet Take on empty stomach. For Thyroid. Take one tablet 6 days/week. Cholecalciferol, Vitamin D3, 2,000 unit cap Take 1 capsule by mouth once daily. Current Facility-Administered Medications Medication Dose Route Frequency perflutren lipid microspheres 1.3 mL in NaCl (PF) 0.9% 10 mL injection (DEFINITY) INTRAVENOUS DIRECTED PRN sodium chloride 0.9 % (flush) 10 mL (BD POSIFLUSH) 10 mL INTRAVENOUS DIRECTED PRN FAMILY HISTORY Problem Relation Age of Onset Cancer Mother lung Hypertension Mother Stroke Mother cerebral aneurysm Diabetes Father Hypertension Father Cancer Father lung other (renal failure) Brother Lipids Brother Social History Tobacco Use Smoking status: Never Smokeless tobacco: Never Vaping Use Vaping Use: Never used Substance Use Topics Alcohol use: No Drug use: No EXAM: BP 118/82 Pulse (!) 59 Resp 16 Wt 54.9 kg (121 lb) SpO2 98% BMI 19.53 kg/m PHYSICAL EXAM: General Appearance: Well appearing, alert, in no acute distress, well-hydrated, well nourished.. Skin: Skin color, texture, turgor normal, no suspicious rashes or lesions. Head: Normocephalic, no masses, lesions, tenderness or abnormalities. Eyes: Anicteric sclera. Extraocular movements are intact. . Lungs: Lungs clear to auscultation. No wheezing, rhonchi, rales.. Heart: RRR without murmur, gallop, or rubs. No ectopy. Abdomen: Abdomen soft, non-tender. Bowel sounds normal. No masses, organomegaly. Neurologic: Gait normal. ASSESSMENT/PLAN: 1. Chronic anxiety - ICD9: 300.00, ICD10: F41.9 (primary diagnosis) Refill oxazepam. Discussed a trial of buspar to see if this helps make daily anxiety more manageable. She will start once daily in the morning and increase if beneficial. - OXAZEPAM 10 MG CAPSULE - BUSPIRONE 5 MG TABLET 2. Leukocytosis, unspecified type - ICD9: 288.60, ICD10: D72.829 Recheck. - CBC + DIFF 3. Hypothyroidism, unspecified type - ICD9: 244.9, ICD10: E03.9 Check labs. - TSH BLD - T4 FREE/FREE THYROX 4. Vitamin D deficiency - ICD9: 268.9, ICD10: E55.9 - VITAMIN D 25 HYDROXY 5. Hyperlipidemia LDL goal <130 - ICD9: 272.4, ICD10: E78.5 - LIPID PANEL BASIC - COMP METABOLIC PANEL 6. Abdominal pain, unspecified abdominal location - ICD9: 789.00, ICD10: R10.9 Start probiotics. - FLORAJEN ACIDOPHILUS 20 BILLION CELL CAPSULE Discussed treatment plan and patient voices understanding. Patient's questions answered appropriately. Medications and potential side effects were discussed and patient voices understanding. Return to the office as scheduled or as needed for worsening/no improvement. Marely Wood APRN.KEVIN documented in this encounter [facility] 07-07-2023 Miscellaneous Notes Pt called and is notified of providers message and instructions. Pt voices understanding. Kimberley Junior RN Agree with previous message. She does not need to continue to isolate if she is feeling better and has been fever free. The tests can continue to be positive because of the virus being shed, but it is not considered to be enough to spread it. Pt called in and reports she tested Covid + Jun 27. She has still been testing herself, and I told her per the CDC you can test positive for up to 30 days. She states she has been in isolation for 12 days because she doesn't want to give Covid to her . Per the CDC website,Those with severe Covid-19 may remain infectious beyond 10 days and may need to extend isolation for up to 20 days., and, People who are moderately or severely immunocompromised should isolate through at least 20 days.. Pt did not have to be hospitalized reports she had a runny nose, diarrhea, fever, and fatigue. I told her she does not have to keep testing. Pt denies fever now and symptoms are gone except the fatigue. I let her know she should be good to come out of isolation, but I have provider contact her. Please send Pt MyChart message. documented in this encounter [facility] 07-04-2023 Miscellaneous Notes Pt calling requesting refill. Pt states she does not take this medication often. Pt tested positive for COVID on 06/27. States she had gotten herself worked up and had vomiting/nausea. Has taken this some and it really helped with the nausea/vomiting. She likes to keep this on hand and only has a few left. Last refill was 04/13/23 Qty: 30 with 0 refills. Call pt only if problem in doing this. Rosales Watts LPN documented in this encounter [facility] 06-16-2023 History of Presen t illness Narrative Chief Complaint Patient presents with: Follow Up For: visit 06/11/23; symptoms worsening with yellow drainage HPI Yola Caraballo is a 72 year old female who presents here today for Above Complaints. Patient is here for [facility] care follow-up. Patient went to [facility] on [facility]11. Was having intermittent headache, congestion for approximately 1-1/2 to 2 weeks. She did not receive any antibiotic or other care. She has been taking Sudafed, humidification at home. Feels like her symptoms are now getting worse. More persistent headache. Using ibuprofen. Now has sinus tenderness, right ear pain. Yellow mucus discharge. She denies any fevers. Denies any cough. Past medical history, appointments, medications, allergies reviewed. EXAM: BP 127/78 Pulse 61 Temp 36.7 C (98.1 F) (Left Tympanic) Resp 16 Wt 57.5 kg (126 lb 12.8 oz) SpO2 98% BMI 20.62 kg/m General Appearance: Well appearing, alert, in no acute distress, well-hydrated, well nourished.. Eyes: Anicteric sclera. Pupils are equally round and reactive to light. Extraocular movements are intact. . Ears: External ears normal, canals clear. Nose/Sinuses: Negative except for purulent rhinorrhea, mild maxillary sinus tenderness. Oropharynx: Lips, mucosa, and tongue normal, teeth and gums normal, oropharynx normal. Lungs: Lungs clear to auscultation. No wheezing, rhonchi, rales.. Heart: RRR without murmur, gallop, or rubs. No ectopy. ASSESSMENT/PLAN: 1. Bacterial sinusitis - ICD9: 473.9, 041.9, ICD10: J32.9, B96.89 - Will begin treatment with as per antibiotic as written, see orders - The patient should also be given behind the counter Pseudoephedrine for the first 5-7 days of treatment. - Supportive care with plenty of fluids, rest, and analgesia prn. - AMOXICILLIN 875 MG-POTASSIUM CLAVULANATE 125 MG TABLET Harpreet Huertas APRN.EDUCATIONAL RECRUITER This note was partly generated using [employer] voice recognition dictation and may contain some misspelled or inaccurate words missed on review. documented in this encounter [facility] 06-11-2023 History of Presen t illness Narrative This note was created using Typeform. Subjective Yola Caraballo is a 72 year old female. HPI taking Ibuprofen and Tylenol, pressure of the right eye for a 7-10 day. Just starting with running nose and sneezing today. Throat slightly uncomfortable. Review of Systems HENT: Positive for rhinorrhea and sinus pressure. Objective BP 130/82 Pulse 71 Temp 37 C (98.6 F) Resp 21 Wt 58.9 kg (129 lb 12.8 oz) SpO2 99% BMI 21.11 kg/m Physical Exam HENT: Nose: Nose normal. Mouth/Throat: Mouth: Mucous membranes are moist. Cardiovascular: Rate and Rhythm: Normal rate. Pulmonary: Effort: Pulmonary effort is normal. Skin: General: Skin is warm. Neurological: Mental Status: She is alert. Assessment and Plan ASSESSMENT/PLAN: 1. Sinus pressure - ICD9: 478.19, ICD10: J34.89 - The patient should also be given OTC decongestants prn, OTC cough and cold meds as needed, behind the counter Pseudoephedrine, warm salt water gargles, throat lozenges and/or OTC throat spray as needed, and nasal saline gtts and suction prn for the first 5-7 days of treatment. - Supportive care with plenty of fluids, rest, and analgesia prn. - Follow up in 3-5 days if symptoms persist or worsen. Marie Morales APRN.CNP Medical Decision Making: Problems: Low: Acute, uncomplicated illness or injury Risk: Low: Low risk from testing/treatment Medical Decision Making Level: 3 - Low documented in this encounter [facility] 06-05-2023 Miscellaneous Notes June 06, 2023 PID: [id number] Yola HobbsFay Caraballo [address] [place] [address] Dear El, We are pleased to inform you that the results of your recent breast imaging exam on 06/05/2023 are normal. Early detection of cancer is very important. We also understand recommendations regarding breast cancer screening are controversial. Please discuss with your primary care provider which strategy is best for you and whether a mammogram is right for you. Your imaging studies and report will be kept on file at [facility] as part of your permanent medical record and are available for your continuing care. Thank you for allowing us to help in meeting your health care needs. Sincerely, Dr. Rizzo Interpreting Radiologist [facility] (Normal over 40) documented in this encounter [facility] 04-13-2023 Miscellaneous Notes Patient has been identified by name and date of : Yes Requested Prescriptions Pending Prescriptions Disp Refills oxazepam (SERAX) 10 mg capsule 30 capsule 0 Sig: Take 1 capsule by mouth once daily as needed for anxiety for up to 30 days. RX INSTRUCTIONS: Patient aware RX will be sent to pharmacy. No need to notify patient. Ryne Woods LPN documented in this encounter [facility] 04-13-2023 Instructions Mariano Kang MD - 04/13/2023 10:08 AM EDT What are diverticulosis and diverticulitis? Many people have small pouches in their colons that bulge outward through weak spots, like an inner tube that pokes through weak places in a tire. Each pouch is called a diverticulum. Pouches (plural) are called diverticula. The condition of having diverticula is called diverticulosis. About 10 percent of Americans over the age of 40 have diverticulosis. The condition becomes more common as people age. About half of all people over the age of 60 have diverticulosis. When the pouches become infected or inflamed, the condition is called diverticulitis. This happens in 10 to 25 percent of people with diverticulosis. Diverticulosis and diverticulitis are also called diverticular disease. What are the symptoms? Diverticulosis Most people with diverticulosis do not have any discomfort or symptoms. However, symptoms may include mild cramps, bloating, and constipation. Other diseases such as irritable bowel syndrome (IBS) and stomach ulcers cause similar problems, so these symptoms do not always mean a person has diverticulosis. You should visit your doctor if you have these troubling symptoms. Diverticulitis The most common symptom of diverticulitis is abdominal pain. The most common sign is tenderness around the left side of the lower abdomen. If infection is the cause, fever, nausea, vomiting, chills, cramping, and constipation may occur as well. The severity of symptoms depends on the extent of the infection and complications. What are the complications? Diverticulitis can lead to bleeding, infections, perforations or tears, or blockages. These complications always require treatment to prevent them from progressing and causing serious illness. Bleeding Bleeding from diverticula is a rare complication. When diverticula bleed, blood may appear in the toilet or in your stool. Bleeding can be severe, but it may stop by itself and not require treatment. Doctors believe bleeding diverticula are caused by a small blood vessel in a diverticulum that weakens and finally bursts. If you have bleeding from the rectum, you should see your doctor. If the bleeding does not stop, surgery may be necessary. Abscess, Perforation, and Peritonitis The infection causing diverticulitis often clears up after a few days of treatment with antibiotics. If the condition gets worse, an abscess may form in the colon. An abscess is an infected area with pus that may cause swelling and destroy tissue. Sometimes the infected diverticula may develop small holes, called perforations. These perforations allow pus to leak out of the colon into the abdominal area. If the abscess is small and remains in the colon, it may clear up after treatment with antibiotics. If the abscess does not clear up with antibiotics, the doctor may need to drain it. To drain the abscess, the doctor uses a needle and a small tube called a catheter. The doctor inserts the needle through the skin and drains the fluid through the catheter. This procedure is called percutaneous catheter drainage. Sometimes surgery is needed to clean the abscess and, if necessary, remove part of the colon. A large abscess can become a serious problem if the infection leaks out and contaminates areas outside the colon. Infection that spreads into the abdominal cavity is called peritonitis. Peritonitis requires immediate surgery to clean the abdominal cavity and remove the damaged part of the colon. Without surgery, peritonitis can be fatal. Fistula A fistula is an abnormal connection of tissue between two organs or between an organ and the skin. When damaged tissues come into contact with each other during infection, they sometimes stick together. If they heal that way, a fistula forms. When diverticulitis-related infection spreads outside the colon, the colon's tissue may stick to nearby tissues. The organs usually involved are the bladder, small intestine, and skin. The most common type of fistula occurs between the bladder and the colon. It affects men more than women. This type of fistula can result in a severe, long-lasting infection of the urinary tract. The problem can be corrected with surgery to remove the fistula and the affected part of the colon. Intestinal Obstruction The scarring caused by infection may cause partial or total blockage of the large intestine. When this happens, the colon is unable to move bowel contents normally. When the obstruction totally blocks the intestine, emergency surgery is necessary. Partial blockage is not an emergency, so the surgery to correct it can be planned. What causes diverticular disease? Although not proven, the dominant theory is that a low-fiber diet is the main cause of diverticular disease. The disease was first noticed in the [place] in the early 1900s. At about the same time, processed foods were introduced into the [place] diet. Many processed foods contain refined, low-fiber flour. Unlike whole-wheat flour, refined flour has no wheat bran. Diverticular disease is common in developed or industrialized countries--particularly the [place], [place], and [place]--where low-fiber diets are common. The disease is rare in countries of [place], where people eat high-fiber vegetable diets. Fiber is the part of fruits, vegetables, and grains that the body cannot digest. Some fiber dissolves easily in water (soluble fiber). It takes on a soft, jelly-like texture in the intestines. Some fiber passes almost unchanged through the intestines (insoluble fiber). Both kinds of fiber help make stools soft and easy to pass. Fiber also prevents constipation. Constipation makes the muscles strain to move stool that is too hard. It is the main cause of increased pressure in the colon. This excess pressure might cause the weak spots in the colon to bulge out and become diverticula. Diverticulitis occurs when diverticula become infected or inflamed. Doctors are not certain what causes the infection. It may begin when stool or bacteria are caught in the diverticula. An attack of diverticulitis can develop suddenly and without warning. How does the doctor diagnose diverticular disease? To diagnose diverticular disease, the doctor asks about medical history, does a physical exam, and may perform one or more diagnostic tests. Because most people do not have symptoms, diverticulosis is often found through tests ordered for another ailment. When taking a medical history, the doctor may ask about bowel habits, symptoms, pain, diet, and medications. The physical exam usually involves a digital rectal exam. To perform this test, the doctor inserts a gloved, lubricated finger into the rectum to detect tenderness, blockage, or blood. The doctor may check stool for signs of bleeding and test blood for signs of infection. The doctor may also order x rays or other tests. What is the treatment for diverticular disease? A high-fiber diet and, occasionally, mild pain medications will help relieve symptoms in most cases. Sometimes an attack of diverticulitis is serious enough to require a hospital stay and possibly surgery. Diverticulosis Increasing the amount of fiber in the diet may reduce symptoms of diverticulosis and prevent complications such as diverticulitis. Fiber keeps stool soft and lowers pressure inside the colon so that bowel contents can move through easily. The [place] [employer] Association recommends 20 to 35 grams of fiber each day. The table below shows the amount of fiber in some foods that you can easily add to your diet. Amount of Fiber in Some Foods Fruits Apple, raw, with skin 1 medium = 3.3 grams [place], raw 1 medium = 1.5 grams Pear, raw 1 medium = 5.1 grams [place], raw 1 medium = 1.9 grams Vegetables Asparagus, fresh, cooked 4 mays = 1.2 grams Broccoli, fresh, cooked 1/2 cup = 2.6 grams [place] sprouts, fresh, cooked 1/2 cup = 2 grams Cabbage, fresh, cooked 1/2 cup = 1.5 grams Carrot, fresh, cooked 1/2 cup = 2.3 grams Cauliflower, fresh, cooked 1/2 cup = 1.7 grams Jeff lettuce 1 cup = 1.2 grams Spinach, fresh, cooked 1/2 cup = 2.2 grams Summer squash, cooked 1 cup = 2.5 grams Tomato, raw 1 = 1 gram Winter squash, cooked 1 cup = 5.7 grams Starchy Vegetables Baked beans, canned, plain 1/2 cup = 6.3 grams Kidney beans, fresh, cooked 1/2 cup = 5.7 grams Yoo beans, fresh, cooked 1/2 cup = 6.6 grams Potato, fresh, cooked 1 = 2.3 grams Grains Bread, whole-wheat 1 slice = 1.9 grams Brown rice, cooked 1 cup = 3.5 grams Cereal, bran flake 3/4 cup = 5.3 grams Oatmeal, plain, cooked 3/4 cup = 3 grams White rice, cooked 1 cup = 0.6 grams Source: [place] Department of Agriculture (USDA). USDA Nutrient Database for Standard Reference Release 15. Available at www.nal.usda.gov/fnic/cgi-bin/nu t_search.pl. Accessed November 03, 2003. The doctor may also recommend taking a fiber product such as Citrucel or Metamucil once a day. These products are mixed with water and provide about 2 to 3.5 grams of fiber per tablespoon, mixed with 8 ounces of water. Avoidance of nuts, popcorn, and sunflower, pumpkin, taiwo, and sesame seeds has been recommended by physicians out of fear that food particles could enter, block, or irritate the diverticula. However, no scientific data support this treatment measure. Eating a high-fiber diet is the only requirement highly emphasized across the literature and eliminating specific foods is not necessary. The seeds in tomatoes, zucchini, cucumbers, strawberries, and raspberries, as well as poppy seeds, are generally considered harmless. People differ in the amounts and types of foods they can eat. Decisions about diet should be made based on what works best for each person. Keeping a food diary may help identify individual items in one's diet. If cramps, bloating, and constipation are problems, the doctor may prescribe a short course of pain medication. However, many medications affect emptying of the colon, an undesirable side effect for people with diverticulosis. Diverticulitis Treatment for diverticulitis focuses on clearing up the infection and inflammation, resting the colon, and preventing or minimizing complications. An attack of diverticulitis without complications may respond to antibiotics within a few days if treated early. To help the colon rest, the doctor may recommend bed rest and a liquid diet, along with a pain reliever. DIET: - Drink small amounts of clear fluids frequently such as tea, flat deidre viviana or lemon-menominee soda, broth and gelatin. - If liquids are tolerated for 12 hours, eat small amounts of soft foods, such as cooked cereal, rice, eggs, custard, baked potato and yogurt. - If soft food is tolerated for 2-3 days, gradually return to a normal diet. Avoid alcohol, spicy food (pizza, spaghetti, onions), gravy, raw vegetables, raw fruit, salad dressing, cream soup, coffee and milk for several days. An acute attack with severe pain or severe infection may require a hospital stay. Most acute cases of diverticulitis are treated with antibiotics and a liquid diet. The antibiotics are given by injection into a vein. In some cases, however, surgery may be necessary. When is surgery necessary? If attacks are severe or frequent, the doctor may advise surgery. The surgeon removes the affected part of the colon and joins the remaining sections. This type of surgery, called colon resection, aims to keep attacks from coming back and to prevent complications. The doctor may also recommend surgery for complications of a fistula or intestinal obstruction. If antibiotics do not correct an attack, emergency surgery may be required. Other reasons for emergency surgery include a large abscess, perforation, peritonitis, or continued bleeding. Emergency surgery usually involves two operations. The first surgery will clear the infected abdominal cavity and remove part of the colon. Because of infection and sometimes obstruction, it is not safe to rejoin the colon during the first operation. Instead, the surgeon creates a temporary hole, or stoma, in the abdomen. The end of the colon is connected to the hole, a procedure called a colostomy, to allow normal eating and bowel movements. The stool goes into a bag attached to the opening in the abdomen. In the second operation, the surgeon rejoins the ends of the colon. Points to Remember *Diverticulosis occurs when small pouches, called diverticula, bulge outward through weak spots in the colon (large intestine). *The pouches form when pressure inside the colon builds, usually because of constipation. *Most people with diverticulosis never have any discomfort or symptoms. *The most likely cause of diverticulosis is a low-fiber diet because it increases constipation and pressure inside the colon. *For most people with diverticulosis, eating a high-fiber diet is the only treatment needed. *You can increase your fiber intake by eating these foods: whole grain breads and cereals; fruit like apples and peaches; vegetables like broccoli, cabbage, spinach, carrots, asparagus, and squash; and starchy vegetables like kidney beans and yoo beans. *Diverticulitis occurs when the pouches become infected or inflamed and cause pain and tenderness around the left side of the lower abdomen. Additional Readings Diverticular disease. In: Parris ML, Rebeca SI, Kutoña JASON. Handbook of Colon and Rectal Surgery. MD Pablo: Jonathan, Greg & Green; 2002: [phone]. Diverticular disease. In: King YAYO, tin. [facility] on Digestive Health. [place], [place]: [facility]; 2000: 125-132. Terry MCDONALD. Understanding diverticular disease. Ostomy Quarterly. 2002;39(2):56-57. For More Information International [employer]astrointestinal [employer] [address] [place] [address] Phone: or [phone] Email: Internet: www.iffgd.org The U.S. Government does not endorse or favor any specific commercial product or company. Trade, proprietary, or company names appearing in this document are used only because they are considered necessary in the context of the information provided. If a product is not mentioned, the omission does not mean or imply that the product is unsatisfactory. National Digestive Diseases Information Clearinghouse [address] [place] [address] Phone: Email: Internet: www.digestive.niddk.nih.gov The National Digestive Diseases Information Clearinghouse (NDDIC) is a service of the National [place] of Diabetes and Digestive and Kidney Diseases (NIDDK). The NIDDK is part of the National Institutes of Health of the U.S. Department of Health and Human Services. Established in 1979, the Clearinghouse provides information about digestive diseases to people with digestive disorders and to their families, health rn critical care, and the public. The NDDIC answers inquiries, develops and distributes publications, and works closely with professional and patient organizations and Government agencies to coordinate resources about digestive diseases. Publications produced by the Clearinghouse are carefully reviewed by both NIDDK scientists and outside experts. This publication is not copyrighted. The Clearinghouse encourages users of this publication to duplicate and distribute as many copies as desired. [facility] Publication No. [id number] April 2006 documented in this encounter [facility] 04-13-2023 History of Presen t illness Narrative Patient presents with: ER F/U HPI: Patient presents today for office visit for follow up HOSPITAL/ER FOLLOW UP: Reason for visit: abd pain Which facility: [facility] Date of visit: 04/03/23 Diagnosis: diverticulitis Testing done: CT scan and x-ray Treatment given: Augmentin. Has finished. Current symptoms: feeling much better now. No further pain. Did have some bloating and gassiness. Was also tired. That is now better. CT showed sigmoid diverticulitis. White count was 13,000 Currently feeling normal. No bloody or black stools. No fever or chills. No diarrhea or constipation. Recently had colonoscopy per Dr. Hollis in the last year, was normal except multiple diverticuli. MEDICATIONS: Current Outpatient Medications Medication Sig SYNTHROID 75 mcg tablet Take on empty stomach. For Thyroid. Take one tablet 6 days/week. Cholecalciferol, Vitamin D3, 2,000 unit cap Take 1 capsule by mouth once daily. estradiol (ESTRACE) 0.01 % (0.1 mg/gram) vaginal cream Use 1 g vaginally as directed. Insert 1 gm vaginally every night x 14 nights then insert 1 gm vaginally twice weekly clotrimazole-betamethasone (LOTRISONE) cream Apply 1 application to affected area twice daily. Current Facility-Administered Medications Medication Dose Route Frequency perflutren lipid microspheres 1.3 mL in NaCl (PF) 0.9% 10 mL injection (DEFINITY) INTRAVENOUS DIRECTED PRN sodium chloride 0.9 % (flush) 10 mL (BD POSIFLUSH) 10 mL INTRAVENOUS DIRECTED PRN ALLERGIES: ALLERGIES No Known Allergies PAST MEDICAL HISTORY Diagnosis Date Agoraphobia with panic disorder Chronic anxiety 02/22/2011 Hypothyroidism 01/25/2011 Irritable bowel syndrome (IBS) 02/22/2011 Lactose intolerance in adult 07/29/2016 Sciatica, right side 02/02/2017 Vitamin D deficiency 07/15/2010 PAST SURGICAL HISTORY Procedure Laterality Date APPENDECTOMY COLONOSCOPY FLX DX W/COLLJ SPEC WHEN PFRMD 04/15/2011 Colonoscopy OOPHORECTOMY PARTIAL/TOTAL UNI/BI left PAST SURGICAL HISTORY OF polyps removed from vocal cord TONSILLECTOMY HX FAMILY HISTORY Problem Relation Age of Onset Cancer Mother lung Hypertension Mother Stroke Mother cerebral aneurysm Diabetes Father Hypertension Father Cancer Father lung other (renal failure) Brother Lipids Brother Social History Tobacco Use Smoking status: Never Smokeless tobacco: Never Vaping Use Vaping Use: Never used Substance Use Topics Alcohol use: No Drug use: No Reviewed current medications, allergies, past medical history, surgical history, family history and social history today. REVIEW OF SYSTEMS All other reviewed and negative other than HPI. VITALS: BP 112/72 Pulse 67 Wt 56.2 kg (124 lb) SpO2 95% BMI 20.17 kg/m Last 4 Encounter Wt Readings: Date: Wt: 04/13/2023 56.2 kg (124 lb) 04/03/2023 55.3 kg (122 lb) 12/27/2022 55.8 kg (123 lb) 11/17/2022 56.7 kg (125 lb) PHYSICAL EXAMINATION: General appearance: Well appearing, alert, in no acute distress, well-hydrated, well nourished. Skin: Skin color, texture, turgor normal, no suspicious rashes or lesions Head: Normocephalic, no masses, lesions, tenderness or abnormalities Lungs: Lungs clear to auscultation. No wheezing, rhonchi, rales Heart: RRR, II/ murmur. Had echo in the last year. Abdomen: Normal abdominal exam, Abdomen soft, non-tender. Bowel sounds normal. No masses, organomegaly Extremities: No deformities, edema, skin discoloration, clubbing or cyanosis. Good capillary refill. ASSESSMENT/PLAN: 1. Diverticulitis - ICD9: 562.11, ICD10: K57.92 (primary diagnosis) - had scope recently so no need to return. Fluids and fiber. 2. Leukocytosis, unspecified type - ICD9: 288.60, ICD10: D72.829 - follow labs. - CBC + DIFF Mariano Kang MD documented in this encounter [facility] 04-03-2023 Discharge summary Note Date/Time April 03, 2023 8:51am [facility] Medical Records Department [address] [place] [id number] Emergency Department Summary 04/03/23 MR#: [id number] Acct: [id number] Name: YOLA CARABALLO Rep #:[id number] : 1950 72 From: Victor M Nicole MD PCP: Marely Wood NP-C Status:REG E R Location: ED HPI HPI - GI History of Present Illness Chief Complaint: Abd Pain Detail of Chief Complaint: Abdominal fullness and pain for a couple of weeks. Informant: patient and spouse/S.O. Abdominal Pain/Flank Pain Onset: Weeks Context: Sudden Onset Timing: Continuous and Waxes and wanes Quality: Aching Location: RLQ and LLQ Current Severity: Mild Maximum Severity: Moderate Worsened by: Food (Believes the potato with 2 tablespoons of olive oil that she consumed on .) Relieved by: Antacids (Has taken Maalox with minimal improvement) Nausea/Vomiting/Emesis GI Symptom: Negative for Nausea or Vomiting Diarrhea/Melena/Hematochezia GI Symptom: Positive for Diarrhea (Diarrhea a couple of weeks ago after consuming dairy products and self-induced); Negative for Melena or Hematochezia Onset: Weeks (2 weeks ago and this past week) Stool Quality: Positive for Loose and Watery; Negative for Mucous, Black, Maroonor BRB per rectum Severity: Mild Associated Symptoms Associated Symptoms: Negative for Dysuria, Frequency, Hematuria or Urgency Narrative Narrative: Patient is a 72-year-old woman who presents with abdominal pain. She has history of lactulose intolerance. Patient was doing well until a couple of weeks ago when she had dairy product. She took lactulose tablets but did not have total relief. She presents now because of increased fullness and distention that she reports got worse this past after having potato with olive oil. She denies nausea or vomiting. She had diarrhea a couple of weeks ago when she had dairy product and when she is taking Maalox. She states she had a colonoscopy recently by Dr. Jb Hollis and was told she does not need future colonoscopy. No biopsies were taken. That note was reviewed and patient has evidence of diverticulosis in the entire colon that was examined andalso had an internal hemorrhoid. Patient denies fever, chills night sweats. Patient Nuys weight gain or weight loss. Patient denies urologic symptoms. Patient denies back pain. Prior similar symptoms: Yes Recent Illness/Hospitalization: No PFSH PFSH Medical History Abnormal Holter monitor finding Alcohol use Anxiety Dietary restriction High cholesterol Hyperlipidemia Hypothyroidism Non-smoker NSVT (nonsustained ventricular tachycardia) Paroxysmal supraventricular tachycardia Post-menopausal Screening for intestinal cancer Thyroid disease Wears contact lenses Wears glasses Home Medications levothyroxine 75 mcg tablet 75 mcg PO SUMOTUWETHFR 11/09/21 [History Last Taken Unknown] cholecalciferol (vitamin D3) 25 mcg (1,000 unit) capsule (Vitamin D3) 25 mcg PO DAILY 12/09/21 [History Last Taken Unknown] oxazepam 10 mg capsule 10 mg PO PRN PRN Anxiety 01/18/23 [History Last Taken Unknown] amoxicillin 875 mg-potassium clavulanate 125 mg tablet 875 mg (0.875 x 875-125 mg) PO Q12H #14 TABLETS 04/03/23 [Rx Last Taken Unknown] Allergy/AdvReac Type Severity Reaction Status Date / Time No Known Allergies Allergy Verified 04/03/23 08:37 Family History Father Cancer lung Hypertension Diabetes Mother Cancer lung Hypertension CVA (cerebral vascular accident) Surgical History History of appendectomy History of colonoscopy History of left oophorectomy History of tonsillectomy Social History Smoking Status: Never smoker alcohol intake: current alcohol intake frequency: a few times a month Alcohol type: wine substance use type: does not use caffeine: Yes Type: carbonated beverages Number of servings: 2 and coffee Number of servings: 1 ROS ROS ED Constitutional Constitutional ED: Denies chills, fever(s), subjective, sweats or weight loss ENT ENT ED: Denies ear pain, rhinorrhea or sore throat Cardiovascular Cardiovascular: Denies chest pain or palpitations Respiratory/Chest Respiratory/Chest: Denies cough, dyspnea or dyspnea on exertion Gastrointestinal Gastrointestinal: Reports abdominal pain and diarrhea; Denies constipation, melena, nausea or vomiting Genitourinary Genitourinary ED: Denies dysuria, hematuria or urinary frequency Musculoskeletal Musculoskeletal: Denies arthralgias, back pain, myalgias or neck pain Integumentary Denies rash Hematologic/Lymphatic Hematologic/Lymphatic: Denies easy bleeding or easy bruising EXAM Physical Exam Const Vital Signs: 04/03/23 08:35 Temperature 97.0 F L Temperature Source Temporal Pulse Rate 72 Respiratory Rate 14 Blood Pressure 110/67 Blood Pressure Mean 81 Pulse Ox 100 Oxygen Delivery Method Room Air Positive well nourished and well developed General Appearance ED: well developed, NAD and pallor HEENT Reports TM's clear and moist mucous membranes normocephalic and atraumatic Tympanic Membrane ED: Yes TM's clear Eyes PERRL and EOMs intact bilaterally General Eye ED: Negative for pale conjunctiva or scleral icterus Neck no lymphadenopathy, supple and no JVD Resp normal respiratory effort and clear to auscultation bilaterally Cardio regular rate, regular rhythm, S1 normal heart sound, S2 normal heart sound and no murmurs GI no masses; Negative for non-tender or non-distended GI Narrative: Patient is tympany throughout. Bowel sounds are increased. There is no tinkling bowel sounds. Patient has scar due to salpingo-oophorectomy and appendicitis. Inspection: abdominal distention Palpation: soft and tender LLQ; Negative for guarding, rigid, hepatomegaly, splenomegaly, hernia, mass or pulsatile mass Back/Spine no CVA tenderness Extremity full ROM General Extremety ED: Negative for edema or tenderness General Extremity: Negative for edema Neuro CN's II-XII intact bilaterally, moves all extremities and no sensory deficits noted Sensorium / Orientation: alert Psych mental status grossly normal and thought process normal Skin no wounds General Skin Exam: pallor; Negative for jaundice Lesions: no lesions Rashes: no rashes MDM MDM MDM Narrative Medical decision making narrative: Patient is tympanitic distended with prior history of surgery will obtain abdominal series to assess for air-fluid levels. Doubt obstruction since patient states she is passing gas. Her last bowel movement was normal and less than 24 hours ago. If white count is elevated in light of extensive diverticulosis will obtain CAT scan to evaluate for diverticulitis. Records from outside facility i.e. Holter monitor ordered by Romeo Ruiz was reviewed. Colonoscopy report by Dr. Jb Hollis was reviewed. History & Record Review Additional record(s) reviewed:: Prior outpatient record, Prior ED visit and Prior labs Lab Data Labs: Laboratory Results - last 24 hr 04/03/23 09:00 WBC 13.6 H RBC 4.35 Hgb 12.7 Hct 39.5 MCV 90.8 MCH 29.2 MCHC 32.2 RDW Std Deviation 40.0 RDW Coeff of Snow 12.0 Plt Count 252 MPV 10.9 Immature Gran % (Auto) 0.300 Neut % (Auto) 86.5 H Lymph % (Auto) 7.3 L Guthrie % (Auto) 5.2 Eos % (Auto) 0.3 Baso % (Auto) 0.4 Absolute Neuts (auto) 11.8 H Absolute Lymphs (auto) 1.00 Nucleated RBC % 0 Sodium 140 Potassium 3.6 Chloride 105 Carbon Dioxide 30.0 Anion Gap 5 BUN 13 Creatinine 0.74 Estim Creat Clear Calc 44.34 Est GFR (MDRD) Af Amer 99 Est GFR (MDRD) Non-Af 82 BUN/Creatinine Ratio 17.5 Glucose 97 Calcium 9.0 Radiography Chest X-Ray - ED: Read by ED Physician (3 view abdominal series was obtained. The chest portion was unremarkable. Cardiac silhouette and size normal. Lung parenchyma normal. Perihilar region normal. Osseous structures were normal. The abdominal portion reveals minimal nonspecific gas. There is no pneumo.. There is minimal degenera) Diagnostic Testing: Clinical Impression(s) from Imaging Studies Acute Abdomen Series 04/03/23 09:08 IMPRESSION: 1. No active pulmonary disease. 2. Nonobstructive gas. Electronically Signed: Ismael Sommer MD at 9:30 EDT , Abdomen/Pelvis CT 04/03/23 09:30 IMPRESSION: 1. Thickening of the sigmoid colon consistent with acute diverticulitis. 2. No evidence of drainable abscess or free air. Electronically Signed: Ismael Sommer MD at 10:26 EDT , Treatment and Re-Evaluation :: Because patient has predominately tenderness left lower quadrant with extensive diverticulosis on most recent colonoscopy an elevated white count of 13.6 thousand and will obtain CAT scan to assess for diverticulitis. CAT scan reveals diverticulitis of the sigmoid colon. Patient received first dose of Augmentin in the emergency department. She was discharged home. Discharge Plan Triage Chief Complaint: Abd Pain ED Provider: Victor M Nicole Dx/Rx/DC Orders Clinical Impression: Hyperlipidemia, Hypothyroidism, Diverticulitis of sigmoid colon Instructions: ED Diverticulitis Prescriptions: New amoxicillin-pot clavulanate [amoxicillin-pot clavulanate] 875-125 mg tablet 875 mg PO Q12H Qty: 14 0RF No Action levothyroxine 75 mcg tablet 75 mcg PO SUMOTUWETHFR Patient Comments: TAKE ON EMPTY STOMACH. FOR THYROID. TAKE ONE TABLET 6 DAYS/WEEK. oxazepam 10 mg capsule 10 mg PO PRN PRN (Reason: Anxiety) Patient Comments: TAKE 1 CAPSULE BY MOUTH ONCE DAILY NEEDED FOR ANXIETY FOR UP TO 30 DAYS. cholecalciferol (vitamin D3) [Vitamin D3] 25 mcg (1,000 unit) Capsule 25 mcg PO DAILY Primary Care Provider: Marely Wood NP Referrals: Marely Wood CARE MANAGEMENT ASSOCIATE, CARE MANAGEMENT ASSOCIATE-C [Primary Care Provider] - 3-5 Days if not improving Activity Restrictions/Additional Instructions: 1. Take antibiotics till gone 2. If you develop a fever or pain becomes worse return to the emergency department 3. Take either ibuprofen or Tylenol for pain as needed Disposition Disposition: Home, Self Care What to do if you have Problems For any increased pain, shortness of breath, bleeding, nausea or vomiting, chestpain, or any unexpected problems, contact your Primary Care Provider. Call [facility] ([phone]) or report to the closest Emergency Room. Call 911 if necessary. 04/03/23 1048 <Electronically signed by Victor M Nicole MD> Cosigner Signature (if applicable): CC: CARE MANAGEMENT ASSOCIATE-C Marely Wood ~ Signed [facility] Work Phone: [phone]) 649-255509-04-2023 History of Present illness Narrative* Nette Liz APRN.CNP - 04/03/2023 8:16 AM EDT Came in with complaints of abdominal pain for 2 weeks seems to be getting worse. Patient says its more so in the left lower quadrant. Did palpate patient seem to get worse in that left lower quadrant. Patient says she had a colonoscopy last year and they told her she had some pouching. Patient's not actually been diagnosed with diverticulitis. But diverticulitis is suspected. Patient was suggested to go to the emergency room. Patient's prefers to take herself. [facility] Miscellaneous Notes* Telephone Encounter - Marely Wood APRN.CNP - 02/24/2023 3:38 PM EDT Noted. Sent to scanning. Marely Wood APRN.CNP * Telephone Encounter - Sarthak Stratton LPN - 02/24/2023 2:07 PM EDT Results of coronary calcium scoring received via fax from [facility]. Placed on provider desk for further review. Sarthak Stratton LPN [facility] Miscellaneous Notes* Telephone Encounter - Guerda Barragan - 12/12/2022 11:39 AM EDT Patient phones requesting refills as follows: Requested Prescriptions Pending Prescriptions Disp Refills SYNTHROID 75 mcg tablet 90 tablet 3 Sig: Take on empty stomach. For Thyroid. Take one tablet 6 days/week. Please review and advise. Guerda Barragan [facility] Miscellaneous Notes* Telephone Encounter - Marely oWod APRN.CNP - 12/05/2022 10:49 AM EDT Noted. Marely Wood APRN.CNP * Telephone Encounter - Mitra Castelan - 12/03/2022 1:41 PM EDT Called and spoke to pt. She stated that she has already scheduled an apt with a Non [facility] global commodity manager. Mitra VELARDE * Telephone Encounter - Sarthak Stratton LPN - 11/18/2022 4:12 PM EDT TC to pt, left detailed message on secure identified voicemail. Pt to return call to office /c any questions or concerns. Schedulers please assist pt with scheduling appt with Cardiology. Sarthak Stratton LPN * Telephone Encounter - Marely Wood APRN.CNP - 11/18/2022 2:02 PM EDT Can please let patient know that I received her test results. Her echocardiogram looked pretty good. There was some mild left atrial enlargement, but nothing that should be problematic. There was a little bit of thickening of the mitral valve and a little bit of prolapse of the mitralvalves (backwards motion). Again, this shouldn't be problematic, but will probably just need us to recheck this every couple of years to keep an eye on it. The heart shows good/normal strength! I only have a preliminary reading back on the heart monitor. It did show some episodes of slow heart rate, but it also showed some faster heart rates, as well. Since episodes are short and not causing any symptoms, she likely doesn't need any kind of treatmentfor this. However, let's have her get set up with cardiology to review, as well, and to make recommendations if we need to do anything differently. For now, though, this should not have any impact onher daily activity (ie she doesn't need to do anything differently). If she were to get any abnormal symptoms (ie chest pain, palpitations, shortness of breath, etc), then she should go to the ER for evaluation. documented in this encounterGerman Hospital05-02-2023 Miscellaneous Notes* Telephone Encounter - Marely Wood APRN.CNP - 11/29/2022 12:46 PM EDT Script sent. Marely Wood APRN.CNP * Telephone Encounter - Edelmira Solomon LPN - 11/29/2022 10:15 AM EDT Patient phones requesting refills as follows: Requested Prescriptions Pending Prescriptions Disp Refills oxazepam (SERAX) 10 mg capsule 30 capsule 0 Sig: Take 1 capsule by mouth once daily as needed for anxiety for up to 30 days. ANDREA 11/17/22 NOV no upcoming appt noted Please review and advise. Edelmira Solomon LPN * Telephone Encounter - Edelmira Solomon LPN - 11/29/2022 10:09 AM EDT Phoned patient and updated her with provider's message. She voiced understanding and states she will make an appointment with [facility] since there isn't any urgency on her getting in. Advised her would forward information over to their offices. She requested refill on oxazepam. Request forwarded. * Telephone Encounter - Marely Wood APRN.EDUCATIONAL RECRUITER - 11/29/2022 8:54 AM EDT I believe they are all booked out pretty far in the future. We have Dr. Rey and Dr. De Luna over at [place]. There is also a new global commodity manager that will be starting in the next few months. [facility] also does a good job. However, if she is willing to travel to [place] [facility], she likely will be able to get in more quickly. Again, I don't think this is something that needs to be doneurgently, so it is moreso, how quickly does she want to have it done. * Telephone Encounter - Lexi Hernández Pss - 11/26/2022 1:49 PM EDT Spoke to patient regarding consult to cardiology. Patient asking for Marely to advise who she should see in cardiology. Patient open to see someone at [facility] as well. Please advise and callpatient. documented in this encounterGerman Hospital04-20-2023 Miscellaneous Notes* Telephone Encounter - Eva Sloan RN - 11/17/2022 12:34 PM EDT Seen in OV today. Eva Sloan RN * Telephone Encounter - Sendy Singer RN - 11/17/2022 9:05 AM EDT Triage protocol recommends: ER for evaluation. Would like PCP team to review this. Patient prefers to be seen in office today-Marely out today. Appt made with Romeo Ruiz for this morning. Please call patient if provider has other advise. Thank you. Reason for Disposition Passing pure blood or large blood clots (i.e., size > a dime) (Exception: rosemary or small strands) Answer Assessment - Initial Assessment Questions Patient calling with complaints of blood in urine that started this morning. Reports had recent UTIwhich was treated, she improved, and then began with sx's again. Noted blood in urine this morning. 1. COLOR of URINE: red-reports peeing pure blood this morning. No blood clots. 2. ONSET: this morning 3. EPISODES: x 2 4. PAIN with URINATION: Has pressure with urination. Denies severe pain. 5. FEVER: denies. T 97.8 6. ASSOCIATED SYMPTOMS: -having frequency -pressure during urination -burning with uriantion 7. OTHER SYMPTOMS: Denies: back/flank pain, abdominal pain, nausea or vomiting 8. :n/a Protocols used: Urine - Blood In-ADULT- * Telephone Encounter - Vernell Eastman - 11/17/2022 8:28 AM EDT Yola Caraballo is calling Marely Wood APRN.CNP today with concern regarding bladder pressure, frequency and blood in urine Patient has been identified by name and birthdate. Duration of symptoms: 1 days Person calling: self Call patient at: on cell [phone] (home) [phone] (cell) Was an appointment scheduled: No Closing statement: Symptom Call: Thank you for calling [facility], your call is very important. A nurse will call in approximately 2-4 hours during business hours. If this is an emergency, please contact 911. Vernell Bentasneem documented in this encounterGerman Hospital04-20-2023 Instructions* Patient Instructions* Frantz Ruiz PA-C - 11/17/2022 10:53 AM EDT Force fluids with water and juices (not caffeine) to 2000cc per day until symptoms improve. Any mechanical pressure in the area of the urethra (wear urine comes out) may cause bacteria to be pushed up inside the bladder. You should urinate to clear out bacterial contamination before and after sex, after tampon insertion, or after washing the vaginal area. It is important to wipe front to back after voiding. If you develop a fever, chills, unusual back pain, or vomiting, this may mean you have infection inthe kidney which can be more serious. If this occurs, or you fail to improve on the antibiotics in 3 days, either call the office to be checked or go to the emergency department. Take Cipro as directed per prescription Pyridium is a urinary anesthetic which should decrease the discomfort over the next few days. It will turn the urine a bright orange or yellow color, and it will permanently stain clothing if you drip. If you should breakout in a rash, stop the medicine and call the office. Any antibiotic has the potential to cause diarrhea due to alteration in the normal bacterial ed of the gut. This can be reduced by eating yogurt with active cultures daily while on the medication.If diarrhea becomes severe (watery, large volumes or more than 3-4/day) call the office. While on antibiotics women may experience yeast vaginitis due to alteration in the vaginal ed. Symptoms include vaginal itching, irritation, and often a clumpy white discharge. If this occurs, there are several effective over the counter remedies available, including one-dose treatments. If these are unsuccessful, call the office. Antibiotics may interfere with control. If you are on oral contraceptives, use another form of protection (condoms, foams, jellies, diaphragm) throught the end of whatever pill pack you are on when you finish the antibiotic. documented in this encounterGerman Hospital04-20-2023 History of Present illness Narrative* M Cordell Ruiz PA-C - 11/17/2022 10:29 AM EDT 72 year old female with c/o blood in urine this morning. Was having increasing frequency. Uncomfortable to urinate this morning with red urine, next void was mostly blood, just little trickle. No fever, chills. No low back or flank pain. Prior occurrence with UTI [place] afterward getting yeast infection: 3 day monistat x 2 without improvement. Followed by Diflucan 150mg 1 tab with improvement but feels like it's getting worse again. Sexually active with , no new partners. No sexual activity in last 3 weeks due to issues UTI does seem to follow 10/24/2022 UC 10-50K E. Coli, was placed on macrobid prior to culture Asking about Zio patch: reviewed results, reviewed strips with her. States she felt none of the episodes. Patient HR of 37-190 bpm, and avg 63 bpm. NSR predominately, 1 run of Ventricular Tachycardia 150bpm x 6 beats 38 runs SVT: fastest fastest 7.8 secs / max rate of 190 bpm, e longest 9.8 sec avg rate of 132 bpm.Some episodes couldn't be afib with aberrancy, low burden of ectopy. 12 min Discussion anxiety and marika, face to face counseling, use of medications, anxiety reductiontechniques, principles of practicing relaxation. FAMILY HISTORY Problem Relation Age of Onset Cancer Mother lung Hypertension Mother Stroke Mother cerebral aneurysm Diabetes Father Hypertension Father Cancer Father lung other (renal failure) Brother Lipids Brother PAST MEDICAL HISTORY Diagnosis Date Agoraphobia with panic disorder Chronic anxiety 02/22/2011 Hypothyroidism 01/25/2011 Irritable bowel syndrome (IBS) 02/22/2011 Lactose intolerance in adult 07/29/2016 Sciatica, right side 02/02/2017 Vitamin D deficiency 07/15/2010 PAST SURGICAL HISTORY Procedure Laterality Date APPENDECTOMY COLONOSCOPY FLX DX W/COLLJ SPEC WHEN PFRMD 04/15/2011 Colonoscopy OOPHORECTOMY PARTIAL/TOTAL UNI/BI left PAST SURGICAL HISTORY OF polyps removed from vocal cord TONSILLECTOMY HX Social History Tobacco Use Smoking status: Never Smokeless tobacco: Never Vaping Use Vaping Use: Never used Substance Use Topics Alcohol use: No Drug use: No ACTIVE PROBLEM LIST Vitamin D Deficiency Hypothyroidism Chronic Anxiety Uninodular Goiter Lactose Intolerance in Adult Hyperlipidemia Ldl Goal <130 Osteopenia, Senile Migraine With Aura, Not Intractable, Without Status Migrainosus Current Outpatient Medications Medication Sig Dispense Refill oxazepam (SERAX) 10 mg capsule Take 1 capsule by mouth once daily as needed for anxiety for up to 30 days. 30 capsule 0 SYNTHROID 75 mcg tablet Take on empty stomach. For Thyroid. Take one tablet 6 days/week. 90 tablet 3 Cholecalciferol, Vitamin D3, 2,000 unit cap Take 1 capsule by mouth once daily. Current Facility-Administered Medications Medication Dose Route Frequency Provider Last Rate Last Admin perflutren lipid microspheres 1.3 mL in NaCl (PF) 0.9% 10 mL injection (DEFINITY) INTRAVENOUS DIRECTED PRN Marely Wood, FREIGHT RATE SPECIALIST.EDUCATIONAL RECRUITER sodium chloride 0.9 % (flush) 10 mL (BD POSIFLUSH) 10 mL INTRAVENOUS DIRECTED PRN Marely Wodo APRN.EDUCATIONAL RECRUITER SHINGRIX VACCINE(1 of 2) Never done PNEUMOCOCCAL: 65+(1 - PCV) Never done ADVANCE DIRECTIVE DISCUSSION Never done DEPRESSION ASSESSMENT Never done EXAM: BP 118/72 Pulse 72 Temp 36.8 C (98.2 F) (Left Tympanic) Resp 16 Wt 56.7 kg (125 lb) SpO2 96% BMI 20.33 kg/m Pleasant adult woman in no acute distress. Alert and oriented all spheres. Normal affect and cognition. Speech normal. No deficits to learning or comprehension. Skin warm, dry, pink to lips and nailbeds. Normal turgor. Respirations regular and unlabored. HEENT: NCAT. No scleral icterus or conjunctival injection. TM's clear. Nose and oropharynx free from injection or lesion. Oral membranes moist and pink. No cervical lymph nodes. Thyroid non-tender, no masses, or enlargement. Carotids pulses 2+/4+ without bruits. No JVD with HOB at 30 degrees. Chest is normal shape. Lungs are clear to all [place] with good air exchange through out. HRRR without murmur or gallop. No lifts, heaves, or rubs. Abdomen: active bowel sounds throughout, soft, nontender, no masses or organomegaly. No CVAT. Extrem: no clubbing or cyanosis. Edema: none. Extremities are warm and pink with prompt capillary refill. Component Latest Ref Rng & Units 11/17/2022 GLUCOSE UA (POCT) Negative mg/dL Negative BILIRUBIN UA (POCT) Negative Negative KETONE UA (POCT) Negative mg/dL Negative SPECIFIC GRAVITY UA (POCT) 1.005 - 1.030 >=1.030 HEMOGLOBIN/BLOOD UA (POCT) Negative Large (A) PH UA (POCT) 4.5 - 8.0 5.5 PROTEIN UA (POCT) Negative mg/dL 100 (A) UROBILINOGEN UA (POCT) Normal E.U./dL 0.2 NITRITE UA (POCT) Negative Negative LEUKOCYTES UA (POCT) Negative Moderate (A) COLOR UA (POCT) Madeline CLARITY UA (POCT) Cloudy ASSESSMENT/PLAN: 1. Hematuria, unspecified type - ICD9: 599.70, ICD10: R31.9 (primary diagnosis) - UA DIP, URINE (POC) - URINE CULTURE 2. Recurrent UTI (urinary tract infection) - ICD9: 599.0, ICD10: N39.0 acute - UA positive for azucena esterase, hematuria, and nitrates - Patient education for prevention given - URINE CULTURE 3. Paroxysmal SVT (supraventricular tachycardia) (HCC) - ICD9: 427.0, ICD10: I47.1 Nonsustained asymptomatic episodes. Usually runs baseline heart rate in 60s Discussed limiting stimulants, measures for anxiety control, meditation, present reality based exercises, relaxation techniques. Supported sparing use of Serax Since not symptomatic and nonsustained short bursts, I would recommend off treatment. Could review with global commodity manager. 4. Chronic anxiety - ICD9: 300.00, ICD10: F41.9 As above 30 minute visit Frantz Ruiz PA-C documented in this encounterGerman Hospital04-17-2023 Miscellaneous Notes* Telephone Encounter - Zuly Johnson LPN - 11/14/2022 1:07 PM EDT Patient notified and verbalized understanding. Zuly Johnson LPN * Telephone Encounter - Marely Wodo APRN.CNP - 11/14/2022 12:56 PM EDT We can do a dose of fluconazole. I went ahead and sent this to the pharmacy. If no better/worsening, then we probably will need to have her in to do an exam to see what is happening. Marely Wood APRN.KEVIN * Telephone Encounter - Delphine Ding RN - 11/14/2022 12:50 PM EDT Patient calls and states that she went through 2- 3 day packs of Monistat as well as used the creamin the pack. Patient states that she still feels like she has a yeast infection. Patient states that she still in itching and uncomfortable in vagina area. She has had worse with the itching but it is uncomfortable. Patient asking what else she can take to finally get rid of yeast injection. Patient's pharmacy is [facility] in [place]. Please review and advise, Delphine Ding RN documented in this encounterGerman Hospital04-10-2023 History of Present illness Narrative* Marely Wood APRN.CNP - 11/07/2022 1:05 PM EDT This is a 72 year old female who presents today with: Patient presents with: Recheck: Discuss results of EKG HISTORY OF PRESENT ILLNESS: Yola Caraballo is a 72 year old female. Patient presents with: Recheck: Discuss results of EKG Pt presents today with concerns over EKG. She is currently on Complete[employer] monitor. She has been watching her watch and heart rate has been varying. (She was in urgent care a few weeks ago and found to be bradycardic and having bigeminal PVCs - asymptomatic.) She has no CP, SOB, palpitations. Refers that she did take a serax, which was helpful for her symptoms. She has an echo scheduled for next week. PAST MEDICAL HISTORY: PAST MEDICAL HISTORY Diagnosis Date Agoraphobia with panic disorder Chronic anxiety 02/22/2011 Hypothyroidism 01/25/2011 Irritable bowel syndrome (IBS) 02/22/2011 Lactose intolerance in adult 07/29/2016 Sciatica, right side 02/02/2017 Vitamin D deficiency 07/15/2010 PAST SURGICAL HISTORY Procedure Laterality Date APPENDECTOMY COLONOSCOPY FLX DX W/COLLJ SPEC WHEN PFRMD 04/15/2011 Colonoscopy OOPHORECTOMY PARTIAL/TOTAL UNI/BI left PAST SURGICAL HISTORY OF polyps removed from vocal cord TONSILLECTOMY HX ALLERGIES Patient has no known allergies. MEDICATIONS Current Outpatient Medications Medication Sig oxazepam (SERAX) 10 mg capsule Take 1 capsule by mouth once daily as needed for anxiety for up to 30 days. SYNTHROID 75 mcg tablet Take on empty stomach. For Thyroid. Take one tablet 6 days/week. Cholecalciferol, Vitamin D3, 2,000 unit cap Take 1 capsule by mouth once daily. Current Facility-Administered Medications Medication Dose Route Frequency perflutren lipid microspheres 1.3 mL in NaCl (PF) 0.9% 10 mL injection (DEFINITY) INTRAVENOUS DIRECTED PRN sodium chloride 0.9 % (flush) 10 mL (BD POSIFLUSH) 10 mL INTRAVENOUS DIRECTED PRN FAMILY HISTORY Problem Relation Age of Onset Cancer Mother lung Hypertension Mother Stroke Mother cerebral aneurysm Diabetes Father Hypertension Father Cancer Father lung other (renal failure) Brother Lipids Brother Social History Tobacco Use Smoking status: Never Smokeless tobacco: Never Vaping Use Vaping Use: Never used Substance Use Topics Alcohol use: No Drug use: No EXAM: BP 122/86 Pulse (!) 46 Resp 18 SpO2 98% PHYSICAL EXAM: General Appearance: Well appearing, alert, anxious, well-hydrated, well nourished.. Skin: Skin color, texture, turgor normal, no suspicious rashes or lesions. Head: Normocephalic, no masses, lesions, tenderness or abnormalities. Eyes: Anicteric sclera. Extraocular movements are intact. . Lungs: Lungs clear to auscultation. No wheezing, rhonchi, rales. Heart: RRR without murmur, gallop, or rubs. Occ irregular beat. Neurologic: Gait normal. ASSESSMENT/PLAN: 1. Ventricular bigeminy seen on monitoring engineer - ICD9: 427.89, ICD10: R00.8 (primary diagnosis) 2. Bradycardia - ICD9: 427.89, ICD10: R00.1 - ECG COMPLETE - SR with PAC. Reassurance to patient. She is asymptomatic. She is finishing the event monitor by tomorrow. She is getting echocardiogram. Encouraged to stop focusing on the heart monitor on her watch, but moreso how she is feeling. Follow-up pending results of additional testing. Discussed treatment plan and patient voices understanding. Patient's questions answered appropriately. Medications and potential side effects were discussed and patient voices understanding. Return to the office as scheduled or as needed for worsening/no improvement. Marely Wood APRN.KEVIN documented in this encounterGerman Hospital03-27-2023 Nurse Note* Sarthak Stratton LPN - 10/24/2022 4:58 PM EDT EVENT MONITOR DISPOSABLE PATCH INSTRUCTIONS Patient Name: Yola Anjel [facility] Number: [id number] Skin prepped and cleansed with alcohol Patch secured to prepped area Monitor Activated Serial #: [id number] Patient Instructed: Prescribed order timeframe Bathing guidelines Usage of event button and diary documentation Return of monitor at the end of prescribed order Call with problems [phone] or [phone] ext. [phone] Patient expresses a good understanding of instructions Sarthak Stratton LPN documented in this encounterGerman Hospital03-27-2023 Miscellaneous Notes* Telephone Encounter - Trinh Burden LPN - 10/24/2022 4:25 PM EDT Images from the original note were not included. Prior authorization approved Payer: [facility] [phone] Approval Details Authorized from July 31, 2022 to February 21, 2023 Electronic appeal: Not supported View History Notes Time User Attachment Attachment received from payer. 10/24/2022 4:22 PM [facility], Rx Priorauth In Document Medication Being Authorized oxazepam (SERAX) 10 mg capsule Take 1 capsule by mouth once daily as needed for anxiety for up to 30 days. Dispense: 30 capsule Refills: 0 Start: 10/24/2022 End: 11/23/2022 Class: Normal Diagnoses: Chronic anxiety This order has been released to its destination. To be filled at: [id number] [place] [id number] - 1954 [facility] [phone] [id number] Pharmacy notified. documented in this encounterGerman Hospital03-27-2023 Instructions* Patient Instructions* Marely Wood APRN.CNP - 10/24/2022 3:06 PM EDT Schedule the echocardiogram. Cut back caffeine. Finish the zio. If you get any sustained symptoms (CP, palpitations, SOB, dizziness, etc), proceed to the ER. documented in this encounterGerman Hospital03-27-2023 Miscellaneous Notes* Telephone Encounter - Marely Wood APRN.CNP - 10/24/2022 3:04 PM EDT Please verify. Still not in process. * Telephone Encounter - Cindy Dennis Ma - 10/24/2022 10:36 AM EDT Call to Client Services, supervisor carbon electrodes for 5 minutes. Lab can be added on. Cindy Dennis Ma * Telephone Encounter - Marely Wood APRN.CNP - 10/24/2022 9:49 AM EDT Please add a mag level to labs already drawn this morning. Marely Wood APRN.CNP documented in this encounterGerman Hospital03-27-2023 History of Present illness Narrative* Marely Wood APRN.EDUCATIONAL RECRUITER - 10/24/2022 2:32 PM EDT This is a 72 year old female who presents today with: Patient presents with: Recheck: Follow up Urg Care HISTORY OF PRESENT ILLNESS: Yola Caraballo is a 72 year old female. Patient presents with: Recheck: Follow up Urg Care Pt presents today for urgent care follow-up. She presented to the urgent care this morning with complaints of UTI symptoms. Urine was positive for blood, protein, and leukocytes. She was ordered Macrobid. However, while in urgent care, she was found to be bradycardic with a heart rate of 40. She was asymptomatic. She had an EKG which did show bigeminal PVCs. She did have some labwork ordered. Here for further evaluation. She reports that her heartrate is typically in the 60-70's. He denies any chest pain, palpitations, dizziness, shortness of breath, nausea/vomiting. She reports that she has been watching her heartrate since leaving urgent care, and has been running in the 60-70's. She does admit that she had a few sips of pepsi prior to coming to urgent care. She does drink pepsi or coffee throughout the day. She does have anxiety. She uses serax prn. She reports that she did take a serax today. PAST MEDICAL HISTORY: PAST MEDICAL HISTORY Diagnosis Date Agoraphobia with panic disorder Chronic anxiety 02/22/2011 Hypothyroidism 01/25/2011 Irritable bowel syndrome (IBS) 02/22/2011 Lactose intolerance in adult 07/29/2016 Sciatica, right side 02/02/2017 Vitamin D deficiency 07/15/2010 PAST SURGICAL HISTORY Procedure Laterality Date APPENDECTOMY COLONOSCOPY FLX DX W/COLLJ SPEC WHEN PFRMD 04/15/2011 Colonoscopy OOPHORECTOMY PARTIAL/TOTAL UNI/BI left PAST SURGICAL HISTORY OF polyps removed from vocal cord TONSILLECTOMY HX ALLERGIES Patient has no known allergies. MEDICATIONS Current Outpatient Medications Medication Sig nitrofurantoin monohydrate and macrocrystal (MACROBID) 100 mg capsule Take 1 capsule by mouth twicedaily with meals for 5 days. SYNTHROID 75 mcg tablet Take on empty stomach. For Thyroid. Take one tablet 6 days/week. Cholecalciferol, Vitamin D3, 2,000 unit cap Take 1 capsule by mouth once daily. No current facility-administered medications for this visit. FAMILY HISTORY Problem Relation Age of Onset Cancer Mother lung Hypertension Mother Stroke Mother cerebral aneurysm Diabetes Father Hypertension Father Cancer Father lung other (renal failure) Brother Lipids Brother Social History Tobacco Use Smoking status: Never Smokeless tobacco: Never Vaping Use Vaping Use: Never used Substance Use Topics Alcohol use: No Drug use: No EXAM: BP 116/78 Pulse 76 Resp 18 PHYSICAL EXAM: General Appearance: Well appearing, alert, in no acute distress, well-hydrated, well nourished. Skin: Skin color, texture, turgor normal, no suspicious rashes or lesions. Head: Normocephalic, no masses, lesions, tenderness or abnormalities. Eyes: Anicteric sclera. Extraocular movements are intact. . Neck: Supple, no adenopathy; thyroid symmetric, normal size, no bruits. Lungs: Lungs clear to auscultation. No wheezing, rhonchi, rales.. Heart: RRR without murmur, gallop, or rubs. No ectopy. Abdomen: Abdomen soft, non-tender. Bowel sounds normal. No masses, organomegaly. Extremities: No deformities, edema, skin discoloration, clubbing or cyanosis. Good capillary refill. Neurologic: Gait normal. ASSESSMENT/PLAN: 1. Bradycardia - ICD9: 427.89, ICD10: R00.1 (primary diagnosis) EKG revealed ventricular bigeminy in urgent care. HR regular at this time -- repeat ECG reveals SB with possible left atrial enlargement and incomplete RBBB. Will get echocardiogram. Will get zio. Patient called zio and verified coverage and wishes to proceed. - ECG COMPLETE - ECHO - PERFLUTREN LIPID MICROSPHERES 1.1 MG/ML INJECTION IN NS 10 ML - SODIUM CHLORIDE 0.9 % (FLUSH) INJECTION SYRINGE - OUTSIDE VENDOR CARDIAC OUTPATIENT EXTENDED RHYTHM RECORDING (WITHOUT TELEMETRY) 2. Ventricular bigeminy seen on monitoring engineer - ICD9: 427.89, ICD10: R00.8 Will get zio to assess the frequency of PVCs. - ECHO - PERFLUTREN LIPID MICROSPHERES 1.1 MG/ML INJECTION IN NS 10 ML - SODIUM CHLORIDE 0.9 % (FLUSH) INJECTION SYRINGE - OUTSIDE VENDOR CARDIAC OUTPATIENT EXTENDED RHYTHM RECORDING (WITHOUT TELEMETRY) 3. Chronic anxiety - ICD9: 300.00, ICD10: F41.9 Uses serax prn anxiety. She has tried other medication without effect. No hx of misuse. Continue without change. Refill: - OXAZEPAM 10 MG CAPSULE Discussed treatment plan and patient voices understanding. Patient's questions answered appropriately. Medications and potential side effects were discussed and patient voices understanding. Return to the office as scheduled or as needed for worsening/no improvement. Marely Wood APRN.CNP This note was partially generated using [employer] voice recognition system. Note was reviewed for accuracy. There may be minor misspellings or grammar miscues with [employer] voice recognition. documented in this encounterGerman Hospital03-27-2023 History of Present illness Narrative* Brian Nicole MD - 10/24/2022 8:11 AM EDT Patient presents with: UTI: Burning and urgency or urination x this AM HPI: Symptoms started this morning. Dysuria: Yes Frequency: Yes Hematuria: No Nausea: No Fever or chills: No Back pain: No Abdominal pain: No Prior UTI: Yes Personal history of kidney stones: No Family history of kidney stones: No Denies chest pain, shortness of breath, dizziness, palpitations, fatigue, or edema. She exercises regularly. Pulse can get to the 40s during the night. PAST MEDICAL HISTORY Diagnosis Date Agoraphobia with panic disorder Chronic anxiety 02/22/2011 Hypothyroidism 01/25/2011 Irritable bowel syndrome (IBS) 02/22/2011 Lactose intolerance in adult 07/29/2016 Sciatica, right side 02/02/2017 Vitamin D deficiency 07/15/2010 PAST SURGICAL HISTORY Procedure Laterality Date APPENDECTOMY COLONOSCOPY FLX DX W/COLLJ SPEC WHEN PFRMD 04/15/2011 Colonoscopy OOPHORECTOMY PARTIAL/TOTAL UNI/BI left PAST SURGICAL HISTORY OF polyps removed from vocal cord TONSILLECTOMY HX MEDICATIONS: Current Outpatient Medications Medication Sig SYNTHROID 75 mcg tablet Take on empty stomach. For Thyroid. Take one tablet 6 days/week. Cholecalciferol, Vitamin D3, 2,000 unit cap Take 1 capsule by mouth once daily. No current facility-administered medications for this visit. ALLERGIES: ALLERGIES No Known Allergies VITALS: BP 122/72 Pulse (!) 40 Temp 36.8 C (98.2 F) Resp 18 Wt 56.1 kg (123 lb 9.6 oz) SpO2 100% BMI 20.10 kg/m Vitals PULSE 04/20/2020 56 05/18/2020 53 12/02/2020 61 05/06/2021 50 06/09/2021 60 09/13/2021 60 01/23/2022 68 06/21/2022 60 10/24/2022 40 PHYSICAL EXAM: GEN: Alert, no acute distress, admittedly anxious after being informed of heart rate HEENT: EOMI, conjunctiva clear, HEART: slow rate, regular rhythm, no murmurs LUNGS: clear to auscultation, no wheezes or crackles, no increased WOB ABDOMEN: Soft, nondistended, no masses, no suprapubic tenderness BACK: No CVA tenderness NEURO: Alert and oriented to person, place, and time. CN II-XII intact. Normal strength. Normal gait. No tremor. ASSESSMENT/PLAN: 1. Burning with urination - ICD9: 788.1, ICD10: R30.0 (primary diagnosis) - UA DIP, URINE (POC) - positive for blood and LE. - URINE CULTURE - NITROFURANTOIN MONOHYDRATE & MACROCRYSTAL 100 MG ORAL CAP 2. Bradycardia - ICD9: 427.89, ICD10: R00.1 - ECG COMPLETE - BASIC METABOLIC PNL - TSH BLD - CONSULT TO CARDIOLOGY 3. Hypothyroidism, unspecified type - ICD9: 244.9, ICD10: E03.9 - TSH BLD 4. Ventricular bigeminy seen on monitoring engineer - ICD9: 427.89, ICD10: R00.8 Asymptomatic bradycardia. - ECG COMPLETE - sinus rhythm with ventricular bigeminy. VR 69. Non-specific ST abnormality. No prior ECG for comparison. Low risk for progression to dangerous arrhythmia. Follow up with primary care this week. - CONSULT TO CARDIOLOGY Follow up in the ER with chest pain, shortness of breath, dizziness, palpitations. Brian Nicole MD documented in this encounterGerman Hospital12-05-2022 Instructions* Patient Instructions* Rosanne Juarez RD - 07/04/2022 2:15 PM EST 1. follow a low-fat low-cholesterol diet 2. Do not skip meals. Cholesterol levels may be higher when you eat fewer meals. 3. Consume whole grains (whole grain breads/cereals, oatmeal, barley, popcorn). Include 20-35 gramsof fiber per day. 4. Consume fresh/frozen fruit and vegetables (blueberries, nectarines, raspberries, apples, apricots, figs, prunes, dark leafy greens and include a variety of colors) 5. Consume lean protein (chicken, turkey breast, fish lean beef and pork). Avoid eating red meats more than twice per week. Aim for cheese and meats with 3 grams of fat or less per ounce. 6. Use low fat cooking methods such as baking, broiling, roasted, and grilled 7. Use healthy fats such as olive oil, flaxseed oil, walnuts, almonds, pecans, olives and avocado but in limited amounts. 8. Increase foods rich in omega-3 fatty acids (salmon, tuna, edwards, sardines, ac) Aim for 2 servings per week (6 ounces total). Almonds/walnuts and ground flaxseed (2 Tablespoons/day). 10. Read food labels. Avoid products made with partially hydrogenated fats/oils. 11 Use fucntional foods:Plant sterols and stanols (1.3 grams plant sterols or 3.4 grams plant stanols per day); 3 g/d of glucan fiber from oats and barley; 7g/day or more fro psyllium seed husk such as Metamucil; 25 g/day soy protien; 1.5 oz/day tree nuts. 12. If you are overweight, losing weight will help lower your total cholesterol level and raise your HDL level. Try using the Healthy Plate method. 13. Be physically active for at least 30-45 minutes per day 5-6 days per week documented in this encounterGerman Hospital12-05-2022 History of Present illness Narrative* Rosanne Juarez RD - 07/04/2022 1:38 PM EST Nutrition Therapy Initial Assessment Nutrition Diagnosis: Behavioral-Environmental: Food and nutrition related knowledge deficit, related to, lack of prior exposure to information , as evidenced by change in existing diagnosis or condition. RECOMMENDED MALNUTRITION DIAGNOSIS: NO MALNUTRITION IDENTIFIED NUTRITION CARE PLAN Nutrition Intervention 07/04/2022: comprehensive nutrition education 1. follow a low-fat low-cholesterol diet 2. Do not skip meals. Cholesterol levels may be higher when you eat fewer meals. 3. Consume whole grains (whole grain breads/cereals, oatmeal, barley, popcorn). Include 20-35 gramsof fiber per day. 4. Consume fresh/frozen fruit and vegetables (blueberries, nectarines, raspberries, apples, apricots, figs, prunes, dark leafy greens and include a variety of colors) 5. Consume lean protein (chicken, turkey breast, fish lean beef and pork). Avoid eating red meats more than twice per week. Aim for cheese and meats with 3 grams of fat or less per ounce. 6. Use low fat cooking methods such as baking, broiling, roasted, and grilled 7. Use healthy fats such as olive oil, flaxseed oil, walnuts, almonds, pecans, olives and avocado but in limited amounts. 8. Increase foods rich in omega-3 fatty acids (salmon, tuna, edwards, sardines, ac) Aim for 2 servings per week (6 ounces total). Almonds/walnuts and ground flaxseed (2 Tablespoons/day). 10. Read food labels. Avoid products made with partially hydrogenated fats/oils. 11 Use fucntional foods:Plant sterols and stanols (1.3 grams plant sterols or 3.4 grams plant stanols per day); 3 g/d of glucan fiber from oats and barley; 7g/day or more fro psyllium seed husk such as Metamucil; 25 g/day soy protien; 1.5 oz/day tree nuts. 12. If you are overweight, losing weight will help lower your total cholesterol level and raise your HDL level. Try using the Healthy Plate method. 13. Be physically active for at least 30-45 minutes per day 5-6 days per week. Nutrition Monitoring & Evaluation: labs in target range Need for Follow up: as needed Patient presents for initial MNT as relates to hyperlipidemia. Has had success in the past loweringcholesterol, lately struggling with numbers. Trying for lean proteins, avoids dairy. Includes reg soda daily throughout the day. Includes regular exercise. Healthy BMI Patient's symptoms are: None Diet History: Breakfast - oatmeal with dates, pecans, walnuts, almond milk Snack - no Lunch - egg salad sandwich; scrambled eggs, avacdo toast; carrot sandwich; Pepsi Snack - not usually, occ cracker, willl have coffee or Pepsi Dinner - bangladeshi meat ball soup with veggies; occ salmon on mirna; grilled cod; tacos, turkey Snack - not usually Beverages - almond milk, Pepsi, coffee, water Alcohol- wine Vitamins/Supplements - vit D Activity: Activities of Daily Living: Active 50% of the day. (On feet for most of the day, i.e. teacher/salesman) Additional Activity: Moderately active (Moderate intensity exercise: Planned physical activity 3-5 days/week) Yoga 3 x per week Walk most days biking Anthropometrics: Height: Last 1 Encounter Ht Readings: Date: Ht: 07/04/2022 167 cm (5' 5.75) Current weight: Last 1 Encounter Wt Readings: Date: Wt: 07/04/2022 55 kg (121 lb 2.4 oz) Body mass index is 19.7 kg/m . Resting Metabolic Rate: 1082 Malnutrition Screening Significant unintentional weight loss? No Eating less than 75% of usual intake for more than 2 weeks? No Potential Signs of Inflammation: no identifiable sources Education Materials Provided: Healthy Eating for a Low Saturated Fat, Low Cholesterol Diet and Mediterranean Diet; whole food plant based diet READINESS TO LEARN Cognitive ability: Alert and oriented Motivation to learn: Interested Family support: Unable to assess - Family not present Instruction provided to: Patient Patient learns best by: Individual Instruction Factors affecting learning: None Physical limitations affecting learning: None Referred/Supervised by: Nina/Augustin MNT Billing Type: Initial Assess/15 min 3 units SIGNATURE: Rosanne Juarez RD PATIENT NAME: Yola Caraballo DATE: July 04, 2022 TIME: 1:41 PM documented in this encounterGerman Hospital11-30-2022 History of Present illness Narrative* Yung Linares RT(R) - 06/29/2022 11:30 AM EST Radiology Service Progress Note PATIENT NAME: Yola Caraballo DATE OF SERVICE: June 29, 2022 TIME: 11:33 AM PATIENT IDENTITY VERIFICATION COMPLETED USING TWO (2) IDENTIFIERS: Name and Date of confirmedby patient verbally. FALL SCREENING: Has the patient had 2 falls in the last year or 1 fall with injury or currently using an Ambulatory Assistive Device (Walker, Cane, Wheelchair, Crutches, etc.)? No PATIENT GENDER DATA: Female. status: : No status: NO. PATIENT RELEVANT IMPLANT DATA REVIEWED: Not Applicable RADIOLOGY DEPARTMENT: Bone Density PERIPHERAL IV DATA: Not applicable SIGNED BY: RT Nehemias(R) June 29, 2022 11:33 AM documented in this encounterGerman Hospital11-22-2022 Miscellaneous Notes* Telephone Encounter - Trinh Burden LPN - 06/21/2022 4:56 PM EST Images from the original note were not included. Prior authorization approved Payer: [facility] [phone] Approval Details Authorized from July 31, 2021 to October 19, 2022 * Telephone Encounter - Trinh Burden LPN - 06/21/2022 3:59 PM EST Electronic PA completed for oxazepam. documented in this encounterGerman Hospital11-22-2022 Instructions* Patient Instructions* Marely Wood APRN.EDUCATIONAL RECRUITER - 06/21/2022 1:44 PM EST Continue the same medications. Nutritional referral. 3. Labs in 3-6 months. 4. Recheck in 6 months. documented in this encounterGerman Hospital11-22-2022 History of Present illness Narrative* Marely Wood APRN.CNP - 06/21/2022 1:11 PM EST This is a 72 year old female who presents today with: Patient presents with: Follow Up HISTORY OF PRESENT ILLNESS: Yola Caraballo is a 72 year old female. Patient presents with: Follow Up Pt presents today to follow-up. REVIEW OF SYSTEMS GENERAL: No weight loss, malaise or fevers/chills RESPIRATORY: Negative for cough, hemoptysis, wheezing, dyspnea or shortness of breath CARDIOVASCULAR: Negative for chest pain, leg swelling, orthopnea, or palpitations GI: No nausea, vomiting, or diarrhea/constipation. No hematochezia/melena. No heartburn or reflux symptoms. : No history of dysuria, frequency or incontinence MUSCULOSKELETAL: Negative for joint pain or swelling. HYPOTHYROID: Patient is compliant with medications: Yes Patient has changes in energy: No Patient has changes in hair or skin: No Patient has temperature intolerance: No Patient has weight changes: No HYPERLIPIDEMIA: Patient is taking medications: N/A. Patient is watching diet: Yes. Cholesterol did creep up a little bit since last check. Patient reports only difference in her lifestyle is that she added more turkey based meat products. Continues to be active with exercise and healthy diet. Anxiety Sparingly use serax. Last script was in October. Has unsuccessfully tried SSRIs in the past. Having the Serax on hand often can help avert worsening anxiety. No signs of misuse. PAST MEDICAL HISTORY: PAST MEDICAL HISTORY Diagnosis Date Agoraphobia with panic disorder Chronic anxiety 02/22/2011 Hypothyroidism 01/25/2011 Irritable bowel syndrome (IBS) 02/22/2011 Lactose intolerance in adult 07/29/2016 Sciatica, right side 02/02/2017 Vitamin D deficiency 07/15/2010 PAST SURGICAL HISTORY Procedure Laterality Date APPENDECTOMY COLONOSCOPY FLX DX W/COLLJ SPEC WHEN PFRMD 04/15/2011 Colonoscopy OOPHORECTOMY PARTIAL/TOTAL UNI/BI left PAST SURGICAL HISTORY OF polyps removed from vocal cord TONSILLECTOMY HX ALLERGIES Patient has no known allergies. MEDICATIONS Current Outpatient Medications Medication Sig SYNTHROID 75 mcg tablet Take on empty stomach. For Thyroid. Take one tablet 6 days/week. Cholecalciferol, Vitamin D3, 2,000 unit cap Take 1 capsule by mouth once daily. No current facility-administered medications for this visit. FAMILY HISTORY Problem Relation Age of Onset Cancer Mother lung Hypertension Mother Stroke Mother cerebral aneurysm Diabetes Father Hypertension Father Cancer Father lung other (renal failure) Brother Lipids Brother Social History Tobacco Use Smoking status: Never Smokeless tobacco: Never Vaping Use Vaping Use: Never used Substance Use Topics Alcohol use: No Drug use: No EXAM: BP 108/70 Pulse 60 Resp 16 Ht 167 cm (5' 5.75) Wt 55.4 kg (122 lb 3.2 oz) SpO2 99% BMI19.88 kg/m PHYSICAL EXAM: General Appearance: Well appearing, alert, in no acute distress, well-hydrated, well nourished.. Skin: Skin color, texture, turgor normal, no suspicious rashes or lesions. Head: Normocephalic, no masses, lesions, tenderness or abnormalities. Eyes: Anicteric sclera. Pupils are equally round and reactive to light. Extraocular movements are intact. . Neck: Supple, no adenopathy; thyroid symmetric, normal size, no bruits. Lungs: Lungs clear to auscultation. No wheezing, rhonchi, rales.. Heart: RRR without murmur, gallop, or rubs. No ectopy. Abdomen: Abdomen soft, non-tender. Bowel sounds normal. No masses, organomegaly. Extremities: No deformities, edema, skin discoloration, clubbing or cyanosis. Good capillary refill. . Neurologic: Gait normal. ASSESSMENT/PLAN: 1. Hypothyroidism, unspecified type - ICD9: 244.9, ICD10: E03.9 (primary diagnosis) Stable labs. Continue the same dose of medication without change. 2. Hyperlipidemia LDL goal <130 - ICD9: 272.4, ICD10: E78.5 Cholesterol crept up a little bit. We will plan to recheck this in 3 to 6 months. She will continue to watch diet and try to limit meat products. She also is interested in speaking to paper processing machine helper regarding diet. - LIPID PANEL BASIC - CONSULT TO NUTRITION THERAPY 3. Chronic anxiety - ICD9: 300.00, ICD10: F41.9 Uses serax sparingly. No signs of misuse. Continue without change. - OXAZEPAM 10 MG CAPSULE Discussed treatment plan and patient voices understanding. Patient's questions answered appropriately. Medications and potential side effects were discussed and patient voices understanding. Return to the office as scheduled or as needed for worsening/no improvement. Marely Wood APRN.KEVIN This note was partially generated using [employer] voice recognition system. Note was reviewed for accuracy. There may be minor misspellings or grammar miscues with [employer] voice recognition. documented in this encounterGerman Hospital10-31-2022 History of Present illness Narrative* Lisa Rod MD - 05/30/2022 2:29 PM EDT Priscilla is a 71 year old who presents for an annual gynecologic exam without complaints. Retired from [employer]. Has one granddaughter. Postmenopausal: Yes since age 42 HRT use: No. Last Pap: 02/07/2017 normal HPV: 02/01/2017 negative History of abnormal pap: No Last mammogram: 2021 normal History of abnormal mammogram: No Sexually active: Yes History of STDS: None Patient concerns for STD exposure: No. Pain with intercourse: No Postcoital bleeding: No Hot flashes: No Night sweats: No Vaginal dryness: No Exercise: 5 times a week Type: walking, cycling, and yoga Diet: mixed, fruits and vegetables primarily, frequent pop OB History T0 L1 SAB0 IAB0 Ectopic0 Multiple0 Live Births0 Rib Stiffener And Heel Dipper History LMP: Postmenopausal Age at Menarche: Age at First : Age at Menopause: Rib Stiffener And Heel Dipper History Comments: Sexual Activity: Yes; Male Contraception: No contraception data on record PAST MEDICAL HISTORY Diagnosis Date Agoraphobia with panic disorder Chronic anxiety 02/22/2011 Hypothyroidism 01/25/2011 Irritable bowel syndrome (IBS) 02/22/2011 Lactose intolerance in adult 07/29/2016 Sciatica, right side 02/02/2017 Vitamin D deficiency 07/15/2010 PAST SURGICAL HISTORY Procedure Laterality Date APPENDECTOMY COLONOSCOPY FLX DX W/COLLJ SPEC WHEN PFRMD 04/15/2011 Colonoscopy OOPHORECTOMY PARTIAL/TOTAL UNI/BI left PAST SURGICAL HISTORY OF polyps removed from vocal cord TONSILLECTOMY HX FAMILY HISTORY Problem Relation Age of Onset Cancer Mother lung Hypertension Mother Stroke Mother cerebral aneurysm Diabetes Father Hypertension Father Cancer Father lung other (renal failure) Brother Lipids Brother SOCIAL HISTORY Social History Tobacco Use Smoking status: Never Smokeless tobacco: Never Vaping Use Vaping Use: Never used Substance Use Topics Alcohol use: No Drug use: No REVIEW OF SYSTEMS Abdomen: No abdominal pain, nausea, vomiting, diarrhea, or constipation. No bloating, early satiety, indigestion, or increased flatulence. Bladder: No dysuria, gross hematuria, urinary frequency, urinary urgency, or incontinence Breast: No breast lumps, nipple d/c, overlying skin changes, redness or skin retraction Allergies and current medication updated:No EXAM: BP 110/64 Ht 5' 6 (1.68m) Wt 123 lb (55.8kg) BMI 19.86 kg/(m^2). GENERAL: pleasant, female in no apparent distress HEENT: Normocephalic, atraumatic, mucus membranes moist, and no lesions NECK: Supple, full range of motion, no adenopathy, and thyroid normal DERMATOLOGY: Normal, without lesions, non-icteric, and non-hirsute BREAST: soft, non-tender, symmetric, no dominant mass, normal nipple-areolar complex, no lymphadenopathy, and no nipple discharge ABDOMEN: soft, non-tender, and no masses PELVIC: external genitalia normal, normal Bartholin's glands, urethra, Trooper's glands, no vulvar lesions, no cervical lesions, good vaginal support, physiologic discharge present, normal appearing perineal body and perianal region BIMANUAL: uterus normal size, shape and consistency, no adnexal masses, and non-tender RECTOVAGINAL: deferred. NEURO: alert and oriented x3,exam grossly non-focal EXTREMITIES: normal ASSESSMENT/PLAN: 1) Health maintenance: Pap/HPV screening no longer needed Mammogram ordered Mammogram up to date Nutrition, exercise and routine health maintenance exams reviewed. Calcium/Vitamin D supplementation information provided. Colon cancer screening: up to date with screening BMD: ordered 2) Follow up one year or sooner as needed Lisa Moise MD * Caryn Wilburn Ma - 05/30/2022 2:21 PM EDT Industrial Energy Engineer offered: Patient declines. documented in this encounterGerman Hospital09-16-2022 Miscellaneous Notes* Letter - Mammography Coordinator - 04/15/2022 10:17 AM EDT April 15, 2022 PID: [id number] Yola Caraballo [address] [place] [address] Dear Ms. Marianokassy, We are pleased to inform you that the results of your recent breast imaging exam on 04/15/2022 are normal. Early detection of cancer is very important. We also understand recommendations regarding breast cancer screening are controversial. Please discuss with your primary care provider which strategy is best for you and whether a mammogram is right for you. Your imaging studies and report will [facility] part of [facility] permanent medical record and are available for your continuing care. Thank you for allowing us to help in meeting your health care needs. Sincerely, Dr. Nichole Interpreting Radiologist [facility] (Normal over 40) documented in this encounterGerman Hospital09-16-2022 History of Present illness Narrative* Lorie Vazquez, RT(R) - 04/15/2022 7:50 AM EDT Radiology Service Progress Note PATIENT NAME: Yola Caraballo DATE OF SERVICE: April 15, 2022 TIME: 7:35 AM PATIENT IDENTITY VERIFICATION COMPLETED USING TWO (2) IDENTIFIERS: Name and Date of confirmedby patient verbally. FALL SCREENING: Has the patient had 2 falls in the last year or 1 fall with injury or currently using an Ambulatory Assistive Device (Walker, Cane, Wheelchair, Crutches, etc.)? No PATIENT GENDER DATA: Female. status: : No status: NO. PATIENT RELEVANT IMPLANT DATA REVIEWED: Not Applicable RADIOLOGY DEPARTMENT: Mammography PERIPHERAL IV DATA: Not applicable SIGNED BY: Afsaneh Grimes, RT(R) April 15, 2022 7:35 AM documented in this encounterGerman Hospital09-14-2022 Miscellaneous Notes* Telephone Encounter - Marely Wood APRN.CNP - 04/13/2022 3:37 PM EDT Order placed. Marely Wood APRN.CNP * Telephone Encounter - Kathy Garza Pss - 04/13/2022 1:24 PM EDT Patient requesting Vitamin D lab to be added to her orders. Patient states she will have all labs drawn beginning of May for Annual Physical. documented in this encounterGerman Hospital06-28-2022 Miscellaneous Notes* Telephone Encounter - Estelle Cline LPN - 01/25/2022 8:11 AM EDT Phone call placed patient advised (see prior provider encounter) Patient verbalized understanding, agreed with plan of care. Estelle Cline LPN documented in this encounterGerman Hospital06-26-2022 Instructions* Patient Instructions* Eleno Mark APRN.CNP - 01/23/2022 11:37 AM EDT URINARY TRACT INFECTION GENERAL INFORMATION: A urinary tract infection (UTI) is an infection of the bladder or kidneys. A bladder infection, called cystitis, is the more common type. If the infection travels up to the kidneys, it is called pyelonephritis. This can be more serious. UTIs are a common problem in women. Having sexual relations can leave a woman more susceptible to developing a UTI, but it is not sexually transmitted like gonorrhea. Some women have a problem with recurrent UTIs. INSTRUCTIONS: 1. Your doctor prescribed an antibiotic to treat the UTI. Take exactly as directed. Be sure to takeall the medication prescribed, even if your symptoms disappear. If you stop treatment early, the infection may not be fully treated and the symptoms could come back again. 2. Get plenty of rest. You may take acetaminophen for fever and aches. 3. Drink 6 to 8 glasses of fluids, especially water, every day. This helps wash out germs from yoururinary tract. Cranberry juice or other sources of vitamin C are also good for you. 4. Urinate often, as soon as you feel the urge. Empty your bladder completely. Urinate before and after you have sex. 5. Always wipe from front to back after going to the bathroom. This pushes germs away from your bladder, rather than towards it. 6. Showers are better than baths, and you should wash the genital area daily. Avoid bubble bath or bath oils if you do take a bath. 7. Wear underwear and pantyhose with a cotton crotch. CONTACT YOUR DOCTOR: 1. You have a temperature over 102F (38.8C) after 48 hours on medication. 2. You notice blood in your urine. 3. Your symptoms don't improve in 2 days. 4. You develop nausea, vomiting, diarrhea, or a rash. 5. You develop new or unexplained symptoms. These may be related to the medication you are taking. 6. Your symptoms return after you finish treatment. RETURN TO THE EMERGENCY DEPARTMENT IF: You develop vomiting and can't keep your medication or fluids down. documented in this encounterGerman Hospital06-26-2022 History of Present illness Narrative* Eleno Mark APRN.CNP - 01/23/2022 11:36 AM EDT Subjective HPI A nontoxic appearing female presents to urgent care with chief complaint of possible UTI. Duration of symptoms 3 days. Associated symptoms dysuria, frequency, and urgency. States frequency is the most predominant symptom. Patient has history of UTIs in past with similar signs and symptoms. Patient d enies the use of any [id number]-tbrjuff medications or home remedies for symptom management. Patient states pain is a 1/10. Patient denies any fevers, flank pain, abdominal pain, nausea, vomiting, vaginal discharge, or urological abnormalities. Past medical history prescription medication use allergies reviewed. .Patient presents with: Urinary Frequency: frequency and urgency x 3 days PAST MEDICAL HISTORY Diagnosis Date Agoraphobia with panic disorder Chronic anxiety 02/22/2011 Hypothyroidism 01/25/2011 Irritable bowel syndrome (IBS) 02/22/2011 Lactose intolerance in adult 07/29/2016 Sciatica, right side 02/02/2017 Vitamin D deficiency 07/15/2010 PAST SURGICAL HISTORY Procedure Laterality Date APPENDECTOMY COLONOSCOPY FLX DX W/COLLJ SPEC WHEN PFRMD 04/15/2011 Colonoscopy OOPHORECTOMY PARTIAL/TOTAL UNI/BI left PAST SURGICAL HISTORY OF polyps removed from vocal cord TONSILLECTOMY HX ALLERGIES Patient has no known allergies. MEDICATIONS SYNTHROID 75 mcg tablet Take on empty stomach. For Thyroid. Take one tablet 6 days/week. Cholecalciferol, Vitamin D3, 2,000 unit cap Take 1 capsule by mouth once daily. FAMILY HISTORY Problem Relation Age of Onset Cancer Mother lung Hypertension Mother Stroke Mother cerebral aneurysm Diabetes Father Hypertension Father Cancer Father lung other (renal failure) Brother Lipids Brother Social History Tobacco Use Smoking status: Never Smoker Smokeless tobacco: Never Used Vaping Use Vaping Use: Never used Substance Use Topics Alcohol use: No Drug use: No BP 128/78 Pulse 68 Temp 36.9 C (98.4 F) (Tympanic) Resp 18 Wt 55.9 kg (123 lb 3.2 oz) SpO2 98% BMI 20.28 kg/m Review of Systems Constitutional: Negative for chills, fever and malaise/fatigue. HENT: Negative for congestion, ear discharge, ear pain, sinus pain and sore throat. Eyes: Negative for blurred vision, pain, discharge and redness. Respiratory: Negative for cough, hemoptysis, sputum production, shortness of breath, wheezing and stridor. Cardiovascular: Negative for chest pain. Gastrointestinal: Negative for abdominal pain, diarrhea, nausea and vomiting. Genitourinary: Positive for dysuria, frequency and urgency. Negative for flank pain and hematuria. Musculoskeletal: Negative for myalgias. Skin: Negative for itching and rash. Neurological: Negative for dizziness and headaches. Objective Physical Exam Constitutional: General: She is not in acute distress. Appearance: She is not diaphoretic. HENT: Head: Normocephalic. Mouth/Throat: Mouth: Mucous membranes are moist. Pharynx: Oropharynx is clear. No oropharyngeal exudate or posterior oropharyngeal erythema. Eyes: Conjunctiva/sclera: Conjunctivae normal. Pupils: Pupils are equal, round, and reactive to light. Cardiovascular: Rate and Rhythm: Normal rate and regular rhythm. Heart sounds: Normal heart sounds. Pulmonary: Effort: Pulmonary effort is normal. No tachypnea, accessory muscle usage or respiratory distress. Breath sounds: Normal breath sounds. No stridor. Abdominal: Palpations: Abdomen is soft. Tenderness: There is no abdominal tenderness. There is right CVA tenderness. There is no left CVA tenderness. Musculoskeletal: Cervical back: Normal range of motion and neck supple. No rigidity or tenderness. Lymphadenopathy: Cervical: No cervical adenopathy. Skin: General: Skin is warm and dry. Neurological: Mental Status: She is alert and oriented to person, place, and time. ASSESSMENT/PLAN: 1. Urinary frequency - ICD9: 788.41, ICD10: R35.0 - UA DIP, URINE (POC) - URINE CULTURE Leukocytes blood noted on urinalysis. Keflex will be started at today's visit. Culture pending. Patient was educated on supportive therapies. Patient will follow up with primary care provider as needed. Patient was instructed to immediately proceed to emergency room for any new, worsening, or symptoms lasting longer than anticipated. The patient's clinical presentation is otherwise unremarkable at this time. Based on exam and clinical finding, the patient is stable for discharge. Plan of care was discussed with patient. Patient verbalizes understanding and agrees to plan of care. This note was generated using [employer] software. It may contain errors in wording, punctuation, or spelling. 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, lumbar region 04/08/2008 07/11/2012 documented as of this encounter (statuses as of 11/09/2021) [facility] of Past illness Narrative* Problem Noted Date Resolved Date Sciatica, right side 02/02/2017 05/29/2018 Vitamin D deficiency 11/04/2014 05/29/2018 Other symptoms involving digestive system(787.99 ) 04/15/2011 09/24/2013 Abdominal pain, unspecified site 03/15/2011 07/11/2012 Irritable bowel syndrome (IBS) 02/22/2011 0 09/24/2013 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, lumbar region 04/08/2008 07/11/2012 documented as of this encounter (statuses as of 11/10/2021) [facility] of Past illness Narrative* Problem Noted Date Resolved Date Sciatica, right side 02/02/2017 05/29/2018 Vitamin D deficiency 11/04/2014 05/29/2018 Other symptoms involving digestive system(787.99 ) 04/15/2011 09/24/2013 Abdominal pain, unspecified site 03/15/2011 07/11/2012 Irritable bowel syndrome (IBS) 02/22/2011 0 09/24/2013 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, lumbar region 04/08/2008 07/11/2012 documented as of this encounter (statuses as of 01/23/2022) [facility] of Past illness Narrative* Problem Noted Date Resolved Date Sciatica, right side 02/02/2017 05/29/2018 Vitamin D deficiency 11/04/2014 05/29/2018 Other symptoms involving digestive system(787.99 ) 04/15/2011 09/24/2013 Abdominal pain, unspecified site 03/15/2011 07/11/2012 Irritable bowel syndrome (IBS) 02/22/2011 0 09/24/2013 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, lumbar region 04/08/2008 07/11/2012 documented as of this encounter (statuses as of 01/25/2022) [facility] illness Narrative* Problem Noted Date Resolved Date Sciatica, right side 02/02/2017 05/29/2018 Vitamin D deficiency 11/04/2014 05/29/2018 Other symptoms involving digestive system(787.99 ) 04/15/2011 09/24/2013 Abdominal pain, unspecified site 03/15/2011 07/11/2012 Irritable bowel syndrome (IBS) 02/22/2011 0 09/24/2013 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, lumbar region 04/08/2008 07/11/2012 documented as of this encounter (statuses as of 04/13/2022) [facility] Narrative* Problem Noted Date Resolved Date Sciatica, right side 02/02/2017 05/29/2018 Vitamin D deficiency 11/04/2014 05/29/2018 Other symptoms involving digestive system(787.99 ) 04/15/2011 09/24/2013 Abdominal pain, unspecified site 03/15/2011 07/11/2012 Irritable bowel syndrome (IBS) 02/22/2011 0 09/24/2013 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, lumbar region 04/08/2008 07/11/2012 documented as of this encounter (statuses as of 04/17/2022) [facility] Narrative* Problem Noted Date Resolved Date Sciatica, right side 02/02/2017 05/29/2018 Vitamin D deficiency 11/04/2014 05/29/2018 Other symptoms involving digestive system(787.99 ) 04/15/2011 09/24/2013 Abdominal pain, unspecified site 03/15/2011 07/11/2012 Irritable bowel syndrome (IBS) 02/22/2011 0 09/24/2013 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, lumbar region 04/08/2008 07/11/2012 documented as of this encounter (statuses as of 04/19/2022) [facility] Narrative* Problem Noted Date Resolved Date Sciatica, right side 02/02/2017 05/29/2018 Vitamin D deficiency 11/04/2014 05/29/2018 Other symptoms involving digestive system(787.99 ) 04/15/2011 09/24/2013 Abdominal pain, unspecified site 03/15/2011 07/11/2012 Irritable bowel syndrome (IBS) 02/22/2011 0 09/24/2013 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, lumbar region 04/08/2008 07/11/2012 documented as of this encounter (statuses as of 05/30/2022) [facility] Narrative* Problem Noted Date Resolved Date Sciatica, right side 02/02/2017 05/29/2018 Vitamin D deficiency 11/04/2014 05/29/2018 Other symptoms involving digestive system(787.99 ) 04/15/2011 09/24/2013 Abdominal pain, unspecified site 03/15/2011 07/11/2012 Irritable bowel syndrome (IBS) 02/22/2011 0 09/24/2013 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, lumbar region 04/08/2008 07/11/2012 documented as of this encounter (statuses as of 06/21/2022) [facility] Narrative* Problem Noted Date Resolved Date Sciatica, right side 02/02/2017 05/29/2018 Vitamin D deficiency 11/04/2014 05/29/2018 Other symptoms involving digestive system(787.99 ) 04/15/2011 09/24/2013 Abdominal pain, unspecified site 03/15/2011 07/11/2012 Irritable bowel syndrome (IBS) 02/22/2011 0 09/24/2013 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, lumbar region 04/08/2008 07/11/2012 documented as of this encounter (statuses as of 06/21/2022) [facility] Narrative* Problem Noted Date Resolved Date Sciatica, right side 02/02/2017 05/29/2018 Vitamin D deficiency 11/04/2014 05/29/2018 Other symptoms involving digestive system(787.99 ) 04/15/2011 09/24/2013 Abdominal pain, unspecified site 03/15/2011 07/11/2012 Irritable bowel syndrome (IBS) 02/22/2011 0 09/24/2013 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, lumbar region 04/08/2008 07/11/2012 documented as of this encounter (statuses as of 07/04/2022) [facility] Narrative* Problem Noted Date Resolved Date Sciatica, right side 02/02/2017 05/29/2018 Vitamin D deficiency 11/04/2014 05/29/2018 Other symptoms involving digestive system(787.99 ) 04/15/2011 09/24/2013 Abdominal pain, unspecified site 03/15/2011 07/11/2012 Irritable bowel syndrome (IBS) 02/22/2011 0 09/24/2013 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, lumbar region 04/08/2008 07/11/2012 documented as of this encounter (statuses as of 10/24/2022) [facility] Narrative* Problem Noted Date Resolved Date Sciatica, right side 02/02/2017 05/29/2018 Vitamin D deficiency 11/04/2014 05/29/2018 Other symptoms involving digestive system(787.99 ) 04/15/2011 09/24/2013 Abdominal pain, unspecified site 03/15/2011 07/11/2012 Irritable bowel syndrome (IBS) 02/22/2011 0 09/24/2013 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, lumbar region 04/08/2008 07/11/2012 documented as of this encounter (statuses as of 10/24/2022) [facility] Narrative* Problem Noted Date Resolved Date Sciatica, right side 02/02/2017 05/29/2018 Vitamin D deficiency 11/04/2014 05/29/2018 Other symptoms involving digestive system(787.99 ) 04/15/2011 09/24/2013 Abdominal pain, unspecified site 03/15/2011 07/11/2012 Irritable bowel syndrome (IBS) 02/22/2011 0 09/24/2013 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, lumbar region 04/08/2008 07/11/2012 documented as of this encounter (statuses as of 10/24/2022) [facility] Narrative* Problem Noted Date Resolved Date Sciatica, right side 02/02/2017 05/29/2018 Vitamin D deficiency 11/04/2014 05/29/2018 Other symptoms involving digestive system(787.99 ) 04/15/2011 09/24/2013 Abdominal pain, unspecified site 03/15/2011 07/11/2012 Irritable bowel syndrome (IBS) 02/22/2011 0 09/24/2013 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, lumbar region 04/08/2008 07/11/2012 documented as of this encounter (statuses as of 10/25/2022) [facility] Narrative* Problem Noted Date Resolved Date Sciatica, right side 02/02/2017 05/29/2018 Vitamin D deficiency 11/04/2014 05/29/2018 Other symptoms involving digestive system(787.99 ) 04/15/2011 09/24/2013 Abdominal pain, unspecified site 03/15/2011 07/11/2012 Irritable bowel syndrome (IBS) 02/22/2011 0 09/24/2013 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, lumbar region 04/08/2008 07/11/2012 documented as of this encounter (statuses as of 11/08/2022) [facility] Narrative* Problem Noted Date Resolved Date Sciatica, right side 02/02/2017 05/29/2018 Vitamin D deficiency 11/04/2014 05/29/2018 Other symptoms involving digestive system(787.99 ) 04/15/2011 09/24/2013 Abdominal pain, unspecified site 03/15/2011 07/11/2012 Irritable bowel syndrome (IBS) 02/22/2011 0 09/24/2013 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, lumbar region 04/08/2008 07/11/2012 documented as of this encounter (statuses as of 11/14/2022) [facility] Narrative* Problem Noted Date Resolved Date Sciatica, right side 02/02/2017 05/29/2018 Vitamin D deficiency 11/04/2014 05/29/2018 Other symptoms involving digestive system(787.99 ) 04/15/2011 09/24/2013 Abdominal pain, unspecified site 03/15/2011 07/11/2012 Irritable bowel syndrome (IBS) 02/22/2011 0 09/24/2013 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, lumbar region 04/08/2008 07/11/2012 documented as of this encounter (statuses as of 11/18/2022) [facility] Narrative* Problem Noted Date Resolved Date Sciatica, right side 02/02/2017 05/29/2018 Vitamin D deficiency 11/04/2014 05/29/2018 Other symptoms involving digestive system(787.99 ) 04/15/2011 09/24/2013 Abdominal pain, unspecified site 03/15/2011 07/11/2012 Irritable bowel syndrome (IBS) 02/22/2011 0 09/24/2013 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, lumbar region 04/08/2008 07/11/2012 documented as of this encounter (statuses as of 11/18/2022) [facility] Narrative* Problem Noted Date Resolved Date Sciatica, right side 02/02/2017 05/29/2018 Vitamin D deficiency 11/04/2014 05/29/2018 Other symptoms involving digestive system(787.99 ) 04/15/2011 09/24/2013 Abdominal pain, unspecified site 03/15/2011 07/11/2012 Irritable bowel syndrome (IBS) 02/22/2011 0 09/24/2013 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, lumbar region 04/08/2008 07/11/2012 documented as of this encounter (statuses as of 11/29/2022) [facility] Narrative* Problem Noted Date Resolved Date Sciatica, right side 02/02/2017 05/29/2018 Vitamin D deficiency 11/04/2014 05/29/2018 Other symptoms involving digestive system(787.99 ) 04/15/2011 09/24/2013 Abdominal pain, unspecified site 03/15/2011 07/11/2012 Irritable bowel syndrome (IBS) 02/22/2011 0 09/24/2013 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, lumbar region 04/08/2008 07/11/2012 documented as of this encounter (statuses as of 12/05/2022) [facility]* Problem Noted Date Resolved Date Sciatica, right side 02/02/2017 05/29/2018 Vitamin D deficiency 11/04/2014 05/29/2018 Other symptoms involving digestive system(787.99 ) 04/15/2011 09/24/2013 Abdominal pain, unspecified site 03/15/2011 07/11/2012 Irritable bowel syndrome (IBS) 02/22/2011 0 09/24/2013 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, lumbar region 04/08/2008 07/11/2012 documented as of this encounter (statuses as of 12/13/2022) [facility]* Problem Noted Date Diagnosed Date Resolved Date Sciatica, right side 02/02/2017 018 Vitamin D deficiency 11/04/2014 018 Other symptoms involving dig estive system(787.99) 04/15/2011 09/24/2013 Abdominal pain, unspecified site 03/15/2011 07/11/2012 Irritable bowel syndrome (IBS) 02/22/2011 09/24/2013 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, lumbar region 04/08/2008 07/11/2012 documented as of this encounter (statuses as of 02/25/2023) [facility]* Problem Noted Date Diagnosed Date Resolved Date Sciatica, right side 02/02/2017 018 Vitamin D deficiency 11/04/2014 018 Other symptoms involving dig estive system(787.99) 04/15/2011 09/24/2013 Abdominal pain, unspecified site 03/15/2011 07/11/2012 Irritable bowel syndrome (IBS) 02/22/2011 09/24/2013 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, lumbar region 04/08/2008 07/11/2012 documented as of this encounter (statuses as of 04/03/2023) [facility]arr[facility]* Problem Noted Date Diagnosed Date Resolved Date Sciatica, right side 02/02/2017 018 Vitamin D deficiency 11/04/2014 018 Other symptoms involving dig estive system(787.99) 04/15/2011 09/24/2013 Abdominal pain, unspecified site 03/15/2011 07/11/2012 Irritable bowel syndrome (IBS) 02/22/2011 09/24/2013 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, lumbar region 04/08/2008 07/11/2012 documented as of this encounter (statuses as of 04/13/2023) [facility]arrative* Problem Noted Date Diagnosed Date Resolved Date Sciatica, right side 02/02/2017 018 Vitamin D deficiency 11/04/2014 018 Other symptoms involving dig estive system(787.99) 04/15/2011 09/24/2013 Abdominal pain, unspecified site 03/15/2011 07/11/2012 Irritable bowel syndrome (IBS) 02/22/2011 09/24/2013 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, lumbar region 04/08/2008 07/11/2012 documented as of this encounter (statuses as of 04/13/2023) [facility]* Problem Noted Date Diagnosed Date Resolved Date Sciatica, right side 02/02/2017 018 Vitamin D deficiency 11/04/2014 018 Other symptoms involving dig estive system(787.99) 04/15/2011 09/24/2013 Abdominal pain, unspecified site 03/15/2011 07/11/2012 Irritable bowel syndrome (IBS) 02/22/2011 09/24/2013 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, lumbar region 04/08/2008 07/11/2012 documented as of this encounter (statuses as of 06/04/2023) [facility]* Problem Noted Date Diagnosed Date Resolved Date Sciatica, right side 02/02/2017 018 Vitamin D deficiency 11/04/2014 018 Other symptoms involving dig estive system(787.99) 04/15/2011 09/24/2013 Abdominal pain, unspecified site 03/15/2011 07/11/2012 Irritable bowel syndrome (IBS) 02/22/2011 09/24/2013 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, lumbar region 04/08/2008 07/11/2012 documented as of this encounter (statuses as of 06/07/2023) [facility]* Problem Noted Date Diagnosed Date Resolved Date Sciatica, right side 02/02/2017 018 Vitamin D deficiency 11/04/2014 018 Other symptoms involving dig estive system(787.99) 04/15/2011 09/24/2013 Abdominal pain, unspecified site 03/15/2011 07/11/2012 Irritable bowel syndrome (IBS) 02/22/2011 09/24/2013 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, lumbar region 04/08/2008 07/11/2012 documented as of this encounter (statuses as of 06/11/2023) [facility]* Problem Noted Date Diagnosed Date Resolved Date Sciatica, right side 02/02/2017 018 Vitamin D deficiency 11/04/2014 018 Other symptoms involving dig estive system(787.99) 04/15/2011 09/24/2013 Abdominal pain, unspecified site 03/15/2011 07/11/2012 Irritable bowel syndrome (IBS) 02/22/2011 09/24/2013 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, lumbar region 04/08/2008 07/11/2012 documented as of this encounter (statuses as of 06/16/2023) [facility]* Problem Noted Date Diagnosed Date Resolved Date Sciatica, right side 02/02/2017 018 Vitamin D deficiency 11/04/2014 018 Other symptoms involving dig estive system(787.99) 04/15/2011 09/24/2013 Abdominal pain, unspecified site 03/15/2011 07/11/2012 Irritable bowel syndrome (IBS) 02/22/2011 09/24/2013 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, lumbar region 04/08/2008 07/11/2012 documented as of this encounter (statuses as of 07/05/2023) [facility]* Problem Noted Date Diagnosed Date Resolved Date Sciatica, right side 02/02/2017 018 Vitamin D deficiency 11/04/2014 018 Other symptoms involving dig estive system(787.99) 04/15/2011 09/24/2013 Abdominal pain, unspecified site 03/15/2011 07/11/2012 Irritable bowel syndrome (IBS) 02/22/2011 09/24/2013 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, lumbar region 04/08/2008 07/11/2012 documented as of this encounter (statuses as of 07/05/2023) [facility]* Problem Noted Date Diagnosed Date Resolved Date Sciatica, right side 02/02/2017 018 Vitamin D deficiency 11/04/2014 018 Other symptoms involving dig estive system(787.99) 04/15/2011 09/24/2013 Abdominal pain, unspecified site 03/15/2011 07/11/2012 Irritable bowel syndrome (IBS) 02/22/2011 09/24/2013 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, lumbar region 04/08/2008 07/11/2012 documented as of this encounter (statuses as of 07/07/2023) [facility]* Problem Noted Date Diagnosed Date Resolved Date Sciatica, right side 02/02/2017 018 Vitamin D deficiency 11/04/2014 018 Other symptoms involving dig estive system(787.99) 04/15/2011 09/24/2013 Abdominal pain, unspecified site 03/15/2011 07/11/2012 Irritable bowel syndrome (IBS) 02/22/2011 09/24/2013 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, lumbar region 04/08/2008 07/11/2012 documented as of this encounter (statuses as of 10/13/2023) [facility]* Problem Noted Date Diagnosed Date Resolved Date Sciatica, right side 02/02/2017 018 Vitamin D deficiency 11/04/2014 018 Other symptoms involving dig estive system(787.99) 04/15/2011 09/24/2013 Abdominal pain, unspecified site 03/15/2011 07/11/2012 Irritable bowel syndrome (IBS) 02/22/2011 09/24/2013 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, lumbar region 04/08/2008 07/11/2012 documented as of this encounter (statuses as of 11/14/2023) [facility] Chronic anxiety Anxiety state, unspecified Hypothyroidism, unspecified type [facility] Diagnosis Chronic anxiety Anxiety state, unspecified Hypothyroidism, unspecified type [facility] Diagnosis Onset Date Resolution Status Screening for intestinal cancer acute [facility]* Diagnosis Urinary frequency- Primary [facility] Diagnosis Vitamin D deficiency- Primary Unspecified vitamin D deficiency [facility] Diagnosis Encounter for screening mammogram for malignant neoplasm of breast Other screening mammogram [facility] Diagnosis Encounter for gynecological examination (general) (routine) without abnormal findings- Primary Encounter for screening mammogram for malignant neoplasm of breast Other screening mammogram Need for influenza vaccination Need for prophylactic vaccination and inoculation against influenza Osteopenia of necks of both femurs documented in this encounter [facility] note* Diagnosis Hypothyroidism, unspecified type- Primary Hyperlipidemia LDL goal <130 Other and unspecified hyperlipidemia Chronic anxiety Anxiety state, unspecified documented in this encounter [facility] note* Diagnosis Dietary counseling- Primary Dietary surveillance and counseling Hyperlipidemia LDL goal <130 Other and unspecified hyperlipidemia [facility] Diagnosis Burning with urination- Primary Dysuria Bradycardia Other specified cardiac dysrhythmias Hypothyroidism, unspecified type Ventricular bigeminy seen on monitoring engineer [facility] Diagnosis Bradycardia- Primary Other specified cardiac dysrhythmias [facility] Diagnosis Bradycardia- Primary Other specified cardiac dysrhythmias Ventricular bigeminy seen on monitoring engineer Chronic anxiety Anxiety state, unspecified documented in this [facility] Diagnosis Ventricular bigeminy seen on monitoring engineer- Primary Bradycardia Other specified cardiac dysrhythmias [facility] Diagnosis Alfred vaginitis- Primary Candidiasis of vulva and vagina [facility] Diagnosis Hematuria, unspecified type- Primary Recurrent UTI (urinary tract infection) Urinary tract infection, site not specified Paroxysmal SVT (supraventricular tachycardia) (HCC) Paroxysmal supraventricular tachycardia Chronic anxiety Anxiety state, unspecified [facility] Diagnosis Chronic anxiety Anxiety state, unspecified documented in this encounter [facility] note* Diagnosis Paroxysmal SVT (supraventricular tachycardia) (HCC)- Primary Paroxysmal supraventricular tachycardia Ventricular bigeminy seen on monitoring engineer documented [facility] Diagnosis Hypothyroidism, unspecified type documented in this encounter [facility] note* Diagnosis Onset Date Resolution Status Abnormal Holter monitor finding acute Hyperlipidemia acute [facility] Work Phone: Evaluation note* Diagnosis Abdominal pressure- Primary Abdominal pain, unspecified site [facility] this [facility] Diagnosis Diverticulitis- Primary Diverticulitis of colon (without mention of hemorrhage) Leukocytosis, unspecified type documented in this encounter [facility] note* Diagnosis Chronic anxiety Anxiety state, unspecified [facility] Diagnosis Osteopenia of necks of both femurs documented in this [facility] Diagnosis Sinus pressure- Primary Other diseases of nasal cavity and sinuses documented in this [facility] Diagnosis Bacterial sinusitis- Primary Unspecified sinusitis (chronic) documented in this [facility] Diagnosis Chronic anxiety- Primary Anxiety state, unspecified Leukocytosis, unspecified type Hypothyroidism, unspecified type Vitamin D deficiency Unspecified vitamin D deficiency Hyperlipidemia LDL goal <130 Other and unspecified hyperlipidemia Abdominal pain, unspecified abdominal location Other ventricular tachycardia (HCC) Paroxysmal SVT (supraventricular tachycardia) (HCC) Paroxysmal supraventricular tachycardia documented [facility] this 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 Diagnosis Chronic anxiety Anxiety state, unspecified documented [facility] Diagnosis Chronic anxiety Anxiety state, unspecified documented [facility] Diagnosis Vaginal irritation- Primary Unspecified noninflammatory disorder of vagina Vaginal discharge Leukorrhea, not specified as infective Vaginal atrophy Postmenopausal atrophic vaginitis documented in this [facility] Diagnosis Chronic anxiety- Primary Anxiety state, unspecified Leukocytosis, unspecified type Hypothyroidism, unspecified type Vitamin D deficiency Unspecified vitamin D deficiency Hyperlipidemia LDL goal <130 Other and unspecified hyperlipidemia Abdominal pain, unspecified abdominal location Other ventricular tachycardia (HCC) Paroxysmal SVT (supraventricular tachycardia) (HCC) Paroxysmal supraventricular tachycardia Abdominal pain, unspecified abdominal location- Primary JOSE EDUARDO (generalized anxiety disorder) Generalized anxiety disorder Chronic anxiety Anxiety state, unspecified documented in this encounter [facility] note* Diagnosis Chronic anxiety- Primary Anxiety state, unspecified Leukocytosis, unspecified type Hypothyroidism, unspecified type Vitamin D deficiency Unspecified vitamin D deficiency Hyperlipidemia LDL goal <130 Other and unspecified hyperlipidemia Abdominal pain, unspecified abdominal location Other ventricular tachycardia (HCC) Paroxysmal SVT (supraventricular tachycardia) (HCC) Paroxysmal supraventricular tachycardia Vaginal irritation- Primary Unspecified noninflammatory disorder of vagina Vaginal atrophy Postmenopausal atrophic vaginitis documented in this encounter [facility] note* Diagnosis Chronic anxiety- Primary Anxiety state, unspecified Leukocytosis, unspecified type Hypothyroidism, unspecified type Vitamin D deficiency Unspecified vitamin D deficiency Hyperlipidemia LDL goal <130 Other and unspecified hyperlipidemia Abdominal pain, unspecified abdominal location Other ventricular tachycardia (HCC) Paroxysmal SVT (supraventricular tachycardia) (HCC) Paroxysmal supraventricular tachycardia JOSE EDUARDO (generalized anxiety disorder)- Primary Generalized anxiety disorder Hypothyroidism, unspecified type Abdominal pain, unspecified abdominal location documented in this encounter [facility] note* Diagnosis Chronic anxiety- Primary Anxiety state, unspecified Leukocytosis, unspecified type Hypothyroidism, unspecified type Vitamin D deficiency Unspecified vitamin D deficiency Hyperlipidemia LDL goal <130 Other and unspecified hyperlipidemia Abdominal pain, unspecified abdominal location Other ventricular tachycardia (HCC) Paroxysmal SVT (supraventricular tachycardia) (HCC) Paroxysmal supraventricular tachycardia Hypothyroidism, unspecified type documented in this encounter [facility] note* Diagnosis Chronic anxiety- Primary Anxiety state, unspecified Leukocytosis, unspecified type Hypothyroidism, unspecified type Vitamin D deficiency Unspecified vitamin D deficiency Hyperlipidemia LDL goal <130 Other and unspecified hyperlipidemia Abdominal pain, unspecified abdominal location Other ventricular tachycardia (HCC) Paroxysmal SVT (supraventricular tachycardia) (HCC) Paroxysmal supraventricular tachycardia Encounter for screening mammogram for breast cancer documented in this encounter [facility] note* Diagnosis Chronic anxiety- Primary Anxiety state, unspecified Leukocytosis, unspecified type Hypothyroidism, unspecified type Vitamin D deficiency Unspecified vitamin D deficiency Hyperlipidemia LDL goal <130 Other and unspecified hyperlipidemia Abdominal pain, unspecified abdominal location Other ventricular tachycardia (HCC) Paroxysmal SVT (supraventricular tachycardia) (HCC) Paroxysmal supraventricular tachycardia Medicare annual wellness visit, subsequent- Primary Routine general medical examination at a health care facility Hypothyroidism, unspecified type Vitamin D deficiency Unspecified vitamin D deficiency Leg cramping Cramp of limb Leukocytosis, unspecified type Hyperlipidemia LDL goal <130 Other and unspecified hyperlipidemia [facility] Diagnosis Chronic anxiety- Primary Anxiety state, unspecified Leukocytosis, unspecified type Hypothyroidism, unspecified type Vitamin D deficiency Unspecified vitamin D deficiency Hyperlipidemia LDL goal <130 Other and unspecified hyperlipidemia Abdominal pain, unspecified abdominal location Other ventricular tachycardia (HCC) Paroxysmal SVT (supraventricular tachycardia) (HCC) Paroxysmal supraventricular tachycardia Vaginal irritation- Primary Unspecified noninflammatory disorder of vagina Vaginal burning Other specified symptom associated with female genital organs Vaginal atrophy Postmenopausal atrophic vaginitis Urethral caruncle [facility] Additional Instructions 1. Take antibiotics till gone 2. If you develop a fever or pain becomes worse return to the emergency department 3. Take either ibuprofen or Tylenol for [facility] Phone: Reason for referral (narrative)* Diagnostic Procedure Only (Routine) - Closed Specialty Diagnoses / Procedures Referred By Micaela sanchez Referred To Contact [facility] Diagnoses Encounter for screening mammogram for malignant neoplasm of breast Procedures SYLVIE SCREENING W KAPIL SCREENING BREAST DGTL KAPIL UNI/BILAT ADD ON SCREENING MAMMOGRAPHY BI 2-VIEW BREAST INC CAD Lisa Cullen MD [address] [place] [address] [facility] [address] [place] [phone] Referral ID Status Reason Start Date Expiration Date V isits Requested Visits Authorized [id number] Closed Auto-Generate d Referral 04/13/2021 05/13/2022 1 1 [facility] for referral (narrative)* Diagnostic Procedure Only (Routine) - Authorized Specialty Diagnoses / Procedures Referred By Micaela sanchez Referred To Contact [facility] Diagnoses Encounter for screening mammogram for malignant neoplasm of breast Procedures SYLVIE SCREENING W KAPIL SCREENING DIGITAL BREAST TOMOSYNTHESIS BI SCREENING MAMMOGRAPHY BI 2-VIEW BREAST INC CAD NeLisa Brandt MD [address] [place] [address] [facility] [address] [place] [address] Referral ID Status Reason Start Date Expiration Date Visits Requested Visits Authorized [id number] Authorized Auto-Generat ed Referral 06/29/2023 1 1 [facility] for referral (narrative)* Outpatient Procedure (Routine) - Closed Specialty Diagnoses / Procedures Referred By Contac t Referred To Contact [facility] [place] Diagnoses Ventricular bigeminy seen on monitoring engineer Bradycardia Procedures ECG COMPLETE ECG ROUTINE ECG W/LEAST 12 LDS W/I&R Marely Wood APRN.EDUCATIONAL RECRUITER [address] [place] [address] [facility] [address] [place] [address] Referral ID Status Reason Start Date Expiration Date V isits Requested Visits Authorized [id number] Closed Auto-Generate d Referral 11/07/2022 11/07/2023 1 1 [facility] for referral (narrative)* Diagnostic Procedure Only (Routine) - Authorized Specialty Diagnoses / Procedures Referred By Contac t Referred To Contact [facility] Diagnoses Hypothyroidism, unspecified type Procedures US THYROID/PARATHYROID US SOFT TISSUE HEAD & NECK REAL TIME IMGE DOCM Marely Wood APRN.EDUCATIONAL RECRUITER [address] [place] [address] [place] [address] Referral ID Status Reason Start Date Expiration Date Visits Requested Visits Authorized [id number] Authorized Auto-Generat ed Referral 04/22/2024 05/22/2025 1 1 [facility] for visit Narrative* Diagnostic Procedure Only (Routine) - Closed Specialty Diagnoses / Procedures Referred By Contac t Referred To Contact [facility] Diagnoses Encounter for screening mammogram for malignant neoplasm of breast Procedures SYLVIE SCREENING W KAPIL SCREENING BREAST DGTL KAPIL UNI/BILAT ADD ON SCREENING MAMMOGRAPHY BI 2-VIEW BREAST INC CAD Lisa Cullen MD [address] [place] [address] [facility] [address] [place] [address] Referral ID Status Reason Start Date Expiration Date V isits Requested Visits Authorized [id number] Closed Auto-Generate d Referral 04/13/2021 05/13/2022 1 1 [facility] Diagnostic Procedure Only (Routine) - Closed Specialty Diagnoses / Procedures Referred By Micaela t Referred To Contact [facility] Diagnoses Encounter for screening mammogram for breast cancer Procedures SYLVIE SCREENING W KAPIL SCREENING DIGITAL BREAST TOMOSYNTHESIS BI SCREENING MAMMOGRAPHY BI 2-VIEW BREAST INC CAD Lisa Cullen MD [address] [place] [address] [facility] [address] [place] [address] Referral ID Status Reason Start Date Expiration Date V isits Requested Visits Authorized [id number] Closed Auto-Generate d Referral 07/18/2023 08/16/2024 1 1 [facility] Reason for Referral Specialty Diagnoses / Procedures Referred By Micaela t Referred To Contact Diagnoses Chronic anxiety Marely Wood APRN.EDUCATIONAL RECRUITER [address] [place] [address] Referral ID Status Reason Start Date Expiration Date V isits Requested Visits Authorized [id number] Authorized 07/31/2021 12/09/2021 1 1 Referral ID Status Reason Start Date Expiration Date V isits Requested Visits Authorized [id number] Authorized 07/31/2021 10/19/2022 1 1 Specialty Diagnoses / Procedures Referred By Contac t Referred To Contact Nutrition Diagnoses Hyperlipidemia LDL goal <130 Procedures CONSULT TO NUTRITION THERAPY OFFICE/OUTPATIENT NEW HIGH MDM 60-74 MINUTES Marely Wood APRN.EDUCATIONAL RECRUITER [address] [place] [address] Referral ID Status Reason Start Date Expiration Date Visits Requested Visits Authorized [id number] Pending Review PCP Requested Referral 2 06/21/2023 1 1 Specialty Diagnoses / Procedures Referred By Contac t Referred To Contact Cardiology Diagnoses Bradycardia Ventricular bigeminy seen on monitoring engineer Procedures CONSULT TO CARDIOLOGY OFFICE/OUTPATIENT [facility] MDM 60-74 MINUTES Biran Nicole MD [address] [place] [address] Referral ID Status Reason Start Date Expiration Date Visits Requested Visits Authorized [id number] Pending Review PCP Requested Referral 10/24/2022 10/24/2023 1 1 Specialty Diagnoses / Procedures Referred By Contac t Referred To Contact [facility] [place] Diagnoses Bradycardia Ventricular bigeminy seen on monitoring engineer Procedures ECG COMPLETE ECG ROUTINE ECG W/LEAST 12 LDS W/I&R Brian Nicole MD [address] [place] [address] [facility] [address] [address] Referral ID Status Reason Start Date Expiration Date V isits Requested Visits Authorized [id number] Closed Auto-Generate d Referral 10/24/2022 10/24/2023 1 1 Referral ID Status Reason Start Date Expiration Date V isits Requested Visits Authorized [id number] Authorized 07/31/2022 02/21/2023 1 1 Specialty Diagnoses / Procedures Referred By Contac t Referred To Contact [facility] Diagnoses Bradycardia Ventricular bigeminy seen on monitoring engineer Procedures ECHO ECHO TTHRC R-T 2D W/WOM-MODE COMPL SPEC&COLR D Marely Wood, FREIGHT RATE SPECIALIST.EDUCATIONAL RECRUITER [address] [place] [address] [address] Referral ID Status Reason Start Date Expiration Date Visits Requested Visits Authorized [id number] Authorized Auto-Generat ed Referral 10/24/2022 10/24/2023 1 1 Specialty Diagnoses / Procedures Referred By Contac t Referred To Contact [facility] [place] Diagnoses Bradycardia Procedures ECG COMPLETE ECG ROUTINE ECG W/LEAST 12 LDS W/I&R Marely Wood, FREIGHT RATE SPECIALIST.EDUCATIONAL RECRUITER [address] [place] [address] [facility] [address] [place] [address] Referral ID Status Reason Start Date Expiration Date V isits Requested Visits Authorized [id number] Closed Auto-Generate d Referral 10/24/2022 10/24/2023 1 1 Specialty Diagnoses / Procedures Referred By Contac t Referred To Contact Cardiology Diagnoses Paroxysmal SVT (supraventricular tachycardia) (HCC) Ventricular bigeminy seen on monitoring engineer Procedures CONSULT TO CARDIOLOGY OFFICE/OUTPATIENT [facility] 60-74 MINUTES Marely Wood, FREIGHT RATE SPECIALIST.EDUCATIONAL RECRUITER [address] [place] [address] Referral ID Status Reason Start Date Expiration Date Visits Requested Visits Authorized [id number] Pending Review PCP Requested Referral 11/18/2022 11/18/2023 1 1 Chief Complaint and Reason for Visit Chief Complaint COLONOSCOPY Reason for Visit Screening for intest inal cancer Chief Complaint Amb Documentation ABN HOLTER (JIMMIE) HYPERLIPIDEMIA HYPERLIPIDEMIA Amb Documentation Reason for Visit Abnormal Holter kevon tor finding Hyperlipidemia Chief Complaint Amb Documentation ABN HOLTER (AGEN) HYPERLIPIDEMIA HYPERLIPIDEMIA Amb Documentation LLQ pain Reason for Visit Abnormal Holter kevon tor finding Hyperlipidemia Family History Relationship Condition Age at Onset Recorded Date/T jared father Malignant neoplasm Unknown mother Malignant neoplasm Unknown Relationship Condition Age at Onset Recorded Date/T jared father Malignant neoplasm Unknown Hypertension Unknown Diabetes mellitus Unknown mother Malignant neoplasm Unknown Cerebrovascular accident (CVA) Unknown Advance Directives Advance Directive Response Recorded Date/ Time Living Will Yes December 09, 2021 8 :48am Power of Conference Translator Yes December 09, 2021 8:48am Advance Directive Response Recorded Date/ Time Living Will No April 03 023 11:29am Power of Conference Translator No April 03, 2023 11:29am Summary Purpose Additional Source Comments Source Comments (unrecognize d section and content) In the event this informatio n is protected by the Federal Confidentiality of Alcohol and Drug Abuse Patient Records regulations: The Federal rules restrict any use of the information to criminally investigate or prosecute any alcohol or drug abuse patient.[facility] event this information is protected by the Federal Confidentiality of Alcohol and Drug Abuse Patient Records regulations: The Federal rules restrict any use of the information to criminally investigate or prosecute any alcohol or drug abuse patient.[facility] the event this information is protected by the Federal Confidentiality of Alcohol and Drug Abuse Patient Records regulations: The Federal rules restrict any use of the information to criminally investigate or prosecute any alcohol or drug abuse patient.[facility] the event this information is protected by the Federal Confidentiality of Alcohol and Drug Abuse Patient Records regulations: The Federal rules restrict any use of the information to criminally investigate or prosecute any alcohol or drug abuse patient.[facility] the event this information is protected by the Federal Confidentiality of Alcohol and Drug Abuse Patient Records regulations: The Federal rules restrict any use of the information to criminally investigate or prosecute any alcohol or drug abuse patient.[facility] the event this information is protected by the Federal Confidentiality of Alcohol and Drug Abuse Patient Records regulations: The Federal rules restrict any use of the information to criminally investigate or prosecute any alcohol or drug abuse patient.[facility] the event this information is protected by the Federal Confidentiality of Alcohol and Drug Abuse Patient Records regulations: The Federal rules restrict any use of the information to criminally investigate or prosecute any alcohol or drug abuse patient.[facility] the event this information is protected by the Federal Confidentiality of Alcohol and Drug Abuse Patient Records regulations: The Federal rules restrict any use of the information to criminally investigate or prosecute any alcohol or drug abuse patient.[facility] the event this information is protected by the Federal Confidentiality of Alcohol and Drug Abuse Patient Records regulations: The Federal rules restrict any use of the information to criminally investigate or prosecute any alcohol or drug abuse patient.[facility] the event this information is protected by the Federal Confidentiality of Alcohol and Drug Abuse Patient Records regulations: The Federal rules restrict any use of the information to criminally investigate or prosecute any alcohol or drug abuse patient.[facility] the event this information is protected by the Federal Confidentiality of Alcohol and Drug Abuse Patient Records regulations: The Federal rules restrict any use of the information to criminally investigate or prosecute any alcohol or drug abuse patient.[facility] the event this information is protected by the Federal Confidentiality of Alcohol and Drug Abuse Patient Records regulations: The Federal rules restrict any use of the information to criminally investigate or prosecute any alcohol or drug abuse patient.[facility] the event this information is protected by the Federal Confidentiality of Alcohol and Drug Abuse Patient Records regulations: The Federal rules restrict any use of the information to criminally investigate or prosecute any alcohol or drug abuse patient.[facility] the event this information is protected by the Federal Confidentiality of Alcohol and Drug Abuse Patient Records regulations: The Federal rules restrict any use of the information to criminally investigate or prosecute any alcohol or drug abuse patient.[facility] the event this information is protected by the Federal Confidentiality of Alcohol and Drug Abuse Patient Records regulations: The Federal rules restrict any use of the information to criminally investigate or prosecute any alcohol or drug abuse patient.[facility] the event this information is protected by the Federal Confidentiality of Alcohol and Drug Abuse Patient Records regulations: The Federal rules restrict any use of the information to criminally investigate or prosecute any alcohol or drug abuse patient.[facility] the event this information is protected by the Federal Confidentiality of Alcohol and Drug Abuse Patient Records regulations: The Federal rules restrict any use of the information to criminally investigate or prosecute any alcohol or drug abuse patient.[facility] the event this information is protected by the Federal Confidentiality of Alcohol and Drug Abuse Patient Records regulations: The Federal rules restrict any use of the information to criminally investigate or prosecute any alcohol or drug abuse patient.[facility] the event this information is protected by the Federal Confidentiality of Alcohol and Drug Abuse Patient Records regulations: The Federal rules restrict any use of the information to criminally investigate or prosecute any alcohol or drug abuse patient.[facility] the event this information is protected by the Federal Confidentiality of Alcohol and Drug Abuse Patient Records regulations: The Federal rules restrict any use of the information to criminally investigate or prosecute any alcohol or drug abuse patient.[facility] the event this information is protected by the Federal Confidentiality of Alcohol and Drug Abuse Patient Records regulations: The Federal rules restrict any use of the information to criminally investigate or prosecute any alcohol or drug abuse patient.[facility] the event this information is protected by the Federal Confidentiality of Alcohol and Drug Abuse Patient Records regulations: The Federal rules restrict any use of the information to criminally investigate or prosecute any alcohol or drug abuse patient.[facility] the event this information is protected by the Federal Confidentiality of Alcohol and Drug Abuse Patient Records regulations: The Federal rules restrict any use of the information to criminally investigate or prosecute any alcohol or drug abuse patient.[facility] the event this information is protected by the Federal Confidentiality of Alcohol and Drug Abuse Patient Records regulations: The Federal rules restrict any use of the information to criminally investigate or prosecute any alcohol or drug abuse patient.[facility] the event this information is protected by the Federal Confidentiality of Alcohol and Drug Abuse Patient Records regulations: The Federal rules restrict any use of the information to criminally investigate or prosecute any alcohol or drug abuse patient.[facility] HospitalIn the event this information is protected by the Federal Confidentiality of Alcohol and Drug Abuse Patient Records regulations: The Federal rules restrict any use of the information to criminally investigate or prosecute any alcohol or drug abuse patient.[facility] HospitalIn the event this information is protected by the Federal Confidentiality of Alcohol and Drug Abuse Patient Records regulations: The Federal rules restrict any use of the information to criminally investigate or prosecute any alcohol or drug abuse patient.[facility] HospitalIn the event this information is protected by the Federal Confidentiality of Alcohol and Drug Abuse Patient Records regulations: The Federal rules restrict any use of the information to criminally investigate or prosecute any alcohol or drug abuse patient.[facility] HospitalIn the event this information is protected by the Federal Confidentiality of Alcohol and Drug Abuse Patient Records regulations: The Federal rules restrict any use of the information to criminally investigate or prosecute any alcohol or drug abuse patient.[facility] HospitalIn the event this information is protected by the Federal Confidentiality of Alcohol and Drug Abuse Patient Records regulations: The Federal rules restrict any use of the information to criminally investigate or prosecute any alcohol or drug abuse patient.[facility] HospitalIn the event this information is protected by the Federal Confidentiality of Alcohol and Drug Abuse Patient Records regulations: The Federal rules restrict any use of the information to criminally investigate or prosecute any alcohol or drug abuse patient.[facility] HospitalIn the event this information is protected by the Federal Confidentiality of Alcohol and Drug Abuse Patient Records regulations: The Federal rules restrict any use of the information to criminally investigate or prosecute any alcohol or drug abuse patient.[facility] HospitalIn the event this information is protected by the Federal Confidentiality of Alcohol and Drug Abuse Patient Records regulations: The Federal rules restrict any use of the information to criminally investigate or prosecute any alcohol or drug abuse patient.[facility] HospitalIn the event this information is protected by the Federal Confidentiality of Alcohol and Drug Abuse Patient Records regulations: The Federal rules restrict any use of the information to criminally investigate or prosecute any alcohol or drug abuse patient.[facility] HospitalIn the event this information is protected by the Federal Confidentiality of Alcohol and Drug Abuse Patient Records regulations: The Federal rules restrict any use of the information to criminally investigate or prosecute any alcohol or drug abuse patient.[facility] HospitalIn the event this information is protected by the Federal Confidentiality of Alcohol and Drug Abuse Patient Records regulations: The Federal rules restrict any use of the information to criminally investigate or prosecute any alcohol or drug abuse patient.[facility] HospitalIn the event this information is protected by the Federal Confidentiality of Alcohol and Drug Abuse Patient Records regulations: The Federal rules restrict any use of the information to criminally investigate or prosecute any alcohol or drug abuse patient.[facility] HospitalIn the event this information is protected by the Federal Confidentiality of Alcohol and Drug Abuse Patient Records regulations: The Federal rules restrict any use of the information to criminally investigate or prosecute any alcohol or drug abuse patient.[facility] HospitalIn the event this information is protected by the Federal Confidentiality of Alcohol and Drug Abuse Patient Records regulations: The Federal rules restrict any use of the information to criminally investigate or prosecute any alcohol or drug abuse patient.[facility] HospitalIn the event this information is protected by the Federal Confidentiality of Alcohol and Drug Abuse Patient Records regulations: The Federal rules restrict any use of the information to criminally investigate or prosecute any alcohol or drug abuse patient.[facility] HospitalIn the event this information is protected by the Federal Confidentiality of Alcohol and Drug Abuse Patient Records regulations: The Federal rules restrict any use of the information to criminally investigate or prosecute any alcohol or drug abuse patient.[facility] HospitalIn the event this information is protected by the Federal Confidentiality of Alcohol and Drug Abuse Patient Records regulations: The Federal rules restrict any use of the information to criminally investigate or prosecute any alcohol or drug abuse patient.[facility] HospitalIn the event this information is protected by the Federal Confidentiality of Alcohol and Drug Abuse Patient Records regulations: The Federal rules restrict any use of the information to criminally investigate or prosecute any alcohol or drug abuse patient.[facility] HospitalIn the event this information is protected by the Federal Confidentiality of Alcohol and Drug Abuse Patient Records regulations: The Federal rules restrict any use of the information to criminally investigate or prosecute any alcohol or drug abuse patient.[facility] HospitalIn the event this information is protected by the Federal Confidentiality of Alcohol and Drug Abuse Patient Records regulations: The Federal rules restrict any use of the information to criminally investigate or prosecute any alcohol or drug abuse patient.[facility] HospitalIn the event this information is protected by the Federal Confidentiality of Alcohol and Drug Abuse Patient Records regulations: The Federal rules restrict any use of the information to criminally investigate or prosecute any alcohol or drug abuse patient.[facility] HospitalIn the event this information is protected by the Federal Confidentiality of Alcohol and Drug Abuse Patient Records regulations: The Federal rules restrict any use of the information to criminally investigate or prosecute any alcohol or drug abuse patient.[facility] HospitalIn the event this information is protected by the Federal Confidentiality of Alcohol and Drug Abuse Patient Records regulations: The Federal rules restrict any use of the information to criminally investigate or prosecute any alcohol or drug abuse patient.[facility] HospitalIn the event this information is protected by the Federal Confidentiality of Alcohol and Drug Abuse Patient Records regulations: The Federal rules restrict any use of the information to criminally investigate or prosecute any alcohol or drug abuse patient.[facility] HospitalIn the event this information is protected by the Federal Confidentiality of Alcohol and Drug Abuse Patient Records regulations: The Federal rules restrict any use of the information to criminally investigate or prosecute any alcohol or drug abuse patient.[facility] HospitalIn the event this information is protected by the Federal Confidentiality of Alcohol and Drug Abuse Patient Records regulations: The Federal rules restrict any use of the information to criminally investigate or prosecute any alcohol or drug abuse patient.[facility] HospitalIn the event this information is protected by the Federal Confidentiality of Alcohol and Drug Abuse Patient Records regulations: The Federal rules restrict any use of the information to criminally investigate or prosecute any alcohol or drug abuse patient.[facility] HospitalIn the event this information is protected by the Federal Confidentiality of Alcohol and Drug Abuse Patient Records regulations: The Federal rules restrict any use of the information to criminally investigate or prosecute any alcohol or drug abuse patient.[facility] HospitalIn the event this information is protected by the Federal Confidentiality of Alcohol and Drug Abuse Patient Records regulations: The Federal rules restrict any use of the information to criminally investigate or prosecute any alcohol or drug abuse patient.[facility] Care Teams (unrecognized sec tion and content) Waiter/Waitress Relationship Specialty Start Date End Date Marely Wood APRN.EDUCATIONAL RECRUITER [address] [place] [address] PCP - General Family Practice 06/10/21 Waiter/Waitress Relationship Specialty Start Date End Date Marely Wood, FREIGHT RATE SPECIALIST.EDUCATIONAL RECRUITER [address] [facility] [place] [address] PCP - General Family Practice 06/10/21 Waiter/Waitress Relationship Specialty Start Date End Date Marely Wood, FREIGHT RATE SPECIALIST.EDUCATIONAL RECRUITER [address] [place] [address] PCP - General Family Practice 06/10/21 Waiter/Waitress Relationship Specialty Start Date End Date Marely Wood, FREIGHT RATE SPECIALIST.EDUCATIONAL RECRUITER [address] [place] [address] PCP - General Family Practice 06/10/21 Waiter/Waitress Relationship Specialty Start Date End Date Marely Wood, FREIGHT RATE SPECIALIST.EDUCATIONAL RECRUITER [address] [place] [address] PCP - General Family Practice 06/10/21 Waiter/Waitress Relationship Specialty Start Date End Date Marely Wood, FREIGHT RATE SPECIALIST.EDUCATIONAL RECRUITER [address] [place] [address] PCP - General Family Practice 06/10/21 Waiter/Waitress Relationship Specialty Start Date End Date Marely Wood, FREIGHT RATE SPECIALIST.EDUCATIONAL RECRUITER [address] [place] [address] PCP - General Family Medicine 06/10/21 Waiter/Waitress Relationship Specialty Start Date End Date Marely Wood, FREIGHT RATE SPECIALIST.EDUCATIONAL RECRUITER [address] [place] [address] PCP - General Family Medicine 06/10/21 Waiter/Waitress Relationship Specialty Start Date End Date Marely Wood, FREIGHT RATE SPECIALIST.EDUCATIONAL RECRUITER [address] [place] [address] PCP - General Family Medicine 06/10/21 Waiter/Waitress Relationship Specialty Start Date End Date Marely Wood, FREIGHT RATE SPECIALIST.EDUCATIONAL RECRUITER [address] [place] [address] PCP - General Family Medicine 06/10/21 Waiter/Waitress Relationship Specialty Start Date End Date Marely Wood, FREIGHT RATE SPECIALIST.EDUCATIONAL RECRUITER [address] [place] [address] PCP - General Family Medicine 06/10/21 Waiter/Waitress Relationship Specialty Start Date End Date Marely Wood, FREIGHT RATE SPECIALIST.EDUCATIONAL RECRUITER [address] [place] [address] PCP - General Family Medicine 06/10/21 Waiter/Waitress Relationship Specialty Start Date End Date Marely Wood, FREIGHT RATE SPECIALIST.EDUCATIONAL RECRUITER [address] [place] [address] PCP - General Family Medicine 06/10/21 Waiter/Waitress Relationship Specialty Start Date End Date Marely Wood, FREIGHT RATE SPECIALIST.EDUCATIONAL RECRUITER [address] [place] [address] PCP - General Family Medicine 06/10/21 Waiter/Waitress Relationship Specialty Start Date End Date Marely Wood, FREIGHT RATE SPECIALIST.EDUCATIONAL RECRUITER [address] [place] [address] PCP - General Family Medicine 06/10/21 Waiter/Waitress Relationship Specialty Start Date End Date Marely Wood, FREIGHT RATE SPECIALIST.EDUCATIONAL RECRUITER [address] [place] [address] PCP - General Family Medicine 06/10/21 Waiter/Waitress Relationship Specialty Start Date End Date Marely Wood, FREIGHT RATE SPECIALIST.EDUCATIONAL RECRUITER [address] [place] [address] PCP - General Family Medicine 06/10/21 Waiter/Waitress Relationship Specialty Start Date End Date Marely Wood, FREIGHT RATE SPECIALIST.EDUCATIONAL RECRUITER [address] [place] [address] PCP - General Family Medicine 06/10/21 Waiter/Waitress Relationship Specialty Start Date End Date Marely Wood, FREIGHT RATE SPECIALIST.EDUCATIONAL RECRUITER [address] [place] [address] PCP - General Family Medicine 06/10/21 Team Status: Active Member Role Status Dates Dr. Jeffery Hollis III, MD Family Provider Active Marely Wood CARE MANAGEMENT ASSOCIATE, CARE MANAGEMENT ASSOCIATE-C Primary Care Provider Active Team Status: Inactive Member Role Status Dates Dr. Den Buchanan MD Attending Provider Active Marely Wood CARE MANAGEMENT ASSOCIATE, CARE MANAGEMENT ASSOCIATE-C Referring Provider Active Team Status: Active Member Role Status Dates Sabrina Coon Attending Provider Active Team Status: Active Member Role Status Dates Marely Wood CARE MANAGEMENT ASSOCIATE, CARE MANAGEMENT ASSOCIATE-C Primary Care Provider Active Dr. Den Buchanan MD Attending Provider, Referring Provider, Other Provider Active Team Status: Active Member Role Status Dates Marely Wood CARE MANAGEMENT ASSOCIATE, CARE MANAGEMENT ASSOCIATE-C Primary Care Provider Active Marcos French CARE MANAGEMENT ASSOCIATE, CARE MANAGEMENT ASSOCIATE-C Attending Provider Active Team Status: Inactive Member Role Status Dates Marely Wood CARE MANAGEMENT ASSOCIATE, CARE MANAGEMENT ASSOCIATE-C Primary Care Provider Active Dr. Den Buchanan MD Attending Provider, Referring Pro vider Active Team Status: Inactive Member Role Status Dates Marely Wood CARE MANAGEMENT ASSOCIATE, CARE MANAGEMENT ASSOCIATE-C Primary Care Provider Active Dr. Victor M Nicole MD Emergency Provider Active Waiter/Waitress Relationship Specialty Start Date End Date Marely Wood, FREIGHT RATE SPECIALIST.EDUCATIONAL RECRUITER [address] [place] [address] PCP - General Family Medicine 06/10/21 Waiter/Waitress Relationship Specialty Start Date End Date Marely Wood, FREIGHT RATE SPECIALIST.EDUCATIONAL RECRUITER [address] [place], [place] [address] PCP - General Family Medicine 06/10/21 Waiter/Waitress Relationship Specialty Start Date End Date Marely Wood, FREIGHT RATE SPECIALIST.EDUCATIONAL RECRUITER [address] [place] [address] PCP - General Family Medicine 06/10/21 Waiter/Waitress Relationship Specialty Start Date End Date Marely Wood, FREIGHT RATE SPECIALIST.EDUCATIONAL RECRUITER [address] [place] [address] PCP - General Family Medicine 06/10/21 Waiter/Waitress Relationship Specialty Start Date End Date Marely Wood, FREIGHT RATE SPECIALIST.EDUCATIONAL RECRUITER [address] [place] [address] PCP - General Family Medicine 06/10/21 Waiter/Waitress Relationship Specialty Start Date End Date Marely Wood, FREIGHT RATE SPECIALIST.EDUCATIONAL RECRUITER [address] [place] [address] PCP - General Family Medicine 06/10/21 Waiter/Waitress Relationship Specialty Start Date End Date Marely Wood, FREIGHT RATE SPECIALIST.EDUCATIONAL RECRUITER [address] [place] [address] PCP - General Family Medicine 06/10/21 Waiter/Waitress Relationship Specialty Start Date End Date Marely Wood, FREIGHT RATE SPECIALIST.EDUCATIONAL RECRUITER [address] [place] [address] PCP - General Family Medicine 06/10/21 Waiter/Waitress Relationship Specialty Start Date End Date Marely Wood, FREIGHT RATE SPECIALIST.EDUCATIONAL RECRUITER [address] [place] [address] PCP - General Family Medicine 06/10/21 Waiter/Waitress Relationship Specialty Start Date End Date Marely Wood, FREIGHT RATE SPECIALIST.EDUCATIONAL RECRUITER [address] [place] [address] PCP - General Family Medicine 06/10/21 Waiter/Waitress Relationship Specialty Start Date End Date Marely Wood, FREIGHT RATE SPECIALIST.EDUCATIONAL RECRUITER [address] [place] [address] PCP - General Family Medicine 06/10/21 Waiter/Waitress Relationship Specialty Start Date End Date Marely Wood, FREIGHT RATE SPECIALIST.EDUCATIONAL RECRUITER [address] [place] [address] PCP - General Family Medicine 06/10/21 Waiter/Waitress Relationship Specialty Start Date End Date Marely Wood, FREIGHT RATE SPECIALIST.EDUCATIONAL RECRUITER [address] [place] [address] PCP - General Family Medicine 06/10/21 Waiter/Waitress Relationship Specialty Start Date End Date Marely Wood, FREIGHT RATE SPECIALIST.EDUCATIONAL RECRUITER [address] [place] [address] PCP - General Family Medicine 06/10/21 Waiter/Waitress Relationship Specialty Start Date End Date Marely Wood, FREIGHT RATE SPECIALIST.EDUCATIONAL RECRUITER [address] [place] [address] PCP - General Family Medicine 06/10/21 Waiter/Waitress Relationship Specialty Start Date End Date Marely Wood, FREIGHT RATE SPECIALIST.EDUCATIONAL RECRUITER [address] [place] [address] PCP - General Family Medicine 06/10/21 Waiter/Waitress Relationship Specialty Start Date End Date Marely Wood, FREIGHT RATE SPECIALIST.EDUCATIONAL RECRUITER [address] [place] [address] PCP - General Family Medicine 06/10/21 Waiter/Waitress Relationship Specialty Start Date End Date Marely Wood, FREIGHT RATE SPECIALIST.EDUCATIONAL RECRUITER [address] [place] [address] PCP - General Family Medicine 06/10/21 Waiter/Waitress Relationship Specialty Start Date End Date Marely Wood APRN.EDUCATIONAL RECRUITER [address] [facility] [place] [address] PCP - General Family Medicine 06/10/21 Waiter/Waitress Relationship Specialty Start Date End Date Marely Wood APRN.EDUCATIONAL RECRUITER [address] [place] [address] PCP - General Family Medicine 06/10/21 Amara Altamirano FREIGHT RATE SPECIALIST.EDUCATIONAL RECRUITER [address] [place] [address] Professional Services Manager Family Medicine 07/07/24 Mariano Kang MD [address] [place] [address] Professional Services Manager Family Medicine 07/07/24 Waiter/Waitress Relationship Specialty Start Date End Date Marely Wood APRN.EDUCATIONAL RECRUITER [address] [place] [address] PCP - General Family Medicine 06/10/21 Amara Altamirano FREIGHT RATE SPECIALIST.EDUCATIONAL RECRUITER [address] [place] [address] Professional Services Manager Family Medicine 07/07/24 Mariano Kang MD [address] [place] [address] Professional Services Manager Family Medicine 07/07/24 Waiter/Waitress Relationship Specialty Start Date End Date Marely Wood, FREIGHT RATE SPECIALIST.EDUCATIONAL RECRUITER [address] [place] [address] PCP - General Family Medicine 06/10/21 Waiter/Waitress Relationship Specialty Start Date End Date Marely Wood APRN.EDUCATIONAL RECRUITER [address] [place], [place] [address] PCP - General Family Medicine 06/10/21 Waiter/Waitress Relationship Specialty Start Date End Date Marely Wood APRN.EDUCATIONAL RECRUITER [address] [place], [place] [address] PCP - General Family Medicine 06/10/21 Amara Altamirano APRN.EDUCATIONAL RECRUITER [address] [place], [place] [id number] Professional Services Manager Family [facility] 07/07/24 10/21/24 Mariano Kang MD [address] [place], [place] [address] Professional Services Manager [facility] 07/07/24 10/21/24 Goals (unrecognized section and content) Goals may be documented in a n alternate sectionGoals may be documented in an alternate sectionGoals may be documented in an alternate section Reason for Visit (unrecogniz ed section and content) Reason Comments Urinary Frequency frequency and urgenc y x 3 days Reason Comments Results Reason Comments Orders Reason Onset Date Comments Yearly Exam Immunizations 05/30/2022 Flu vaccination Reason Comments Insurance Authorization Reason Comments Follow Up Reason Comments Assessment Patient Education Specialty Diagnoses / Procedures Referred By Contac t Referred To Contact Nutrition Diagnoses Hyperlipidemia LDL goal <130 Procedures CONSULT TO NUTRITION THERAPY OFFICE/OUTPATIENT NEW HIGH MDM 60-74 MINUTES Marely Wood APRN.EDUCATIONAL RECRUITER [address] [place] [address] Referral ID Status Reason Start Date Expiration Date Visits Requested Visits Authorized [id number] Pending Review PCP Requested Referral 2 06/21/2023 1 1 Reason Comments UTI Burning and urgency or urination x this AM Reason Comments Orders Add on - Client Serv ices Reason Comments Recheck Follow up Urg Care Reason Comments Recheck Discuss results of E KG Reason Comments Patient Update Reason Comments Urinary Problem Reason Onset Date Comments bladder pressure, frequency and blood in urine 0 11/17/2022 Reason Comments Patient Question Reason Comments Results Reason Onset Date Comments Refill Request 12/12/2022 Reason Comments Abdominal Pain bloating x 2 weeks o ff and on Reason Comments ER F/U Reason Onset Date Comments Refill Request 04/13/2023 Reason Comments Sinus Problem Possible sinus infec tion, sinus pressure right side of face and head x 10 days Reason Comments Follow Up For EC visit 06/11/23; s ymptoms worsening with yellow drainage Reason Onset Date Comments Refill Request 07/04/2023 Reason Comments Recheck Medication review Reason Comments Recheck 1 month follow up Reason Comments Patient Question Abdominal Pain Reason Onset Date Comments Refill Request 12/26/2023 Reason Onset Date Comments Refill Request 02/12/2024 Reason Comments Vaginal Problem Reason Comments Acute Visit LLQ abd pain that st arted last week; feeling better today Reason Comments vaginal irritation Reason Comments Recheck 1 month follow up Reason Comments Radiology US Specialty Diagnoses / Procedures Referred By Micaela t Referred To Contact US IMAGING Diagnoses Hypothyroidism, unspecified type Procedures US THYROID/PARATHYROID US SOFT TISSUE HEAD & NECK REAL TIME IMGE JUNIORM Marely Wood, ANY.EDUCATIONAL RECRUITER [address] [place] [address] [place] [id number] Referral ID Status Reason Start Date Expiration Date V isits Requested Visits Authorized [id number] Closed Auto-Generate d Referral 04/22/2024 05/22/2025 1 1 Reason Onset Date Comments Population Health Navigation Outreach 07/18/2024 Machelle Martinez [place] Reason Comments Medicare Wellness Exam Reason Onset Date Comments Results 11/25/2024 Reason Comments Vaginal Problem Burning and irritati on x2-3 weeks INFORMATION SOURCE (unrecogn ized section and content) DATE CREATED AUTHOR 01/11/2024 [facility] DATE CREATED AUTHOR AUTHOR'S DEVANTEIZ ATION 12/03/2024 [facility] FOR RECORDS PERTAINING TO PATIENTS WHO ARE OR HAVE BEEN ENROLLED IN A CHEMICAL DEPENDENCY/SUBSTANCEABUSE PROGRAM, SOME INFORMATION MAY BE OMITTED. This clinical summary was aggregated from multiple sources. Caution should be exercised in using it in the provision of clinical care. This summary normalizes information from multiple sources, and as a consequence, information in this document may materially change the coding, format and clinical context of patient data. In addition, data may be omitted in some cases. CLINICAL DECISIONS SHOULD BE BASED ON THE PRIMARY CLINICAL RECORDS. [employer] [facility]. provides no warranty or guarantee of the accuracy or completeness of information in this document.
[2025-01-02] MEDS: Piperacil/Tazobactam 3.375 GM in 0.9% Normal Saline (50mL MB+) 50 ML IV (01:21)
[2025-01-02] MEDS: Acetaminophen 500 MG Tablet 1000 MG PO (01:21)
[2025-01-02] MEDS: 0.9% Normal Saline (1000mL) 1,000 ML 999 ML IV (01:21)
--- NOTE | 2025-01-02 01:52 | EDS_ITS ---
HPI History of Present Illness Chief Complaint: Abd Pain Informant: patient and spouse/S.O. Narrative Narrative: Patient is a 74-year-old female with past medical history of paroxysmal SVT hypothyroidism and hyperlipidemia. She also reports a remote history of di verticulitis. She states around she noticed that she had developed a little bit of constipation which is abnormal for her. She states she then noticed some pain in the left lower abdomen. She states this was similar in presentation to her previous bouts of diverticulitis. She states she did a clear liquid diet for a few days and seemed to have symptom improvement. However today symptoms worsened and with concern for potential perforation or abscess she presents for evaluation [facility] Medical History (Updated 01/03/25 @ 02:[address] Junior Rivera, DO) Diverticulitis Paroxysmal supraventricular tachycardia Abnormal Holter monitor finding NSVT (nonsustained ventricular tachycardia) Wears contact lenses Wears glasses Post-menopausal Thyroid disease Alcohol use High cholesterol Dietary restriction Non-smoker Screening for intestinal cancer Hypothyroidism Anxiety Hyperlipidemia Home Medications ?Medication ?Instructions ?Recorded ?Last Taken ?Type levothyroxine 75 mcg tablet 75 mcg PO SUMOTUWETHFR 07/21 Unknown History cholecalciferol (vitamin D3) 25 25 mcg PO DAILY Unknown History mcg (1,000 unit) capsule (Vitamin D3) oxazepam 10 mg capsule 10 mg PO DAILY PRN anxiety 0 01/01/25 Unknown History amoxicillin 875 mg-potassium 1 tab PO BID 7 days #14 t abs 01/02/25 Unknown Rx clavulanate 125 mg tablet Allergy/AdvReac Type Severity Reaction Status Date / Time No Known Allergies Allergy Verified 01/01/25 23:23 Family History Father Cancer lung Hypertension Diabetes Mother Cancer lung Hypertension CVA (cerebral vascular accident) Surgical History History of tonsillectomy History of appendectomy History of left oophorectomy History of colonoscopy Social History Smoking Status: Never smoker alcohol intake: current alcohol intake frequency: a few times a month Alcohol type: wine substance use type: does not use caffeine: Yes Type: carbonated beverages Number of servings: 2 and coffee Number of servings: 1 ROS ROS ED Constitutional Constitutional ED: Denies chills or fever(s) Eyes Eyes: Denies change in vision ENT ENT ED: Denies sore throat Cardiovascular Cardiovascular: Denies chest pain Respiratory/Chest Respiratory/Chest: Denies cough or dyspnea Gastrointestinal Gastrointestinal: Reports abdominal pain and constipation; Denies diarrhea, nausea or vomiting Genitourinary Genitourinary ED: Denies dysuria or hematuria Musculoskeletal Musculoskeletal: Denies back pain or myalgias Integumentary Denies rash Neurologic Neurologic: Denies headache(s) Hematologic/Lymphatic Hematologic/Lymphatic: Denies easy bleeding or easy bruising EXAM Physical Exam Const Vital Signs: 01/02/25 02:16 Temperature 98.0 F Pulse Rate 52 L Respiratory Rate 16 Blood Pressure 112/47 L Blood Pressure Mean 68 Pulse Ox 99 Positive well nourished and well developed General Appearance ED: well developed; Negative for pallor HEENT Reports moist mucous membranes HEENT Narrative: Normocephalic atraumatic No tongue or lip swelling no oral lesions no airway edema or compromise No secondary findings in the posterior pharynx to suggest infection Eyes PERRL and EOMs intact bilaterally General Eye ED: Negative for scleral icterus Neck supple Neck Narrative: No nuchal rigidity or meningeal signs Resp normal respiratory effort and clear to auscultation bilaterally Cardio regular rhythm Rate: bradycardia GI non-distended and no masses GI Narrative: Abdomen is soft and nondistended with hypoactive bowel sounds. There is mild pain with palpation in the left lower quadrant without voluntary guarding or rigidity. No pulsatile mass or fluid wave. No peritoneal signs. Auscultation: hypoactive bowel sounds Palpation: soft Back/Spine no CVA tenderness Extremity normal to inspection Neuro oriented x3, CN's II-XII intact bilaterally and no sensory deficits noted Sensorium / Orientation: alert Motor Exam: strength 5/5 throughout Psych mental status grossly normal Skin no rashes or lesions noted General Skin Exam: Negative for jaundice or pallor MDM MDM MDM Narrative Medical decision making narrative: Patient presented to the ER bradycardic but states this is chronic for her and otherwise with stable vital. With report of constipation increasing left lower quadrant pain there is concern for diverticulitis with potential perforation or abscess. Patient could also of atypical presentation for UTI or kidney stone. Secondary to his basic labs were obtained as well as a CT scan with IV contrast. Labs revealed leukocytosis with mild left shift consistent with inflammation or infection but otherwise no signs of acute kidney injury or clinically significant electrolyte abnormality. Lipase was normal as well going against pancreatitis. CT scan with IV contrast confirmed uncomplicated diverticulitis. This correlates with the patient's previous history and physical exam. As she is not showing signs of sepsis or having complicated diverticulitis with abscess or perforation there is no need for admission and she is otherwise safe for discharge with antibiotic. History & Record Review Discussion w/independent historian: Patient and Significant other Lab Data Attestation: I reviewed the patient's lab results. Labs: Laboratory Results - last 24 hr 01/01/25 23:37 WBC 12.3 H RBC 4.68 Hgb 13.7 Hct 41.2 MCV 88.0 MCH 29.3 MCHC 33.3 RDW Std Deviation 41.1 RDW Coeff of Snow 12.7 Plt Count 219 MPV 11.2 Immature Gran % (Auto) 0.700 Neut % (Auto) 76.4 H Lymph % (Auto) 16.3 L Garden % (Auto) 5.5 Eos % (Auto) 0.6 Baso % (Auto) 0.5 Absolute Neuts (auto) 9.4 H Absolute Lymphs (auto) 2.00 Nucleated RBC % 0 Sodium 140 Potassium 3.7 Chloride 103 Carbon Dioxide 24.7 Anion Gap 12 BUN 9 Creatinine 0.78 Estim Creat Clear Calc 54.18 Est GFR (MDRD) Non-Af 80 BUN/Creatinine Ratio 11.8 Glucose 109 H Calcium 9.4 Total Bilirubin 0.76 AST 23 ALT 12 Alkaline Phosphatase 68 Total Protein 7.5 Albumin 4.3 Globulin 3.2 Albumin/Globulin Ratio 1.4 Lipase 19 Radiography Diagnostic Testing: Clinical Impression(s) from Imaging Studies Abdomen/Pelvis CT 01/02/25 00:47 IMPRESSION: Findings suggestive of mild acute uncomplicated diverticulitis of the sigmoid colon. Reading Location: [id number] Discharge Plan Triage Chief Complaint: Abd Pain ED Provider: Junior Rivera Dx/Rx/DC Orders Clinical Impression: Diverticulitis, Paroxysmal supraventricular tachycardia, Hypothyroidism Instructions: Diverticulitis Dc Prescriptions: New amoxicillin-pot clavulanate 875-125 mg tablet 1 tab PO BID 7 Days Qty: 14 0RF No Action levothyroxine 75 mcg tablet 75 mcg PO SUMOTUWETHFR Patient Comments: TAKE ON EMPTY STOMACH. FOR THYROID. TAKE ONE TABLET 6 DAYS/WEEK. cholecalciferol (vitamin D3) [Vitamin D3] 25 mcg (1,000 unit) Capsule 25 mcg PO DAILY oxazepam 10 mg capsule 10 mg PO DAILY PRN (Reason: anxiety) Primary Care Provider: Marely Wood NP Referrals: Marely Wood NP, [facility] [Primary Care Provider] - Activity Restrictions/Additional Instructions: Your CT scan confirmed uncomplicated diverticulitis. Take the Augmentin/antibiotic as directed and this should help resolve your symptoms after approximately 2 days. If you develop a fever increasing pain or have any further concerns please return to the hospital for repeat evaluation Print Language: Nigerien Disposition Disposition: Home, Self Care Discharge Date/Time: 01/02/25 02:48
[2025-01-02 02:16] VITALS: BP 112/47; PULSE 52; RESP 16; TEMP 36.7; O2SAT 99
== END 2025-01-02 02:48 | disposition home or self-care (01) ==
PROVIDERS: Emergency Provider Emergency Medicine; PCP Registered Nurse; Visit Provider Emergency Medicine
DX: I47.10 Supraventricular tachycardia, unspecified (principal); K57.92 Diverticulitis of intestine, part unspecified, without perforation or abscess without bleeding; E03.9 Hypothyroidism, unspecified; Z79.899 Other long term (current) drug therapy
CPT/HCPCS: 74177; 80053; 83690; 85025; 96365; 99283; Q9967; A4216